=== PATIENT | female | born 1935 | race African-American/Black ===

== ENCOUNTER 2019-01-12 14:39 | Observation (INO) | payer MEDICARE ==
[2019-01-12 15:08] LABS: #Basophils 0.1 thou/uL (0.0-0.2); #Eosinphils 0.1 thou/uL (0.0-0.7); #Lymphocytes 1.4 thou/uL (1.20-3.40); #Monocytes 0.4 thou/uL (0.11-0.59); #Neutrophils 3.9 thou/uL (1.40-6.50); %Eosinophils 1.9 % (0.0-10.0); %Lymphocytes 23.6 % (21.0-51.0); %Monocytes 7.5 % (0.0-10.0); Hemoglobin 8.8 g/dL (12.0-16.0); Mean Corpuscular HGB CONC 32.4 g/dL (32.0-36.0); Mean Corpuscular Hemoglobin 30.4 pg (27.0-31.0); Mean Corpuscular Volume 93.8 fL (78.0-98.0); Mean Platelet Volume 8.3 fL (7.4-10.4); Platelet Count 187 thou/uL (130-400); RBC Distribution Width 12.2 % (11.5-14.5); Red Blood Cell (RBC) Count 2.89 mill/uL (4.20-5.40); White Blood Cell (WBC) Count 5.9 thou/uL (4.8-10.8)
[2019-01-12 15:30] LABS: ALT (SGPT) 76 U/L (8-55); AST (SGOT) 62 U/L (5-34); Albumin 3.8 g/dL (3.4-4.8); Alkaline Phosphatase 98 U/L (40-110); Anion Gap 10 mmol/L (10-20); BUN (Urea Nitrogen) 20 mg/dL (9.8-20.1); Bilirubin, Total 0.6 mg/dL (0.2-1.2); CK (CPK) 101 U/L (29-168); Calc. Creatinine Clearance 0 mL/min (70-130); Calcium 8.8 mg/dL (7.8-10.44); Carbon Dioxide 23 mmol/L (23-31); Chloride 110 mmol/L (98-107); Estimated GFR-MDRD 35; Globulin 3.2 g/dL (2.4-3.5); Glucose 76 mg/dL (83-110); Lipase 35 U/L (8-78); Potassium 4.4 mmol/L (3.5-5.1); Sodium 139 mmol/L (136-145)
--- NOTE | 2019-01-12 15:31 | RAD ---
AP CHEST: HISTORY: Chest pain. FINDINGS: Borderline cardiomegaly with postop sternotomy change. Vascular markings upper normal. Calcified gr anuloma in the right lower lung. No infiltrate or edema. IMPRESSION: Mild cardiomegaly. No acute lung process. POS: [facility]
[2019-01-12 16:38] LABS: INR-International Normal Ratio 1.2; PTT 45.7 SEC (22.9-36.1); Prothrombin Time 15.4 SEC (12.0-14.7)
[2019-01-12] MEDS ORDERED: Lidocaine 2% Viscous Solution 10 ML, Aluminum & Magnesium Hydroxide 30 ML SSW PRN (18:05)
[2019-01-12] MEDS ORDERED: Lidocaine 2% Viscous Solution 10 ML, Aluminum & Magnesium Hydroxide 30 ML SSW SCH (18:15)
[2019-01-12 18:25] VITALS: BMI 29.1
--- NOTE | 2019-01-12 18:41 | HP ---
PRIMARY CARE PROVIDER: Dr. Julieth Victoria in [place], [place], phone number [phone]. The patient is currently trying to establish care with Dr. Ady Cutler in [facility]. CHIEF COMPLAINT: Palpitations. HISTORY OF PRESENT ILLNESS: Ms. Brennan is a pleasant 83-year-old lady who was seen at [facility] on January 12, 2019. She moved to this area a few weeks ago from [place], [place]. She reports that she had nonmechanical aortic valve replacement and coronary artery bypass graft in 2013. She also reports having two stents. She was reportedly hospitalized this May for what she reports as infection. It appears that she had a bad episode of gastroesophageal reflux disease and was vomiting and was subsequently diagnosed with infection. During that hospitalization, she was told that she had atrial fibrillation. She has been on warfarin. She has not had her INR checked in a few weeks. She attempted to set up primary care in this area, but there was reportedly delay in obtaining records from her primary care provider in [place]. About four nights ago, she noticed that her heart started racing. She woke up around 2:00 a.m. and checked her heart rate with a pulse oximeter. The heart rate was in the 160s. She reports that during her hospitalization in May, she had to be electrically cardioverted. She has not required electrical cardioversion since then. She reports that over the last four days, she has also had retrosternal burning and dull sensation, on and off, 8/10 at its worst, accompanied by palpitations. She reports that at times it felt like acid reflux and at times it felt like pressure. She presented to the emergency room because of ongoing chest discomfort and palpitations. The patient reports that she has been wobbly since the onset of palpitations at times. REVIEW OF SYSTEMS: All systems were reviewed and found to be negative except for the pertinent positives mentioned above. PAST MEDICAL HISTORY: Atrial fibrillation, hiatal hernia, gastroesophageal reflux disease, dyslipidemia, hypertension. PAST SURGICAL HISTORY: Aortic valve replacement, coronary artery bypass graft surgery two vessel, cholecystectomy, hernia repair, hysterectomy, and spinal surgery. PSYCHIATRIC HISTORY: Anxiety. SOCIAL HISTORY: Rare alcohol use. No current tobacco use or recreational drug use. FAMILY HISTORY: Heart disease in both parents. CODE STATUS: She is full code. ALLERGIES: SHE IS ALLERGIC TO LOVASTATIN AND SIMVASTATIN. CURRENT MEDICATIONS: 1. Aspirin 81 mg daily. 2. Gabapentin 300 mg 3 times a day. 3. Toprol-XL 100 mg daily. 4. Nitroglycerin 0.4 mg as needed. 5. Omeprazole 20 mg daily. 6. Pravastatin 20 mg at bedtime. 7. Warfarin 5 mg daily. 8. Ferrous sulfate 325 mg daily. PHYSICAL EXAMINATION: GENERAL: Ms. Brennan is awake and alert, not in acute distress. VITAL SIGNS: Blood pressure is 189/89, pulse 57, respiratory rate 20, and oxygen saturation 99% on room air. She is afebrile. EYES: No scleral icterus. No conjunctival pallor. ENT: Moist mucosal membranes. No oropharyngeal erythema or exudates. NECK: Supple, nontender, trachea midline. RESPIRATORY: Accessory muscles of breathing are not active. Chest wall movements are symmetric bilaterally. She has a few bibasilar crackles. CARDIOVASCULAR: S1 and S2 are heard, regular. Peripheral pulses palpable. ABDOMEN: Soft, nontender, bowel sounds heard. NEUROLOGIC: Cranial nerves 2 through 12 are intact. MUSCULOSKELETAL: The patient is moving all 4 extremities. SKIN: No rashes or subcutaneous nodules. LYMPHATIC: No cervical lymphadenopathy. PSYCHIATRIC: Normal mood, normal affect. The patient is oriented to person, place, and time. LABORATORY DATA: Ms. Brennan's labs and investigations were reviewed. I reviewed her electrocardiogram, which shows normal sinus rhythm, no ST changes to suggest an acute coronary syndrome. I also reviewed her chest x-ray, which does not show any pulmonary infiltrates. She has normal white count, normocytic anemia with hemoglobin 8.8, normal platelet count, INR 1.2, normal sodium, normal potassium, normal blood urea nitrogen, elevated creatinine of 1.42, normal total bilirubin, normal alkaline phosphatase, elevated AST of 62, elevated ALT of 76, elevated BNP of 188, and normal troponin I. Lipase is normal. ASSESSMENT AND PLAN: Ms. Brennan is a pleasant 83-year-old lady who was seen at [facility] on January 12, 2019. Her problem list includes: 1. Palpitations: Ms. Brennan is presenting with palpitations, most likely secondary to atrial fibrillation. She actually is mildly bradycardic, on a ekg monitor tech in the emergency room. The patient reports feeling wobbly at times. It is possible that she has sick sinus syndrome. She will be admitted to the hospital for further management including ekg monitor tech. We will consult Cardiology Service for opinion and help with management. We will obtain records from her primary care provider in [place]. 2. Chest pain: The patient reports burning retrosternal discomfort, atypical for cardiac chest pain. Her troponin is normal. We will recheck troponin. We will monitor on telemetry. We will also try GI cocktail to see if it helps, since she does have a history of gastroesophageal reflux disease. 3. Atrial fibrillation: The patient has a history of atrial fibrillation, currently in sinus rhythm. INR is subtherapeutic. We will request Pharmacy to manage her Coumadin. 4. Abnormal LFTs: Isolated transaminitis, but CK is normal. We will recheck LFTs. Given her elevated BNP level, could be some element of hepatic congestion. 5. Peripheral neuropathy: The patient reports peripheral neuropathy, we will continue gabapentin once the dose is clarified. 6. Chronic kidney disease stage 3: The patient reports that she has a history of chronic kidney disease. We will monitor creatinine. Many thanks for allowing me to participate in your patient's care. Please feel free to contact me with any questions or concerns. LEVEL OF RISK: High. LEVEL OF COMPLEXITY: High. Job ID: [id number]
[2019-01-12 20:58] LABS: Troponin I Less than 0.010 ng/mL (< 0.028)
[2019-01-12] MEDS ORDERED: Gabapentin 100 MG CAP PO SCH (22:00)
[2019-01-13] MEDS: Acetaminophen 325 MG TAB PO PRN ×2 (00:23→10:41)
[2019-01-13] MEDS: Gabapentin 100 MG CAP PO SCH ×2 (08:52→15:45)
[2019-01-13] MEDS ORDERED: FLU VACC TS2019-20(65YR UP)/PF 180 MCG/0.5 ML SYRINGE IM ONE (09:00)
[2019-01-13 09:29] LABS: #Basophils 0.1 thou/uL (0.0-0.2); #Eosinphils 0.1 thou/uL (0.0-0.7); #Lymphocytes 1.3 thou/uL (1.20-3.40); #Monocytes 0.4 thou/uL (0.11-0.59); #Neutrophils 4.3 thou/uL (1.40-6.50); %Basophils 0.9 % (0.0-1.0); %Eosinophils 1.8 % (0.0-10.0); %Lymphocytes 20.5 % (21.0-51.0); %Monocytes 6.7 % (0.0-10.0); %Neutrophils 70.2 % (42.0-75.0); Hemoglobin 8.8 g/dL (12.0-16.0); Mean Corpuscular HGB CONC 32.1 g/dL (32.0-36.0); Mean Corpuscular Hemoglobin 30.5 pg (27.0-31.0); Mean Corpuscular Volume 94.9 fL (78.0-98.0); Mean Platelet Volume 8.9 fL (7.4-10.4); Platelet Count 163 thou/uL (130-400); RBC Distribution Width 12.2 % (11.5-14.5); Red Blood Cell (RBC) Count 2.88 mill/uL (4.20-5.40); White Blood Cell (WBC) Count 6.1 thou/uL (4.8-10.8)
[2019-01-13 09:34] LABS: INR-International Normal Ratio 1.2; Prothrombin Time 15.3 SEC (12.0-14.7)
[2019-01-13 09:44] LABS: Anion Gap 12 mmol/L (10-20); BUN (Urea Nitrogen) 14 mg/dL (9.8-20.1); Calc. Creatinine Clearance 38 mL/min (70-130); Calcium 8.9 mg/dL (7.8-10.44); Carbon Dioxide 21 mmol/L (23-31); Chloride 112 mmol/L (98-107); Estimated GFR-MDRD 43; Glucose 77 mg/dL (83-110); Potassium 4.8 mmol/L (3.5-5.1); Sodium 140 mmol/L (136-145)
[2019-01-13] MEDS ORDERED: guaiFENesin ER 600 MG TAB PO PRN (13:21)
[2019-01-13 16:30] VITALS: BP 168/74; TEMP 99.7
--- NOTE | 2019-01-13 16:48 | CON ---
DATE OF CONSULTATION: REASON FOR CONSULTATION: Atypical chest pain. PRIMARY RIPENING ROOM ATTENDANT: None. HISTORY OF PRESENT ILLNESS: Ms. Brennan is a pleasant 83-year-old woman, who has not been seen in a while in this area. She recently presented with not feeling well. She has had subjective fevers and chills. She was diagnosed with pneumonia secondary to aspiration in May. She also complains of chest pain. The pain is sharp, some reproducibility present. It lasts for a few minutes. Not related to exertion. She does have a previous history of underlying coronary artery disease, status post bypass surgery in 2013. Her symptoms are unlike her previous symptoms. PAST MEDICAL HISTORY: Atrial fibrillation, CAD, status post bypass surgery, hyperlipidemia, hypertension, acid reflux, AVR, cholecystectomy, hernia repair, hysterectomy, spinal surgery. SOCIAL HISTORY: No current tobacco or alcohol use. HOME MEDICATIONS: Include, 1. Aspirin. 2. Gabapentin. 3. Toprol. 4. Nitroglycerin. 5. Omeprazole. 6. Pravastatin. 7. Coumadin. 8. Iron sulfate. REVIEW OF SYSTEMS: Ten-point review of systems is reviewed and is as above, otherwise negative. PHYSICAL EXAMINATION: GENERAL: Patient is a pleasant female, who is in no acute distress. The patient appears their stated age. VITAL SIGNS: Blood pressure 191/77, pulse 60, temperature afebrile. NEUROLOGIC: The patient is alert and oriented x3 with no focal neurologic deficits. HEENT: Sclerae without icterus. Mouth has moist mucous membranes with normal pallor. NECK: No JVD. Carotid upstroke brisk. No bruits bilaterally. LUNGS: Clear to auscultation with unlabored respirations. BACK: No scoliosis or kyphosis. CARDIAC: Regular rate and rhythm with normal S1 and S2. No S3 or S4 noted. No significant rubs, murmurs, thrills, or gallops noted throughout the precordium. PMI is not displaced. There is no parasternal heave. CHEST: Pain reproducible after mild palpation to the right sternal border. ABDOMEN: Soft, nontender, nondistended. No peritoneal signs present. No hepatosplenomegaly. No abnormal striae. EXTREMITIES: 2+ femoral and 2+ dorsalis pedis pulses. No cyanosis, clubbing, or edema. SKIN: No gross abnormalities. LABORATORY DATA: Hemoglobin 8.8. Creatinine 1.4. IMPRESSION: 1. Atypical chest pain. 2. Coronary artery disease. 3. Status post bypass surgery. 4. Anemia. 5. Chronic kidney disease. 6. Mildly elevated BNP. 7. Status post bypass surgery. 8. Status post aortic valve replacement. RECOMMENDATIONS: Ms. Brennan's symptoms do not appear to be cardiac related. Her troponin has been negative. Her EKG is within normal limits without ST and T-wave changes. I would treat her blood pressure aggressively. She is currently on low-dose aspirin. May consider adding Norvasc in addition to hydralazine. May also consider switching metoprolol to Coreg. Continue pravastatin. Otherwise, from my standpoint, I have no further recommendations. Other noncardiac conditions per hospitalist. Please re-consult if needed. We will be happy to follow with Ms. Brennan as an outpatient. Job ID: [id number]
[2019-01-13] MEDS ORDERED: Warfarin Sodium 5 MG TAB PO SCH ×2 (17:00)
--- NOTE | 2019-01-14 02:15 | DIS ---
DATE OF ADMISSION: 01/12/2019 DATE OF DISCHARGE: 01/13/2019 PRIMARY CARE PROVIDER: Dr. Ady Cutler. DISCHARGE DIAGNOSES: 1. Palpitations. 2. Chronic kidney disease. 3. Normocytic anemia. CONDITION OF PATIENT ON THE DAY OF DISCHARGE: Stable. I assessed Ms. Brennan on the day of discharge. She denies any chest pain or shortness of breath. Vital signs are stable. S1 and S2 are heard, regular. Lungs are clear to auscultation bilaterally. HOSPITAL COURSE: Ms. Brennan is a pleasant 83-year-old lady who was admitted to [facility] for palpitations on 01/12/2019. She also reported burning chest discomfort, which resolved with GI cocktail. The patient was in normal sinus rhythm during this hospitalization. She was seen by Cardiology Service and has been cleared for discharge. She has been advised to follow up with primary care provider for warfarin management. Her INR was subtherapeutic during this hospitalization. On the day of discharge, she has sodium 140, potassium 4.8, creatinine 1.40, white count 6100, hemoglobin 8.8, and platelet count 163,000. Many thanks for allowing me to participate in your patient's care. Please feel free to contact me with any questions or concerns. DISCHARGE DESTINATION: Home. Job ID: [id number]
[2019-01-14] MEDS ORDERED: Pravastatin Sodium 20 MG TAB PO SCH (09:00)
[2019-01-14] MEDS ORDERED: Ferrous Sulfate 325 MG TAB PO SCH (09:00)
[2019-01-14] MEDS ORDERED: Cyanocobalamin (Vitamin B-12) 1,000 MCG TAB PO SCH (09:00)
[2019-01-14] MEDS ORDERED: Aspirin 81 mg Enteric Coated Tablet PO SCH (09:00)
== END 2019-01-13 17:59 | disposition home or self-care (01) ==
LOC: ERS 14:39 → 2SW 18:08
PROVIDERS: ADMIT Internal Medicine; ATTEND Internal Medicine
DX: R00.2 Palpitations (principal); R07.89 Other chest pain; I48.91 Unspecified atrial fibrillation; K21.9 Gastro-esophageal reflux disease without esophagitis; E78.5 Hyperlipidemia, unspecified; F41.9 Anxiety disorder, unspecified; G62.9 Polyneuropathy, unspecified; I12.9 Hypertensive chronic kidney disease with stage 1 through stage 4 chronic kidney disease, or unspecified chronic kidney disease; N18.3 Chronic kidney disease, stage 3 (moderate); D63.1 Anemia in chronic kidney disease; R79.89 Other specified abnormal findings of blood chemistry; I25.10 Atherosclerotic heart disease of native coronary artery without angina pectoris; Z87.891 Personal history of nicotine dependence; Z79.01 Long term (current) use of anticoagulants; Z79.82 Long term (current) use of aspirin; Z79.899 Other long term (current) drug therapy; Z88.8 Allergy status to other drugs, medicaments and biological substances; Z95.1 Presence of aortocoronary bypass graft; Z95.4 Presence of other heart-valve replacement; Z95.5 Presence of coronary angioplasty implant and graft
CPT/HCPCS: 71045; 80048; 80053; 82550; 83690; 83880; 84484 ×2; 85025 ×2; 85610 ×2; 85730; 90662; 93005; 94760 ×2; 99285; G0008; G0378 ×2; 36415; 90471

== ENCOUNTER 2019-02-16 08:20 | Outpatient (CLI) | payer MEDICARE ==
--- NOTE | 2019-02-16 09:56 | ULT ---
RENAL ULTRASOUND: HISTORY: Chronic renal disease and anemia. FINDINGS: Real-time imaging of the right and left kidneys was performed. The right kidney measured 11.1 cm and the left kidney 10.4 cm in size. There is a 4.4 cm upper pole right renal cyst present. The bladde r was incompletely distended at the time of this exam. IMPRESSION: A 4.4 cm upper pole right renal cyst. No obstruction or other findings. POS: [facility]
== END 2019-02-16 08:21 | disposition home or self-care (01) ==
LOC: BICULT 08:20
PROVIDERS: ATTEND Internal Medicine Nephrology
DX: N18.3 Chronic kidney disease, stage 3 (moderate) (principal); N28.1 Cyst of kidney, acquired
CPT/HCPCS: 76770

== ENCOUNTER 2019-02-23 16:37 | Observation (INO) | payer MEDICARE ==
[2019-02-23 19:34] VITALS: BMI 28.3
--- NOTE | 2019-02-23 19:55 | PDOC.FPRHP ---
- History of Present Illness Chief Complaint: generalized weakness, dizziness, intermittent imbalance History of Present Illness: Patient is an 83F with PMHx of afib on warfarin, CKD3, GERD, normocytic anemia, CAD s/p CABG, HTN, chronic diarrhea that was sent as a direct admit for anticoagulation management as well as stroke rule out. Patient reports that for the last few months, since , she has had generalized weakness, fatigue, intermittent dizziness and imbalance with both sitting and standing. She reports that her passed in September and since this time she has also had weight loss, with nausea that occurs with eating. She also has had trouble with anticoagulation on coumadin that she takes for her atrial fibrillation. Last INR in clinic 2 weeks ago was 1.3. Patient reports she takes her coumadin every day and avoids eating green leafy vegetables. Patient also reports chronic diarrhea. She states that this started one month ago, is watery in consistency, and occurs both during the day and at night. She states that she will have episodes of encopresis at night that wakes her from sleep. She denies urinary incontinence. Laboratory workup for this outpatient has demonstrated no clear etiology, though patient had a positive FOBT. She is followed by Dr. Iglesias and has an appointment with him later this month. Patient has known normocytic anemia. She has been referred to hematology for this, though has not seen anyone yet. PCP: Araceli ED Course: Direct admit from [facility] - Allergies/Adverse Reactions Allergies Allergy/AdvReac Type Severity Reaction Status Date / Time lovastatin Allergy Verified 01/12/19 18:05 simvastatin Allergy Verified 01/12/19 18:05 - Home Medications Medication Instructions Recorded Confirmed Type Aspirin [Ecotrin Low Strength] 81 mg PO DAILY 01/12/19 02/23/19 History Cholecalciferol [Vitamin D3] 1,000 unit PO DAILY 01/12/19 02/23/19 History Cyanocobalamin (Vitamin B-12) 1,000 mcg PO DAILY 01/12/19 02/23/19 History [Vitamin B-12] Ferrous Sulfate [Feosol] 325 mg PO DAILY 01/12/19 02/23/19 History Gabapentin [Neurontin] 100 mg PO TID 01/12/19 02/23/19 History Metoprolol Succinate [Toprol Xl] 100 mg PO DAILY 01/12/19 02/23/19 History Nitroglycerin 1 tab SL PRN PRN 01/12/19 02/23/19 History Pravastatin Sodium [Pravachol] 20 mg PO DAILY 01/12/19 02/23/19 History guaiFENesin [Mucus ER] 1,200 mg PO BID PRN 01/12/19 02/23/19 History Famotidine 10 mg PO DAILY 02/23/19 02/23/19 History Apixaban [Eliquis] 2.5 mg PO BID #60 tab 02/24/19 Rx Loperamide HCl [Imodium] 2 mg PO ASDIR PRN cap 02/24/19 Rx - History PMHx: afib on warfarin, CKD3, GERD, normocytic anemia, CAD s/p CABG, HTN, chronic diarrhea PSHx: 2-vessel CABG 2013, aortic valve replacement, hysterectomy, hiatal hernia repair, cholecystectomy FHx: negative stroke history Social: nonsmoker, no etoh use, no drug use - Review of Systems General: reports: weight/appetite/sleep changes (weight loss), fatigue Eyes: denies: eye pain, vision changes ENT: denies: nasal congestion, rhinorrhea Respiratory: denies: cough, shortness of breath Cardiovascular: denies: chest pain, palpitation Gastrointestinal: reports: nausea, diarrhea (watery). denies: abdominal pain Genitourinary: denies: incontinence, dysuria Skin: denies: rashes, lesions Musculoskeletal: reports: tenderness (lower legs at ankles ttp). denies: swelling Neurological: reports: weakness. denies: numbness, syncope Psychological: denies: anxiety, depression - Vital signs BP: [173/76] HR: [66] RR: [16] Tmax: [98.1] Pox: [98]% on [RA] Wt: [77.11kg] - Physical Exam Constitutional: NAD, awake, alert and oriented HEENT: PERRLA, EOMI, grossly normal hearing, MMM, good dention Neck: supple, FROM Chest: no-tender to palpation, no lesions Heart: RRR, normal S1/S2 Lungs: CTAB, no respiratory distress, good air movement Abdomen: soft, non-tender Musculoskeletal: normal structure, normal tone Neurological: no focal deficit, CN II-XII intact, normal sensation -Neurological: knees-abrams test negative Skin: no rash/lesions, good turgor Heme/Lymphatic: no unusual bruising or bleeding, no petechia Psychiatric: normal mood and affect, good judgment and insight FMR H&P: Results - Labs Result Diagrams: 02/24/19 17:38 02/24/19 05:00 FMR H&P: A/P - Problem List (1) HTN (hypertension) Status: Chronic Code(s): I10 - ESSENTIAL (PRIMARY) HYPERTENSION (2) GERD (gastroesophageal reflux disease) Status: Chronic Code(s): K21.9 - GASTRO-ESOPHAGEAL REFLUX DISEASE WITHOUT ESOPHAGITIS (3) Normocytic anemia Status: Chronic Code(s): D64.9 - ANEMIA, UNSPECIFIED (4) Atrial fibrillation Status: Chronic Code(s): I48.91 - UNSPECIFIED ATRIAL FIBRILLATION (5) CAD (coronary artery disease) Status: Chronic Code(s): I25.10 - ATHSCL HEART DISEASE OF [place] CORONARY ARTERY W/O ANG PCTRS (6) Chronic diarrhea Status: Chronic Code(s): K52.9 - NONINFECTIVE GASTROENTERITIS AND COLITIS, UNSPECIFIED (7) Generalized weakness Status: Acute Code(s): R53.1 - WEAKNESS - Plan Patient is an 83F with a PMHx of afib on warfarin, CKD3, GERD, normocytic anemia , CAD s/p CABG, HTN, chronic diarrhea admitted for stroke r/o #Generalized weakness, stroke r/o -generalized weakness, intermittent dizziness/instability for ~2mo -hx of afib, on coumadin, last check subtherapeutic INR at 1.3 -neuro exam intact today -MRI brain in am #Hx of Afib -on coumadin outpatient, last INR 1.3, subtherapeutic -will recheck INR today -CHADSVASC score 5 -HASBLED score 5 -recent FOBT positive -patient has high fall risk -will hold patient's coumadin for now, with likely discontinuation of anticoagulation due to high risk of bleeding #HENRY -creatinine 2.04, up from 1.04 -LR IVF hydration -will continue to monitor #HTN -continue home meds -BP high on initial evaluation, may need to adjust home medication regimen #Normocytic anemia -recent FOBT positive -patient has appointment with GI outpatient this month for scope #CKD3 -avoid renalyl toxic medications #GERD -continue home meds #Chronic diarrhea -outpatient stool studies negative -patient has appointment with GI outpatient this month for scope -patient reports loperamide helps, continue Diet: HH DVT ppx: SCDs Dispo: obs for stroke r/o, MRI brain in am Code: full FMR H&P: Upper Level - Pertinent history 83 yo female seen for evaluation after being sent from clinic for generalized weakness and rule out of CVA. Patient reports chronic diarrhea along with generalized weakness with some lightheaded episodes since Thanks. Please see rn intern note above for further information. - Plan Date/Time: 02/23/191954 I, Juan Alberto Mhuammad MD, have evaluated this patient and agree with findings/ plan as outlined by rn intern resident. Pertinent changes/additions are listed here. 1. Weakness, CVA rule out - MRI ordered for AM - Recent ECHO completed by Cardiology in last week. Will call for results in AM 2. A-fib - Check INR - Consider discontinuation of anticoagulation due to age and risk factors 3. HENRY - Likely due to dehydration from diarrhea - IVF - Baseline near 1.4, and 2.04 on admission 4. Diarrhea - Will get C. diff testing to rule out infectious cause. - IVF and supportive care All other chronic conditions reviewed and medications will be restarted as appropriate PCP: RIKI Llody CODE STATUS: FULL CODE Disposition: Stable, will admit to Telemetry for further monitoring. Addendum - Attending - Attending Attestation Date/Time: 02/25/19230 I personally evaluated the patient and discussed the management with Dr. Blanco I agree with the History, Examination, Assessment and Plan documented above with any addition or exceptions noted below - 83F with PMHx of afib on warfarin , CKD3, GERD, normocytic anemia, CAD s/p CABG, HTN, chronic diarrhea that was sent as a direct admit for anticoagulation management as well as stroke rule out. Patient reports that for the last few months, since , she has had generalized weakness, fatigue, intermittent dizziness and imbalance with both sitting and standing. She reports that her passed in September and since this time she has also had weight loss, with nausea that occurs with eating. PMH/PAH/Meds/SH reviewed and agree with resident's documentation. Afebrile VSS Exam repeated by me and agree with resident's findings. A/P: 1) Dizziness- MRI in AM to evaluate for possible posterior CVA 2) H/O A-fib- on warfarin but subtherapeutic. Will review with PCP need for anticoagulation versus using NOAC. .
[2019-02-23] MEDS ORDERED: Ondansetron ODT 4 MG TAB PO PRN (19:57)
[2019-02-23] MEDS ORDERED: Loperamide HCl 2 MG CAP PO PRN ×2 (19:57)
[2019-02-23] MEDS ORDERED: Acetaminophen 325 MG TAB PO PRN (19:57)
[2019-02-23 20:42] LABS: #Eosinphils 0.2 thou/uL (0.0-0.7); #Lymphocytes 2.3 thou/uL (1.20-3.40); #Monocytes 0.3 thou/uL (0.11-0.59); #Neutrophils 2.8 thou/uL (1.40-6.50); %Basophils 0.8 % (0.0-1.0); %Eosinophils 3.9 % (0.0-10.0); %Lymphocytes 40.4 % (21.0-51.0); %Monocytes 5.8 % (0.0-10.0); %Neutrophils 49.1 % (42.0-75.0); Hemoglobin 9.2 g/dL (12.0-16.0); Mean Corpuscular HGB CONC 32.3 g/dL (32.0-36.0); Mean Corpuscular Hemoglobin 30.2 pg (27.0-31.0); Mean Corpuscular Volume 93.4 fL (78.0-98.0); Mean Platelet Volume 7.3 fL (7.4-10.4); Platelet Count 235 thou/uL (130-400); Red Blood Cell (RBC) Count 3.06 mill/uL (4.20-5.40); White Blood Cell (WBC) Count 5.8 thou/uL (4.8-10.8)
[2019-02-23] MEDS ORDERED: Famotidine 20 MG TAB PO SCH (21:00)
[2019-02-23 21:22] LABS: ALT (SGPT) 21 U/L (8-55); AST (SGOT) 19 U/L (5-34); Albumin 3.9 g/dL (3.4-4.8); Alkaline Phosphatase 94 U/L (40-110); Anion Gap 13 mmol/L (10-20); BUN (Urea Nitrogen) 24 mg/dL (9.8-20.1); Bilirubin, Total 0.3 mg/dL (0.2-1.2); Calc. Creatinine Clearance 25 mL/min (70-130); Carbon Dioxide 26 mmol/L (23-31); Chloride 106 mmol/L (98-107); Estimated GFR-MDRD 28; Globulin 3.4 g/dL (2.4-3.5); Glucose 81 mg/dL (83-110); Potassium 4.7 mmol/L (3.5-5.1); Protein, Total 7.3 g/dL (6.0-8.3); Sodium 140 mmol/L (136-145)
[2019-02-23 22:15] LABS: INR-International Normal Ratio 1.9; Prothrombin Time 21.9 SEC (12.0-14.7)
[2019-02-23 22:16] LABS: PTT 45.8 SEC (22.9-36.1)
[2019-02-24] MEDS: Lactated Ringer's 1,000 ML IV SCH ×3 (00:28→16:10)
[2019-02-24] MEDS ORDERED: Nitroglycerin 0.4 MG TAB (25 Tab Bottle) SL PRN (01:19)
[2019-02-24] MEDS ORDERED: Simvastatin 5 MG TAB PO SCH (09:00)
[2019-02-24] MEDS ORDERED: Cyanocobalamin (Vitamin B-12) 1,000 MCG TAB PO SCH (09:00)
[2019-02-24] MEDS ORDERED: FAMOTIDINE 10 MG PO SCH (09:00)
[2019-02-24] MEDS ORDERED: Aspirin 81 mg Enteric Coated Tablet PO SCH (09:00)
[2019-02-24] MEDS ORDERED: guaiFENesin ER 600 MG TAB PO PRN (09:00)
[2019-02-24] MEDS ORDERED: Ferrous Sulfate 325 MG TAB PO SCH (09:00)
[2019-02-24] MEDS ORDERED: Lorazepam 1 MG TAB ONE (12:15)
[2019-02-24] MEDS: Gabapentin 100 MG CAP PO SCH ×2 (12:52→16:09)
--- NOTE | 2019-02-24 14:49 | MRI ---
MRI BRAIN PERFORMED WITHOUT CONTRAST ENHANCEMENT: Date: 02/24/19 HISTORY: TIA symptoms. FINDINGS: There is generalized ventricular and sulcal prominence. There is increased T2 and FLAIR signal change within the white matter. I do not see any signs of hemorrhage on the gradient sequence and no evidence for infarct on the diff usion-weighted sequence. Mastoid air cells are clear. An air fluid level is seen within the right maxillary sinus with mucosal change in both maxillary sinuses. IMPRESSION: 1. Atrophy with chronic white matter change. 2. Acute right maxillary sinusitis changes. POS: [facility]
[2019-02-24 16:11] LABS: Anion Gap 12 mmol/L (10-20); BUN (Urea Nitrogen) 25 mg/dL (9.8-20.1); Calc. Creatinine Clearance 27 mL/min (70-130); Calcium 8.9 mg/dL (7.8-10.44); Carbon Dioxide 25 mmol/L (23-31); Chloride 109 mmol/L (98-107); Estimated GFR-MDRD 30; Glucose 80 mg/dL (83-110); Potassium 4.9 mmol/L (3.5-5.1); Sodium 141 mmol/L (136-145)
[2019-02-24 16:16] VITALS: BP 141/60; TEMP 97.4
[2019-02-24] MEDS ORDERED: Warfarin Sodium 5 MG TAB PO SCH (17:00)
[2019-02-24 18:06] LABS: Reticulocyte Count 1.3 % (0.5-1.5)
[2019-02-24 18:09] LABS: Hemoglobin 9.3 g/dL (12.0-16.0); Mean Corpuscular HGB CONC 31.5 g/dL (32.0-36.0); Mean Corpuscular Hemoglobin 29.6 pg (27.0-31.0); Mean Corpuscular Volume 93.9 fL (78.0-98.0); Mean Platelet Volume 7.8 fL (7.4-10.4); Platelet Count 219 thou/uL (130-400); Red Blood Cell (RBC) Count 3.13 mill/uL (4.20-5.40); White Blood Cell (WBC) Count 6.2 thou/uL (4.8-10.8)
[2019-02-24 18:59] LABS: Band 1 % (5-11); Eosinophils 2 % (0-10); Lymphocytes 37 % (21-51); MDiff Complete? YES; Monocytes 4 % (0-10); Neutrophil 56 % (42-75); Platelet Morphology Comment Appears Adequate; Polychromasia SLIGHT = 2-3 cells (100X) (0-2/hpf)
[2019-02-24] MEDS ORDERED: Apixaban 2.5 MG TAB PO SCH (21:00)
--- NOTE | 2019-02-25 21:28 | EKG ---
Test Reason : STAT Blood Pressure : / mmHG Vent. Rate : 062 BPM Atrial Rate : 062 BPM P-R Int : 164 ms QRS Dur : 072 ms QT Int : 416 ms P-R-T Axes : 020 055 049 degrees QTc Int : 422 ms Normal sinus rhythm Normal ECG When compared with ECG of 12-JAN-2019 14:47, No significant change was found Confirmed by Jennifer CARABALLO ([id number]) on 02/25/2019 9:28:02 PM Referred By: KYARA Confirmed By:Jennifer CARABALLO
--- NOTE | 2019-02-26 11:41 | DIS ---
DATE OF ADMISSION: 02/23/2019 DATE OF DISCHARGE: 02/24/2019 RESIDENT: Matti Ward DO ADMITTING ATTENDING: Cale Bartholomew MD DISCHARGE ATTENDING: Yohannes Gan MD CONSULTS: None. PROCEDURES: On 02/24/2019, MRI of the brain revealed atrophy with chronic white matter change. No acute right maxillary sinusitis changes. No evidence of hemorrhage. PRIMARY DIAGNOSES: 1. Transient ischemic attack rule out. 2. Generalized weakness. 3. History of atrial fibrillation. 4. Acute kidney injury. SECONDARY DIAGNOSES: 1. Hypertension. 2. Normocytic anemia. 3. Chronic kidney disease 3. 4. Gastroesophageal reflux disease. 5. Chronic diarrhea. DISCHARGE MEDICATIONS: 1. Pravastatin 20 mg p.o. daily. 2. Nitroglycerin 0.4 mg sublingual p.r.n. chest pain. 3. Metoprolol 100 mg p.o. daily. 4. Mucus ER 1200 mg p.o. b.i.d. p.r.n. 5. Ferrous sulfate 325 mg p.o. daily. 6. Vitamin B12 of 1000 mcg p.o. daily. 7. Vitamin D3 of 1000 units p.o. daily. 8. Aspirin 81 mg p.o. daily. 9. Gabapentin 100 mg p.o. t.i.d. 10. Famotidine 10 mg p.o. daily. 11. Eliquis 2.5 mg p.o. b.i.d. 12. Imodium 2 mg p.o. p.r.n. DISCONTINUED MEDICATIONS: Warfarin 5 mg p.o. daily. HISTORY OF PRESENT ILLNESS/HOSPITAL COURSE: Katrin Brennan is an 83-year-old with past medical history significant for atrial fibrillation who was changed from warfarin to Eliquis during this stay, CKD 3, GERD, normocytic anemia, coronary artery disease status post CABG, hypertension, chronic diarrhea, was a direct admit from clinic for anticoagulation management and stroke rule out. The patient reported that for the last few months, she had generalized weakness, fatigue, intermittent dizziness, and imbalance, both sitting and standing. She reports that her passed in September and since that time, she had also had weight loss, nausea while eating. In the clinic, she was found to have an altered gait, so she was worked up for TIA versus stroke. MRI did not show any acute changes. She is also having difficulty with her anticoagulation on Coumadin. She was subtherapeutic in the clinic. We reached out to Cardiology, who recommended switching her to apixaban and continuing her on anticoagulation therapy. She had a HAS-BLED score of 5 and a CHADS-VASc score of 5. Her anticoagulation was complicated by the patient having chronic diarrhea and found to have a positive FOBT. Also discussed this with Cardiology who states that she had a normal echocardiogram recently. She also has chronic blood loss via GI, which she says had been worked up in the past, requiring her to have a couple of packed red blood cell transfusions. She has an appointment with Dr. Iglesias later this month. The patient was discharged with a negative MRI with close followup in the outpatient setting. DISPOSITION: Stable. DISCHARGE INSTRUCTIONS: 1. Location: [facility]. 2. Diet: Heart healthy. 3. Activity: Ad hunter. 4. Followup: Follow up with [facility] within 14 days. Job ID: [id number]
== END 2019-02-24 18:41 | disposition home or self-care (01) ==
LOC: 2SW 18:05
PROVIDERS: ADMIT Emergency Medicine; ATTEND Emergency Medicine
DX: R53.1 Weakness (principal); R42 Dizziness and giddiness; R26.89 Other abnormalities of gait and mobility; I12.9 Hypertensive chronic kidney disease with stage 1 through stage 4 chronic kidney disease, or unspecified chronic kidney disease; N18.3 Chronic kidney disease, stage 3 (moderate); D63.1 Anemia in chronic kidney disease; I48.91 Unspecified atrial fibrillation; K52.9 Noninfective gastroenteritis and colitis, unspecified; K21.9 Gastro-esophageal reflux disease without esophagitis; N17.9 Acute kidney failure, unspecified; I25.10 Atherosclerotic heart disease of native coronary artery without angina pectoris; Z79.82 Long term (current) use of aspirin; Z79.01 Long term (current) use of anticoagulants; Z79.899 Other long term (current) drug therapy; Z88.8 Allergy status to other drugs, medicaments and biological substances; Z95.1 Presence of aortocoronary bypass graft; Z95.4 Presence of other heart-valve replacement
CPT/HCPCS: 70551; 80048; 80053; 83010; 83615; 85007; 85025; 85027; 85046; 85610; 85730; 87324; 87449; 93005; 96360; 96361; 97139 ×2; G0378 ×2; G0379; 36415; 85060; 93010

== ENCOUNTER 2019-05-28 15:06 | Outpatient (CLI) | payer MEDICARE ==
[2019-05-28 17:22] LABS: Hemoglobin 9.2 g/dL (12.0-16.0); Mean Corpuscular HGB CONC 32.3 g/dL (32.0-36.0); Mean Corpuscular Hemoglobin 30.2 pg (27.0-31.0); Mean Corpuscular Volume 93.5 fL (78.0-98.0); Mean Platelet Volume 8.2 fL (7.4-10.4); Platelet Count 296 thou/uL (130-400); Red Blood Cell (RBC) Count 3.05 mill/uL (4.20-5.40); White Blood Cell (WBC) Count 6.2 thou/uL (4.8-10.8)
[2019-05-28 17:31] LABS: INR-International Normal Ratio 1.2; PTT 55.1 SEC (22.9-36.1); Prothrombin Time 14.8 SEC (12.0-14.7)
[2019-05-28 17:46] LABS: Anion Gap 13 mmol/L (10-20); BUN (Urea Nitrogen) 28 mg/dL (9.8-20.1); Calc. Creatinine Clearance 0 mL/min (70-130); Calcium 9.6 mg/dL (7.8-10.44); Carbon Dioxide 22 mmol/L (23-31); Chloride 109 mmol/L (98-107); Estimated GFR-MDRD 35; Glucose 80 mg/dL (83-110); Sodium 139 mmol/L (136-145)
== END 2019-05-28 15:07 | disposition home or self-care (01) ==
LOC: LABBT 15:06
PROVIDERS: ATTEND Internal Medicine Cardiovascular Disease
DX: Z01.812 Encounter for preprocedural laboratory examination (principal); I48.91 Unspecified atrial fibrillation
CPT/HCPCS: 80048; 85027; 85610; 85730

== ENCOUNTER 2019-05-29 13:43 | Observation (INO) | payer MEDICARE ==
[2019-05-29 15:25] LABS: Bilirubin Negative (Negative); Blood, Urine Negative (Negative); Clarity Clear (Clear); Glucose, Urine (Dipstick) Normal (Negative); Leukocyte Negative Leu/uL (Negative); Nitrite Negative (Negative); Protein, Urine (Dipstick) Negative (Neg-Trace); Urobilinogen Normal mg/dL (Less than 2)
[2019-05-29 16:12] LABS: #Basophils 0.1 thou/uL (0.0-0.2); #Eosinphils 0.1 thou/uL (0.0-0.7); #Lymphocytes 2.3 thou/uL (1.20-3.40); #Monocytes 0.4 thou/uL (0.11-0.59); #Neutrophils 3.3 thou/uL (1.40-6.50); %Basophils 0.9 % (0.0-1.0); %Eosinophils 2.2 % (0.0-10.0); %Monocytes 6.5 % (0.0-10.0); %Neutrophils 53.5 % (42.0-75.0); Mean Corpuscular HGB CONC 32.7 g/dL (32.0-36.0); Mean Corpuscular Hemoglobin 30.5 pg (27.0-31.0); Mean Corpuscular Volume 93.3 fL (78.0-98.0); Mean Platelet Volume 8.5 fL (7.4-10.4); Platelet Count 263 thou/uL (130-400); RBC Distribution Width 11.9 % (11.5-14.5); Red Blood Cell (RBC) Count 2.95 mill/uL (4.20-5.40); White Blood Cell (WBC) Count 6.2 thou/uL (4.8-10.8)
[2019-05-29 16:18] LABS: INR-International Normal Ratio 1.1; Prothrombin Time 14.6 SEC (12.0-14.7)
[2019-05-29 16:19] LABS: PTT 57.4 SEC (22.9-36.1)
[2019-05-29 16:33] LABS: ALT (SGPT) 12 U/L (8-55); AST (SGOT) 20 U/L (5-34); Albumin 3.9 g/dL (3.4-4.8); Alkaline Phosphatase 79 U/L (40-110); Anion Gap 15 mmol/L (10-20); BUN (Urea Nitrogen) 29 mg/dL (9.8-20.1); Bilirubin, Total 0.2 mg/dL (0.2-1.2); Calc. Creatinine Clearance 0 mL/min (70-130); Calcium 9.3 mg/dL (7.8-10.44); Carbon Dioxide 21 mmol/L (23-31); Chloride 109 mmol/L (98-107); Estimated GFR-MDRD 38; Globulin 3.6 g/dL (2.4-3.5); Glucose 74 mg/dL (83-110); Potassium 4.5 mmol/L (3.5-5.1); Protein, Total 7.5 g/dL (6.0-8.3); Sodium 140 mmol/L (136-145)
--- NOTE | 2019-05-29 18:43 | PDOC.FPRHP ---
- History of Present Illness Chief Complaint: GI Bleed History of Present Illness: Pt is an 83 yo female with PMH significant for aortic valve replacment in 2013, a-fib with pending ablation on Friday, TIA, GERD, Syncope who presents for blood per rectum. Blood was dark per pt but she brought the toilet paper. She states she saw blood in the toilet seat and toilet paper. She is unsure how much. She wiped twice with blood on toilet paper then showered. If was enough for her to be concerned. She had one episode 1 month ago which resolved on its own. She endorsed diarrhea. She had a colonoscopy 04/12 revealing perianal skin tags, 3 mm polyp in cecum removed, divtericulosis in the sigmoid colon, descedning colon, and transverse colon, internal hemorrhoids. Seen by Dr. Iglesias. She took rifaximin for diarrhea after the colonoscopy. She endorsed dizziness, weakness today but this has happened in the past. [facility] ED Course: Positive blood per rectum on exam, Hgb 9.0 - Allergies/Adverse Reactions Allergies Allergy/AdvReac Type Severity Reaction Status Date / Time lovastatin Allergy Verified 05/28/19 16:59 simvastatin Allergy Verified 05/28/19 16:59 - Home Medications Medication Instructions Recorded Confirmed Type Aspirin [Ecotrin Low Strength] 81 mg PO DAILY 01/12/19 02/23/19 History Cholecalciferol [Vitamin D3] 1,000 unit PO DAILY 01/12/19 02/23/19 History Gabapentin [Neurontin] 100 mg PO TID 01/12/19 02/23/19 History Metoprolol Succinate [Toprol Xl] 100 mg PO DAILY 01/12/19 02/23/19 History Nitroglycerin 1 tab SL PRN PRN 01/12/19 02/23/19 History Pravastatin Sodium [Pravachol] 20 mg PO HS 01/12/19 05/28/19 History Famotidine 20 mg PO DAILY 02/23/19 05/28/19 History Apixaban [Eliquis] 2.5 mg PO BID #60 tab 02/24/19 Rx Furosemide 1 tab PO DAILY 05/28/19 05/28/19 History - History PMHx: paroxysmal a-fib, CAD, aortic regurgitation, GERD, CKD III, hx of TIA, hx of Syncope, chronic diarrhea PSHx: cholecystectomy, stents, hysterectomy FHx: Denies hx of colon cancer Social: denies alcohol, drugs, tobacco - Review of Systems General: reports: weight/appetite/sleep changes (feels she has lost significant weight in last year). denies: fever/chills Eyes: denies: eye pain, vision changes ENT: denies: nasal congestion, rhinorrhea Respiratory: reports: exercise intolerance. denies: cough, shortness of breath Cardiovascular: denies: chest pain, palpitation, edema Gastrointestinal: reports: diarrhea, GI bleeding. denies: nausea, vomiting, constipation, abdominal pain Genitourinary: reports: dysuria. denies: incontinence Skin: denies: rashes Musculoskeletal: reports: pain, stiffness Neurological: reports: weakness. denies: numbness, syncope Psychological: denies: anxiety, depression - Vital signs BP: 181/74 HR: 62 RR: 16 Tmax: 97.8 Pox: 99% on RA Wt: 77 kg - Physical Exam Constitutional: NAD, awake, alert and oriented HEENT: PERRLA, EOMI Neck: FROM, trachea midline Heart: RRR, normal S1/S2, pulses present, no edema Lungs: CTAB, no respiratory distress, no wheezing Abdomen: soft, bowel sounds present -Abdomen: mild epigastric tenderness Musculoskeletal: normal tone, ROM grossly normal Neurological: no focal deficit, CN II-XII intact Skin: no rash/lesions, capillary refill <2 seconds Heme/Lymphatic: no purpura, no petechia Psychiatric: normal mood and affect, good judgment and insight FMR H&P: Results - Labs Result Diagrams: 05/30/19 06:38 05/30/19 06:38 Lab results: WBC 6.2 thou/uL (4.8-10.8) 05/29/19 15:29 Hgb 9.0 g/dL (12.0-16.0) L 05/29/19 15:29 Hct 27.6 % (36.0-47.0) L 05/29/19 15:29 MCV 93.3 fL (78.0-98.0) 05/29/19 15:29 Plt Count 263 thou/uL (130-400) 05/29/19 15:29 Neutrophils % 53.5 % (42.0-75.0) 05/29/19 15:29 Sodium 140 mmol/L (136-145) 05/29/19 15:29 Potassium 4.5 mmol/L (3.5-5.1) 05/29/19 15:29 Chloride 109 mmol/L (98-107) H 05/29/19 15:29 Carbon Dioxide 21 mmol/L (23-31) L 05/29/19 15:29 BUN 29 mg/dL (9.8-20.1) H 05/29/19 15:29 Creatinine 1.57 mg/dL (0.6-1.1) H 05/29/19 15:29 Glucose 74 mg/dL (83-110) L 05/29/19 15:29 Calcium 9.3 mg/dL (7.8-10.44) 05/29/19 15:29 Total Bilirubin 0.2 mg/dL (0.2-1.2) 05/29/19 15:29 AST 20 U/L (5-34) 05/29/19 15:29 ALT 12 U/L (8-55) 05/29/19 15:29 Alkaline Phosphatase 79 U/L (40-110) 05/29/19 15:29 Serum Total Protein 7.5 g/dL (6.0-8.3) 05/29/19 15:29 Albumin 3.9 g/dL (3.4-4.8) 05/29/19 15:29 Urine Ketones Negative mg/dL (Negative) 05/29/19 15:06 Urine Blood Negative (Negative) 05/29/19 15:06 Urine Nitrite Negative (Negative) 05/29/19 15:06 Ur Leukocyte Esterase Negative Rani/uL (Negative) 05/29/19 15:06 FMR H&P: A/P - Problem List (1) Hematochezia Current Visit: Yes Status: Acute Code(s): K92.1 - MELENA (2) Generalized weakness Current Visit: No Status: Acute Code(s): R53.1 - WEAKNESS (3) Atrial fibrillation Current Visit: No Status: Chronic Code(s): I48.91 - UNSPECIFIED ATRIAL FIBRILLATION (4) CAD (coronary artery disease) Current Visit: No Status: Chronic Code(s): I25.10 - ATHSCL HEART DISEASE OF [place] CORONARY ARTERY W/O ANG PCTRS (5) Chronic diarrhea Current Visit: No Status: Chronic Code(s): K52.9 - NONINFECTIVE GASTROENTERITIS AND COLITIS, UNSPECIFIED (6) GERD (gastroesophageal reflux disease) Current Visit: No Status: Chronic Code(s): K21.9 - GASTRO-ESOPHAGEAL REFLUX DISEASE WITHOUT ESOPHAGITIS (7) HTN (hypertension) Current Visit: No Status: Chronic Code(s): I10 - ESSENTIAL (PRIMARY) HYPERTENSION (8) Normocytic anemia Current Visit: No Status: Chronic Code(s): D64.9 - ANEMIA, UNSPECIFIED - Plan Pt is a 83 yo female who presents for bright red blood per rectum: # Hematochezia Normocytic anemia Colonoscopy 03/2019 revealed diverticuli, skin tags perianal, internal hemorroids. Hgb 9.0 -> 8.4 - monitor H/H in am - monitor for symptomatic anemia, currently stable w/o acute changes from her baseline - call GI in am to discuss anticoagulation, pt is supposed to have an ablation with Dr. Patel on Friday - held eliquis, aspirin - continue ferrous sulfate - Protonix BID # A-fib - held eliquis - held metoprolol per pt stating Dr. Patel wants it held starting on 05/29 # Aortic Regurg - continue lasix # Neuropathy - continue gabapentin # Hx of CAD - continue nitro prn - held asa # Chronic Diarrhea Seen by Dr. Iglesias - continue rifaximin # CKD III - stable # GERD - protonix BID - held home pepcid Fluids: SL Diet: NPO midnight VTE: Held for bleeding Code: DNI Dispo: admit to medical obs FMR H&P: Upper Level - Pertinent history 83 year old female presents with one episode of BRBPR today after loose BM. Patient states she noticed it this evening. There was blood in the toilet, as well as some bright red blood on toilet paper. She has not had another BM since that time. She denies having any blood on her underwear and is not having to wear a pad. Patient has urinated since her last BM and has not noted any blood during any of those visits to the restroom. Patient denies abdominal pain, although when you palpate epigastric region she is tender. She denies any significant shortness of breath, chest pain, N/V, or lower extremity swelling. Patient has intermittent diarrhea for which she had a colonoscopy in March by Dr. Iglesias. Patient has known diverticular disease and internal/ external hemorrhoids, but nothing new was detected based on colonoscopy and EGD performed in March. She was on rifaximin for 2 weeks. The diarrhea improved but did not resolve completely. She states she was told to only take it for the two weeks and to discontinue after that point. She continues to have diarrhea, particularly after eating. Patient has a history of anemia, but she states she was told to stop taking iron a few weeks ago as they were trying to do studies at that time. She was previously eating beets but has not in over a week. Patient is scheduled to have an ablation on Friday with Dr. Patel. She was told to discontinue her metoprolol Friday night in preparation for the procedure. - Pertinent findings General: Alert and oriented x3. No acute distress. HEENT: MMM Card: RRR, 3/6 systolic murmur Resp: CTA bilaterally, no acute respiratory distress Abdomen: TTP in epigastric region, no rebound or guarding, soft, non-distended Ext: Trace bilateral lower extremity edema, TTP on bilateral lower extremities ( chronic) Skin: Warm and dry, no significant pallor Rectum: See production intern H&P for details - Plan Date/Time: 05/29/191842 ILisy, have evaluated this patient and agree with findings/plan as outlined by production intern resident. Pertinent changes/additions are listed here. Lower GI bleed, likely 2/2 hemorrhoids vs diverticular bleed - Patient with recent colonoscopy and EGD by Dr. Iglesias in March, no acute findings at that time. Was started on rifaximin for diarrhea x2 weeks ( discontinued after 2 weeks). - Hx diverticulosis and hemorrhoids; hemorrhoids palpated on exam performed by production intern - Rectal exam with BRBPR on glove and external hemorrhoids noted, no significant active bleeding noted - H/H stable: H/H 9.0/27.6 --> 8.4/25.7; continue to trend - Consider obed consulting Dr. Iglesias in AM or sooner if patient becomes unstable - Hold anticoagulation at this time - Start BID protonix - Restart iron supplementation given anemia Hx Diverticulosis - May be contributing factor, particular with recent colonoscopy - Curbside consult GI in AM - Trend H/H Normocytic anemia - Likely related to GI loss and CKD Hx TIA - Continue home medications Hx biprosthetic valve replacement - Patient in need of anticoagulation, but continues to have rectal bleeding - Will need to discuss with appropriate consultants Afib - In sinus rhythm today - Noted after CABG, plan for ablation on Friday with Dr. Patel - Hold anticoagulation with recent bleed - Will need to be adequately anticoagulated, Amanda out of town, r/b/a need to be discussed with appropriate consultants - HTN - Continue to monitor BP - Continue home medications GERD - Will start on BID protonix due to GI bleed - Patient had recent EGD; no significant findings noted CKD stage 3 - Appears to be at baseline - Avoid nephrotoxic agents CAD - HH diet - Continue home medications DVT PPX: Hold d/t recent bleed GI PPX: Protonix Code status: DNI Dispo: Obs to medical unit. Anticipate LOS <48 hours. Addendum - Attending - Attending Attestation Date/Time: 05/30/19 7561 I personally evaluated the patient and discussed the management with Dr. Ward /Sai. I agree with the History, Examination, Assessment and Plan documented above with any addition or exceptions noted below.
[2019-05-29] MEDS ORDERED: Nitroglycerin 0.4 MG TAB (25 Tab Bottle) SL PRN (19:51)
[2019-05-29 19:57] VITALS: BMI 28.4
[2019-05-29 20:04] LABS: #Basophils 0.1 thou/uL (0.0-0.2); #Eosinphils 0.1 thou/uL (0.0-0.7); #Lymphocytes 2.8 thou/uL (1.20-3.40); #Monocytes 0.3 thou/uL (0.11-0.59); #Neutrophils 2.5 thou/uL (1.40-6.50); %Basophils 1.1 % (0.0-1.0); %Eosinophils 2.5 % (0.0-10.0); %Lymphocytes 48.1 % (21.0-51.0); %Monocytes 5.3 % (0.0-10.0); Hemoglobin 8.4 g/dL (12.0-16.0); Mean Corpuscular HGB CONC 32.7 g/dL (32.0-36.0); Mean Corpuscular Hemoglobin 30.4 pg (27.0-31.0); Mean Corpuscular Volume 92.8 fL (78.0-98.0); Mean Platelet Volume 7.9 fL (7.4-10.4); Platelet Count 254 thou/uL (130-400); RBC Distribution Width 11.7 % (11.5-14.5); Red Blood Cell (RBC) Count 2.77 mill/uL (4.20-5.40); White Blood Cell (WBC) Count 5.7 thou/uL (4.8-10.8)
[2019-05-29] MEDS ORDERED: Ferrous Sulfate 325 MG TAB PO SCH (20:15)
[2019-05-29] MEDS ORDERED: Sodium Chloride 0.9% (PF) 10 ML VIAL FS PRN (21:41)
--- NOTE | 2019-05-30 05:57 | PDOC.FM ---
- Subjective Subjective: Patient doing well this morning. Reports another BM last night that had blood in it, the BM was loose. Patient denies any advil use. Denies any pain with BM. Discussed plans of care of possibly consulting GI today for recs regarding anticoagulation, patient agreeable with plan of care. - Objective Vital Signs & Weight: Vital Signs (12 hours) Temp Pulse Resp BP BP BP Pulse Ox 05/30/19 04:00 98.0 F 64 18 159/76 H 100 05/30/19 00:00 97.8 F 60 17 160/88 H 100 05/29/19 21:44 97.8 F 68 14 145/72 H 99 05/29/19 20:00 97.8 F 60 18 162/102 H 99 05/29/19 19:58 97.8 F 60 18 162/102 H 100 Weight Weight 77.564 kg Result Diagrams: 05/30/19 06:38 05/30/19 06:38 Phys Exam - Physical Examination Constitutional: NAD HEENT: moist MMs, sclera anicteric Neck: supple, full ROM Respiratory: no wheezing, clear to auscultation bilateral Cardiovascular: RRR holosytolic murmur Gastrointestinal: soft, non-tender Musculoskeletal: no edema, pulses present chronic tenderness LLE Neurological: non-focal, moves all 4 limbs Psychiatric: normal affect, A&O x 3 Dx/Plan (1) Hematochezia Code(s): K92.1 - MELENA Status: Acute (2) Generalized weakness Code(s): R53.1 - WEAKNESS Status: Acute (3) Atrial fibrillation Code(s): I48.91 - UNSPECIFIED ATRIAL FIBRILLATION Status: Chronic (4) CAD (coronary artery disease) Code(s): I25.10 - ATHSCL HEART DISEASE OF [place] CORONARY ARTERY W/O ANG PCTRS Status: Chronic (5) Chronic diarrhea Code(s): K52.9 - NONINFECTIVE GASTROENTERITIS AND COLITIS, UNSPECIFIED Status : Chronic (6) GERD (gastroesophageal reflux disease) Code(s): K21.9 - GASTRO-ESOPHAGEAL REFLUX DISEASE WITHOUT ESOPHAGITIS Status: Chronic (7) HTN (hypertension) Code(s): I10 - ESSENTIAL (PRIMARY) HYPERTENSION Status: Chronic (8) Normocytic anemia Code(s): D64.9 - ANEMIA, UNSPECIFIED Status: Chronic - Plan Plan: #Lower GI bleed, likely 2/2 hemorrhoids vs diverticular bleed - Recent colonoscopy and EGD by Dr. Iglesias in March 2019: skin tags, diverticular disease, hemorrhoids. Was started on rifaximin for diarrhea x2 weeks (discontinued after 2 weeks). - Hx diverticulosis and hemorrhoids - Rectal exam with BRBPR on glove and external hemorrhoids noted, no significant active bleeding noted - H/H stable: H/H 9.0/27.6> 8.4/25.7>8.3/25.2; continue to trend - will consider consulting GI today regarding anticoagulation for planned ablation - Hold anticoagulation at this time - Started BID protonix, continue - Restarted iron supplementation given anemia, continue #Hx Diverticulosis - May be contributing factor - Trend H/H, stable at this time #Normocytic anemia - Likely related to GI loss and CKD #Hx TIA - Continue home medications #Hx biprosthetic valve replacement - Patient in need of anticoagulation, but continues to have rectal bleeding - Will need to discuss with appropriate consultants #Afib - In sinus rhythm today - Noted after CABG, plan for ablation on Friday with Dr. Patel - Hold anticoagulation with recent bleed - Will need to be adequately anticoagulated, Amanda out of town - Will discuss with GI this am #HTN - Continue to monitor BP - Continue home medications #GERD - Started on BID protonix due to GI bleed - Patient had recent EGD; no significant findings noted CKD stage 3 - Appears to be at baseline - Avoid nephrotoxic agents CAD - HH diet - Continue home medications DVT PPX: Hold d/t recent bleed GI PPX: Protonix Code status: DNI Dispo: Obs medical. Will consult GI for recs on anticoagulation needed for hx of biprosthetic valve, a fib, and planned ablation next week. Anticipate LOS < 48 hours. Addendum - Attending - Attending Attestation Date/Time: 05/30/19 3603 I personally evaluated the patient and discussed the management with Dr. Blanco. I agree with the History, Examination, Assessment and Plan documented above with any addition or exceptions noted below.
[2019-05-30 06:46] LABS: #Eosinphils 0.2 thou/uL (0.0-0.7); #Lymphocytes 2.3 thou/uL (1.20-3.40); #Monocytes 0.3 thou/uL (0.11-0.59); #Neutrophils 2.2 thou/uL (1.40-6.50); %Basophils 0.4 % (0.0-1.0); %Eosinophils 3.1 % (0.0-10.0); %Lymphocytes 45.6 % (21.0-51.0); Hemoglobin 8.3 g/dL (12.0-16.0); Mean Corpuscular HGB CONC 33.1 g/dL (32.0-36.0); Mean Corpuscular Hemoglobin 30.6 pg (27.0-31.0); Mean Corpuscular Volume 92.4 fL (78.0-98.0); Mean Platelet Volume 7.2 fL (7.4-10.4); Platelet Count 231 thou/uL (130-400); RBC Distribution Width 11.6 % (11.5-14.5); Red Blood Cell (RBC) Count 2.72 mill/uL (4.20-5.40)
[2019-05-30 07:04] LABS: Anion Gap 11 mmol/L (10-20); BUN (Urea Nitrogen) 25 mg/dL (9.8-20.1); Calc. Creatinine Clearance 39 mL/min (70-130); Calcium 9.3 mg/dL (7.8-10.44); Carbon Dioxide 25 mmol/L (23-31); Chloride 109 mmol/L (98-107); Estimated GFR-MDRD 46; Glucose 86 mg/dL (83-110); Potassium 4.6 mmol/L (3.5-5.1); Sodium 140 mmol/L (136-145)
[2019-05-30] MEDS: Rifaximin 550 MG TAB PO SCH ×3 (08:03→21:44)
[2019-05-30] MEDS: Gabapentin 100 MG CAP PO SCH ×3 (08:04→21:44)
[2019-05-30] MEDS: Furosemide 20 MG TAB PO SCH (08:04)
[2019-05-30] MEDS: Ferrous Sulfate 325 MG TAB PO SCH ×2 (08:04→17:18)
[2019-05-30] MEDS: Pantoprazole 40 MG VIAL IVP SCH ×2 (08:05→21:44)
[2019-05-30 09:24] LABS: Anion Gap 12 mmol/L (10-20); BUN (Urea Nitrogen) 23 mg/dL (9.8-20.1); Calc. Creatinine Clearance 40 mL/min (70-130); Calcium 9.3 mg/dL (7.8-10.44); Carbon Dioxide 23 mmol/L (23-31); Chloride 110 mmol/L (98-107); Estimated GFR-MDRD 47; Glucose 87 mg/dL (83-110); Potassium 4.7 mmol/L (3.5-5.1); Sodium 140 mmol/L (136-145)
[2019-05-30] MEDS: Acetaminophen 325 MG TAB PO PRN (12:22)
[2019-05-31 05:38] LABS: Eosinophils 3 % (0-10); Hemoglobin 8.4 g/dL (12.0-16.0); Hypochromia SLIGHT = 6-15 cells (100X) (0-5/hpf); Lymphocytes 49 % (21-51); MDiff Complete? YES; Mean Corpuscular HGB CONC 33.4 g/dL (32.0-36.0); Mean Corpuscular Hemoglobin 30.6 pg (27.0-31.0); Mean Corpuscular Volume 91.7 fL (78.0-98.0); Mean Platelet Volume 7.4 fL (7.4-10.4); Monocytes 6 % (0-10); Neutrophil 42 % (42-75); Platelet Count 246 thou/uL (130-400); Platelet Morphology Comment Appears Adequate; RBC Distribution Width 11.7 % (11.5-14.5); Red Blood Cell (RBC) Count 2.73 mill/uL (4.20-5.40); White Blood Cell (WBC) Count 4.7 thou/uL (4.8-10.8)
--- NOTE | 2019-05-31 05:46 | PDOC.FM ---
- Subjective Subjective: Doing well overnight, no acute events. Slept well. Tolerating PO well without n/ v. No fever/chills, CP, SOB. States has not had BM overnight but previous since admission, no blood in stool, small bright red blood when wiping. No abd pain. - Objective MAR Reviewed: Yes Vital Signs & Weight: Vital Signs (12 hours) Temp Pulse Resp BP BP Pulse Ox 05/31/19 04:34 97.2 F L 72 18 129/73 98 05/30/19 23:59 98.3 F 69 16 129/72 99 05/30/19 20:44 97.6 F 68 18 135/79 99 05/30/19 20:00 97.6 F 69 18 135/79 135/79 99 Weight Admit Weight 77.564 kg Weight 77.564 kg I&O: 05/29/19 05/30/19 05/31/19 05:59 06:59 06:59 Intake Total 725 Balance 725 Result Diagrams: 05/31/19 05:08 05/30/19 08:57 Phys Exam - Physical Examination Constitutional: NAD (resting comfortably, good spirits) HEENT: moist MMs Respiratory: no wheezing, no rales, no rhonchi, clear to auscultation bilateral Cardiovascular: RRR, no rub 3/6 KIARA, best heard right sternal border Gastrointestinal: soft, non-tender, no distention, positive bowel sounds Musculoskeletal: no edema Neurological: moves all 4 limbs Psychiatric: normal affect, A&O x 3 Dx/Plan (1) Hematochezia Code(s): K92.1 - MELENA Status: Acute (2) Atrial fibrillation Code(s): I48.91 - UNSPECIFIED ATRIAL FIBRILLATION Status: Chronic (3) CAD (coronary artery disease) Code(s): I25.10 - ATHSCL HEART DISEASE OF [place] CORONARY ARTERY W/O ANG PCTRS Status: Chronic (4) HTN (hypertension) Code(s): I10 - ESSENTIAL (PRIMARY) HYPERTENSION Status: Chronic (5) Normocytic anemia Code(s): D64.9 - ANEMIA, UNSPECIFIED Status: Chronic - Plan Plan: 83yo AAF with h/o Afib with biprosthetic aortic valve, GERD, CKD III, HTN, CAD presents for lower GI bleed. #Lower GI bleed, likely 2/2 hemorrhoids vs diverticular bleed - Recent colonoscopy and EGD by Dr. Iglesias in March 2019: skin tags, diverticular disease, hemorrhoids. Was started on rifaximin for diarrhea x2 weeks (discontinued after 2 weeks). - Rectal exam with BRBPR on glove and external hemorrhoids noted, no significant active bleeding noted - Hb stable, 9.0 -> 8.4 (Hb stable from Dec) - Holding anticoagulation at this time - Initially on protonix BID, will consider deescalation to home pepcid - Restarted iron supplementation given anemia, continue #Hx Diverticulosis - May be contributing factor - Trend H/H, stable at this time #Normocytic anemia - Likely related to GI loss and CKD #Hx TIA - Continue home medications #Hx biprosthetic valve replacement - Patient in need of anticoagulation, on Eliquis - Will need to discuss with appropriate consultants #Afib - In sinus rhythm today - Noted after CABG, plan for ablation this week with Dr. Patel - Holding anticoagulation with recent bleed - Will discuss case with Dr. Patel this morning for recommendations #HTN - Continue to monitor BP - Continue home medications #GERD - Started on BID protonix due to GI bleed, consider desecalation to home pepcid as likely hemorrhoidal bleed - Patient had recent EGD; no significant findings noted #CKD stage 3 - Appears to be at baseline - Avoid nephrotoxic agents #CAD - HH diet - Continue home medications PCP: RIKI Lloyd Code: DNI - Cardiac only DVT PPX: Hold d/t recent bleed GI PPX: Protonix IVF: SL Dispo: Obs medical. Hx of biprosthetic valve, a fib, and planned ablation this week. Admitted for lower GI bleed, improved, and suspected diverticular. Anticipate LOS <48 hours. Addendum - Attending - Attending Attestation Date/Time: 05/31/19 7999 I personally evaluated the patient and discussed the management with Dr. Medina. I agree with the History, Examination, Assessment and Plan documented above with any addition or exceptions noted below. Patient doing well. H/H stable. Awaiting call from EP about recommendations regarding OAC for her ablation procedure scheduled for tomorrow.
[2019-05-31 07:24] VITALS: TEMP 98.2
[2019-05-31] MEDS ORDERED: Non-Formulary Item 1 EACH (Famotidine [Famotidine] 20 MG) PO SCH (09:00)
[2019-05-31] MEDS ORDERED: Famotidine 20 MG TAB PO SCH (09:00)
[2019-05-31] MEDS: Furosemide 20 MG TAB PO SCH (09:26)
[2019-05-31] MEDS: Ferrous Sulfate 325 MG TAB PO SCH ×2 (09:26→17:01)
[2019-05-31] MEDS: Gabapentin 100 MG CAP PO SCH ×2 (09:26→17:01)
[2019-05-31 11:25] VITALS: BP 114/68
[2019-05-31] MEDS: Acetaminophen 325 MG TAB PO PRN (12:37)
--- NOTE | 2019-05-31 23:28 | CON ---
DATE OF CONSULTATION: REASON FOR CONSULTATION: Atrial fibrillation, oral anticoagulation guidance and bleeding. HISTORY OF PRESENT ILLNESS: Ms. Brennan is an 83-year-old woman recently referred to our practice from Dr. Jorge Rosas, her treating engineer. It was for consideration of potential atrial fibrillation ablation and Watchman. She was scheduled for an atrial fibrillation ablation tomorrow with Dr. Ward, but unfortunately presented to [facility] over the weekend reporting bright red blood per rectum. She is on Eliquis for stroke prophylaxis and her Eliquis and aspirin were held. Digital rectal exam did reveal some fresh red blood, which is thought to be from hemorrhoid and her hemoglobin was stable. EP consultation is requested in light of the scheduled procedure tomorrow in light of bleeding concerns. Ms. Brennan is feeling well, but fairly apprehensive about her procedure tomorrow. She is uncertain if she wishes to proceed. She reports having blood at home on toilet paper and also a month ago. This is concerning to her and she was here for observation. She denies any heart racing, palpitations, chest pain, pressure, syncope, near syncope, stroke, or stroke-like symptoms. REVIEW OF SYSTEMS: A 12-point review of systems was unremarkable except that listed above in the HPI. PAST MEDICAL HISTORY: 1. Atrial fibrillation. 2. Coronary artery disease. 3. Hypertension. 4. Hyperlipidemia. 5. GI bleed. 6. Coronary artery bypass graft. 7. Aortic valve disease, status post bioprosthetic AVR. 8. GERD. 9. Aortic regurgitation. 10. Chronic kidney disease stage 3. 11. TIA. 12. Syncope. 13. Diverticulosis. 14. Hemorrhoids. FAMILY HISTORY: Unremarkable. SOCIAL HISTORY: Denies alcohol, tobacco, or illicit drug use. HOME MEDICATIONS: Include aspirin 81 mg daily, vitamin D3 daily, Neurontin 100 mg t.i.d., Toprol-XL 100 mg daily, nitroglycerin sublingual as needed, Pravachol 20 mg at bedtime, 20 mg daily, Eliquis 2.5 mg b.i.d., furosemide daily. ALLERGIES: LOVASTATIN, SIMVASTATIN. PHYSICAL EXAMINATION: VITAL SIGNS: Temperature 98.2, pulse 67, blood pressure 113/73, respirations 18, oxygen is 98% on room air. GENERAL: The patient is alert, oriented, speech is clear. Affect is appropriate. She is in no apparent distress at the time of the exam. NECK: Supple without jugular venous distention. There is no lymphadenopathy. Trachea is midline. CARDIAC: Heart rate is regular. LUNGS: Clear to auscultation bilaterally without wheezes, crackles, or rhonchi. ABDOMEN: Soft, nontender without palpable masses. EXTREMITIES: Warm and dry to touch without clubbing, cyanosis, or edema. NEUROLOGIC: Grossly intact and nonfocal. Gait is stable with supervision for assistance only. DIAGNOSTIC STUDIES: Database; EKG is not performed. Telemetry is not connected. LABORATORY DATA: Hemoglobin ranges between 8.3 and 9. WBC is normal to low. Platelet count is 246. Chemistry; creatinine 1.32, potassium 4.7, otherwise unremarkable. IMPRESSION: 1. Atrial fibrillation with possible ablation tomorrow. 2. Oral anticoagulation, on Eliquis, reduced dose based on weight and baseline kidney function and advanced age, currently on hold due to GI bleed concern. 3. Bright red blood per rectum, thought to be hemorrhoid related. PLAN AND RECOMMENDATIONS: Ms. Brennan is feeling well and is ready to be released from this hospital stay. She is having second thoughts about her ablation tomorrow. She has had some bleeding issues with her hemorrhoids over the weekend and it is certainly not unreasonable to postpone this procedure. I discussed the importance of continued anticoagulation for at least 6-8 weeks, but ideally 3 months post left atrial ablation as any interruption during this acute recovery phase increases the chance for stroke. She voices understanding. She has been cleared to resume Eliquis, but wishes to delay her procedure. She will resume her Toprol-XL as well and I have arranged for an office visit on June 14 to further discuss treatment options moving forward. This has also been discussed with Dr. Medina. Thank you for allowing us to participate in the care of this patient. Job ID: [id number]
--- NOTE | 2019-06-01 10:35 | DIS ---
DATE OF ADMISSION: 05/29/2019 DATE OF DISCHARGE: 05/31/2019 RESIDENT: Shlomo Medina MD ADMITTING ATTENDING: Jaswinder Mejias MD DISCHARGE ATTENDING: Jaswinder Mejias MD. CONSULTS: Electrophysiology, Dr. Patel. PROCEDURES: None. PRIMARY DIAGNOSIS: Lower gastrointestinal bleed, suspected secondary to hemorrhoids or minor diverticular bleed. SECONDARY DIAGNOSES: 1. Diverticulosis. 2. Normocytic anemia. 3. History of transient ischemic attack. 4. History of bioprosthetic valve replaced. 5. History of atrial fibrillation. 6. Hypertension. 7. Gastroesophageal reflux disease. 8. Chronic kidney disease stage 3. 9. Coronary artery disease. DISCHARGE MEDICATIONS: 1. Ferrous sulfate 325 mg p.o. daily. 2. Lasix 20 mg p.o. daily. 3. Eliquis 2.5 mg p.o. b.i.d. 4. Pepcid 20 mg p.o. daily. 5. Gabapentin 300 mg p.o. t.i.d. 6. Aspirin 81 mg p.o. daily. 7. Vitamin D3 at 1000 units p.o. daily. 8. Toprol-XL 100 mg p.o. daily. 9. Nitroglycerin 0.4 mg sublingual p.r.n. 10. Pravastatin 40 mg p.o. at bedtime. HISTORY OF PRESENT ILLNESS AND HOSPITAL COURSE: The patient is a pleasant 83-year-old female with past medical history significant for aortic valve replacement in 2013, atrial fibrillation pending ablation, TIA, GERD, and syncope, who presents for blood per rectum. Per report, the blood was dark and thought that it was on the toilet paper only, not mixed in with the stool. She is unsure exactly how much. She said she had one episode like this one month ago that resolved on its own and endorses minor diarrhea. She said she had a colonoscopy on 04/12/2019, that demonstrated perianal skin tags, a 3 mm polyp in the cecum that was removed and diverticulosis in the sigmoid colon, descending colon, and transverse colon, as well as internal hemorrhoids. She is well known to Dr. Iglesias. She took rifaximin previously for diarrhea after the colonoscopy and that has since been discontinued. She does endorse a slight weakness today, but states this has been chronic in nature. Rectal exam was performed in the emergency department that showed blood per rectum and hemoglobin was checked that was 9. She was admitted for further evaluation and management. A repeat rectal exam demonstrated bright red blood per rectum on glove and external hemorrhoids that were noted with no significant active bleeding. Hemoglobin was trended and stable at 9 and this appears stable from December of 2019 as well. Due to the patient's recent endoscopy by Dr. Iglesias, it was determined that GI did not need to be consulted, she was monitored closely, anticoagulation including her Eliquis and aspirin were held. The patient was initially placed on Protonix twice daily. This was deescalated to her home Pepcid. The patient had no return of bloody bowel movements during her hospitalization, and given her iron deficiency anemia, she was restarted on iron supplementation. GI bleed resolved, suspected due to hemorrhoids with possible slight diverticular bleed, but more likely hemorrhoids as the cause. The patient's vital signs remained stable and at the time of discharge, she was very eager for discharge. Return precautions were discussed at length with the patient including indications for return, including return of bleeding, significant bleeding, lightheadedness, dizziness, or other types of symptoms. The patient voiced agreement understanding of this and appropriate followup. The patient does have a history of bioprosthetic valve and is on Eliquis. At the time of discharge, it was determined the patient could restart her home Eliquis and aspirin with return precautions given. The patient was due for an ablation with Dr. Patel the day after discharge. His team was consulted and came and evaluated the patient, who stated that due to this minor bleed and the patient off Eliquis for few days, the elective ablation would be postponed and she would follow up in 2 weeks for further evaluation. She was recommended that the antibiotics could be started when appropriate and restart her home metoprolol and these medications were restarted upon discharge and discussed with the patient. At the time of discharge, her home medications were restarted as per above and discharge plan discussed with the patient at length, she voiced agreement and understanding with appropriate return precautions. All questions were answered appropriately and the patient was discharged home. DISPOSITION: Stable. DISCHARGE MEDICATIONS: 1. Location, home. 2. Diet: Heart healthy. 3. Activity, as tolerated. 4. Followup; the patient to follow up with her primary care provider, Dr. Lloyd within one week of discharge. The patient should also follow up with Dr. Patel in 2 weeks as previously directed. Job ID: [id number]
== END 2019-05-31 17:38 | disposition home or self-care (01) ==
LOC: ERS 13:43 → T4-B 17:56
PROVIDERS: ADMIT Student in an Organized Health Care Education/Training Program; ATTEND Student in an Organized Health Care Education/Training Program
DX: K57.31 Diverticulosis of large intestine without perforation or abscess with bleeding (principal); D64.9 Anemia, unspecified; I12.9 Hypertensive chronic kidney disease with stage 1 through stage 4 chronic kidney disease, or unspecified chronic kidney disease; K21.9 Gastro-esophageal reflux disease without esophagitis; I48.91 Unspecified atrial fibrillation; I25.10 Atherosclerotic heart disease of native coronary artery without angina pectoris; N18.3 Chronic kidney disease, stage 3 (moderate); E78.5 Hyperlipidemia, unspecified; Z86.73 Personal history of transient ischemic attack (TIA), and cerebral infarction without residual deficits; Z95.2 Presence of prosthetic heart valve; Z79.899 Other long term (current) drug therapy; Z79.01 Long term (current) use of anticoagulants; Z79.82 Long term (current) use of aspirin; Z98.890 Other specified postprocedural states; Z88.8 Allergy status to other drugs, medicaments and biological substances
CPT/HCPCS: 80048; 80053; 81003; 82274; 85007; 85025 ×3; 85027; 85610; 85730; 87086; 96374; 96376; 97116 ×2; 97139 ×2; 99285; G0378 ×4; 36415; C9113

== ENCOUNTER 2019-08-06 09:11 | Inpatient (IN) | payer MEDICARE, OTHER ==
[2019-08-06 10:05] LABS: #Eosinphils 0.1 thou/uL (0.0-0.7); #Lymphocytes 1.4 thou/uL (1.20-3.40); #Monocytes 0.4 thou/uL (0.11-0.59); #Neutrophils 3.7 thou/uL (1.40-6.50); %Basophils 0.8 % (0.0-1.0); %Eosinophils 1.7 % (0.0-10.0); %Lymphocytes 24.4 % (21.0-51.0); %Neutrophils 66.1 % (42.0-75.0); Hemoglobin 6.2 g/dL (12.0-16.0); Mean Corpuscular Hemoglobin 27.4 pg (27.0-31.0); Mean Corpuscular Volume 91.2 fL (78.0-98.0); Mean Platelet Volume 8.6 fL (7.4-10.4); Platelet Count 235 thou/uL (130-400); RBC Distribution Width 12.7 % (11.5-14.5); Red Blood Cell (RBC) Count 2.26 mill/uL (4.20-5.40); White Blood Cell (WBC) Count 5.6 thou/uL (4.8-10.8)
[2019-08-06 10:17] LABS: ALT (SGPT) 16 U/L (8-55); AST (SGOT) 21 U/L (5-34); Albumin 3.7 g/dL (3.4-4.8); Alkaline Phosphatase 72 U/L (40-110); Anion Gap 14 mmol/L (10-20); BUN (Urea Nitrogen) 28 mg/dL (9.8-20.1); Bilirubin, Total 0.3 mg/dL (0.2-1.2); Calc. Creatinine Clearance 0 mL/min (70-130); Calcium 8.9 mg/dL (7.8-10.44); Carbon Dioxide 21 mmol/L (23-31); Chloride 111 mmol/L (98-107); Estimated GFR-MDRD 32; Globulin 3.2 g/dL (2.4-3.5); Glucose 89 mg/dL (83-110); Lipase 34 U/L (8-78); Potassium 4.1 mmol/L (3.5-5.1); Protein, Total 6.9 g/dL (6.0-8.3); Sodium 142 mmol/L (136-145)
[2019-08-06 10:27] LABS: Hypochromia SLIGHT = 6-15 cells (100X) (0-5/hpf); MDiff Complete? YES; Platelet Morphology Comment Appears Adequate; Polychromasia SLIGHT = 2-3 cells (100X) (0-2/hpf)
[2019-08-06 10:48] LABS: INR-International Normal Ratio 1.2; PTT 42.8 SEC (22.9-36.1); Prothrombin Time 14.8 sec (12.0-14.7)
[2019-08-06 11:01] LABS: Iron 22 ug/dL (50-170); Iron Binding Capacity, Total 403 mcg/dL (265-497)
--- NOTE | 2019-08-06 13:54 | CT ---
CT OF THE ABDOMEN AND PELVIS WITHOUT IV CONTRAST: 08/06/19 INDICATION: 83-year-old female with GI bleed. COMPARISON: Renal ultrasound dated 02/16/19 from [facility]. FINDINGS: There is a calcified granuloma in the right lower lobe. There is post procedural change at the gastro esophageal junction which may be related to a prior Ashli procedure. Gallbladder is surgically. There is some moderate intrahepatic and extrahepatic biliary ductal dilata tion likely related to post cholecystectomy state. No focal hepatic lesion is evident. The adrenal glands, pancreas, and spleen appear unremarkable on t his unopacified exam. There is a stable 4.5 cm cyst involving the superior pole of the right kidney. No hydronephrosis is demonstrated. No retroperitoneal hemorrhage is noted. There is moderate vascular calcification involving the abdominopelvic vasculature. There are a few scattered diverticula involving the colon without overt evidence of active diverticul itis. The appendix is normal in the right lower quadrant of the abdomen. No free fluid is evident. Th e reproductive structures are not demonstrated and presumed to be surgically absent. There are scattered degenerative and osteoarthritic change. There is diffuse osteopenia. No definite acute fracture is evident. IMPRESSION: 1. No definite acute CT abnormality. 2. Right renal cyst. 3. Cholecystectomy, suspected Ashli fundoplication procedure and hysterectomy. 4. Colonic diverticulosis without overt evidence of active diverticulitis. POS: BH
[2019-08-06] MEDS ORDERED: Ondansetron PF 4 MG/2 ML Vial ONE (13:56)
[2019-08-06 16:15] LABS: Bacteria/HPF 1+ HPF (None Seen); Bilirubin Negative (Negative); Blood, Urine Negative (Negative); Clarity Clear (Clear); Glucose, Urine (Dipstick) Normal (Negative); Leukocyte 75 Leu/uL (Negative); Nitrite Negative (Negative); Protein, Urine (Dipstick) Negative (Neg-Trace); RBC/HPF 0-3 HPF (0-3); Squamous Epithelial 0-3 HPF (0-3); Urobilinogen Normal mg/dL (Less than 2); WBC/HPF 0-3 HPF (0-3)
[2019-08-06] MEDS ORDERED: Furosemide 20 MG/2 ML VIAL ONE (17:47)
[2019-08-06] MEDS ORDERED: Furosemide 40 MG TAB ONE (17:47)
[2019-08-06 18:55] LABS: #Eosinphils 0.1 thou/uL (0.0-0.7); #Lymphocytes 1.9 thou/uL (1.20-3.40); #Monocytes 0.5 thou/uL (0.11-0.59); #Neutrophils 4.8 thou/uL (1.40-6.50); %Basophils 0.7 % (0.0-1.0); %Eosinophils 1.7 % (0.0-10.0); %Lymphocytes 25.3 % (21.0-51.0); %Monocytes 6.9 % (0.0-10.0); %Neutrophils 65.4 % (42.0-75.0); Mean Corpuscular HGB CONC 32.4 g/dL (32.0-36.0); Mean Corpuscular Hemoglobin 29.5 pg (27.0-31.0); Mean Platelet Volume 8.9 fL (7.4-10.4); Platelet Count 233 thou/uL (130-400); RBC Distribution Width 12.8 % (11.5-14.5); White Blood Cell (WBC) Count 7.3 thou/uL (4.8-10.8)
[2019-08-06] MEDS ORDERED: Acetaminophen 500 MG TAB ONE (19:38)
--- NOTE | 2019-08-06 20:28 | PDOC.FPRHP ---
- History of Present Illness Chief Complaint: SOB and anemia History of Present Illness: 83 y/o F with a pmhx of anemia, internal hemorrhoids, rectal bleeding, and a fib on eliquis presents to the ED after critical lab found in clinic of hgb 6.1. Pt states that since she was d/c'd from hx in May she has had BRBPR since 2 weeks ago. No further rectal bleeding since then, however she has 3-5 diarrhea stool a day. She had antibiotic use in May. Pt c/o palpitations occasionally with associated CP. This is not present right now. Pt c/o SOB abd dizzy with minimal exertion for the past few weeks. PT thinks she passed out last week after sitting down in a chair to rest. Pt see's Amanda Levy for her a fib and was scheduled for an ablation, however did not receive it and now does not want the procedure. Pt's GI physician is Dr. Iglesias. Last colonoscopy found internal hemorrhoids. ED course: Hgb 6.2 given 1.5 L NS and 1 unit pRBC's Given 20 IV lasix. pt had continued SOB after unit of blood given, post hgb 8.0 Admitted for SOB to tele obs - Allergies/Adverse Reactions Allergies Allergy/AdvReac Type Severity Reaction Status Date / Time latex Allergy Verified 08/06/19 22:55 lovastatin Allergy Verified 05/28/19 16:59 simvastatin Allergy Verified 05/28/19 16:59 - Home Medications Medication Instructions Recorded Confirmed Type Aspirin [Ecotrin Low Strength] 81 mg PO DAILY 01/12/19 08/07/19 History Cholecalciferol [Vitamin D3] 1,000 unit PO DAILY 01/12/19 08/07/19 History Gabapentin [Neurontin] 300 mg PO TID 01/12/19 08/07/19 History Metoprolol Succinate [Toprol Xl] 100 mg PO DAILY 01/12/19 08/07/19 History Pravastatin Sodium [Pravachol] 20 mg PO HS 01/12/19 08/07/19 History Famotidine 20 mg PO DAILY 02/23/19 08/07/19 History Apixaban [Eliquis] 2.5 mg PO BID #60 tab 02/24/19 08/07/19 Rx Furosemide 1 tab PO DAILY 05/28/19 08/07/19 History Ferrous Sulfate [Feosol] 325 mg PO DAILY #30 tab 05/31/19 08/07/19 Rx Cyanocobalamin (Vitamin B-12) 1 tab PO DAILY 08/07/19 08/07/19 History [Vitamin B-12] - History PMHx: a fib on chronic eliquis, anemia, aortic stenosis s/p valve replacement, aspiration PNA, GERD, HTN PSHx: Aortic Valve Replacement Mar 2013, hysterectomy, Rectal fistula repair 1972, Hiatal hernia repair 1972, gastric sx, cholecystectomy FHx: father: DM . Mother: "heart problems" Social: denies etoh, tobacco and drugs - Review of Systems General: reports: fatigue. denies: fever/chills Eyes: denies: vision changes ENT: denies: nasal congestion Respiratory: reports: shortness of breath, exercise intolerance. denies: cough Cardiovascular: reports: chest pain, palpitation, edema Gastrointestinal: reports: nausea, diarrhea, GI bleeding. denies: vomiting, constipation Genitourinary: denies: polyuria Skin: denies: rashes Musculoskeletal: reports: pain (R wrist), stiffness (R wrist) Neurological: reports: syncope (last week) Psychological: denies: anxiety - Vital signs BP: 190/73 HR: 57 RR: 22 Tmax: 98.6 F Pox: 97% on ra Wt: 81 kg - Physical Exam Constitutional: NAD, awake, alert and oriented -Constitutional: talks in 5 word sentences due to dyspnea HEENT: normocephalic and atraumatic, PERRLA, EOMI, conjunctiva clear, no scleral icterus, grossly normal vision, grossly normal hearing, MMM Neck: supple, trachea midline Heart: RRR, normal S1/S2, pulses present -Heart: trace LE pitting edema 2/6 sys murmur Lungs: good air movement, no retractions -Lungs: faint bibasilar crackles no wheezing speaks in 5 word sentences with long breaths in between. Abdomen: soft, non-tender, bowel sounds present Musculoskeletal: normal structure, ROM grossly normal -Musculoskeletal: pain with passive and active motion of R wrist Neurological: no focal deficit, CN II-XII intact, normal sensation Skin: no rash/lesions, good turgor Heme/Lymphatic: no unusual bruising or bleeding Psychiatric: normal mood and affect, good judgment and insight, intact recent and remote memory FMR H&P: Results - Labs Result Diagrams: 08/07/19 04:58 08/07/19 04:58 Lab results: WBC 7.3 thou/uL (4.8-10.8) 08/06/19 18:39 Hgb 8.0 g/dL (12.0-16.0) L 08/06/19 18:39 Hct 24.6 % (36.0-47.0) L 08/06/19 18:39 MCV 91.0 fL (78.0-98.0) 08/06/19 18:39 Plt Count 233 thou/uL (130-400) 08/06/19 18:39 Neutrophils % 65.4 % (42.0-75.0) 08/06/19 18:39 Sodium 142 mmol/L (136-145) 08/06/19 09:41 Potassium 4.1 mmol/L (3.5-5.1) 08/06/19 09:41 Chloride 111 mmol/L (98-107) H 08/06/19 09:41 Carbon Dioxide 21 mmol/L (23-31) L 08/06/19 09:41 BUN 28 mg/dL (9.8-20.1) H 08/06/19 09:41 Creatinine 1.83 mg/dL (0.6-1.1) H 08/06/19 09:41 Glucose 89 mg/dL (83-110) 08/06/19 09:41 Calcium 8.9 mg/dL (7.8-10.44) 08/06/19 09:41 Total Bilirubin 0.3 mg/dL (0.2-1.2) 08/06/19 09:41 AST 21 U/L (5-34) 08/06/19 09:41 ALT 16 U/L (8-55) 08/06/19 09:41 Alkaline Phosphatase 72 U/L (40-110) 08/06/19 09:41 B-Natriuretic Peptide 558.5 pg/mL (0-100) H 08/06/19 18:39 Serum Total Protein 6.9 g/dL (6.0-8.3) 08/06/19 09:41 Albumin 3.7 g/dL (3.4-4.8) 08/06/19 09:41 Lipase 34 U/L (8-78) 08/06/19 09:41 Urine Ketones Negative mg/dL (Negative) 08/06/19 14:47 Urine Blood Negative (Negative) 08/06/19 14:47 Urine Nitrite Negative (Negative) 08/06/19 14:47 Ur Leukocyte Esterase 75 Rani/uL (Negative) A 08/06/19 14:47 Urine RBC 0-3 HPF (0-3) 08/06/19 14:47 Urine WBC 0-3 HPF (0-3) 08/06/19 14:47 Ur Squamous Epith Cells 0-3 HPF (0-3) 08/06/19 14:47 Urine Bacteria 1+ HPF (None Seen) A 08/06/19 14:47 - EKG Interpretation EKG: NSR with PAC's rate 66 - Radiology Interpretation Chest x-ray Status: report reviewed by me (cardiomegaly without evidence of acute cardiopulmonary disease) FMR H&P: A/P - Problem List (1) Volume overload Current Visit: Yes Status: Acute Code(s): E87.70 - FLUID OVERLOAD, UNSPECIFIED (2) Atrial fibrillation Current Visit: Yes Status: Chronic Code(s): I48.91 - UNSPECIFIED ATRIAL FIBRILLATION (3) GERD (gastroesophageal reflux disease) Current Visit: Yes Status: Chronic Code(s): K21.9 - GASTRO-ESOPHAGEAL REFLUX DISEASE WITHOUT ESOPHAGITIS (4) HTN (hypertension) Current Visit: Yes Status: Chronic Code(s): I10 - ESSENTIAL (PRIMARY) HYPERTENSION (5) Normocytic anemia Current Visit: Yes Status: Chronic Code(s): D64.9 - ANEMIA, UNSPECIFIED (6) Diarrhea Current Visit: Yes Status: Acute Code(s): R19.7 - DIARRHEA, UNSPECIFIED (7) HENRY (acute kidney injury) Current Visit: Yes Status: Acute Code(s): N17.9 - ACUTE KIDNEY FAILURE, UNSPECIFIED - Plan 83 y/o F admitted to [facility] for SOB most likely 2/2 Transfusion associated cardiovascular overload vs acute HF exacerbation. 1. Dyspnea - DDx: transfusion associated cardiovascular overload, acute HR exacerbation from tachycardia/ worsening a fib frequency - Received X2, 20 mg IV lasix on 08/05. Ordered 40 mg IV lasix for AM 2. Symptomatic anemia - given 1 unit pRBC in ED - hg improved from 6.2 to 8.0 - trend h/h in AM - continue eliquis as bleeding per rectum stopped X2 weeks ago - Likely mix of acute blood loss from BRBPR that stopped 2 weeks ago and anemia of chronic disease. - normocytic anemia. Ordered b12, and folate. Low iron and normal ferritin/ TIBC. TIBC on high end of normal range. 3. Lower GI bleeding, resolved - Likely contributing factor along with anemia of chronic disease causing the anemia - hx of internal hemorrhoids - will consult GI if h/h drop further overnight. - continue eliquis as she has not had BRBPR in 2 weeks 4. Diarrhea - sent stool studies for c diff, e coli and lactoferrin 5. HENRY - most likely from volume overload status vs diarrhea - trend daily 6. Hx of HFpEF - echo 01/2019: EF 55-60%, grade 1 diastolic dysfunction, LA severely dilated, moderate increased pulmonary artery pressures, moderate pulmonic regurg. - Dr. Patel manages pt's a fib and was planning ablation, however pt does not want this procedure. - Lasix IV 4 mg in AM - weight daily, fluid restrict <1800 ml/day, strict I/O 7. Hx of A fib - continue eliquis - f/u outpt with Dr. Patel about possible ablation or further treatment options. - continue bb 8. Hx of aortic stenosis, S/P valve replacement 2013 - echo in 01/2019 showed normal functioning aortic valve, with no stenosis. 9. Hx of HTN - continue home medications. - elevated upon admission, likely 2/2 volume overload state. - Q4H vitals. Codes Status: Full code Diet: HH, <1800 ml/day fluid restriction VTE ppx: SCD's Dispo: stable, admit to tele obs for liekly <2 midnight. FMR H&P: Upper Level - Pertinent history 83 y/o F PMHx paroxysmal a-fib, HTN, HLD, CAD presents to the ED due to Hb 6.1 in clinic and associated SOB. The patient had been seen yesterday in clinic for SOB and palpitations. She was found to have a Hb 6.1 and recommended to go to the ER. She had a recent GI bleed in May and on a prior colonoscopy she was found to have internal hemorrhoids. She reports over the past month since discharge she was having intermittent BRBPR, but this stopped about 2 weeks ago. Around that time is when she started developing SOB. She reports [place] and palpitations as well. She was supposed to get an ablation in May for her a-fib, but was unable to due to her GI bleed and now is second guessing if she wants it. She also reports multiple episodes of diarrhea per day. - Pertinent findings Vitals: BP 194/76, HR 63, RR 26, Temp 98.3 O2 sat 98% on RA PE: Gen - alert, oriented, appears in mild respiratory distress HEENT - MMM CV - 3/6 systolic murmur, regular rhythm Resp - mild bibasilar crackles, able to speak in 5 word sentences Ext - trace pitting edema to knees bilaterally Labs: BNP 558, Hb 6.2->8.0, PT 14.8, INR 1.2, PTT 42.8, FOBT neg, BUN 28, Cr 1.83 CXR - cardiomegaly CT abd - no acute process - Plan Date/Time: 08/06/192027 I, Malu Sauceda MD, PGY-3, have evaluated this patient and agree with findings/ plan as outlined by rn internship resident. Pertinent changes/additions are listed here. 1. Acute vs Acute on Chronic CHF exacerbation Pt with recent echo showing EF 55% and grade I/III diastolic dysfunction, now with significant anemia and suspected worsened CHF. Received 1U PRBC and 1.5L NS in the ED -Monitor on tele -s/p 20mg Lasix in ED, will give another 20mg lasix now and 40qAM -Repeat echo -Strict I/O's -Daily weights -Fluid restrict 2. Symptomatic Anemia Pt with Hb 6.2, improved to 8.0 after 1U PRBC's. Iron studies consistent with Iron deficiency, MCV normocytic. FOBT negative, do not suspect current active GI bleed, appears to have been slow bleed vs chronic -Will check B12, folate, peripheral smear, retic count -Monitor H/H 3. Diarrhea -Will check stool studies 4. Paroxysmal a-fib Pt was supposed to get an ablation with Dr. Patel, but now is not wanting to -Continue BB and eliquis -Monitor on tele 5. HTN -Cont home meds Diet: HH VTE ppx: Eliquis, SCD's Code status: Full Addendum - Attending - Attending Attestation Date/Time: 08/07/19 1010 I personally evaluated the patient and discussed the management with the team. I agree with the History, Examination, Assessment and Plan documented above with any addition or exceptions noted below. S/p significant fluid and now with clinical volume overload. Will diurese, obtain TTE. Trend h/h and obtain GI consultation.
--- NOTE | 2019-08-06 21:01 | RAD ---
SINGLE VIEW OF THE CHEST: 08/06/19 COMPARISON: 01/12/19. HISTORY: Dyspnea. Atrial fibrillation. FINDINGS: Single view of the chest shows an enlarged but stable cardiomediastinal silhouette. The patient is st atus post sternotomy. A calcified granuloma projects over the right lower lobe. There is no evidence of consolidation or pleural effusion. Postsurgical changes are seen near the gastroesophageal junctio n. IMPRESSION: Cardiomegaly without evidence of acute cardiopulmonary disease. POS: EAA
[2019-08-06] MEDS ORDERED: Furosemide 20 MG/2 ML VIAL SLOW IVP SCH (21:15)
[2019-08-06] MEDS ORDERED: Ondansetron ODT 4 MG TAB PO PRN (21:15)
[2019-08-06 22:12] LABS: Troponin I 0.025 ng/mL (< 0.028)
[2019-08-06] MEDS ORDERED: Apixaban 2.5 MG TAB PO SCH (23:00)
[2019-08-06] MEDS ORDERED: Pravastatin Sodium 20 MG TAB PO SCH (23:00)
[2019-08-06] MEDS ORDERED: Gabapentin 300 MG CAP PO SCH (23:00)
[2019-08-06] MEDS ORDERED: Nitroglycerin 0.4 MG TAB (25 Tab Bottle) SL PRN (23:05)
[2019-08-06 23:46] LABS: Reticulocyte Count 3.1 % (0.5-1.5)
[2019-08-07 01:17] LABS: Troponin I 0.045 ng/mL (< 0.028)
[2019-08-07] MEDS ORDERED: hydrALAZINE 20 MG/ML VIAL SLOW IVP PRN (05:01)
[2019-08-07] MEDS ORDERED: Labetalol HCl 100 MG/20 ML VIAL SLOW IVP PRN ×2 (05:01→07:30)
[2019-08-07 05:14] LABS: #Eosinphils 0.4 thou/uL (0.0-0.7); #Lymphocytes 1.5 thou/uL (1.20-3.40); #Monocytes 0.4 thou/uL (0.11-0.59); #Neutrophils 3.7 thou/uL (1.40-6.50); %Basophils 0.6 % (0.0-1.0); %Eosinophils 6.2 % (0.0-10.0); %Lymphocytes 24.8 % (21.0-51.0); %Monocytes 7.2 % (0.0-10.0); %Neutrophils 61.2 % (42.0-75.0); Hemoglobin 7.2 g/dL (12.0-16.0); Mean Corpuscular HGB CONC 31.2 g/dL (32.0-36.0); Mean Corpuscular Hemoglobin 28.5 pg (27.0-31.0); Mean Corpuscular Volume 91.2 fL (78.0-98.0); Platelet Count 198 thou/uL (130-400); RBC Distribution Width 12.8 % (11.5-14.5); Red Blood Cell (RBC) Count 2.53 mill/uL (4.20-5.40); White Blood Cell (WBC) Count 6.1 thou/uL (4.8-10.8)
[2019-08-07 05:22] LABS: Band 4 % (5-11); Eosinophils 4 % (0-10); Hemoglobin 7.3 g/dL (12.0-16.0); Lymphocytes 24 % (21-51); MDiff Complete? YES; Mean Corpuscular HGB CONC 31.5 g/dL (32.0-36.0); Mean Corpuscular Hemoglobin 28.7 pg (27.0-31.0); Mean Corpuscular Volume 91.3 fL (78.0-98.0); Mean Platelet Volume 8.2 fL (7.4-10.4); Monocytes 5 % (0-10); Neutrophil 62 % (42-75); Platelet Count 207 thou/uL (130-400); Platelet Morphology Comment Appears Adequate; RBC Distribution Width 12.8 % (11.5-14.5); Red Blood Cell (RBC) Count 2.52 mill/uL (4.20-5.40); White Blood Cell (WBC) Count 5.9 thou/uL (4.8-10.8)
[2019-08-07] MEDS: Acetaminophen 500 MG TAB PO PRN ×2 (05:32→23:50)
[2019-08-07 05:35] LABS: Anion Gap 11 mmol/L (10-20); BUN (Urea Nitrogen) 22 mg/dL (9.8-20.1); Calc. Creatinine Clearance 36 mL/min (70-130); Calcium 8.8 mg/dL (7.8-10.44); Carbon Dioxide 26 mmol/L (23-31); Chloride 109 mmol/L (98-107); Estimated GFR-MDRD 39; Glucose 83 mg/dL (83-110); Potassium 4.1 mmol/L (3.5-5.1); Sodium 142 mmol/L (136-145)
--- NOTE | 2019-08-07 06:08 | PDOC.FM ---
- Subjective Subjective: Patient complains of feeling SOB this AM. Denies CP. Also complains of headache. No vision changes. Asks why her R clavicle hurts. Has painful lump over her R shoulder and is not sure if that has anything to do with the clavicle pain. Overnight telemetry sinus bradycardia. - Objective MAR Reviewed: Yes Vital Signs & Weight: Vital Signs (12 hours) Temp Pulse Resp BP BP Pulse Ox 08/07/19 05:19 53 L 190/81 H 08/07/19 05:00 97.8 F 53 L 16 190/82 H 96 08/07/19 03:22 167/58 H 08/06/19 22:40 98.6 F 59 L 16 200/99 H 99 Weight Weight 82.01 kg Result Diagrams: 08/07/19 04:58 08/07/19 04:58 Phys Exam - Physical Examination Constitutional: NAD Respiratory: no rales, wheezing present (mild diffuse wheezing) Cardiovascular: RRR (2/6 systolic murmur best heard over RUSB) Gastrointestinal: soft, non-tender, positive bowel sounds No edema however SCDs in place, no sacral edema 2.5 cm firm mobile mass over anterior R shoulder, TTP, likely lipoma Psychiatric: normal affect, A&O x 3 Dx/Plan (1) HENRY (acute kidney injury) Code(s): N17.9 - ACUTE KIDNEY FAILURE, UNSPECIFIED Status: Acute (2) Diarrhea Code(s): R19.7 - DIARRHEA, UNSPECIFIED Status: Acute (3) Volume overload Code(s): E87.70 - FLUID OVERLOAD, UNSPECIFIED Status: Acute (4) GERD (gastroesophageal reflux disease) Code(s): K21.9 - GASTRO-ESOPHAGEAL REFLUX DISEASE WITHOUT ESOPHAGITIS Status: Chronic (5) HTN (hypertension) Code(s): I10 - ESSENTIAL (PRIMARY) HYPERTENSION Status: Chronic (6) Hematochezia Code(s): K92.1 - MELENA Status: Acute (7) CAD (coronary artery disease) Code(s): I25.10 - ATHSCL HEART DISEASE OF [place] CORONARY ARTERY W/O ANG PCTRS Status: Chronic - Plan Plan: 83 yo F recently moved here from [place] about 8 months ago: Acute vs Acute on Chronic CHF exacerbation Pt with recent echo showing EF 55% and grade I/III diastolic dysfunction, now with significant anemia and suspected worsened CHF. Received 1U PRBC and 1.5L NS in the ED -Monitor on tele - pt still SOB and symptomatic today. -Lasix today. Takes lasix 20mg PO daily as home med. -Repeat echo today. -Strict I/O's -Daily weights -Fluid restrict to 1.8 L/day Symptomatic Anemia Iron deficiency, acute vs chronic - Hospitalized in May for GI bleed and found to have internal hemorrhoids - Hb 6.2, improved to 8.0 after 1U PRBC's. Now decreased to 7.2. - Iron studies consistent with Iron deficiency, MCV normocytic. - FOBT negative, do not suspect current active GI bleed, slow bleed vs chronic - Retic count 3.1%, absolute retic 1.7 indicating hypoproliferation; however, will call lab this AM to confirm if this lab was run on blood prior to transfusion Diarrhea, likely chronic -Stool studies pending -suspect this is chronic and that patient often has soft stools. -had diarrhea on last hospitalization Hx of Paroxysmal a-fib - Sees Dr. Patel. Was supposed to have ablation which she may or may not pursue now. - Continue BB and eliquis - Monitor on tele HTN, elevated - highest here 200/99, pt symptomatic w/ headache - hydralazine prn if SBP >180, labetalol also available but HR is in 50s. Do not use labetalol if HR < 60. - Cont home meds R shoulder lipoma - f/u outpatient Diet: HH VTE ppx: Eliquis, SCD's Code status: Full Addendum - Attending - Attending Attestation Date/Time: 08/07/19 1033 I personally evaluated the patient and discussed the management with Dr. Pena. I agree with the History, Examination, Assessment and Plan documented above with any addition or exceptions noted below. Pursuing workup for volume overload. Repeat Echo as she possibly has a change in her cardiac status. Diuresis. Trend H/H.
[2019-08-07] MEDS: Famotidine 20 MG TAB PO SCH (08:57)
[2019-08-07] MEDS: Aspirin 81 mg Enteric Coated Tablet PO SCH (08:57)
[2019-08-07] MEDS: Ferrous Sulfate 325 MG TAB PO SCH (08:58)
[2019-08-07] MEDS: Furosemide 40 MG/4 ML VIAL SLOW IVP SCH (08:58)
[2019-08-07] MEDS: Gabapentin 300 MG CAP PO SCH ×3 (08:58→20:59)
[2019-08-07] MEDS: Apixaban 2.5 MG TAB PO SCH ×2 (09:17→20:59)
[2019-08-07 10:55] LABS: Troponin I 0.022 ng/mL (< 0.028)
--- NOTE | 2019-08-07 13:02 | RAD ---
EXAM: CHEST ONE VIEW HISTORY: Dyspnea COMPARISON: 08/06/2019 FINDINGS: Postoperative changes related to median sternotomy are again seen. Cardiac silhouette is mildly enlar ged. Pulmonary vasculature is within normal limits. [Granuloma at the right lung base is again seen. The lungs are otherwise clear. Osteopenia is present. Vascular calcifications are seen in the t horacic aorta. There has been no interval change from prior study. IMPRESSION: 1. No acute cardiopulmonary process. 2. Mild cardiomegaly.
--- NOTE | 2019-08-07 13:02 | EKG ---
Test Reason : CP Blood Pressure : / mmHG Vent. Rate : 066 BPM Atrial Rate : 066 BPM P-R Int : 160 ms QRS Dur : 068 ms QT Int : 414 ms P-R-T Axes : -29 049 042 degrees QTc Int : 434 ms Sinus rhythm with Premature atrial complexes Otherwise normal ECG Confirmed by LINH SCOTT DO ([id number]), publications editor ADRSHAN STAFFORD ([id number]) on 08/07/2019 1:01:56 PM Referred By: BILLY Confirmed By:LINH SCOTT DO
[2019-08-07 13:46] VITALS: BMI 29.7
--- NOTE | 2019-08-07 15:20 | EKG ---
Test Reason : ABNORMAL LABS Blood Pressure : / mmHG Vent. Rate : 061 BPM Atrial Rate : 061 BPM P-R Int : 156 ms QRS Dur : 080 ms QT Int : 436 ms P-R-T Axes : 001 053 022 degrees QTc Int : 438 ms Sinus rhythm with Premature atrial complexes Otherwise normal ECG Confirmed by IVIS CERVANTES DO ([id number]), multimedia editor DARSHAN STAFFORD ([id number]) on 08/07/2019 3:20:14 PM Referred By: Confirmed By:IVIS CERVANTES DO
[2019-08-07] MEDS: Carvedilol 6.25 MG TAB PO SCH (17:24)
[2019-08-07] MEDS ORDERED: Pravastatin Sodium 20 MG TAB PO SCH (21:00)
--- NOTE | 2019-08-08 06:27 | PDOC.FM ---
- Subjective Subjective: Pt feeling well this morning. Says her breathing is much improved and that she does not have trouble breathing. She walked yesterday and did not get SOB on exertion. Told her ECHO results and need for oxygen. Pt complains of recurrent headache today. Improved with tylenol yesterday. - Objective MAR Reviewed: Yes Vital Signs & Weight: Vital Signs (12 hours) Temp Pulse Resp BP Pulse Ox 08/08/19 04:39 98.3 F 96 14 170/87 H 57 L 08/08/19 00:22 98.2 F 57 L 16 140/78 93 L 08/08/19 00:00 93 L 08/07/19 20:19 98.2 F 56 L 14 152/64 H 93 L Weight Admit Weight 82.01 kg Weight 81.193 kg I&O: 08/06/19 08/07/19 08/08/19 06:59 06:59 06:59 Intake Total 1240 Output Total 1500 Balance -260 Result Diagrams: 08/08/19 07:24 08/07/19 04:58 Phys Exam - Physical Examination Constitutional: NAD Respiratory: no wheezing, clear to auscultation bilateral Cardiovascular: RRR (2/6 systolic murmur) Musculoskeletal: no edema Neurological: non-focal Psychiatric: normal affect, A&O x 3 Dx/Plan (1) EHNRY (acute kidney injury) Code(s): N17.9 - ACUTE KIDNEY FAILURE, UNSPECIFIED Status: Acute (2) Diarrhea Code(s): R19.7 - DIARRHEA, UNSPECIFIED Status: Acute (3) Volume overload Code(s): E87.70 - FLUID OVERLOAD, UNSPECIFIED Status: Acute (4) GERD (gastroesophageal reflux disease) Code(s): K21.9 - GASTRO-ESOPHAGEAL REFLUX DISEASE WITHOUT ESOPHAGITIS Status: Chronic (5) HTN (hypertension) Code(s): I10 - ESSENTIAL (PRIMARY) HYPERTENSION Status: Chronic (6) Hematochezia Code(s): K92.1 - MELENA Status: Acute (7) CAD (coronary artery disease) Code(s): I25.10 - ATHSCL HEART DISEASE OF [place] CORONARY ARTERY W/O ANG PCTRS Status: Chronic - Plan Plan: Pulmonary HTN Acute vs Acute on Chronic CHF exacerbation, resolved -Monitor on tele - pt much improved after diuresis after transfusion -Repeat echo showed severe pulmonary HTN w/ RVP at 90 mmHg and dilated IVC - Continuous oxygen at 2L NC regardless of O2 sats. -Strict I/O's -Daily weights -Fluid restrict to 1.8 L/day Symptomatic Anemia, improved Iron deficiency, acute vs chronic - Hospitalized in May for GI bleed and found to have internal hemorrhoids. - Hgb stable at 7.8. Diarrhea, likely chronic -Stool studies negative, including lactoferrin -suspect this is chronic and that patient often has soft stools. -had diarrhea on last hospitalization Hx of Paroxysmal a-fib - Sees Dr. Patel. Was supposed to have ablation which she may or may not pursue now. - Continue BB and eliquis - Monitor on tele HTN, elevated - improved w/ carvedilol - hydralazine prn if SBP >180, labetalol also available but HR is in 50s. Do not use labetalol if HR < 60. - Cont home meds R shoulder lipoma - f/u outpatient Diet: HH VTE ppx: Eliquis, SCD's Code status: Full Dispo: needs to be set up w/ Home oxygen prior to discharge. CM consulted. Addendum - Attending - Attending Attestation Date/Time: 08/08/19 7775 I personally evaluated the patient and discussed the management with Dr. Pena. I agree with the History, Examination, Assessment and Plan documented above with any addition or exceptions noted below. Patient admitted for acute hypoxia and dyspnea after having transfusion for chronic anemia. Concern for TRALI versus fluid overload, but she is improved and minimal evidence of those processes. Repeat TTE showed severely elevated RVSP >90. She now has diagnosis of pHTN. Needs continuous O2 therapy to assist and inpatient versus outpatient consult with Pulm. Continue PT.
[2019-08-08 07:47] LABS: #Eosinphils 0.3 thou/uL (0.0-0.7); #Lymphocytes 1.5 thou/uL (1.20-3.40); #Monocytes 0.4 thou/uL (0.11-0.59); #Neutrophils 4.1 thou/uL (1.40-6.50); %Basophils 0.5 % (0.0-1.0); %Eosinophils 4.5 % (0.0-10.0); %Lymphocytes 23.4 % (21.0-51.0); %Monocytes 6.8 % (0.0-10.0); %Neutrophils 64.9 % (42.0-75.0); Hemoglobin 7.8 g/dL (12.0-16.0); Mean Corpuscular HGB CONC 31.7 g/dL (32.0-36.0); Mean Corpuscular Hemoglobin 28.8 pg (27.0-31.0); Mean Corpuscular Volume 90.8 fL (78.0-98.0); Mean Platelet Volume 8.5 fL (7.4-10.4); Platelet Count 224 thou/uL (130-400); RBC Distribution Width 12.9 % (11.5-14.5); Red Blood Cell (RBC) Count 2.69 mill/uL (4.20-5.40); White Blood Cell (WBC) Count 6.3 thou/uL (4.8-10.8)
[2019-08-08] MEDS: Carvedilol 6.25 MG TAB PO SCH ×2 (08:35→17:09)
[2019-08-08] MEDS: Gabapentin 300 MG CAP PO SCH ×3 (08:35→21:44)
[2019-08-08] MEDS: Aspirin 81 mg Enteric Coated Tablet PO SCH (08:35)
[2019-08-08] MEDS: Cyanocobalamin (Vitamin B-12) 1,000 MCG TAB PO SCH (08:35)
[2019-08-08] MEDS: Ferrous Sulfate 325 MG TAB PO SCH (08:36)
[2019-08-08] MEDS: Apixaban 2.5 MG TAB PO SCH ×2 (08:36→21:49)
[2019-08-08] MEDS: Famotidine 20 MG TAB PO SCH (08:37)
[2019-08-08] MEDS: Furosemide 40 MG/4 ML VIAL SLOW IVP SCH (08:39)
[2019-08-08] MEDS ORDERED: Calcium Carbonate 500 MG ChewTAB PO PRN (10:49)
[2019-08-08] MEDS ORDERED: Lidocaine 2% Viscous Solution 10 ML, Aluminum & Magnesium Hydroxide 30 ML SSW PRN ×2 (11:00→15:37)
[2019-08-08] MEDS: Pravastatin Sodium 20 MG TAB PO SCH (21:45)
[2019-08-09] MEDS: Acetaminophen 500 MG TAB PO PRN (03:55)
--- NOTE | 2019-08-09 05:38 | PDOC.FM ---
- Subjective Subjective: Patient was resting comfortably in her hospital bed at the time of evaluation. She denied any acute overnight events such as chest pain or shortness of breath. She was not wearing supplemental O2 at the time of evaluation. - Objective Vital Signs & Weight: Vital Signs (12 hours) Temp Pulse Resp BP BP Pulse Ox 08/09/19 03:38 97.6 F 74 20 175/80 H 97 08/08/19 23:25 97.7 F 55 L 20 150/73 H 95 08/08/19 20:26 98 F 65 20 154/63 H 98 08/08/19 18:41 97 Weight Admit Weight 82.01 kg Weight 81.193 kg I&O: 08/07/19 08/08/19 08/09/19 06:59 06:59 06:59 Intake Total 1240 840 Output Total 1500 800 Balance -260 40 Result Diagrams: 08/09/19 07:46 08/07/19 04:58 Phys Exam - Physical Examination Constitutional: NAD HEENT: PERRLA, moist MMs, sclera anicteric, oral pharynx no lesions Neck: no nodes, supple, full ROM Respiratory: no wheezing, no rales, no rhonchi, clear to auscultation bilateral Cardiovascular: no significant murmur, no rub Irregularly irregular, rate controlled Gastrointestinal: soft, non-tender, no distention, positive bowel sounds Musculoskeletal: no edema, pulses present Neurological: non-focal, moves all 4 limbs Lymphatic: no nodes Psychiatric: normal affect, A&O x 3 Skin: no rash Dx/Plan (1) HENRY (acute kidney injury) Code(s): N17.9 - ACUTE KIDNEY FAILURE, UNSPECIFIED Status: Acute (2) Diarrhea Code(s): R19.7 - DIARRHEA, UNSPECIFIED Status: Acute (3) Volume overload Code(s): E87.70 - FLUID OVERLOAD, UNSPECIFIED Status: Acute (4) Atrial fibrillation Code(s): I48.91 - UNSPECIFIED ATRIAL FIBRILLATION Status: Chronic (5) GERD (gastroesophageal reflux disease) Code(s): K21.9 - GASTRO-ESOPHAGEAL REFLUX DISEASE WITHOUT ESOPHAGITIS Status: Chronic (6) HTN (hypertension) Code(s): I10 - ESSENTIAL (PRIMARY) HYPERTENSION Status: Chronic (7) Normocytic anemia Code(s): D64.9 - ANEMIA, UNSPECIFIED Status: Chronic (8) Generalized weakness Code(s): R53.1 - WEAKNESS Status: Acute (9) Hematochezia Code(s): K92.1 - MELENA Status: Acute (10) CAD (coronary artery disease) Code(s): I25.10 - ATHSCL HEART DISEASE OF [place] CORONARY ARTERY W/O ANG PCTRS Status: Chronic (11) Chronic diarrhea Code(s): K52.9 - NONINFECTIVE GASTROENTERITIS AND COLITIS, UNSPECIFIED Status : Chronic - Plan Plan: Patient is an 83 y/o female currently admitted to the Stroke Floor for evaluation following a critical Hg of 6.1 Pulmonary HTN Acute vs Acute on Chronic CHF exacerbation, resolved -Currently stable on the Telemetry Floor -s/p 1u pRBCs and subsequent diuresis w/ Lasix -Repeat Echo: Severe pulmonary HTN w/ RVP at 90 mmHg and dilated IVC -Will continue O2 2L via NC regardless of O2 sats -Strict I/O's -Daily Weights -Fluid Restriction: 1.8 L/day -Will consult Pulm later this AM Symptomatic Anemia, improved Iron deficiency, acute vs chronic -Hospitalized in May for GI bleed and found to have internal hemorrhoids -Hx concerning for excessive diarrhea and 1 episode of BRBPR -s/p 1u PRBCs -Hg currently stable at 7.8. Diarrhea, likely chronic -Stool studies negative, including lactoferrin -Suspect this is chronic and that patient often has soft stools -Diarrhea documented on last hospitalization Hx of Paroxysmal a-fib -Sees Dr. Patel - ablation initially recommended but patient may not pursue at this time -Will continue BB and Eliquis -Currently stable on the Telemetry Floor -Will consult Cardiology later this AM HTN, elevated -Improved w/ Carvedilol, started on Lisinopril 10 mg PO daily on 08/08 -Hydralazine prn if SBP >180, labetalol also available but HR is in 50s. Do not use labetalol if HR < 60. -Will plan for follow-up titration of Lisinopril R shoulder lipoma -Will encourage follow-up as an outpatient PCP: RIKI Lloyd Code: Full Diet: HH w/ Fluid Restriction VTE PPx: Eliquis, SCD's Dispo: Patient is currently stable on the Stroke Floor for evaluation of Symptomatic Anemia, likely multi-factorial. Hg has been stable since admission, s/p 1u PRBCs. Will consult Pulm and Cards for severe Pulmonary Artery Hypertension. Patient will require home O2 prior to discharge - Case Management consulted, recs appreciated. Expected LOS <24H. Addendum - Attending - Attending Attestation Date/Time: 08/09/19 1425 I personally evaluated the patient and discussed the management with Dr. Montiel I agree with the History, Examination, Assessment and Plan documented above with any addition or exceptions noted below. Patient is an 83 y/o female admitted for SOB and anemia. She is being evaluated for pulmonary hypertension, echo showed RVP >90mmHg. Anemia improved with 1 unit PRBCs. Case management assisting with home o2. Cardiology consulted for eval as patient was previously noted to need ablation with Dr. Patel. RA Pollock
[2019-08-09 07:59] LABS: Hemoglobin 8.3 g/dL (12.0-16.0); Mean Corpuscular HGB CONC 31.5 g/dL (32.0-36.0); Mean Corpuscular Hemoglobin 28.8 pg (27.0-31.0); Mean Corpuscular Volume 91.3 fL (78.0-98.0); Mean Platelet Volume 8.5 fL (7.4-10.4); Platelet Count 237 thou/uL (130-400); Red Blood Cell (RBC) Count 2.88 mill/uL (4.20-5.40); White Blood Cell (WBC) Count 6.2 thou/uL (4.8-10.8)
[2019-08-09] MEDS: Apixaban 2.5 MG TAB PO SCH ×2 (10:46→21:57)
[2019-08-09] MEDS: Carvedilol 6.25 MG TAB PO SCH ×2 (10:46→18:16)
[2019-08-09] MEDS: Gabapentin 300 MG CAP PO SCH ×3 (10:46→21:57)
[2019-08-09] MEDS: Furosemide 40 MG/4 ML VIAL SLOW IVP SCH (10:47)
[2019-08-09] MEDS: Famotidine 20 MG TAB PO SCH (10:47)
[2019-08-09] MEDS: Ferrous Sulfate 325 MG TAB PO SCH (10:47)
[2019-08-09] MEDS: Aspirin 81 mg Enteric Coated Tablet PO SCH (10:47)
[2019-08-09] MEDS: Cyanocobalamin (Vitamin B-12) 1,000 MCG TAB PO SCH (10:47)
[2019-08-09] MEDS: Iron, Sodium Ferric Gluconate 250 MG in Sodium Chloride 0.9% 100 ML IVPB SCH (18:23)
--- NOTE | 2019-08-09 20:56 | CON ---
DATE OF CONSULTATION: 08/09/2019 PRIMARY JANITORIAL ACCOUNT MANAGER: Jorge Rosas MD REASON FOR CONSULTATION: History of paroxysmal atrial fibrillation, pulmonary hypertension, coronary artery disease, anemia, previous valve replacement. HISTORY OF PRESENT ILLNESS: Ms. Brennan is a very pleasant 83-year-old woman. She has a long cardiac history. She was seen by Dr. Rosas in 2019. At that time, it was noted that the history included some paroxysmal atrial fibrillation, coronary artery disease, previous bypass surgery, aortic valve replacement. She also has diastolic congestive heart failure. She had pneumonia in 2019. The patient has paroxysmal atrial fibrillation. There was some consideration about atrial fibrillation ablation, but when she came, she said to have it done. She was off the Eliquis. Therefore, she did not have the ablation done. She has been maintained on Eliquis and aspirin. She is admitted to the hospital with difficulty breathing, right shoulder pain, is found to be severely anemic. The patient stated that previously in May had some bright red blood per rectum. The patient did have colonoscopy, found to have hemorrhoids. She said she had the colonoscopy recently. She had a previous surgery for esophageal reflux many years ago. The patient has been admitted, given 1 unit of packed red blood cells. She was feeling better. It has been found that she has severe pulmonary hypertension, however. She has no chest pain, but she did have some right shoulder pain last night and she said she also had some pain and was having difficulty finding words. All the symptoms resolved. She was feeling better this morning. Just does not have a lot of energy. Generally, does not feel well, but not having chest pain or pressure. CURRENT MEDICATIONS: She is on: 1. Aspirin 81 mg a day. 2. Eliquis 2.5 mg twice a day. 3. Carvedilol 6.25 mg twice a day. 4. Iron orally. 5. Furosemide intravenously. 6. Lisinopril 10 mg a day. REVIEW OF SYSTEMS: CONSTITUTIONAL: No significant weight gain or loss. VISION: No changes. HEARING: No changes. PULMONARY: No cough or wheezing. CARDIAC: As outlined above. GASTROINTESTINAL: As outlined above. SKIN: No rashes. FAMILY HISTORY: Negative for heart disease at a young age. PHYSICAL EXAMINATION: GENERAL: This is a pleasant 83-year-old woman. VITAL SIGNS: Blood pressure 140/50, pulse 70. LUNGS: Clear. CARDIAC: Normal S1, normal S2. I do not hear murmur, rub, or gallop. ABDOMEN: Soft, nontender. EXTREMITIES: Warm, dry. No clubbing or cyanosis. There is 1 to 2+ edema. DIAGNOSTIC DATA: EKG: Sinus rhythm. PERTINENT LABORATORY: Hemoglobin as mentioned was all the way down to just 6.1 in the clinic. The patient's hemoglobin on admission here was recorded at 7.2 on the 16th, but it was 6.2 on the 15th. She may have received another unit of packed red blood cells and it is not clear to me. She did receive a unit of packed red cells on the . PERTINENT TESTING: The echocardiogram showed normal left ventricular systolic function with diastolic heart failure. By my reading, it looks like a stage III with the E to A greater than 2:1 and enlarged left atrium and severely elevated pulmonary artery pressure. ASSESSMENT: 1. Diastolic congestive heart failure. 2. Pulmonary hypertension probably secondary to diastolic congestive heart failure, although she has extremely high pulmonary artery pressures. 3. Anemia. 4. Paroxysmal atrial fibrillation. 5. History of coronary artery disease. 6. Previous bioprosthetic valve placement. 7. Renal insufficiency/renal failure stage III. PLAN: 1. She has received packed red blood cells. 2. We will hold aspirin for now. I talked to her about holding the Eliquis. She is reluctant to do that. 3. Give intravenous iron. 4. Continue diuresis. 5. Continue [place] inhibitor. 6. Continue to follow kidney function. 7. Reassess PA pressures at a later time. I looked at the echocardiogram. One or 2 of the beats look like the pressure is very high. The other beats look like the pressure is somewhat lower. Probably, would definitely need to follow this and treat the diastolic heart failure. 8. Difficult decision about anticoagulation? Would she be a candidate for a Watchman. I will notify Dr. Rosas of the patient's admission. Job ID: [id number]
[2019-08-09] MEDS: Pravastatin Sodium 20 MG TAB PO SCH (21:57)
[2019-08-10] MEDS: Iron, Sodium Ferric Gluconate 250 MG in Sodium Chloride 0.9% 100 ML IVPB SCH (01:05)
[2019-08-10] MEDS: Acetaminophen 500 MG TAB PO PRN (01:06)
--- NOTE | 2019-08-10 06:12 | PDOC.FM ---
- Subjective Subjective: Patient was resting comfortably in her bed at the time of evaluation. She denied any acute overnight events, and states that she continues to feel better than before she presented to the ED. - Objective Vital Signs & Weight: Vital Signs (12 hours) Temp Pulse Resp BP Pulse Ox 08/10/19 04:05 95 08/10/19 03:52 98.1 F 60 16 141/73 H 93 L 08/09/19 23:49 99.2 F 62 17 148/58 H 94 L 08/09/19 20:23 98.4 F 71 16 161/63 H 97 Weight Admit Weight 82.01 kg Weight 78.1 kg I&O: 08/08/19 08/09/19 08/10/19 06:59 06:59 06:59 Intake Total 1240 840 947 Output Total 4444 556 2641 Balance -260 40 -453 Result Diagrams: 08/10/19 08:29 08/10/19 08:29 Phys Exam - Physical Examination Constitutional: NAD HEENT: PERRLA, moist MMs, sclera anicteric, oral pharynx no lesions Neck: no nodes, supple, full ROM Respiratory: no wheezing, no rales, no rhonchi, clear to auscultation bilateral Cardiovascular: RRR, no significant murmur, no rub Gastrointestinal: soft, non-tender, no distention, positive bowel sounds Musculoskeletal: no edema, pulses present Neurological: non-focal, moves all 4 limbs Lymphatic: no nodes Psychiatric: normal affect Dx/Plan (1) HENRY (acute kidney injury) Code(s): N17.9 - ACUTE KIDNEY FAILURE, UNSPECIFIED Status: Acute (2) Diarrhea Code(s): R19.7 - DIARRHEA, UNSPECIFIED Status: Acute (3) Volume overload Code(s): E87.70 - FLUID OVERLOAD, UNSPECIFIED Status: Acute (4) Atrial fibrillation Code(s): I48.91 - UNSPECIFIED ATRIAL FIBRILLATION Status: Chronic (5) GERD (gastroesophageal reflux disease) Code(s): K21.9 - GASTRO-ESOPHAGEAL REFLUX DISEASE WITHOUT ESOPHAGITIS Status: Chronic (6) HTN (hypertension) Code(s): I10 - ESSENTIAL (PRIMARY) HYPERTENSION Status: Chronic (7) Normocytic anemia Code(s): D64.9 - ANEMIA, UNSPECIFIED Status: Chronic (8) Generalized weakness Code(s): R53.1 - WEAKNESS Status: Acute (9) Hematochezia Code(s): K92.1 - MELENA Status: Acute (10) CAD (coronary artery disease) Code(s): I25.10 - ATHSCL HEART DISEASE OF [place] CORONARY ARTERY W/O ANG PCTRS Status: Chronic (11) Chronic diarrhea Code(s): K52.9 - NONINFECTIVE GASTROENTERITIS AND COLITIS, UNSPECIFIED Status : Chronic - Plan Plan: Patient is an 83 y/o female currently admitted to the Stroke Floor for evaluation following a critical Hg of 6.1. Pulmonary HTN Acute vs Acute on Chronic CHF exacerbation, resolved -Currently stable on the Telemetry Floor -s/p 1u pRBCs and subsequent diuresis w/ Lasix -Repeat Echo: Severe pulmonary HTN w/ RVP at 90 mmHg and dilated IVC -Cardiology (Tho): Hold ASA, continue diuresis and ACEi, will notify patient' s previously established Building Manager (Sim) -Will continue O2 2L via NC regardless of O2 sats - encourage patient compliance -Strict I/O's, daily weights -Fluid Restriction: 1.8 L/day -Case Management: Consulted, currently following for home O2 requirements Symptomatic Anemia, improved Iron deficiency, acute vs chronic -Hospitalized in May for GI bleed and found to have internal hemorrhoids -Hx concerning for excessive diarrhea and 1 episode of BRBPR -s/p 1u PRBCs -Hg currently stable at 8.3 -Currently supplementing w/ Ferrous Sulfate 325 mg PO daily Diarrhea, likely chronic -Stool studies negative, including Lactoferrin -Suspect this is chronic and that patient often has soft stools -Diarrhea documented on last hospitalization Hx of Paroxysmal A-Fib -Sees Dr. Patel - ablation initially recommended but patient may not pursue at this time -Rate controlled - will continue BB and Eliquis HTN, elevated -Improved w/ Carvedilol, started on Lisinopril 10 mg PO daily on 08/08 -Hydralazine prn if SBP >180, labetalol also available but HR is in 50s. Do not use labetalol if HR < 60. -Will plan for follow-up titration of Lisinopril R shoulder lipoma -Will encourage follow-up as an outpatient PCP: RIKI Lloyd Code: Full Diet: HH w/ Fluid Restriction VTE PPx: Eliquis, SCD's Dispo: Patient is currently stable on the Stroke Floor for evaluation of Symptomatic Anemia, likely multi-factorial. Hg has been stable since admission, s/p 1u PRBCs. Will await additional Cards recs for Pulmonary HTN and adjust plan accordingly. Patient will likely require home O2 prior to discharge - will continue to engage w/ Case Management consulted, recs appreciated. Expected LOS <24H. Addendum - Attending - Attending Attestation Date/Time: 08/10/19 1340 I personally evaluated the patient and discussed the management with Dr. Montiel I agree with the History, Examination, Assessment and Plan documented above with any addition or exceptions noted below. Patient is an 83 y/o female admitted for SOB and anemia. Cardiology evaluated her for pulmonary HTN and recommended a repeat echo in the outpatient setting. Long discussion regarding anticoagulation was had with patient and niece. Ultimately they elected to discontinue eliquis after discussing risks. Patient' s o2 sat is 97% on RA and 95% with exertion, will send home without home o2 for now. RA Pollock
[2019-08-10 08:38] LABS: Hemoglobin 9.8 g/dL (12.0-16.0); Mean Corpuscular HGB CONC 31.8 g/dL (32.0-36.0); Mean Corpuscular Hemoglobin 29.1 pg (27.0-31.0); Mean Corpuscular Volume 91.5 fL (78.0-98.0); Mean Platelet Volume 8.3 fL (7.4-10.4); Platelet Count 257 thou/uL (130-400); RBC Distribution Width 13.2 % (11.5-14.5); Red Blood Cell (RBC) Count 3.35 mill/uL (4.20-5.40); White Blood Cell (WBC) Count 6.1 thou/uL (4.8-10.8)
[2019-08-10 08:57] LABS: Anion Gap 17 mmol/L (10-20); BUN (Urea Nitrogen) 24 mg/dL (9.8-20.1); Calc. Creatinine Clearance 31 mL/min (70-130); Carbon Dioxide 22 mmol/L (23-31); Chloride 105 mmol/L (98-107); Estimated GFR-MDRD 35; Glucose 113 mg/dL (83-110); Potassium 3.7 mmol/L (3.5-5.1); Sodium 140 mmol/L (136-145)
[2019-08-10] MEDS ORDERED: Lisinopril 10 MG TAB PO SCH (09:00)
[2019-08-10] MEDS: Famotidine 20 MG TAB PO SCH (09:43)
[2019-08-10] MEDS: Furosemide 40 MG/4 ML VIAL SLOW IVP SCH (09:43)
[2019-08-10] MEDS: Carvedilol 6.25 MG TAB PO SCH ×2 (09:43→17:12)
[2019-08-10] MEDS: Ferrous Sulfate 325 MG TAB PO SCH (09:43)
[2019-08-10] MEDS: Gabapentin 300 MG CAP PO SCH ×2 (09:44→17:12)
[2019-08-10] MEDS: Apixaban 2.5 MG TAB PO SCH (09:44)
[2019-08-10] MEDS: Cyanocobalamin (Vitamin B-12) 1,000 MCG TAB PO SCH (09:44)
[2019-08-10 10:28] LABS: Actual Bicarbonate (HCO3a) 27.3 mEq/L (22-28); Base Excess (BEa) 1.8 mEq/L (-2.0 to +3.0); CO2 Tension 47.5 mmHg (35.0-45.0); Calcium, Ionized 1.16 mmol/L (1.12-1.30); Carboxyhemoglobin (COHb) 0.9 gm% (0.0-3.0); Hemoglobin (Hb) 9.5 g/dL (12.0-16.0); O2 Tension (PaO2), arterial 74.7 mmHg (> 60.0); Potassium - ABG Lab 3.92 mmol/L (3.70-5.30); pH, Arterial 7.38 (7.35-7.45)
[2019-08-10 10:30] LABS: Puncture Site LRA
[2019-08-10 11:30] VITALS: TEMP 98.3
[2019-08-10] MEDS ORDERED: Polyethylene Glycol 3350 17 GM Packet PO PRN (11:53)
--- NOTE | 2019-08-10 12:18 | PQF ---
CLINICAL DOCUMENTATION IMPROVEMENT CLARIFICATION FORM: ICD-10 Updated PLEASE DO AN ADDENDUM TO THE PROGRESS NOTE WITH ANY DOCUMENTATION UPDATES OR ADDITIONS AND CARRY THROUGH TO DC SUMMARY. THANK YOU. DATE: 08/10/19 ATTN: DR. AGUSTIN Please exercise your independent, professional judgment in responding to the clarification form. Clinical indicators are provided on the bottom of this form for your review Please check appropriate box(s): HEART FAILURE: TYPE [ ] Systolic / HFrEF [ X ] Diastolic / HFpEF [ ] Combined Systolic / Diastolic [ ] Hypertensive Heart and Kidney disease [ ] Hypertensive Heart Disease [ ] Hypertensive Kidney Disease [ X ] Other diagnosis: Pulmonary Hypertension [ ] Unable to determine In addition, please specify: Present on Admission (POA): [ X ] Yes [ ] No [ ] Unable to determine For continuity of documentation, please document condition throughout progress notes and discharge summary. Thank You. CLINICAL INDICATORS - SIGNS / SYMPTOMS / LABS / RESULTS AND LOCATION IN EMR H&P: "ACUTE HEART FAILURE EXACERBATION" BNP 08/05: 558.5 RISKS: H/O AFIB (H&P) BLOOD TRANSFUSION (H&P) H/O HTN (H&P) HENRY (H&P) TREATMENT: IV LASIX (PER H&P) CARDIOLOGY MONITORING [employer] Outside [employer] Sales Consultant [employer] Winform Viewer (This form is maintained as a part of the permanent medical record) 2014 [email or web address]. All Rights Reserved ELENA [email or web address]
--- NOTE | 2019-08-10 14:13 | PRG ---
DATE OF SERVICE: 08/10/2019 SUBJECTIVE: Ms. Brennan is doing well. No current complaints. She feels better. She did receive a blood transfusion. She was profoundly anemic on presentation with a hemoglobin of 6.2. OBJECTIVE: VITAL SIGNS: Blood pressure 168/67, pulse 70, temperature 98.3. LUNGS: Clear to auscultation. HEART: Regular rate and rhythm. ABDOMEN: Soft, nontender, nondistended. EXTREMITIES: No edema. IMPRESSION: 1. Atrial fibrillation. 2. Anemia. 3. Status post AVR. RECOMMENDATIONS: At this point, we will recommend stopping anticoagulation therapy given recent GI bleed. She will need a GI workup to assess the etiology. She may be a candidate for a Watchman device in the future if she does have a GI condition that is not felt to be treatable. If she does have a treatable condition, we may consider treating the etiology and restarting anticoagulation therapy. She understands the risks of stroke off anticoagulation therapy, but also understands the risks of recurrent bleeding. She has had a colonoscopy performed recently and was only found to have hemorrhoids. From my standpoint, I have no further recommendations. Plan is to follow up as an outpatient in 1 week. Job ID: [id number]
[2019-08-10 17:33] VITALS: BP 137/64
--- NOTE | 2019-08-11 01:19 | DIS ---
DATE OF ADMISSION: 08/06/2019 DATE OF DISCHARGE: 08/10/2019 RESIDENT: Bhavik Montiel MD ADMITTING ATTENDING: Cale Bartholomew MD DISCHARGE ATTENDING: Viral Pollock MD CONSULTS: 1. Yamileth Nettles MD, Cardiology. 2. Jorge Rosas MD, Cardiology. PROCEDURES PERFORMED: CT abdomen and pelvis, which revealed no acute CT abnormality, a right renal cyst, evidence of a cholecystectomy and Ashli fundoplication, as well as colonic diverticulosis without overt evidence of acute diverticulitis. Chest x-ray which demonstrated cardiomegaly without evidence of acute cardiopulmonary disease. Echocardiogram, which revealed an ejection fraction of 60% to 65%. Right ventricular systolic pressure of 90 mmHg consistent with severe pulmonary hypertension and dilation of the inferior vena cava. PRIMARY DIAGNOSIS: Symptomatic microcytic anemia, likely secondary to subacute blood loss. SECONDARY DIAGNOSES: Pulmonary hypertension, congestive heart failure exacerbation, diarrhea, paroxysmal atrial fibrillation, and hypertension. DISCHARGE MEDICATIONS: 1. Carvedilol 6.25 mg p.o. b.i.d. 2. Lisinopril 10 mg p.o. daily. DISCONTINUED MEDICATIONS: 1. Acetaminophen 1000 mg p.o. q.6 hours. 2. Vitamin D 1000 units p.o. daily. 3. Vitamin B12 of 1000 mcg p.o. daily. 4. Famotidine 20 mg p.o. daily. 5. Iron infusion 250 mg. 6. Ferrous sulfate 325 mg p.o. daily. 7. Furosemide 40 mg slow IV daily. 8. Gabapentin 300 mg p.o. t.i.d. 9. Hydralazine 10 mg IVP q.4 hours p.r.n. 10. Lisinopril 10 mg p.o. daily. 11. Pravastatin sodium 20 mg p.o. daily. 12. MiraLAX 17 g p.o. daily. HISTORY OF PRESENT ILLNESS/HOSPITAL COURSE: The patient is an 83-year-old female with a past medical history significant for anemia, internal hemorrhoids, rectal bleeding, and atrial fibrillation on Eliquis, who presents to the ED after critical lab value was found in clinic of a hemoglobin of 6.1. The patient states that after she was discharged from the hospital in May, she had one episode of bright red blood per rectum approximately two weeks prior to presentation. She denied further rectal bleeding since then. However, she notes that she does have diarrhea 3 to 5 times per day. She also recently had antibiotic use in May. She complained of palpitations on occasion with associated chest pain that was not present on the time of evaluation. She also complained shortness of breath and dizziness with minimal exertion for the past several weeks. She thinks she may have passed out while sitting in the chair prior to presentation. The patient states she sees Dr. Patel for her atrial fibrillation, was scheduled for an ablation. However, she did not receive it and now does not want the procedure. The patient's GI physician is Dr. Iglesias and her last colonoscopy was noted to have found several internal hemorrhoids. Upon evaluation in the ED, the patient was noted to have a hemoglobin of 6.2. She was given 1.5 L normal saline and 1 unit packed red blood cells, as well as 20 mg IV Lasix. She was subsequently transferred to the telemetry floor for further observation. During her hospital stay, the patient has intermittently complained of shortness of breath prompting additional workup. As such, additional imaging modalities were performed that are mentioned elsewhere in this document. Most notably, the patient was found to have pulmonary hypertension for which Cardiology was consulted and medical management was initiated. The patient's condition subsequently began to improve and she was subsequently prepped for discharge. Prior to discharge, the patient's vital signs were recorded as temperature 98.3, pulse 66, blood pressure 137/64, respirations 17 per minute, O2 saturation 94% on room air. LABORATORY ANALYSIS: Revealed a white blood cell count of 6.1, hemoglobin 9.8, hematocrit 30.7, platelet count of 257. Coagulation panel revealed a PT of 14.8, INR of 1.2, APTT of 42.8. Blood gas revealed pH is 7.38, pCO2 of 47.5, PO2 of 74.7. Chem panel reveals sodium of 140, potassium 3.7, chloride 105, carbon dioxide 22, BUN 24, creatinine 1.67, glucose 113, calcium 9. Troponins were measured at 0.012, 0.025, 0.045, and then downtrending to 0.022. Vitamin B12 was measured at 538 and folate acid was measured at 12.8. DISPOSITION: Stable. DISCHARGE INSTRUCTIONS: 1. Location: Home. 2. Diet: Heart healthy and low-sodium. 3. Activity: As tolerated. 4. Followup: The patient was encouraged to follow up with her GI specialist in approximately 14 days in order to discuss most recent hospitalization. Additionally, the patient was encouraged to follow up with her branding machine tender in approximately 7 to 14 days in order to discuss her most recent hospitalization and subsequent discontinuation of Eliquis and aspirin due to her increased bleeding risks. Additionally, the patient was encouraged to follow up with her primary care physician in approximately 3 to 4 weeks in order to discuss her most recent hospitalization. Job ID: [id number]
== END 2019-08-10 17:32 | disposition home or self-care (01) | DRG 314 ==
LOC: ERS 09:11 → OBSVTOIN 22:54 → 2SE 22:54
PROVIDERS: ADMIT Emergency Medicine; ATTEND Emergency Medicine
PROC: 30233N1 Transfusion of Nonautologous Red Blood Cells into Peripheral Vein, Percutaneous Approach (ICD-10-PCS; principal; 2019-08-06)
DX: I27.22 Pulmonary hypertension due to left heart disease (principal); I50.33 Acute on chronic diastolic (congestive) heart failure; D62 Acute posthemorrhagic anemia; N17.9 Acute kidney failure, unspecified; I13.0 Hypertensive heart and chronic kidney disease with heart failure and stage 1 through stage 4 chronic kidney disease, or unspecified chronic kidney disease; K21.9 Gastro-esophageal reflux disease without esophagitis; I48.0 Paroxysmal atrial fibrillation; E78.5 Hyperlipidemia, unspecified; I25.10 Atherosclerotic heart disease of native coronary artery without angina pectoris; D17.21 Benign lipomatous neoplasm of skin and subcutaneous tissue of right arm; N18.3 Chronic kidney disease, stage 3 (moderate); K52.9 Noninfective gastroenteritis and colitis, unspecified; K64.8 Other hemorrhoids; Z79.01 Long term (current) use of anticoagulants; Z88.8 Allergy status to other drugs, medicaments and biological substances; Z91.040 Latex allergy status; Z79.82 Long term (current) use of aspirin; Z79.899 Other long term (current) drug therapy; Z95.2 Presence of prosthetic heart valve; Z90.710 Acquired absence of both cervix and uterus; Z90.49 Acquired absence of other specified parts of digestive tract
CPT/HCPCS: 36415; 36430; 71045; 74176; 80048; 80053; 81003; 81015; 82274; 82607; 82728; 82746; 82805; 83540; 83550; 83630; 83690; 83880; 84484; 85025; 85027; 85046; 85060; 85610; 85730; 86850; 86900; 86901; 87045; 87046; 87324; 87427; 87449; 93005; 93306; 93798; 96374; J0360; J1940; J2405; J2916; J3490; P9016

== ENCOUNTER 2019-09-14 10:48 | Day surgery (SDC) | payer MEDICARE, OTHER ==
[2019-09-14] MEDS ORDERED: EPOETIN ALFA-EPBX (ESRD) 40,000 UNIT/ML VIAL ONE (10:53)
[2019-09-14 13:13] VITALS: BP 169/69; TEMP 98.8
== END 2019-09-14 13:14 | disposition home or self-care (01) ==
LOC: ONC/OP 10:48
PROVIDERS: ATTEND Internal Medicine Hematology & Oncology
DX: D50.0 Iron deficiency anemia secondary to blood loss (chronic) (principal); N18.4 Chronic kidney disease, stage 4 (severe); D63.1 Anemia in chronic kidney disease; Z88.8 Allergy status to other drugs, medicaments and biological substances; Z91.040 Latex allergy status
CPT/HCPCS: 96372; Q5105

== ENCOUNTER 2019-09-28 12:38 | Day surgery (SDC) | payer MEDICARE, OTHER ==
[2019-09-28] MEDS ORDERED: EPOETIN ALFA-EPBX (ESRD) 40,000 UNIT/ML VIAL ONE (12:46)
[2019-09-28 12:53] VITALS: BP 190/79; TEMP 98.1
[2019-09-28] MEDS ORDERED: EPOETIN ALFA-EPBX (ESRD) 40,000 UNIT/ML VIAL SC SCH (13:00)
== END 2019-09-28 12:53 | disposition home or self-care (01) ==
LOC: ONC/OP 12:38
PROVIDERS: ATTEND Internal Medicine Hematology & Oncology
DX: D50.0 Iron deficiency anemia secondary to blood loss (chronic) (principal); N18.4 Chronic kidney disease, stage 4 (severe); D63.1 Anemia in chronic kidney disease; Z88.8 Allergy status to other drugs, medicaments and biological substances; Z91.040 Latex allergy status
CPT/HCPCS: 96372; Q5105

== ENCOUNTER 2019-10-12 10:52 | Day surgery (SDC) | payer MEDICARE, OTHER ==
[2019-10-12 11:00] VITALS: BP 131/63
[2019-10-12] MEDS ORDERED: EPOETIN ALFA-EPBX (ESRD) 40,000 UNIT/ML VIAL ONE (11:00)
[2019-10-12] MEDS ORDERED: EPOETIN ALFA-EPBX (ESRD) 40,000 UNIT/ML VIAL SC SCH (11:15)
== END 2019-10-12 11:15 | disposition home or self-care (01) ==
LOC: ONC/OP 10:52
PROVIDERS: ATTEND Internal Medicine Hematology & Oncology
DX: N18.4 Chronic kidney disease, stage 4 (severe) (principal); D63.1 Anemia in chronic kidney disease; D50.0 Iron deficiency anemia secondary to blood loss (chronic); Z88.8 Allergy status to other drugs, medicaments and biological substances; Z91.040 Latex allergy status
CPT/HCPCS: 36415; 85025; 96372; Q5105

== ENCOUNTER 2019-10-26 11:15 | Day surgery (SDC) | payer MEDICARE, OTHER ==
[2019-10-26] MEDS ORDERED: EPOETIN ALFA-EPBX (ESRD) 40,000 UNIT/ML VIAL ONE (11:19)
[2019-10-26] MEDS ORDERED: EPOETIN ALFA-EPBX (ESRD) 40,000 UNIT/ML VIAL SC SCH (12:00)
== END 2019-10-26 11:35 | disposition home or self-care (01) ==
LOC: ONC/OP 11:15
PROVIDERS: ATTEND Internal Medicine Hematology & Oncology
DX: N18.4 Chronic kidney disease, stage 4 (severe) (principal); D63.1 Anemia in chronic kidney disease; D50.0 Iron deficiency anemia secondary to blood loss (chronic); Z88.8 Allergy status to other drugs, medicaments and biological substances; Z91.040 Latex allergy status
CPT/HCPCS: 96372; Q5105

== ENCOUNTER 2019-12-07 11:12 | Day surgery (SDC) | payer MEDICARE, OTHER ==
[2019-12-07] MEDS ORDERED: EPOETIN ALFA-EPBX (ESRD) 40,000 UNIT/ML VIAL ONE (11:16)
[2019-12-07 11:18] VITALS: BP 188/76; TEMP 98.4
== END 2019-12-07 11:21 | disposition home or self-care (01) ==
LOC: ONC/OP 11:12
PROVIDERS: ATTEND Internal Medicine Hematology & Oncology
DX: N18.4 Chronic kidney disease, stage 4 (severe) (principal); D63.1 Anemia in chronic kidney disease; D50.0 Iron deficiency anemia secondary to blood loss (chronic); Z88.8 Allergy status to other drugs, medicaments and biological substances; Z91.040 Latex allergy status
CPT/HCPCS: 96372; Q5105

== ENCOUNTER 2020-01-04 11:07 | Day surgery (SDC) | payer MEDICARE ==
[~2020-01-04 11:07] MED LIST: EPOETIN ALFA-EPBX (ESRD) 40,000 UNIT/ML VIAL SC SCH
[2020-01-04 11:19] VITALS: BP 116/83; TEMP 97.4
== END 2020-01-04 11:19 | disposition home or self-care (01) ==
LOC: ONC/OP 11:07
PROVIDERS: ATTEND Internal Medicine Hematology & Oncology
DX: N18.4 Chronic kidney disease, stage 4 (severe) (principal); D63.1 Anemia in chronic kidney disease; D50.0 Iron deficiency anemia secondary to blood loss (chronic); Z88.8 Allergy status to other drugs, medicaments and biological substances; Z91.040 Latex allergy status
CPT/HCPCS: 96372; Q5105

== ENCOUNTER 2020-01-13 14:44 | Inpatient (IN) | payer MEDICARE, OTHER ==
[2020-01-13] MEDS ORDERED: Iopamidol 370 76% 100 ML VIAL ONE (15:08)
--- NOTE | 2020-01-13 15:17 | RAD ---
EXAM: CHEST ONE VIEW HISTORY: Heart racing. COMPARISON: 11/18/2019 FINDINGS: Postoperative changes related to CABG are noted. Cardiac silhouette is magnified by projection but is stable in size. Pulmonary vasculature is within normal limits. Calcified granuloma is seen at the right lung base. The patchy parenchymal density seen at each lung base on the prior exam have resolve d. No consolidation or pleural fluid are seen on the current study. Vascular calcifications are seen in the thoracic aorta. Surgical clips overlie the epigastric region/lower mediastinum. IMPRESSION: No acute cardiopulmonary process.
[2020-01-13 15:25] LABS: #Basophils 0.1 thou/uL (0.0-0.2); #Eosinphils 0.2 thou/uL (0.0-0.7); #Lymphocytes 1.6 thou/uL (1.20-3.40); #Monocytes 0.7 thou/uL (0.11-0.59); #Neutrophils 5.8 thou/uL (1.40-6.50); %Eosinophils 2.4 % (0.0-10.0); %Lymphocytes 19.1 % (21.0-51.0); %Monocytes 8.2 % (0.0-10.0); %Neutrophils 69.3 % (42.0-75.0); Hemoglobin 10.6 g/dL (12.0-16.0); Mean Corpuscular HGB CONC 30.2 g/dL (32.0-36.0); Mean Corpuscular Hemoglobin 27.3 pg (27.0-31.0); Mean Corpuscular Volume 90.4 fL (78.0-98.0); Mean Platelet Volume 8.7 fL (7.4-10.4); Platelet Count 207 thou/uL (130-400); RBC Distribution Width 14.8 % (11.5-14.5); Red Blood Cell (RBC) Count 3.89 mill/uL (4.20-5.40); White Blood Cell (WBC) Count 8.3 thou/uL (4.8-10.8)
[2020-01-13] MEDS ORDERED: Magnesium 2 GM/50 ML BAG (IN WATER) ONE ×2 (15:27→18:09)
[2020-01-13 15:58] LABS: ALT (SGPT) 15 U/L (8-55); AST (SGOT) 20 U/L (5-34); Albumin 3.5 g/dL (3.4-4.8); Alkaline Phosphatase 73 U/L (40-110); Anion Gap 17 mmol/L (10-20); BUN (Urea Nitrogen) 36 mg/dL (9.8-20.1); Bilirubin, Total 0.4 mg/dL (0.2-1.2); Calc. Creatinine Clearance 0 mL/min (70-130); Calcium 8.9 mg/dL (7.8-10.44); Carbon Dioxide 15 mmol/L (23-31); Chloride 111 mmol/L (98-107); Estimated GFR-MDRD 36; Globulin 3.5 g/dL (2.4-3.5); Glucose 60 mg/dL (83-110); Potassium 4.4 mmol/L (3.5-5.1); Sodium 138 mmol/L (136-145)
[2020-01-13 16:27] LABS: CKMB 1.3 ng/mL (0-6.6)
--- NOTE | 2020-01-13 16:38 | CT ---
CT abdomen and pelvis with IV contrast HISTORY: Abdomen pain. COMPARISON: 08/06/2019. FINDINGS: Calcified granulomata at the lung bases are consistent with healed granulomatous disease. P ostoperative changes at the GE junction and stomach again demonstrated. Appearance of gastrojejunostomy. Gallbladder surgically absent with prominence of the biliary system similar to the prior study. Prominent calcification throughout the arterial structures including at the ostia of the visceral org ans of the abdomen. A 4.4 cm cyst at the lateral cortex of the right kidney is stable. Prominent degenerative changes lumbar spine. Calcified granulomata within the posterior subcutaneous tissues likely related to prior injections. Diverticula arise from the colon without adjacent inflammation. No evidence of bowel obstruction. Very subtle stranding within the subcutaneous fat at each groin, possibly related to recent catheteri zation. No evidence of complication. IMPRESSION : No acute abnormalities are demonstrated to explain the patient's symptoms. Postoperative changes and other chronic-type findings are stable. Atherosclerosis.
[2020-01-13 17:57] LABS: Bilirubin Negative (Negative); Blood, Urine Negative (Negative); Clarity Clear (Clear); Glucose, Urine (Dipstick) Normal (Negative); Ketone, Urine Negative (Negative); Leukocyte 250 Leu/uL (Negative); Nitrite Negative (Negative); Protein, Urine (Dipstick) Negative (Neg-Trace); RBC/HPF 0-3 HPF (0-3); Specific Gravity, Urine 1.018 (1.002-1.036); Urobilinogen Normal mg/dL (Less than 2)
[2020-01-13 17:58] LABS: Bacteria/HPF None Seen HPF (None Seen); Squamous Epithelial 0-3 HPF (0-3)
[2020-01-13 18:13] LABS: Magnesium 2.4 mg/dL (1.6-2.6)
[2020-01-13 18:40] LABS: Troponin I 0.606 ng/mL (< 0.028)
--- NOTE | 2020-01-13 19:22 | PDOC.FPRHP ---
- History of Present Illness Chief Complaint: Palpitations History of Present Illness: Patient is an 84 year old female with a history of paroxysmal afib with recent ablation and watchman procedure who was sent to the ED from clinic due to SVT on EKG. The patient underwent the procedure in [place] 1 week ago. Yesterday, she developed palpitations associated with left lower chest discomfort, SOB with activity and generalized weakness. She said her HR was 160s during this time. She was seen in the clinic this am by her PCP, Dr. Lloyd, who found SVT on EKG and sent her here. The patient also complains of epigastric pain not similar to her hx of GERD and nausea. She denies lightheadedness, dizziness, headache, vision changes, chest pain, SOB at rest and sweating. ED Course: In the ED, patient's HR noted to be 100s. EKG done and showed sinus tachycardia. Received 2L NS and 2g magnesium. - Allergies/Adverse Reactions Allergies Allergy/AdvReac Type Severity Reaction Status Date / Time latex Allergy Unknown Verified 01/13/20 20:48 lovastatin Allergy Unknown Verified 01/13/20 20:48 simvastatin Allergy Unknown Verified 01/13/20 20:48 - Home Medications Medication Instructions Recorded Confirmed Type Cholecalciferol [Vitamin D3] 1,000 unit PO DAILY 01/12/19 01/13/20 History Gabapentin [Neurontin] 300 mg PO TID 01/12/19 01/13/20 History Pravastatin Sodium [Pravachol] 20 mg PO HS 01/12/19 01/13/20 History Furosemide 1 tab PO DAILY 05/28/19 01/13/20 History Cyanocobalamin (Vitamin B-12) 1 tab PO DAILY 08/07/19 01/13/20 History [Vitamin B-12] Carvedilol [Coreg] 6.25 mg PO BID-WM 30 Days #60 tab 08/10/19 01/13/20 Rx Apixaban [Eliquis] 2.5 mg PO BID 11/15/19 01/13/20 History Acetaminophen [Tylenol Regular 650 mg PO Q4H PRN tab 11/20/19 01/13/20 Rx Strength] Pantoprazole [Protonix] 40 mg PO DAILY 01/13/20 01/13/20 History Sucralfate [Carafate] 1 gm PO QID 01/13/20 01/13/20 History - History PMHx: CAD s/p cabg and stent placement, GERD, paroxysmal afib, aortic stenosis s/p valve replacement, anemia 2/2 CKD, TIA, HTN, neuropathy, pulmonary HTN, HFpEF PSHx: cholecystectomy, CABG x 2 in 2014, hysterectomy FHx: Father - DM, CAD, Mother - CAD, Brother - HF, COPD Social: Former smoker, denies ETOH use, denies drug use - Review of Systems General: reports: fatigue. denies: fever/chills, night sweats Eyes: denies: eye pain, vision changes ENT: denies: nasal congestion, rhinorrhea Respiratory: reports: shortness of breath (with activity). denies: cough, congestion Cardiovascular: reports: palpitation. denies: chest pain, edema Gastrointestinal: reports: nausea, abdominal pain (epigastric pain). denies: vomiting, diarrhea, constipation Genitourinary: denies: dysuria, polyuria Skin: denies: rashes, jaundice Musculoskeletal: denies: pain, tenderness Neurological: reports: weakness (generalized). denies: numbness, syncope Psychological: denies: anxiety, depression - Vital signs BP: [135/88] HR: [102] RR: [16] Tmax: [98] Pox: [97]% on [RA] Wt: [82.667kg] - Physical Exam Constitutional: NAD, awake, alert and oriented HEENT: normocephalic and atraumatic, no scleral icterus, MMM Neck: FROM, trachea midline Chest: no-tender to palpation Heart: normal S1/S2, no murmurs/rubs/gallops, pulses present, no edema -Heart: Irregularly irregular Lungs: CTAB, no respiratory distress Abdomen: soft, non-tender, bowel sounds present Musculoskeletal: normal structure, ROM grossly normal Neurological: no focal deficit Skin: no rash/lesions, no jaundice Heme/Lymphatic: no unusual bruising or bleeding Psychiatric: normal mood and affect FMR H&P: Results - Labs Result Diagrams: 01/17/20 04:12 01/17/20 04:12 Lab results: WBC 8.3 thou/uL (4.8-10.8) 01/13/20 15:05 Hgb 10.6 g/dL (12.0-16.0) L 01/13/20 15:05 Hct 35.2 % (36.0-47.0) L 01/13/20 15:05 MCV 90.4 fL (78.0-98.0) 01/13/20 15:05 Plt Count 207 thou/uL (130-400) 01/13/20 15:05 Neutrophils % 69.3 % (42.0-75.0) 01/13/20 15:05 Sodium 138 mmol/L (136-145) 01/13/20 15:05 Potassium 4.4 mmol/L (3.5-5.1) 01/13/20 15:05 Chloride 111 mmol/L (98-107) H 01/13/20 15:05 Carbon Dioxide 15 mmol/L (23-31) L 01/13/20 15:05 BUN 36 mg/dL (9.8-20.1) H 01/13/20 15:05 Creatinine 1.65 mg/dL (0.6-1.1) H 01/13/20 15:05 Glucose 60 mg/dL (83-110) L 01/13/20 15:05 Lactic Acid 1.1 mmol/L (0.5-2.2) 01/13/20 17:30 Calcium 8.9 mg/dL (7.8-10.44) 01/13/20 15:05 Total Bilirubin 0.4 mg/dL (0.2-1.2) 01/13/20 15:05 AST 20 U/L (5-34) 01/13/20 15:05 ALT 15 U/L (8-55) 01/13/20 15:05 Alkaline Phosphatase 73 U/L (40-110) 01/13/20 15:05 Creatine Kinase 50 U/L (29-168) 01/13/20 15:05 CK-MB (CK-2) 1.3 ng/mL (0-6.6) 01/13/20 15:05 B-Natriuretic Peptide 248.8 pg/mL (0-100) H 01/13/20 15:05 Serum Total Protein 7.0 g/dL (6.0-8.3) 01/13/20 15:05 Albumin 3.5 g/dL (3.4-4.8) 01/13/20 15:05 Lipase 51 U/L (8-78) 01/13/20 17:30 Urine Ketones Negative mg/dL (Negative) 01/13/20 17:20 Urine Blood Negative (Negative) 01/13/20 17:20 Urine Nitrite Negative (Negative) 01/13/20 17:20 Ur Leukocyte Esterase 250 Rani/uL (Negative) A 01/13/20 17:20 Urine RBC 0-3 HPF (0-3) 01/13/20 17:20 Urine WBC 4-6 HPF (0-3) A 01/13/20 17:20 Ur Squamous Epith Cells 0-3 HPF (0-3) 01/13/20 17:20 Urine Bacteria None Seen HPF (None Seen) 01/13/20 17:20 - EKG Interpretation EKG: Sinus tachycardia, 134 FMR H&P: A/P - Plan Paroxysmal Afib with RVR Reports palpitations x 1 day. Underwent ablation and watchman procedure 1 wk ago. SVT in clinic EKG. Afib in ED with HR 100-130s. TSH, Mag WNL. No ST segment changes on EKG. Skiver Operator: Dr. Rosas, Dr. Patel -Admit to tele inpatient for continuous monitoring -Continue home coreg 6.25 BID for rate control -Continue home eliquis 2.5 BID for anti-coagulation -Consult cardiology, Dr. Rice. Recommended amio ggt if more symptomatic -Trop 0.568->0.606. Will continue to trend. Hyperchloremia non-anion gap acidosis Likely 2/2 chronic loose stools. -Monitor with am BMP Chronic normocytic anemia Hgb 10.6, MCV 90.4. -Monitor with am CBC CAD s/p CABG, stent placement -Continue home meds GERD -Continue home meds Aortic Stenosis s/p valve replacement -Continue home eliquis CKD3 Cr 1.65 in the ED. Appears near baseline. -Monitor with am BMP Hx TIA -Aware HFpEF Pulmonary HTN -Continue home meds Neuropathy -Continue home meds PCP: Madhav Code: FULL DVT PPx: Home Eliquis Dispo: admit to telemetry, inpatient. Expected LOS > 48 hours. FMR H&P: Upper Level - Plan Date/Time: 01/13/201921 Mayda Coreas, have evaluated this patient and agree with findings/plan as outlined by internet marketing specialist resident. Pertinent changes/additions are listed here. 84 yo F with PMH paroxysmal afib s/p ablation and watchmans device placement 1 week ago in [place] presented to the ED from clinic for SVT. Patient reports 2 day history of heart palpitations and weakness. Reports constant epigastric pain. No N, V, syncope. She is on eliquis. Dr. Rosas is her sports medicine specialist Plans to follow up with Dr. Patel in 5 weeks s/p mag 2g x2, 2L NS in ED PE: Gen: NAD HEENT: Moist MM, no LAD Heart: irregular, no murmurs or extra sounds Lungs: CTAB, no wheezing. No increased work of breathing Abd: soft, nontender, BS+, no masses or hernias Ext: no cyanosis or edema Skin: no rashes Psych: AOx3 Afib with RVR - Patient with SVT in clinic today with SVT on initial EKG but now in afib, rate on telemetry 115s average. Will give nighttime coreg dose and monitor - BNP 248, lower compared to prior this year. TSH wnl. Mag wnl. - Continue home eliquis, coreg for rate control Elevated troponin - Likely 2/2 demand - Trop 0.568->0.606->0.611 - EKG without any ST changes - Cardiology, Dr. Rice consulted, recommended amio gtt if patient becomes more symptomatic Hyperchloremic non anion gap acidosis -Lab likely drawn prior to NS given in ED. Likely 2/2 chronic GI loss/loose stools that she endorsed history of -Trend on am BMP Chronic normocytic anemia above baseline CKD3 at baseline PCP: Madhav Attending: Puma Dispo: admit to telemetry, inpatient Addendum - Attending - Attending Attestation Date/Time: 01/17/20 6008 I personally evaluated the patient and discussed the management with the team. I agree with the History, Examination, Assessment and Plan documented above with any addition or exceptions noted below. <1 week s/p ablation + Watchman now with Afib with RVR and NSTEMI, raising c oncern for occlusion vs failed procedure. Discussed with cardiology.
[2020-01-13] MEDS ORDERED: Ondansetron PF 4 MG/2 ML Vial IVP PRN (19:26)
[2020-01-13] MEDS ORDERED: Ondansetron ODT 4 MG TAB PO PRN (19:26)
[2020-01-13] MEDS ORDERED: Nitroglycerin 0.4 MG TAB (25 Tab Bottle) SL PRN (19:26)
[2020-01-13] MEDS ORDERED: Carvedilol 6.25 MG TAB PO SCH (20:45)
[2020-01-13] MEDS: Apixaban 2.5 MG TAB PO SCH (20:46)
[2020-01-13] MEDS: Gabapentin 300 MG CAP PO SCH (20:46)
[2020-01-13] MEDS ORDERED: PRAVASTATIN 20 MG PO SCH (21:00)
[2020-01-13 21:39] LABS: Troponin I 0.611 ng/mL (< 0.028)
[2020-01-14 01:23] LABS: Critical Call Chem Troponin I RESULT DECREASING; Troponin I 0.551 ng/mL (< 0.028)
[2020-01-14] MEDS: Acetaminophen 325 MG TAB PO PRN (01:56)
[2020-01-14 04:47] LABS: #Basophils 0.1 thou/uL (0.0-0.2); #Eosinphils 0.2 thou/uL (0.0-0.7); #Lymphocytes 1.8 thou/uL (1.20-3.40); #Monocytes 0.5 thou/uL (0.11-0.59); #Neutrophils 3.3 thou/uL (1.40-6.50); %Basophils 1.1 % (0.0-1.0); %Eosinophils 3.4 % (0.0-10.0); %Lymphocytes 30.7 % (21.0-51.0); %Monocytes 8.4 % (0.0-10.0); %Neutrophils 56.4 % (42.0-75.0); Hemoglobin 9.5 g/dL (12.0-16.0); Mean Corpuscular Hemoglobin 27.9 pg (27.0-31.0); Mean Corpuscular Volume 89.9 fL (78.0-98.0); Mean Platelet Volume 8.6 fL (7.4-10.4); Platelet Count 199 thou/uL (130-400); RBC Distribution Width 14.9 % (11.5-14.5); White Blood Cell (WBC) Count 5.8 thou/uL (4.8-10.8)
[2020-01-14 05:07] LABS: Anion Gap 11 mmol/L (10-20); BUN (Urea Nitrogen) 31 mg/dL (9.8-20.1); Calc. Creatinine Clearance 37 mL/min (70-130); Calcium 8.6 mg/dL (7.8-10.44); Carbon Dioxide 21 mmol/L (23-31); Chloride 112 mmol/L (98-107); Estimated GFR-MDRD 41; Glucose 94 mg/dL (83-110); Potassium 4.4 mmol/L (3.5-5.1); Sodium 140 mmol/L (136-145)
--- NOTE | 2020-01-14 05:27 | PDOC.FM ---
- Subjective Subjective: Pt complaining of abd pain this morning. Located midepigastric. She takes pantoprazole and sucralfate at home and states she hasn't been given her normal dose. Denies N/V, diarrhea, CP, SOB. - Objective Vital Signs & Weight: Vital Signs (12 hours) Temp Pulse Resp BP Pulse Ox 01/14/20 03:52 98.5 F 90 15 126/67 98 01/14/20 00:00 93 01/13/20 19:21 98.6 F 99 18 156/84 H 99 Weight Weight 82.667 kg I&O: 01/12/20 01/13/20 01/14/20 06:59 06:59 06:59 Intake Total 480 Balance 480 Result Diagrams: 01/14/20 04:32 01/14/20 04:32 Phys Exam - Physical Examination Constitutional: NAD HEENT: moist MMs, sclera anicteric Neck: supple, full ROM Respiratory: no wheezing, clear to auscultation bilateral Cardiovascular: no significant murmur irregularly irregular Gastrointestinal: soft, non-tender, no distention Musculoskeletal: no edema, pulses present Neurological: non-focal, normal sensation Psychiatric: normal affect, A&O x 3 Skin: no rash, cap refill <2 seconds Dx/Plan - Plan Plan: #Afib with RVR -s/p ablation and watchmen one week ago in [place] -given 2 g mag sulfate in ED, rate controlled -Cardiology outpatient: Dr. Rosas, Dr. Patel -Trop 0.6 x 3, likely due to recent surgery -consult cardiology, Rice: amiodarone gtt if symptomatic, appreciate recs -continue home eliquis -on coreg 6.25mg bid, consider increasing #Abdominal pain -CT Abd/pelv: no acute findings -hx of GERD, on sucralfate and pantoprazole. continue -has regular f/u with outpatient GI, Dr Iglesias #Chronic normocytic anemia -Hgb 10.6, MCV 90.4. -has regular f/u with GI outpatient #CAD s/p CABG, stent placement -Continue home meds #GERD -Continue home meds #Aortic Stenosis s/p valve replacement -Continue home eliquis #Hyperchloremia non-anion gap acidosis Likely 2/2 chronic loose stools. -Monitor with am BMP #CKD3 Cr 1.65 in the ED. Appears near baseline. -Monitor with am BMP #Hx TIA -Aware #HFpEF -echo July 2019: EF 60-65%, diastolic dysfunction -Continue home meds Neuropathy -Continue home meds PCP: Madhav Code: FULL DVT PPx: Home Eliquis Dispo: admit to telemetry, inpatient. Cardiology consulted, appreciate recs. Expected LOS > 48 hours.
[2020-01-14] MEDS ORDERED: Carvedilol 6.25 MG TAB PO SCH ×2 (08:00→23:30)
[2020-01-14] MEDS ORDERED: FLU VACC QS2020-21(65YR UP)/PF 240 MCG/0.7 ML SYRINGE IM ONE (09:00)
[2020-01-14] MEDS: Sucralfate 1 GM TAB PO SCH ×4 (09:07→20:16)
[2020-01-14] MEDS: Cholecalciferol 1,000 UNITS (25 MCG) TAB PO SCH (09:07)
[2020-01-14] MEDS: Apixaban 2.5 MG TAB PO SCH ×2 (09:07→20:16)
[2020-01-14] MEDS: Cyanocobalamin (Vitamin B-12) 1,000 MCG TAB PO SCH (09:08)
[2020-01-14] MEDS: Gabapentin 300 MG CAP PO SCH ×2 (09:08→20:16)
[2020-01-14] MEDS: Furosemide 20 MG TAB PO SCH (09:08)
[2020-01-14 11:02] LABS: SARS-CoV-2 MS2 Positive; SARS-CoV-2 N Gene Negative; SARS-CoV-2 S Gene Negative; SARS-CoV-2 by NAA Not Detected (NotDetected); SARS-CoV-2 orf1ab Negative
--- NOTE | 2020-01-14 13:00 | CON ---
DATE OF CONSULTATION: REASON FOR CONSULTATION: Elevated troponin. HISTORY OF PRESENT ILLNESS: Ms. Brennan is a very pleasant 84-year-old woman who recently underwent AFib ablation 6 days ago. She also had a Watchman placed. She recently presented with tachycardia. No chest pain or pressure noted. No shortness of breath. She did have abdominal discomfort that she states is chronic. Given tachycardia, she decided to proceed to the emergency room. Currently, her heart rate appears to be well controlled. HOME MEDICATIONS: Include: 1. Eliquis. 2. Carvedilol. 3. Lisinopril. 4. Famotidine. 5. Pravastatin. 6. Gabapentin. 7. Lasix. 8. Iron. PAST MEDICAL HISTORY: 1. Paroxysmal atrial fibrillation. 2. Hyperlipidemia. 3. CAD. 4. Hypertension. 5. Acid reflux. 6. Vitamin D deficiency. 7. Right lower lobe aspiration pneumonia. 8. Previous GI bleed. 9. Pulmonary hypertension. SURGICAL HISTORY: 1. CABG x2. 2. Cholecystectomy. 3. Hernia repair. 4. Hysterectomy. 5. Partial gastrectomy. SOCIAL HISTORY: No tobacco or alcohol use. ALLERGIES: NONE. REVIEW OF SYSTEMS: A 10-point review of systems is reviewed as above, otherwise negative. PHYSICAL EXAMINATION: GENERAL: Patient is a pleasant woman who is in no acute distress. The patient appears their stated age. VITAL SIGNS: Blood pressure 115/69, pulse 127, and temperature 98.7. NEUROLOGIC: The patient is alert and oriented x3 with no focal neurologic deficits. HEENT: Sclerae without icterus. Mouth has moist mucous membranes with normal pallor. NECK: No JVD. Carotid upstroke brisk. No bruits bilaterally. LUNGS: Clear to auscultation with unlabored respirations. BACK: No scoliosis or kyphosis. CARDIAC: Irregularly irregular. ABDOMEN: Soft, nontender, nondistended. No peritoneal signs present. No hepatosplenomegaly. No abnormal striae. EXTREMITIES: 2+ femoral and 2+ dorsalis pedis pulses. No cyanosis, clubbing, or edema. SKIN: No gross abnormalities. PERTINENT LABORATORY DATA: Hemoglobin 9.5 and hematocrit 30.5. Peak troponin 0.6. IMPRESSION: 1. Elevated troponin. 2. Atrial fibrillation. RECOMMENDATIONS: We will continue with rate control. Agree with increasing beta-deidra therapy. Elevated troponin likely related to recent ablation. Her CK-MB was negative. We would continue with outpatient medications as prescribed. Increase carvedilol to 12.5 mg p.o. b.i.d. Add digoxin if needed. Job ID: [id number]
[2020-01-14] MEDS ORDERED: Amiodarone 200 MG TAB PO SCH ×2 (15:00→21:00)
[2020-01-14] MEDS: Carvedilol 6.25 MG TAB PO SCH (17:05)
[2020-01-15] MEDS ORDERED: Amiodarone 150 MG, Admixture Fee 1 EACH in Dextrose 5% in Water 100 ML IVPB SCH (02:45)
[2020-01-15] MEDS: Amiodarone 450 MG in Dextrose 5% in Water 250 ML IVPB SCH ×2 (03:24→12:01)
[2020-01-15 04:25] LABS: #Eosinphils 0.3 thou/uL (0.0-0.7); #Lymphocytes 1.4 thou/uL (1.20-3.40); #Monocytes 0.5 thou/uL (0.11-0.59); #Neutrophils 3.5 thou/uL (1.40-6.50); %Basophils 0.6 % (0.0-1.0); %Eosinophils 4.7 % (0.0-10.0); %Monocytes 9.5 % (0.0-10.0); %Neutrophils 61.3 % (42.0-75.0); Hemoglobin 9.9 g/dL (12.0-16.0); Mean Corpuscular Hemoglobin 28.6 pg (27.0-31.0); Mean Corpuscular Volume 92.2 fL (78.0-98.0); Mean Platelet Volume 8.2 fL (7.4-10.4); Platelet Count 205 thou/uL (130-400); RBC Distribution Width 14.8 % (11.5-14.5); Red Blood Cell (RBC) Count 3.45 mill/uL (4.20-5.40); White Blood Cell (WBC) Count 5.7 thou/uL (4.8-10.8)
[2020-01-15 04:47] LABS: Anion Gap 11 mmol/L (10-20); BUN (Urea Nitrogen) 26 mg/dL (9.8-20.1); Calc. Creatinine Clearance 37 mL/min (70-130); Calcium 8.8 mg/dL (7.8-10.44); Carbon Dioxide 20 mmol/L (23-31); Chloride 110 mmol/L (98-107); Estimated GFR-MDRD 41; Glucose 113 mg/dL (83-110); Potassium 4.2 mmol/L (3.5-5.1); Sodium 137 mmol/L (136-145)
--- NOTE | 2020-01-15 06:01 | PDOC.FM ---
- Subjective Subjective: Pt is a 84 yo F with PMH of CAD s/p cabg and stent placement, GERD, paroxysmal afib, aortic stenosis s/p valve replacement, anemia 2/2 CKD, TIA, HTN, neuropathy, pulmonary HTN, HFpEF who is admitted with cc of palpitations found to be in Afib with RVR and SVT on admission. Cardiology is on board. Patient was given a 1x dose of Coreg 12.5mg and started on amio gtt overnight because she was in Afib with RVR despite oral treatment. As per tele, remained in Afib with rate in 90-100s, occasionally going into Aflutter. Patient is asymptomatic and is doing well. Denies CP, palpitations, SOB, abdominal pain, LE edema, JACOB, vision changes, constipation, dysuria. - Objective MAR Reviewed: Yes Vital Signs & Weight: Vital Signs (12 hours) Temp Pulse Resp BP Pulse Ox 01/15/20 04:00 98.2 F 119 H 18 116/81 98 01/14/20 20:15 98.6 F 115 H 16 120/83 99 Weight Admit Weight 82.667 kg Weight 82.667 kg I&O: 01/13/20 01/14/20 01/15/20 06:59 06:59 06:59 Intake Total 480 720 Balance 480 720 Result Diagrams: 01/15/20 04:09 01/15/20 04:09 Phys Exam - Physical Examination Constitutional: NAD HEENT: moist MMs Neck: supple, full ROM Respiratory: no wheezing, no rhonchi Afib on exam Gastrointestinal: soft, non-tender Musculoskeletal: no edema, pulses present Neurological: moves all 4 limbs Psychiatric: normal affect, A&O x 3 Skin: no rash, normal turgor Dx/Plan - Plan Plan: #Afib with RVR -s/p ablation and watchmen one week ago in [place] -given 2 g mag sulfate in ED, rate controlled -Cardiology outpatient: Dr. Rosas, Dr. Patel -Trop 0.6 x 3, likely due to recent surgery -consult cardiology appreciate recs -continue home eliquis -on coreg 12.5mg bid -started on Amio gtt 01/14 and given a 1x dose of coreg 12.5mg given that patient was still in Afib with RVR. On 1mg/min this morning. Follow cardiology recs with plans to transition to PO once able. -tele after gtt started showed Afib no RVR with occasional Aflutter. #Chronic normocytic anemia -has regular f/u with GI outpatient -follow up iron studies #Abdominal pain, resolved -CT Abd/pelv: no acute findings -hx of GERD, on sucralfate and pantoprazole. continue -has regular f/u with outpatient GI, Dr Iglesias #CAD s/p CABG, stent placement -Continue home meds #GERD -Continue home meds #Aortic Stenosis s/p valve replacement -Continue home eliquis #Hyperchloremia non-anion gap acidosis Likely 2/2 chronic loose stools. -Monitor with am BMP #CKD3 Cr near baseline. -Continue to monitor with am BMP #Hx TIA -Aware #HFpEF -echo 01/13 showed EF 60-65%, mild mitral and tricuspid regurg -Continue home meds #Pulmonary HTN -seems to be a new diagnosis -echo 01/13 showed 90mmHG RV systolic pressure significant for PHTN -consider pulm outpatient, will see if patient is already following with a tilesetter #Neuropathy -Continue home meds PCP: RIKI-Gabino Code: FULL DVT PPx: Home Eliquis Dispo: admit to telemetry, inpatient. Cardiology consulted, appreciate recs. Expected LOS > 48 hours.
[2020-01-15] MEDS: Carvedilol 6.25 MG TAB PO SCH ×2 (09:22→16:51)
[2020-01-15] MEDS: Cyanocobalamin (Vitamin B-12) 1,000 MCG TAB PO SCH (09:23)
[2020-01-15] MEDS: Furosemide 20 MG TAB PO SCH (09:23)
[2020-01-15] MEDS: Sucralfate 1 GM TAB PO SCH ×4 (09:23→21:18)
[2020-01-15] MEDS: Gabapentin 300 MG CAP PO SCH ×2 (09:23→21:18)
[2020-01-15] MEDS: Cholecalciferol 1,000 UNITS (25 MCG) TAB PO SCH (09:23)
[2020-01-15] MEDS: Apixaban 2.5 MG TAB PO SCH ×2 (09:24→21:18)
[2020-01-15 09:49] LABS: Iron 90 ug/dL (50-170); Iron Binding Capacity, Total 300 mcg/dL (265-497)
--- NOTE | 2020-01-15 14:01 | CON ---
DATE OF CONSULTATION: 01/14/2020 HISTORY OF PRESENT ILLNESS: I am seeing Ms. Brennan at our [facility] Telemetry Floor as electrophysiology funeral pre need consultant. Her problem are; 1. Recurrent atrial arrhythmias. a. Paroxysmal atrial fibrillation. b. Status post pulmonary venous isolation and subsequent Watchman device placement on 01/06/2020 in [place]. c. Early recurrence of atypical atrial flutter with rapid rate, prompting current admission. 2. Coronary artery disease. a. History of coronary artery bypass grafting surgery. b. 2D echo from 01/14/2020, reveals LVEF 60% to 65%, moderate left atrial enlargement, bioprosthetic aortic valve, mild MR, mild to moderate TR. 3. Valvular heart disease, status post bioprosthetic aortic valve replacement. 4. History of GI bleed in the past. a. 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 5. CHADS score of 5 with age, gender, cardiovascular disease, hypertension, currently on Eliquis for anticoagulation. ALLERGIES: LATEX, LOVASTATIN, AND SIMVASTATIN. MEDICATIONS: At home included; 1. Pravachol. 2. Vitamin D3. 3. Neurontin. 4. Furosemide. 5. Vitamin B12. 6. Coreg 6.25 mg twice day. 7. Eliquis 2.5 mg twice a day. 8. Tylenol. 9. Protonix. SUBJECTIVE: Ms. Brennan is recently discharged just this past Friday from the [facility] in [place], where she underwent a pulmonary venous isolation followed by a Watchman device placement in the left atrial appendage. She left in sinus rhythm, but now she developed an atypical atrial flutter. Her primary care physician refered her to [facility] for further management. She feels palpitations and some epigastric pain. Her groin sites are tender but no obvious reaction . No further bleeding issues noted. Denied stroke-like symptoms. No neurological deficits. No PND, orthopnea, or lower extremity edema. REVIEW OF SYSTEMS: Rest of 12-point review of system otherwise unremarkable. PAST HISTORY: As above. History of coronary artery disease with prior bypass surgery, GERD, paroxysmal atrial fibrillation, bioprosthetic aortic valve replacement in the past, anemia due to GI bleed hypertension, neuropathy, pulmonary hypertension, heart failure with preserved ejection fraction. SOCIAL HISTORY: denies EtOH or drug abuse. FAMILY HISTORY: Noncontributory. OBJECTIVE DATA: VITAL SIGNS: Blood pressure 115/69, heart rate 127, respiratory rate 16, temperature 98.7 degrees Fahrenheit. GENERAL: Alert and oriented woman, in no apparent distress. NECK: Supple. Jugular veins not distended. CHEST: Coarse without crackles. HEART: Sounds are regular to rate and rhythm. No murmur or gallop. ABDOMEN: Benign. Bowel sounds positive. EXTREMITIES: Lower extremities without edema, clubbing, or cyanosis. Pulses are adequate. NEUROLOGIC: The patient is nonfocal. MUSCULOSKELETAL: Without joint swelling or deformity. SKIN: Without rash. Groin sites without significant hematoma. DATABASE: The EKG is reviewed, revealing initially atrial flutter with atypical 2:1 AV conduction is seen with ventricular rates 134 beats per minute. Subsequent EKG shows slower ventricular response at 106 beats per minute. LABORATORY DATA: White cell count is 5.8, hemoglobin 9.5, platelet count is 199. Sodium 140, potassium 4.4, BUN is 31, creatinine is 1.46, magnesium is 2.4. Troponin-I is 0.6, 0.6, and 0.551 consecutively. AST and ALT in normal ranges. ASSESSMENT AND PLAN: Ms. Brennan is a pleasant 84-year-old woman with history of paroxysmal atrial fibrillation. She also had a GI bleed in the past and could not tolerate full dose Eliquis. Now, she is on appropriate dosage of Eliquis at 2.5 mg twice a day without bleeding issues. She also has very recent Watchman device placement and pulmonary venous isolation procedure. She has atypical atrial flutter post recent pulmonary venous isolation procedure, which is difficult to rate control. My plan: 1. Regarding the atypical atrial flutter, furhter ventricular rate control will be necessary. We could continue beta deidra, which could be maximized, but likely may require additional agents like amiodarone or diltiazem. Amiodarone likely would be the best choice, although we discussed alternative of Multaq, which she declines due to mcclain issues. We discussed the pros and cons of antiarrhythmic use including risk of proarrhythmia, pulmonary, liver, thyroid, and optic nerve toxicity. She understands and willing to proceed. We will start tapering dose at 200 mg three times a day for a week and then reduce it to 200 mg twice a day after that for next two weeks and then 200 mg daily eventually. 2. Monitor telemetry and EKG while in hospital. Monitor QT intervals. 3. Recently implanted Watchman device, hence she will require continued anticoagulation. Also electrical cardioversion discouraged for her first month post Watchman device placement. 4. Coronary artery disease, currently stable. 5. History of aortic valve replacement, bioprosthetic, also stable. 6. Pulmonary hypertension, probably asymptomatic. Discussed with Dr. Rosas. Thank you for allowing me to participate in care of this patient. Job ID: [id number] [facility]
--- NOTE | 2020-01-15 16:57 | PDOC.CPN ---
- Subjective Date: 01/15/20 Time: 16:55 Interval history: No new issues. No angina. No SOB. Has episodes of tachycardia and she can feel her heart racing. - Review of Systems General: denies: fever/chills, weight/appetite/sleep changes, night sweats, fatigue Respiratory: denies: cough, congestion, shortness of breath, exercise in tolerance Cardiovascular: denies: chest pain, palpitation, edema, paroxysmal nocturnal dyspnea, orthopnea Gastrointestinal: denies: nausea, vomiting, diarrhea, constipation, abd pain, GI bleeding Musculoskeletal: denies: pain, tenderness, stiffness, swelling, arthritis/arthralgias Neurological: denies: numbness, syncope, seizure, weakness - Objective Allergies/Adverse Reactions: Allergies Allergy/AdvReac Type Severity Reaction Status Date / Time latex Allergy Unknown Verified 01/13/20 20:48 lovastatin Allergy Unknown Verified 01/13/20 20:48 simvastatin Allergy Unknown Verified 01/13/20 20:48 Visit Medications: Current Medications Acetaminophen (Acetaminophen 325 Mg Tab) 650 mg PO Q4H PRN PRN Reason: Headache/Fever/Mild Pain (1-3) Last Admin: 01/14/20 01:56 Dose: 650 mg Documented by: Amiodarone HCl (Amiodarone 200 Mg Tab) 200 mg PO TID [facility] Last Admin: 01/14/20 20:16 Dose: 200 mg Documented by: Apixaban (Apixaban 2.5 Mg Tab) 2.5 mg PO BID [facility] Last Admin: 01/15/20 09:24 Dose: 2.5 mg Documented by: Carvedilol (Carvedilol 6.25 Mg Tab) 12.5 mg PO BID-[facility] Last Admin: 01/15/20 16:51 Dose: 12.5 mg Documented by: Cholecalciferol (Cholecalciferol 1,000 Units (25 Mcg) Tab) 1,000 units PO DAILY [facility] Last Admin: 01/15/20 09:23 Dose: 1,000 units Documented by: Cyanocobalamin (Cyanocobalamin (Vitamin B-12) 1,000 Mcg Tab) 1,000 mcg PO DAILY [facility] Last Admin: 01/15/20 09:23 Dose: 1,000 mcg Documented by: Furosemide (Furosemide 20 Mg Tab) 20 mg PO DAILY [facility] Last Admin: 01/15/20 09:23 Dose: 20 mg Documented by: Gabapentin (Gabapentin 300 Mg Cap) 300 mg PO BID [facility] Last Admin: 01/15/20 09:23 Dose: 300 mg Documented by: Amiodarone HCl 450 mg/ (Dextrose/Water) 259 mls @ 0 mls/hr IVPB INF [facility]; Protocol Last Admin: 01/15/20 12:01 Dose: 259 mls Documented by: Nitroglycerin (Nitroglycerin 0.4 Mg Tab (25 Tab Bottle)) 0.4 mg SL Q5MIN PRN PRN Reason: Chest Pain Ondansetron HCl (Ondansetron Odt 4 Mg Tab) 4 mg PO Q6H PRN PRN Reason: Nausea/Vomiting Ondansetron HCl (Ondansetron Pf 4 Mg/2 Ml Vial) 4 mg IVP Q6H PRN PRN Reason: Nausea/Vomiting Pantoprazole Sodium (Pantoprazole 40 Mg Tab) 40 mg PO DAILY [facility] Last Admin: 01/15/20 09:23 Dose: 40 mg Documented by: Sodium Chloride (Flush - Normal Saline 10 Ml Syringe) 10 ml IVF Q12HR [facility] Sodium Chloride (Flush - Normal Saline 10 Ml Syringe) 10 ml IVF PRN PRN PRN Reason: Saline Flush Sucralfate (Sucralfate 1 Gm Tab) 1 gm PO QID [facility] Last Admin: 01/15/20 16:51 Dose: 1 gm Documented by: Vital Signs & Weight: Vital Signs Temp Pulse Resp BP Pulse Ox 01/15/20 12:10 97.9 F 114 H 16 130/75 94 L 01/15/20 09:30 99 01/15/20 07:43 98.0 F 110 H 16 130/77 99 Admit Weight 182 lb 4 oz Weight 179 lb 8 oz - Physical Exam General: alert & oriented x3 HEENT: mucus membranes moist Neck: supple neck Cardiac: irregularly regular Lungs: clear to auscultation Neuro: grossly intact Abdomen: active bowel sounds Extremities: no edema Skin: clear Musculoskeletal: no pain - Labs Result Diagrams: 01/15/20 04:09 01/15/20 04:09 Troponin/CKMB CK-MB (CK-2) 1.3 ng/mL (0-6.6) 01/13/20 15:05 Troponin I 0.551 ng/mL (< 0.028) H* 01/14/20 00:36 - Telemetry Supraventricular conduction: atrial fibrillation - Assessment/Plan Assessment/Plan: 1. Atypical atrial flutter. 2. PAroxysmal atroial fibrillation. 3. Watchman device in place 4. Hx of GI bleeding 5. Elevated troponin likely from recent ablation. PLAN: - Continue rate control for now on amiodarone drip. - Will increase BB for better rate control. - Will switch to PO amio once better rate controlled. - Continue Eliquis.
[2020-01-15] MEDS ORDERED: Carvedilol 6.25 MG TAB PO SCH ×2 (17:00→17:45)
[2020-01-16] MEDS: Amiodarone 450 MG in Dextrose 5% in Water 250 ML IVPB SCH (03:37)
[2020-01-16] MEDS: Acetaminophen 325 MG TAB PO PRN ×2 (03:37→21:11)
[2020-01-16 04:19] LABS: #Basophils 0.1 thou/uL (0.0-0.2); #Eosinphils 0.2 thou/uL (0.0-0.7); #Lymphocytes 1.8 thou/uL (1.20-3.40); #Monocytes 0.7 thou/uL (0.11-0.59); #Neutrophils 4.3 thou/uL (1.40-6.50); %Basophils 1.2 % (0.0-1.0); %Eosinophils 2.5 % (0.0-10.0); %Lymphocytes 25.8 % (21.0-51.0); %Monocytes 9.5 % (0.0-10.0); %Neutrophils 61.1 % (42.0-75.0); Hemoglobin 10.3 g/dL (12.0-16.0); Mean Corpuscular Hemoglobin 28.8 pg (27.0-31.0); Mean Corpuscular Volume 89.9 fL (78.0-98.0); Mean Platelet Volume 8.8 fL (7.4-10.4); Platelet Count 227 thou/uL (130-400); RBC Distribution Width 14.8 % (11.5-14.5); Red Blood Cell (RBC) Count 3.57 mill/uL (4.20-5.40)
[2020-01-16 04:39] LABS: Anion Gap 13 mmol/L (10-20); BUN (Urea Nitrogen) 24 mg/dL (9.8-20.1); Calc. Creatinine Clearance 34 mL/min (70-130); Carbon Dioxide 24 mmol/L (23-31); Chloride 106 mmol/L (98-107); Estimated GFR-MDRD 38; Glucose 96 mg/dL (83-110); Potassium 3.8 mmol/L (3.5-5.1); Sodium 139 mmol/L (136-145)
--- NOTE | 2020-01-16 06:11 | PDOC.FM ---
- Subjective Subjective: Patient doing well this morning. Tolerating PO. Endorses mild chest/epigastric pain. Chest pain is reproducible with palpation. Denies SOB, diaphoresis, palpitations, abdominal pain. Tele showed Aflutter overnight with rate near 110 - Objective MAR Reviewed: Yes Vital Signs & Weight: Vital Signs (12 hours) Temp Pulse Resp BP Pulse Ox 01/16/20 03:16 98.3 F 115 H 15 120/64 96 01/15/20 19:00 98.5 F 117 H 16 117/80 99 Weight Admit Weight 82.667 kg Weight 79.696 kg I&O: 01/14/20 01/15/20 01/16/20 06:59 06:59 06:59 Intake Total 480 1020 680.4 Output Total 1100 1300 Balance 480 -80 -619.6 Result Diagrams: 01/16/20 03:53 01/16/20 03:53 Phys Exam - Physical Examination Constitutional: NAD HEENT: moist MMs Neck: supple, full ROM Respiratory: no wheezing, clear to auscultation bilateral Cardiovascular: no significant murmur tachycardic Gastrointestinal: soft epigastric tenderness Musculoskeletal: pulses present trace edema b/l. lower chest pain reproducible with palpation Neurological: moves all 4 limbs Psychiatric: A&O x 3 Skin: normal turgor Dx/Plan - Plan Plan: #Afib with RVR -s/p ablation and watchmen one week ago in [place] -given 2 g mag sulfate in ED, rate controlled -Cardiology outpatient: Dr. Rosas, Dr. Patel -Trop 0.6 x 3, likely due to recent surgery -consult cardiology appreciate recs -continue home eliquis -Increased coreg to 25mg PO bid -started on Amio gtt at 1mg/min on 01/14 and given a 1x dose of coreg 12.5mg given that patient was still in Afib with RVR. -Follow cardiology recs with plans to transition to PO once able, 01/15 amio gtt at .5mg/min -tele showed aflutter at 110s #Epigastric abdominal pain -CT Abd/pelv: no acute findings -hx of GERD, on sucralfate and pantoprazole. continue -has regular f/u with outpatient GI, Dr Iglesias #CAD s/p CABG, stent placement -Continue home meds #GERD -Continue home meds #Aortic Stenosis s/p valve replacement -Continue home eliquis #Hyperchloremia non-anion gap acidosis Likely 2/2 chronic loose stools. -Monitor with am BMP #CKD3 Cr near baseline. -Continue to monitor with am BMP #Hx TIA -Aware #HFpEF -echo 01/13 showed EF 60-65%, mild mitral and tricuspid regurg -Continue home meds #Pulmonary HTN -seems to be a new diagnosis -echo 01/13 showed 90mmHG RV systolic pressure significant for PHTN -consider pulm outpatient, will see if patient is already following with a sports analyst #Neuropathy -Continue home meds #Chronic normocytic anemia -has regular f/u with GI outpatient -iron studies normal PCP: Madhav Code: FULL DVT PPx: Home Eliquis Diet: HH Dispo: admit to telemetry, inpatient. Cardiology consulted, appreciate recs. Expected LOS > 48 hours.
[2020-01-16] MEDS: Sucralfate 1 GM TAB PO SCH ×4 (08:27→21:11)
[2020-01-16] MEDS: Carvedilol 6.25 MG TAB PO SCH ×2 (08:27→16:54)
[2020-01-16] MEDS: Apixaban 2.5 MG TAB PO SCH ×2 (08:27→21:11)
[2020-01-16] MEDS: Furosemide 20 MG TAB PO SCH (08:27)
[2020-01-16] MEDS: Cyanocobalamin (Vitamin B-12) 1,000 MCG TAB PO SCH (08:27)
[2020-01-16] MEDS: Gabapentin 300 MG CAP PO SCH ×2 (08:27→21:11)
[2020-01-16] MEDS: Cholecalciferol 1,000 UNITS (25 MCG) TAB PO SCH (08:27)
--- NOTE | 2020-01-16 12:02 | EKG ---
Test Reason : Blood Pressure : / mmHG Vent. Rate : 106 BPM Atrial Rate : 102 BPM P-R Int : 000 ms QRS Dur : 072 ms QT Int : 336 ms P-R-T Axes : 000 059 067 degrees QTc Int : 446 ms Atrial fibrillation with rapid ventricular response Septal infarct , age undetermined Abnormal ECG When compared with ECG of 15-NOV-2019 15:05, Atrial fibrillation has replaced Sinus rhythm Septal infarct is now Present ST no longer elevated in Anterior leads Nonspecific T wave abnormality now evident in Lateral leads Confirmed by CHELY JOHNSTON ([id number]) on 01/16/2020 12:01:51 PM Referred By: TOMI SPARROW Confirmed By:CHELY JOHNSTON
--- NOTE | 2020-01-16 16:27 | PDOC.CPN ---
- Subjective Date: 01/16/20 Time: 16:26 Interval history: She has noticed hallucinations. She states she hears people talking to her who are not in the room. - Review of Systems General: denies: fever/chills, weight/appetite/sleep changes, night sweats, fa tigue Respiratory: denies: cough, congestion, shortness of breath, exercise intolerance Cardiovascular: denies: chest pain, palpitation, edema, paroxysmal nocturnal dyspnea, orthopnea Gastrointestinal: denies: nausea, vomiting, diarrhea, constipation, abd pain, GI bleeding Musculoskeletal: denies: pain, tenderness, stiffness, swelling, arthritis/arthralgias Neurological: denies: numbness, syncope, seizure, weakness - Objective Allergies/Adverse Reactions: Allergies Allergy/AdvReac Type Severity Reaction Status Date / Time latex Allergy Unknown Verified 01/13/20 20:48 lovastatin Allergy Unknown Verified 01/13/20 20:48 simvastatin Allergy Unknown Verified 01/13/20 20:48 Visit Medications: Current Medications Acetaminophen (Acetaminophen 325 Mg Tab) 650 mg PO Q4H PRN PRN Reason: Headache/Fever/Mild Pain (1-3) Last Admin: 01/16/20 03:37 Dose: 650 mg Documented by: Amiodarone HCl (Amiodarone 200 Mg Tab) 200 mg PO TID [facility] Last Admin: 01/14/20 20:16 Dose: 200 mg Documented by: Apixaban (Apixaban 2.5 Mg Tab) 2.5 mg PO BID [facility] Last Admin: 01/16/20 08:27 Dose: 2.5 mg Documented by: Carvedilol (Carvedilol 6.25 Mg Tab) 25 mg PO BID-[facility] Last Admin: 01/16/20 08:27 Dose: 25 mg Documented by: Cholecalciferol (Cholecalciferol 1,000 Units (25 Mcg) Tab) 1,000 units PO DAILY [facility] Last Admin: 01/16/20 08:27 Dose: 1,000 units Documented by: Cyanocobalamin (Cyanocobalamin (Vitamin B-12) 1,000 Mcg Tab) 1,000 mcg PO DAILY [facility] Last Admin: 01/16/20 08:27 Dose: 1,000 mcg Documented by: Furosemide (Furosemide 20 Mg Tab) 20 mg PO DAILY [facility] Last Admin: 01/16/20 08:27 Dose: 20 mg Documented by: Gabapentin (Gabapentin 300 Mg Cap) 300 mg PO BID [facility] Last Admin: 01/16/20 08:27 Dose: 300 mg Documented by: Amiodarone HCl 450 mg/ (Dextrose/Water) 259 mls @ 0 mls/hr IVPB INF [facility]; Protocol Last Admin: 01/16/20 03:37 Dose: 259 mls Documented by: Nitroglycerin (Nitroglycerin 0.4 Mg Tab (25 Tab Bottle)) 0.4 mg SL Q5MIN PRN PRN Reason: Chest Pain Ondansetron HCl (Ondansetron Odt 4 Mg Tab) 4 mg PO Q6H PRN PRN Reason: Nausea/Vomiting Ondansetron HCl (Ondansetron Pf 4 Mg/2 Ml Vial) 4 mg IVP Q6H PRN PRN Reason: Nausea/Vomiting Pantoprazole Sodium (Pantoprazole 40 Mg Tab) 40 mg PO DAILY [facility] Last Admin: 01/16/20 08:27 Dose: 40 mg Documented by: Sodium Chloride (Flush - Normal Saline 10 Ml Syringe) 10 ml IVF Q12HR [facility] Last Admin: 01/16/20 08:28 Dose: Not Given Documented by: Sodium Chloride (Flush - Normal Saline 10 Ml Syringe) 10 ml IVF PRN PRN PRN Reason: Saline Flush Sucralfate (Sucralfate 1 Gm Tab) 1 gm PO QID [facility] Last Admin: 01/16/20 12:22 Dose: 1 gm Documented by: Vital Signs & Weight: Vital Signs Temp Pulse Resp BP Pulse Ox 01/16/20 15:17 97.8 F 114 H 16 115/74 98 01/16/20 11:07 98.1 F 110 H 16 111/71 97 01/16/20 08:24 97.9 F 114 H 16 116/66 98 Admit Weight 182 lb 4 oz Weight 175 lb 11.2 oz - Physical Exam General: alert & oriented x3 HEENT: mucus membranes moist Neck: supple neck Cardiac: irregularly regular Lungs: clear to auscultation Neuro: no lateralizing findings Abdomen: active bowel sounds Extremities: no edema Skin: clear Musculoskeletal: no pain - Labs Result Diagrams: 01/16/20 03:53 01/16/20 03:53 Troponin/CKMB CK-MB (CK-2) 1.3 ng/mL (0-6.6) 01/13/20 15:05 Troponin I 0.551 ng/mL (< 0.028) H* 01/14/20 00:36 - Telemetry Supraventricular conduction: atrial fibrillation - Assessment/Plan Assessment/Plan: 1. Atypical atrial flutter. 2. Paroxysmal atrial fibrillation. 3. Watchman device in place 4. Hx of GI bleeding 5. Elevated troponin likely from recent ablation. PLAN: - Hallucinations are a known side effect of amiodarone. She feels it all started when we placed her on amiodarone. Will have to stop today. - Continue Eliquis for stroke prophylaxis. - Will start diltiazem. Maxed out on Coreg.
[2020-01-17 04:44] LABS: Anion Gap 11 mmol/L (10-20); BUN (Urea Nitrogen) 22 mg/dL (9.8-20.1); Calc. Creatinine Clearance 33 mL/min (70-130); Calcium 8.5 mg/dL (7.8-10.44); Carbon Dioxide 25 mmol/L (23-31); Chloride 107 mmol/L (98-107); Estimated GFR-MDRD 37; Glucose 91 mg/dL (83-110); Potassium 3.8 mmol/L (3.5-5.1); Sodium 139 mmol/L (136-145)
[2020-01-17 04:55] LABS: #Eosinphils 0.2 thou/uL (0.0-0.7); #Lymphocytes 1.8 thou/uL (1.20-3.40); #Monocytes 0.8 thou/uL (0.11-0.59); #Neutrophils 4.6 thou/uL (1.40-6.50); %Basophils 0.5 % (0.0-1.0); %Eosinophils 2.1 % (0.0-10.0); %Lymphocytes 23.8 % (21.0-51.0); %Neutrophils 62.6 % (42.0-75.0); Hemoglobin 9.5 g/dL (12.0-16.0); Mean Corpuscular HGB CONC 32.5 g/dL (32.0-36.0); Mean Corpuscular Hemoglobin 29.4 pg (27.0-31.0); Mean Corpuscular Volume 90.4 fL (78.0-98.0); Platelet Count 209 thou/uL (130-400); RBC Distribution Width 14.8 % (11.5-14.5); Red Blood Cell (RBC) Count 3.22 mill/uL (4.20-5.40); White Blood Cell (WBC) Count 7.4 thou/uL (4.8-10.8)
--- NOTE | 2020-01-17 06:17 | PDOC.FM ---
- Subjective Subjective: Pt resting comfortably. States she woke up "clear headed" and hallucinations have resolved. Continues to have mild epigastric pain. Denies CP, SOB, N/V. - Objective Vital Signs & Weight: Vital Signs (12 hours) Temp Pulse Resp BP Pulse Ox 01/17/20 04:00 99.1 F 103 H 17 111/55 L 100 01/16/20 20:00 99.4 F 107 H 12 145/72 H 99 Weight Admit Weight 82.667 kg Weight 77.247 kg I&O: 01/15/20 01/16/20 01/17/20 06:59 06:59 06:59 Intake Total 1020 680.4 1164 Output Total 1100 1300 900 Balance -80 -619.6 264 Result Diagrams: 01/17/20 04:12 01/17/20 04:12 Phys Exam - Physical Examination Constitutional: NAD HEENT: moist MMs, sclera anicteric Neck: supple, full ROM Respiratory: no wheezing, clear to auscultation bilateral Cardiovascular: irregular Gastrointestinal: soft, no distention epigastric tenderness Musculoskeletal: no edema, pulses present Neurological: non-focal, normal sensation Psychiatric: normal affect, A&O x 3 Skin: no rash, cap refill <2 seconds Dx/Plan - Plan Plan: #Afib with RVR -s/p ablation and watchmen 01/05 -consult cardiology, appreciate recs -continue home eliquis -Increased coreg to 25mg PO bid -per cardiology: stop amiodarone due to side effect hallucinations, start diltiazem 30mg tid -tele showed aflutter, HR 120s this am #Epigastric abdominal pain -hx of GERD, on sucralfate and pantoprazole. continue -has regular f/u with outpatient GI, Dr Iglesias #CAD s/p CABG, stent placement -Continue home meds #GERD -Continue home meds #Aortic Stenosis s/p valve replacement -Continue home eliquis #Hyperchloremia non-anion gap acidosis -resolved -Likely 2/2 chronic loose stools. #CKD3 -Cr near baseline. -Continue to monitor #Hx TIA -Aware #HFpEF -echo 01/13 showed EF 60-65%, mild mitral and tricuspid regurg -Continue home meds #Pulmonary HTN -asymptomatic -echo 01/13 showed 90mmHG RV systolic pressure significant for PHTN -consider pulm outpatient #Neuropathy -Continue home meds #Chronic normocytic anemia -has regular f/u with GI outpatient -iron studies normal PCP: Madhav Code: FULL DVT PPx: Home Eliquis Diet: HH Dispo: admit to telemetry, inpatient. Cardiology consulted, appreciate recs. Expected LOS > 48 hours. Addendum - Attending - Attending Attestation Date/Time: 01/17/20 [id number] I personally evaluated the patient and discussed the management with Dr. Murray. I agree with the History, Examination, Assessment and Plan documented above with any addition or exceptions noted below.
[2020-01-17] MEDS: Furosemide 20 MG TAB PO SCH (08:06)
[2020-01-17] MEDS: Sucralfate 1 GM TAB PO SCH ×4 (08:06→22:06)
[2020-01-17] MEDS: Gabapentin 300 MG CAP PO SCH ×2 (08:07→22:07)
[2020-01-17] MEDS: Carvedilol 6.25 MG TAB PO SCH (08:07)
[2020-01-17] MEDS: Cyanocobalamin (Vitamin B-12) 1,000 MCG TAB PO SCH (08:07)
[2020-01-17] MEDS: Cholecalciferol 1,000 UNITS (25 MCG) TAB PO SCH (08:07)
[2020-01-17] MEDS: Apixaban 2.5 MG TAB PO SCH ×2 (08:07→22:06)
--- NOTE | 2020-01-17 09:03 | PRG ---
DATE OF SERVICE: 01/17/2020 SUBJECTIVE: Ms. Brennan is doing well. Heart rate appears to be better controlled. She was placed on short-acting Cardizem over the weekend. She is on a high dose Coreg at 25 b.i.d. I do appreciate EP consultation. No cardioversion given recent Watchman placed. OBJECTIVE: VITAL SIGNS: Blood pressure 107/67, pulse 120, respirations 20. LUNGS: Clear to auscultation. HEART: Irregularly irregular. ABDOMEN: Soft, nontender, and nondistended. EXTREMITIES: No edema. IMPRESSION: 1. Atypical flutter. 2. Atrial fibrillation, status post ablation. 3. Status post Watchman. 4. Coronary artery disease. 5. Status post bypass surgery. RECOMMENDATIONS: Ms. Brennan was placed on amiodarone therapy by Dr. Patel on Friday. Continue anticoagulation treatment and continue with rate control. I have increased her Cardizem from 30 t.i.d. to 60 t.i.d. Once she is rate controlled, would be okay with discharge with close outpatient followup. Job ID: [id number]
[2020-01-17] MEDS ORDERED: Digoxin 0.125 MG TAB PO SCH (10:27)
--- NOTE | 2020-01-17 10:34 | PDOC.EP ---
- Subjective Date: 01/17/20 Time: 09:00 Interval History: Feels fair today. No major events overnight. - Review of Systems Constitutional: denies: chills, fever, malaise, sweats, weakness Respiratory: denies: cough, dry, hemoptysis, pleuritic pain, shortness of breath, SOB with excertion, sputum, wheezing Cardiology: denies: chest pain, edema, heart racing, light headedness, orthopnea, paroxysmal noc. dyspnea, palpitations, passing out, pleuritic pain, pressure, swelling Gastrointestinal: denies: abdominal pain, constipation, diarrhea, hematochezia, melena, nausea, vomitting - Objective Allergies/Adverse Reactions: Allergies Allergy/AdvReac Type Severity Reaction Status Date / Time latex Allergy Unknown Verified 01/13/20 20:48 lovastatin Allergy Unknown Verified 01/13/20 20:48 simvastatin Allergy Unknown Verified 01/13/20 20:48 Current Medications Acetaminophen (Acetaminophen 325 Mg Tab) 650 mg PO Q4H PRN PRN Reason: Headache/Fever/Mild Pain (1-3) Last Admin: 01/16/20 21:11 Dose: 650 mg Documented by: Apixaban (Apixaban 2.5 Mg Tab) 2.5 mg PO BID [facility] Last Admin: 01/17/20 08:07 Dose: 2.5 mg Documented by: Carvedilol (Carvedilol 6.25 Mg Tab) 25 mg PO BID[facility] Last Admin: 01/17/20 08:07 Dose: 25 mg Documented by: Cholecalciferol (Cholecalciferol 1,000 Units (25 Mcg) Tab) 1,000 units PO DAILY [facility] Last Admin: 01/17/20 08:07 Dose: 1,000 units Documented by: Cyanocobalamin (Cyanocobalamin (Vitamin B-12) 1,000 Mcg Tab) 1,000 mcg PO DAILY [facility] Last Admin: 01/17/20 08:07 Dose: 1,000 mcg Documented by: Diltiazem HCl (Diltiazem Hcl 30 Mg Tablet) 60 mg PO TID [facility] Last Admin: 01/17/20 08:06 Dose: 60 mg Documented by: Furosemide (Furosemide 20 Mg Tab) 20 mg PO DAILY [facility] Last Admin: 01/17/20 08:06 Dose: 20 mg Documented by: Gabapentin (Gabapentin 300 Mg Cap) 300 mg PO BID [facility] Last Admin: 01/17/20 08:07 Dose: 300 mg Documented by: Nitroglycerin (Nitroglycerin 0.4 Mg Tab (25 Tab Bottle)) 0.4 mg SL Q5MIN PRN PRN Reason: Chest Pain Ondansetron HCl (Ondansetron Odt 4 Mg Tab) 4 mg PO Q6H PRN PRN Reason: Nausea/Vomiting Last Admin: 01/17/20 09:49 Dose: 4 mg Documented by: Ondansetron HCl (Ondansetron Pf 4 Mg/2 Ml Vial) 4 mg IVP Q6H PRN PRN Reason: Nausea/Vomiting Pantoprazole Sodium (Pantoprazole 40 Mg Tab) 40 mg PO DAILY [facility] Last Admin: 01/17/20 08:07 Dose: 40 mg Documented by: Sodium Chloride (Flush - Normal Saline 10 Ml Syringe) 10 ml IVF Q12HR [facility] Last Admin: 01/17/20 08:07 Dose: 10 ml Documented by: Sodium Chloride (Flush - Normal Saline 10 Ml Syringe) 10 ml IVF PRN PRN PRN Reason: Saline Flush Sucralfate (Sucralfate 1 Gm Tab) 1 gm PO QID [facility] Last Admin: 01/17/20 08:06 Dose: 1 gm Documented by: Vital Signs & Weight: Vital Signs Temp Pulse Resp BP Pulse Ox 01/17/20 07:25 98.5 F 121 H 14 107/67 96 01/17/20 04:00 99.1 F 103 H 17 111/55 L 100 Admit Weight 182 lb 4 oz Weight 170 lb 4.8 oz I/O: I/O 01/16/20 01/17/20 01/18/20 06:59 06:59 06:59 Intake Total 680.4 1524 Output Total 1300 900 Balance -619.6 624 - Quality Measures Condition: Atrial Fibrillation/Flutter (hx or current) CV meds: Eliquis: Yes - Physical Exam General: alert & oriented x3, appears well, no apparent distress, speech clear, affect appropriate HEENT: mucus membranes moist, normocephaly Neck: supple neck, midline trachea, no JVD/HJR, no masses, no bruit, no lymphadenopathy, no thromegaly Cardiology: PMI nondisplaced, irregularly irregular, tachycardia Lungs: clear to auscultation, normal breath sounds, no wheeze, rales, rhonchi Neurology: cranial nerve 2-12 intact, grossly intact, no lateralizing findings Abdomen: unremarkable, active bowel sounds, no pulsations/bruits - Chadsvasc Risk factors Age >75: 2 Female: 1 Risk Score: 3 - Labs Result Diagrams: 01/17/20 04:12 01/17/20 04:12 - EKG Interpretation EKG Method: Telemetry EKG shows: Atrial fibrillation - Assessment/Plan Assessment/Plan: 1. Recurrent atrial arrhythmias. a. Paroxysmal atrial fibrillation. b. Status post pulmonary venous isolation and subsequent Watchman device placement on 01/06/2020 in [place]. c. Early recurrence of atypical atrial flutter with rapid rate, prompting current admission. 2. Coronary artery disease. a. History of coronary artery bypass grafting surgery. b. 2D echo from 01/14/2020, reveals LVEF 60% to 65%, moderate left atrial enlargement, bioprosthetic aortic valve, mild MR, mild to moderate TR. 3. Valvular heart disease, status post bioprosthetic aortic valve replacement. 4. History of GI bleed in the past. a. 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 5. CHADS score of 5 with age, gender, cardiovascular disease, hypertension, currently on Eliquis 2.5 for anticoagulation (Age, Creat often >1.5) 6. Chronic kidney disease - follows with local sales solutions associate - lisinopril previously stopped as Creat was >2 while IP at [facility] in [place] Recent watchman flex implant on 01/06 with PVAI 01/05. We no see an inflammatory early recurrence of atrial fibrillation in the post ablation recovery time. She did not tolerate amiodarone, reporting hallucinations. Financially, multaq is not an option for her. Cardioversion should be delayed until 4 weeks post Watchman implant. Diltiazem was increased this AM to improve rate control. Watch for hypotension. Digoxin could be added if BP does not allow for further rate control.
[2020-01-17] MEDS: Carvedilol 25 MG TAB PO SCH (17:38)
[2020-01-17] MEDS: Acetaminophen 325 MG TAB PO PRN (22:06)
[2020-01-18] MEDS: Acetaminophen 325 MG TAB PO PRN ×2 (02:55→14:12)
[2020-01-18 04:32] LABS: Anion Gap 13 mmol/L (10-20); BUN (Urea Nitrogen) 25 mg/dL (9.8-20.1); Calc. Creatinine Clearance 26 mL/min (70-130); Calcium 8.6 mg/dL (7.8-10.44); Carbon Dioxide 22 mmol/L (23-31); Chloride 104 mmol/L (98-107); Estimated GFR-MDRD 29; Glucose 88 mg/dL (83-110); Potassium 3.7 mmol/L (3.5-5.1); Sodium 135 mmol/L (136-145)
[2020-01-18 04:50] LABS: #Eosinphils 0.1 thou/uL (0.0-0.7); #Lymphocytes 2.3 thou/uL (1.20-3.40); #Monocytes 0.7 thou/uL (0.11-0.59); #Neutrophils 4.5 thou/uL (1.40-6.50); %Basophils 0.6 % (0.0-1.0); %Eosinophils 1.5 % (0.0-10.0); %Lymphocytes 30.2 % (21.0-51.0); %Monocytes 9.1 % (0.0-10.0); %Neutrophils 58.6 % (42.0-75.0); Hemoglobin 9.2 g/dL (12.0-16.0); Mean Corpuscular HGB CONC 31.4 g/dL (32.0-36.0); Mean Corpuscular Hemoglobin 28.2 pg (27.0-31.0); Mean Platelet Volume 9.4 fL (7.4-10.4); Platelet Count 235 thou/uL (130-400); RBC Distribution Width 14.9 % (11.5-14.5); Red Blood Cell (RBC) Count 3.24 mill/uL (4.20-5.40); White Blood Cell (WBC) Count 7.7 thou/uL (4.8-10.8)
--- NOTE | 2020-01-18 06:07 | PDOC.FM ---
- Subjective Subjective: Pt states she is feeling better today. Was concerned because she had an appointment today with hematology to get her scheduled injection, presumed epoietin. Denies CP, SOB, palpitation. - Objective Vital Signs & Weight: Vital Signs (12 hours) Temp Pulse Resp BP BP Pulse Ox 01/18/20 03:03 97.4 F L 80 22 H 122/58 L 97 01/17/20 23:25 60 134/62 01/17/20 19:34 98.7 F 57 L 14 83/54 L 96/50 L 98 Weight Admit Weight 82.667 kg Weight 77.564 kg I&O: 01/16/20 01/17/20 01/18/20 06:59 06:59 06:59 Intake Total 680.4 1524 1020 Output Total 1300 900 700 Balance -619.6 624 320 Result Diagrams: 01/18/20 03:35 01/18/20 03:35 Phys Exam - Physical Examination Constitutional: NAD HEENT: moist MMs, sclera anicteric Neck: supple, full ROM Respiratory: no wheezing, clear to auscultation bilateral Cardiovascular: no significant murmur irregular rhythm Gastrointestinal: soft, non-tender, no distention Musculoskeletal: no edema, pulses present Neurological: non-focal, normal sensation Psychiatric: normal affect, A&O x 3 Skin: no rash, cap refill <2 seconds Dx/Plan - Plan Plan: 84 yo female w/ hx of a fib s/p watchman and ablation who presents with a fib RVR #Afib with RVR -s/p ablation and watchman 01/05 -currently rate controlled -cardiology and EP are following, adjusting medications as needed for rate control, will follow recs -continue home eliquis -continuous tele monitor #Epigastric abdominal pain 2/2 GERD -hx of GERD, on sucralfate and pantoprazole. continue -has regular f/u with outpatient GI, Dr Iglesias #CAD s/p CABG, stent placement -Continue home meds #Aortic Stenosis s/p valve replacement -Continue home eliquis #Hyperchloremia non-anion gap acidosis -resolved -Likely 2/2 chronic loose stools. #CKD3 -Cr 2.0, increased from 1.6 -avoid nephrotoxic agents when possible -will hold lasix #Hx TIA -Aware #HFpEF -echo 01/13 showed EF 60-65%, mild MR, TR -Continue home meds #Pulmonary HTN -asymptomatic -echo 01/13 showed 90mmHG RV systolic pressure significant for PHTN -consider pulm outpatient #Neuropathy -Continue home meds #Chronic normocytic anemia -has regular f/u with GI and hematology outpatient -per patient, was scheduled for outpatient hematology appointment today for possible epogen txt -can f/u outpatient PCP: Madhav Code: FULL DVT PPx: Home Eliquis Diet: HH Dispo: admit to telemetry, inpatient. Cardiology and EP consulted, adjusting meds for rate control. Expected LOS > 48 hours. Addendum - Attending - Attending Attestation Date/Time: 01/18/20 1120 I personally evaluated the patient and discussed the management with Dr. Murray. I agree with the History, Examination, Assessment and Plan documented above with any addition or exceptions noted below.
[2020-01-18] MEDS: Sucralfate 1 GM TAB PO SCH ×4 (09:14→20:30)
[2020-01-18] MEDS: Gabapentin 300 MG CAP PO SCH ×2 (09:14→20:29)
[2020-01-18] MEDS: Cyanocobalamin (Vitamin B-12) 1,000 MCG TAB PO SCH (09:14)
[2020-01-18] MEDS: Apixaban 2.5 MG TAB PO SCH ×2 (09:14→20:30)
[2020-01-18] MEDS: Carvedilol 25 MG TAB PO SCH ×2 (09:14→17:06)
[2020-01-18] MEDS ORDERED: Digoxin 0.125 MG TAB PO SCH (11:00)
[2020-01-18] MEDS ORDERED: Iron, Sodium Ferric Gluconate 250 MG in Sodium Chloride 0.9% 100 ML IVPB SCH (13:45)
--- NOTE | 2020-01-18 15:28 | PDOC.EP ---
- Subjective Date: 01/18/20 Time: 08:00 Interval History: She has done well overnight but is not resting well in the hospital. she reports some right upper arm pain at a prior IV site. she denies any heart racing, palpitations, chest pain, syncope, stroke or stroke-like symptoms. She reports no bleeding dyscrasias - Review of Systems Constitutional: denies: chills, malaise, sweats, weakness Respiratory: denies: cough, pleuritic pain, shortness of breath, wheezing Cardiology: denies: chest pain, edema, heart racing, light headedness, palpitations, passing out Gastrointestinal: denies: abdominal pain, constipation, nausea, vomitting Musculoskeletal: reports: arm pain (RUE). denies: unstable gait, falls, leg pain, foot pain - Objective Allergies/Adverse Reactions: Allergies Allergy/AdvReac Type Severity Reaction Status Date / Time latex Allergy Unknown Verified 01/13/20 20:48 lovastatin Allergy Unknown Verified 01/13/20 20:48 simvastatin Allergy Unknown Verified 01/13/20 20:48 Current Medications Acetaminophen (Acetaminophen 325 Mg Tab) 650 mg PO Q4H PRN PRN Reason: Headache/Fever/Mild Pain (1-3) Last Admin: 01/18/20 14:12 Dose: 650 mg Documented by: Apixaban (Apixaban 2.5 Mg Tab) 2.5 mg PO BID [facility] Last Admin: 01/18/20 09:14 Dose: 2.5 mg Documented by: Carvedilol (Carvedilol 25 Mg Tab) 25 mg PO BID[facility] Last Admin: 01/18/20 09:14 Dose: 25 mg Documented by: Cyanocobalamin (Cyanocobalamin (Vitamin B-12) 1,000 Mcg Tab) 1,000 mcg PO DAILY [facility] Last Admin: 01/18/20 09:14 Dose: 1,000 mcg Documented by: Digoxin (Digoxin 0.125 Mg Tab) 0.125 mg PO DAILY [facility] Diltiazem HCl (Diltiazem Cd 120 Mg Cap) 120 mg PO DAILY [facility] Gabapentin (Gabapentin 300 Mg Cap) 300 mg PO BID [facility] Last Admin: 01/18/20 09:14 Dose: 300 mg Documented by: Ferric Sodium Gluconate Complex 250 mg/ Sodium Chloride 120 mls @ 60 mls/hr IVPB NOW [facility] Stop: 01/18/20 15:45 Nitroglycerin (Nitroglycerin 0.4 Mg Tab (25 Tab Bottle)) 0.4 mg SL Q5MIN PRN PRN Reason: Chest Pain Ondansetron HCl (Ondansetron Odt 4 Mg Tab) 4 mg PO Q6H PRN PRN Reason: Nausea/Vomiting Last Admin: 01/17/20 09:49 Dose: 4 mg Documented by: Ondansetron HCl (Ondansetron Pf 4 Mg/2 Ml Vial) 4 mg IVP Q6H PRN PRN Reason: Nausea/Vomiting Pantoprazole Sodium (Pantoprazole 40 Mg Tab) 40 mg PO DAILY [facility] Last Admin: 01/18/20 09:14 Dose: 40 mg Documented by: Sodium Chloride (Flush - Normal Saline 10 Ml Syringe) 10 ml IVF Q12HR [facility] Last Admin: 01/18/20 09:14 Dose: 10 ml Documented by: Sodium Chloride (Flush - Normal Saline 10 Ml Syringe) 10 ml IVF PRN PRN PRN Reason: Saline Flush Sucralfate (Sucralfate 1 Gm Tab) 1 gm PO QID [facility] Last Admin: 01/18/20 11:37 Dose: 1 gm Documented by: Vital Signs & Weight: Vital Signs Temp Pulse Resp BP BP Pulse Ox 01/18/20 11:37 90 01/18/20 11:30 98.6 F 90 15 112/51 L 98 01/18/20 07:41 98.7 F 82 18 116/79 97 Admit Weight 182 lb 4 oz Weight 171 lb I/O: I/O 01/17/20 01/18/20 01/19/20 06:59 06:59 06:59 Intake Total 1524 1020 Output Total 900 700 Balance 624 320 - Quality Measures Condition: Atrial Fibrillation/Flutter (hx or current) CV meds: Eliquis: Yes (2.5 (age, creat >1.5)) - Physical Exam General: alert & oriented x3, appears well, no apparent distress, speech clear, affect appropriate HEENT: mucus membranes moist, normocephaly Neck: supple neck Cardiology: regular rate, irregularly irregular. negative: tachycardia, bradycardia Lungs: clear to auscultation, normal breath sounds, no wheeze, rales, rhonchi Neurology: cranial nerve 2-12 intact, grossly intact, no lateralizing findings - Labs Result Diagrams: 01/18/20 03:35 01/18/20 03:35 - EKG Interpretation EKG Method: Telemetry EKG shows: Atypical atrial flutter - Assessment/Plan Assessment/Plan: 1. Recurrent atrial arrhythmias. a. Paroxysmal atrial fibrillation/atrypical atrial flutter b. Status post pulmonary venous isolation and subsequent Watchman device place ment on 01/06/2020 in [place]. c. Early recurrence of atypical atrial flutter with rapid rate, prompting current admission. 2. Coronary artery disease. a. History of coronary artery bypass grafting surgery. b. 2D echo from 01/14/2020, reveals LVEF 60% to 65%, moderate left atrial enlargement, bioprosthetic aortic valve, mild MR, mild to moderate TR. 3. Valvular heart disease, status post bioprosthetic aortic valve replacement. 4. History of GI bleed in the past. a. 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 5. CHADS score of 5 with age, gender, cardiovascular disease, hypertension, currently on Eliquis 2.5 for anticoagulation (Age, Creat often >1.5) 6. Chronic kidney disease - follows with local fresh foods technician - lisinopril previously stopped as Creat was >2 while IP at [facility] in [place] Recent watchman flex implant on 01/06 with PVAI 01/05. We no see an inflammatory early recurrence of atrial fibrillation in the post ablation recovery time. She did not tolerate amiodarone, reporting hallucinations. Financially, multaq is not an option for her. Cardioversion should be delayed until 4 weeks post Watchman implant. Diltiazem was increased this AM to improve rate control. Watch for hypotension. Digoxin could be added if BP does not allow for further rate control. 01/18/20: diltiazem had been switched to 180 mg daily. She was hypotensive over the night and was held this morning. Will reduce diltiazem CD to 120 mg daily and add digoxin 125 mcg daily for rate control, hopefully preventing further hypotension. Her rate control is adequate at this point as she persists in what appears to be atypical atrial flutter. once her blood pressure has stabilized she is okay for discharge from EP perspective as long as her rate control remains adequate. plan for a HERNANDEZ with cardioversion after 02/17 as she will be due for a HERNANDEZ to evaluate her left atrial appendage following the recent Watchman implant. With her chronic kidney disease she will not be a candidate for left atrial appendage evaluation with a CTA.
[2020-01-19 05:02] LABS: Anion Gap 12 mmol/L (10-20); BUN (Urea Nitrogen) 25 mg/dL (9.8-20.1); Calc. Creatinine Clearance 33 mL/min (70-130); Calcium 8.8 mg/dL (7.8-10.44); Carbon Dioxide 24 mmol/L (23-31); Chloride 105 mmol/L (98-107); Estimated GFR-MDRD 38; Glucose 89 mg/dL (83-110); Sodium 137 mmol/L (136-145)
--- NOTE | 2020-01-19 06:14 | PDOC.FM ---
- Subjective Subjective: Pt says she is feeling better this morning. No CP, palpitation or SOB. - Objective Vital Signs & Weight: Vital Signs (12 hours) Temp Pulse Resp BP BP Pulse Ox 01/19/20 03:10 98.7 F 80 16 113/65 95 01/18/20 19:25 98.5 F 62 16 111/58 L 97 Weight Admit Weight 82.667 kg Weight 77.564 kg I&O: 01/17/20 01/18/20 01/19/20 06:59 06:59 06:59 Intake Total 1524 1020 850 Output Total 900 700 700 Balance 624 320 150 Result Diagrams: 01/18/20 03:35 01/19/20 04:19 Phys Exam - Physical Examination Constitutional: NAD HEENT: moist MMs, sclera anicteric Neck: supple, full ROM Respiratory: no wheezing, clear to auscultation bilateral Cardiovascular: no significant murmur irregular rhythm Gastrointestinal: soft, non-tender, no distention Musculoskeletal: no edema, pulses present Neurological: non-focal, moves all 4 limbs Psychiatric: normal affect, A&O x 3 Skin: no rash, cap refill <2 seconds Deviation from normal: RUE mild edema at previous IV site, no warmth or erythema Dx/Plan - Plan Plan: 84 yo female w/ hx of a fib s/p watchman and ablation who presents with a fib RVR #Afib with RVR -s/p ablation and watchman 01/05 -currently rate controlled for >24 hours -EP, Dr Patel: diltiazem 120mg daily, digoxin 125 mcg daily, once BP and rate stabilize can discharge to f/u with HERNANDEZ on 02/17 -Cardiology, Dr Rosas: once she is rate controlled, can be discharged -continue home eliquis -continuous tele monitor #Epigastric abdominal pain 2/2 GERD -hx of GERD, on sucralfate and pantoprazole. continue -has regular f/u with outpatient GI, Dr Iglesias #CAD s/p CABG, stent placement -Continue home meds #Aortic Stenosis s/p valve replacement -Continue home eliquis #Hyperchloremia non-anion gap acidosis -resolved -Likely 2/2 chronic loose stools. #CKD3 -Cr 1.57, improved after holding lasix -avoid nephrotoxic agents when possible #Hx TIA -Aware #HFpEF -echo 10/23 showed EF 60-65%, mild MR, TR -Continue home meds #Pulmonary HTN -asymptomatic -echo 01/13 showed 90mmHG RV systolic pressure significant for PHTN -consider pulm outpatient #Neuropathy -Continue home meds #Chronic normocytic anemia -has regular f/u with GI and hematology outpatient -per patient, was scheduled for outpatient hematology appointment today for possible epogen txt -can f/u outpatient PCP: Madhav Code: FULL DVT PPx: Home Eliquis Diet: HH Dispo: admit to telemetry, inpatient. Cardiology and EP consulted, adjusting meds for rate and BP control. Expected LOS > 48 hours. Addendum - Attending - Attending Attestation Date/Time: 01/19/20 [id number] I personally evaluated the patient and discussed the management with Dr. Murray. I agree with the History, Examination, Assessment and Plan documented above with any addition or exceptions noted below.
--- NOTE | 2020-01-19 08:15 | EKG ---
Test Reason : Blood Pressure : / mmHG Vent. Rate : 102 BPM Atrial Rate : 241 BPM P-R Int : 000 ms QRS Dur : 082 ms QT Int : 340 ms P-R-T Axes : 000 048 038 degrees QTc Int : 443 ms Atrial flutter with variable A-V block Abnormal ECG When compared with ECG of 13-JAN-2020 20:10, Atrial flutter has replaced Atrial fibrillation Criteria for Septal infarct are no longer Present Nonspecific T wave abnormality no longer evident in Lateral leads Confirmed by CHELY JOHNSTON (2) on 01/19/2020 8:15:11 AM Referred By: FRANKI Confirmed By:CHELY JOHNSTON
[2020-01-19] MEDS: Carvedilol 25 MG TAB PO SCH ×2 (08:40→18:22)
[2020-01-19] MEDS: Cyanocobalamin (Vitamin B-12) 1,000 MCG TAB PO SCH (08:41)
[2020-01-19] MEDS: Sucralfate 1 GM TAB PO SCH ×3 (08:41→18:22)
[2020-01-19] MEDS: Apixaban 2.5 MG TAB PO SCH (08:41)
[2020-01-19] MEDS: Gabapentin 300 MG CAP PO SCH (08:41)
[2020-01-19] MEDS ORDERED: Digoxin 0.125 MG TAB PO SCH (09:00)
--- NOTE | 2020-01-19 12:19 | PRG ---
DATE OF SERVICE: 01/18/2020 SUBJECTIVE: Ms. Brennan is doing better. She states her shortness of breath is near baseline. Her hemoglobin is slightly decreased as well as her creatinine is slightly increased. Her heart rate appears to be well controlled on p.o. Cardizem in addition to carvedilol. OBJECTIVE: VITAL SIGNS: Blood pressure 116/79, pulse 82, temperature 98.7. LUNGS: Clear to auscultation. HEART: ABDOMEN: Soft, nontender, nondistended. EXTREMITIES: No edema. PERTINENT LABORATORY DATA: Creatinine 2.0, went up from 1.62. Hemoglobin 9.2. IMPRESSION: 1. Atrial fibrillation with RVR. 2. Recent Watchman placement. 3. Atrial flutter. 4. Renal insufficiency. 5. Anemia. RECOMMENDATIONS: Ms. Brennan elevated creatinine is likely due to volume contraction. We will discontinue her Lasix. We will also change her p.o. Cardizem from short-acting to long-acting. Continue beta-deidra therapy. At this point, after discussing with Dr. Patel, I do not feel comfortable with cardioversion, given recent Watchman placement. We will have to wait at least a month. At that point, she can undergo atypical flutter ablation. We will likely keep one more day and make sure her creatinine is trending downward. Given her age and a creatinine of 2.0, we would change her Eliquis to 2.5 mg one p.o. b.i.d. until her creatinine normalizes. Otherwise, I have no further recommendations. Job ID: [id number]
--- NOTE | 2020-01-19 13:02 | PDOC.EP ---
- Subjective Date: 01/19/20 Time: 13:00 Interval History: She has done well overnight but is not resting well in the hospital. She felt dizzy after one of her AM medications she denies any heart racing, palpitations, chest pain, syncope, stroke or stroke-like symptoms. She reports no bleeding dyscrasias - Review of Systems Constitutional: denies: chills, fever, malaise, sweats, weakness Respiratory: denies: cough, dry, hemoptysis, shortness of breath, wheezing Cardiology: denies: chest pain, edema, heart racing, light headedness, palpitations, passing out Gastrointestinal: denies: abdominal pain, nausea, vomitting Musculoskeletal: denies: unstable gait, falls, leg pain, foot pain - Objective Allergies/Adverse Reactions: Allergies Allergy/AdvReac Type Severity Reaction Status Date / Time latex Allergy Unknown Verified 01/13/20 20:48 lovastatin Allergy Unknown Verified 01/13/20 20:48 simvastatin Allergy Unknown Verified 01/13/20 20:48 Current Medications Acetaminophen (Acetaminophen 325 Mg Tab) 650 mg PO Q4H PRN PRN Reason: Headache/Fever/Mild Pain (1-3) Last Admin: 01/18/20 14:12 Dose: 650 mg Documented by: Apixaban (Apixaban 2.5 Mg Tab) 2.5 mg PO BID [facility] Last Admin: 01/19/20 08:41 Dose: 2.5 mg Documented by: Carvedilol (Carvedilol 25 Mg Tab) 25 mg PO BID-[facility] Last Admin: 01/19/20 08:40 Dose: 25 mg Documented by: Cyanocobalamin (Cyanocobalamin (Vitamin B-12) 1,000 Mcg Tab) 1,000 mcg PO DAILY [facility] Last Admin: 01/19/20 08:41 Dose: 1,000 mcg Documented by: Digoxin (Digoxin 0.125 Mg Tab) 0.125 mg PO DAILY [facility] Last Admin: 01/19/20 08:40 Dose: 0.125 mg Documented by: Diltiazem HCl (Diltiazem Cd 120 Mg Cap) 120 mg PO DAILY [facility] Last Admin: 01/19/20 08:41 Dose: 120 mg Documented by: Gabapentin (Gabapentin 300 Mg Cap) 300 mg PO BID [facility] Last Admin: 01/19/20 08:41 Dose: 300 mg Documented by: Nitroglycerin (Nitroglycerin 0.4 Mg Tab (25 Tab Bottle)) 0.4 mg SL Q5MIN PRN PRN Reason: Chest Pain Ondansetron HCl (Ondansetron Odt 4 Mg Tab) 4 mg PO Q6H PRN PRN Reason: Nausea/Vomiting Last Admin: 01/17/20 09:49 Dose: 4 mg Documented by: Ondansetron HCl (Ondansetron Pf 4 Mg/2 Ml Vial) 4 mg IVP Q6H PRN PRN Reason: Nausea/Vomiting Pantoprazole Sodium (Pantoprazole 40 Mg Tab) 40 mg PO DAILY [facility] Last Admin: 01/19/20 08:41 Dose: 40 mg Documented by: Sodium Chloride (Flush - Normal Saline 10 Ml Syringe) 10 ml IVF Q12HR [facility] Last Admin: 01/19/20 08:42 Dose: 10 ml Documented by: Sodium Chloride (Flush - Normal Saline 10 Ml Syringe) 10 ml IVF PRN PRN PRN Reason: Saline Flush Sucralfate (Sucralfate 1 Gm Tab) 1 gm PO QID [facility] Last Admin: 01/19/20 08:41 Dose: 1 gm Documented by: Vital Signs & Weight: Vital Signs Temp Pulse Resp BP Pulse Ox 01/19/20 08:41 94 01/19/20 08:40 94 01/19/20 08:38 98.3 F 94 18 119/71 97 01/19/20 03:10 98.7 F 80 16 113/65 95 Admit Weight 182 lb 4 oz Weight 171 lb 14.4 oz I/O: I/O 01/18/20 01/19/20 01/20/20 06:59 06:59 06:59 Intake Total 1020 1090 Output Total 700 1600 Balance 320 -510 - Quality Measures Condition: Atrial Fibrillation/Flutter (hx or current) CV meds: Eliquis: Yes (2.5 (age, creat >1.5)) - Physical Exam General: alert & oriented x3, appears well, speech clear HEENT: mucus membranes moist, normocephaly, mucus membranes dry Neck: supple neck, midline trachea, no lymphadenopathy Cardiology: regular rate, irregularly irregular Lungs: clear to auscultation, normal breath sounds, no wheeze, rales, rhonchi Neurology: cranial nerve 2-12 intact, grossly intact, no lateralizing findings - Labs Result Diagrams: 01/18/20 03:35 01/19/20 04:19 - EKG Interpretation EKG Method: Telemetry EKG shows: Atypical atrial flutter - Assessment/Plan Assessment/Plan: 1. Recurrent atrial arrhythmias. a. Paroxysmal atrial fibrillation/atrypical atrial flutter b. Status post pulmonary venous isolation and subsequent Watchman device placement on 01/06/2020 in [place]. c. Early recurrence of atypical atrial flutter with rapid rate, prompting current admission. 2. Coronary artery disease. a. History of coronary artery bypass grafting surgery. b. 2D echo from 01/14/2020, reveals LVEF 60% to 65%, moderate left atrial enlargement, bioprosthetic aortic valve, mild MR, mild to moderate TR. 3. Valvular heart disease, status post bioprosthetic aortic valve replacement. 4. History of GI bleed in the past. a. 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 5. CHADS score of 5 with age, gender, cardiovascular disease, hypertension, currently on Eliquis 2.5 for anticoagulation (Age, Creat often >1.5) 6. Chronic kidney disease - follows with local animal rehabilitator - lisinopril previously stopped as Creat was >2 while IP at [facility] in [place] Recent watchman flex implant on 01/06 with PVAI 01/05. We no see an inflammatory early recurrence of atrial fibrillation in the post ablation r ecovery time. She did not tolerate amiodarone, reporting hallucinations. Financially, multaq is not an option for her. Cardioversion should be delayed until 4 weeks post Watchman implant. Diltiazem was increased this AM to improve rate control. Watch for hypotension. Digoxin could be added if BP does not allow for further rate control. 01/18/20: diltiazem had been switched to 180 mg daily. She was hypotensive over the night and was held this morning. Will reduce diltiazem CD to 120 mg da nora and add digoxin 125 mcg daily for rate control, hopefully preventing further hypotension. Her rate control is adequate at this point as she persists in what appears to be atypical atrial flutter. once her blood pressure has stabilized she is okay for discharge from EP perspective as long as her rate control remains adequate. plan for a HERNANDEZ with cardioversion after 02/17 as she will be due for a HERNANDEZ to evaluate her left atrial appendage following the recent Watchman implant. With her chronic kidney disease she will not be a candidate for left atrial appendage evaluation with a CTA. 01/19/20: HR controlled >24 hrs, remains in atypical atrial flutter. BP stable. OK for DC by EP. Continue: 1. eliquis 2.5mg BID 2. coreg 25mg BID 3. diltiazem CD 120mg (please change to QHS) 4. Digoxin 125mcg daily. Has OV in 4 weeks. Will arrange for HERNANDEZ/ CV sometime after 02/17 (6 wks post Watchman implant)
[2020-01-19 13:16] VITALS: BMI 28.5
[2020-01-19 16:16] VITALS: TEMP 98.6
[2020-01-19 19:45] VITALS: BP 139/62
--- NOTE | 2020-01-19 23:07 | DIS ---
DATE OF ADMISSION: 01/13/2020 DATE OF DISCHARGE: 01/19/2020 RESIDENT: Radha Murray MD ADMITTING ATTENDING: Cale Bartholomew MD DISCHARGE ATTENDING: Jaswinder Mejias MD CONSULT: 1. Cardiology, Dr. Rosas. 2. Electrophysiology, Dr. Patel. PROCEDURES: CT abdomen and pelvis, no acute abnormalities. Postoperative changes stable. Echocardiogram on 01/14/2020, ejection fraction 60% to 65%, moderately dilated left atrium, mildly enlarged right atrium, left ventricular size normal. Bioprosthetic aortic valve. Mild mitral regurg, mild to moderate tricuspid regurg, right ventricular systolic pressure of 90 consistent with severe pulmonary hypertension. PRIMARY DIAGNOSES: Atrial fibrillation with rapid ventricular response. SECONDARY DIAGNOSES: 1. Epigastric abdominal pain secondary to gastroesophageal reflux disease. 2. Coronary artery disease status post coronary artery bypass grafting, stent placement. 3. Aortic stenosis status post valve replacement. 4. Hyperchloremia, nonanion gap acidosis. 5. Chronic kidney disease 3. 6. History of transient ischemic attack. 7. Heart failure preserved ejection fraction. 8. Pulmonary hypertension. 9. Neuropathy. 10. Chronic normocytic anemia. DISCHARGE MEDICATIONS: 1. Acetaminophen 650 mg q.4 hours p.r.n. 2. Eliquis 2.5 b.i.d. 3. Coreg 25 mg b.i.d. 4. B12 of 1000 mcg daily. 5. Digoxin 0.125 mg daily. 6. Diltiazem 120 mg daily. 7. Gabapentin 300 mg t.i.d. 8. Protonix 40 mg daily. 9. Pravastatin 20 mg daily. 10. Sucralfate 1 g p.o. q.i.d. DISCONTINUE MEDICATION: Lasix. HISTORY OF PRESENT ILLNESS: The patient is an 84-year-old female with a history of paroxysmal atrial fibrillation with status post ablation and Watchman placement on 01/06/2020, who presented to the ED due to SVT on EKG. The patient had been seen in clinic with PCP and was noted to have a rapid heart rate. Complained of palpitations, minimal chest discomfort and shortness of breath on exertion. EKG done at an outside clinic revealed SVT. The patient was sent to the ER. Upon arrival to the ED, the patient noted to be in atrial fibrillation with an RVR. Cardiology was consulted and recommended she be started on amiodarone drip. Throughout her stay, both Cardiology and Electrophysiology adjusted her medications as needed to achieve rate control. Increased beta-deidra and had to stop amiodarone due to the patient having hallucinations. Diltiazem was added and titrated to the point the patient's rate was controlled and blood pressure was stable. Digoxin was added as well. The patient's rhythm switched between atrial fibrillation and atrial flutter throughout her stay. Her rate eventually was controlled and Cardiology and EP felt she was stable to be discharged to follow up within one week. She has an outpatient procedure scheduled with Dr. Patel on February 17 for HERNANDEZ. Also recommended to patient to follow up with PCP within one week. During hospital stay, the patient experienced a period of slightly worsening kidney function, so Lasix was held at this time and Lasix was discontinued prior to discharge. DISPOSITION: Stable. DISCHARGE INSTRUCTIONS: 1. Location: Home. 2. Diet: Heart healthy. 3. Activity: As tolerated. 4. Followup with Dr. Patel in one week, Dr. Rosas in one week, and PCP in one week. Job ID: [id number] [facility] [place] [facility]
--- NOTE | 2020-01-20 05:21 | PRG ---
DATE OF SERVICE: 01/19/2020 SUBJECTIVE: Ms. Brennan is doing well. No current complaints. No chest pain, pressure, or shortness of breath. Heart rate appears much more stable. Current cardiac medications include Eliquis 2.5 mg b.i.d., Coreg 25 b.i.d., digoxin 0.125 daily, and diltiazem 120 daily. OBJECTIVE: VITAL SIGNS: Blood pressure 123/57, pulse 61, and temperature 98.6. LUNGS: Clear to auscultation. HEART: Irregularly irregular. ABDOMEN: Soft, nontender, and nondistended. EXTREMITIES: No edema. PERTINENT LABORATORY DATA: Hemoglobin 9.2. Creatinine 1.57. IMPRESSION: 1. Atrial fibrillation with rapid ventricular response, now controlled. 2. Status post Watchman. 3. Coronary artery disease. 4. Status post bypass surgery. RECOMMENDATIONS: Patient's heart rate appears stable. Continue current medical therapy as prescribed. Amiodarone has been DC'd due to possible side effects. From my standpoint, we will continue with current treatment. No further recommendations. Okay for discharge from a CV standpoint. Job ID: [id number]
--- NOTE | 2020-01-21 06:47 | PQF ---
Dear : Jaswinder Tracy Date 01/21/20 Please exercise your independent, professional judgment in responding to the clarification form. Clinical indicators are provided on the bottom of this form for your review Can you please further clarify if NSTEMI is ruled in or ruled out? NSTEMI [ ] Ruled in diagnosis [ ] Continue to treat [ ] Resolved [X ] Ruled out diagnosis [ ] Improving [ ] Cannot rule out diagnosis [ ] Other diagnosis please specify [ ] Unable to determine Physician Signature: Date/Time: For continuity of documentation, please document condition throughout progress notes and discharge summary. Thank You. To be completed by CDI/Coding staff for physician review: Present Clinical Indicators - Signs / Symptoms / Labs Results and Location in Medical Record [ x ] There is a troponin elevation that is rising slowly probably secondary to tachycardia/type 2 demand ED Provider pg.3 [ x ] Elevated troponin ED Provider pg.3 [ x ] Palpitation H and P pg.1 [ x ] No ST segment changes on EKG H and P pg.4 [ x ] Elevated troponin likely 2/2 demand H and P pg.6 [ x ] <1 week s/p ablation + watchman now with Afib with RVR and NSTEMI [ x ] Non specific T wave abnormality no longer evident in Lateral leads Electroicardiogram pg.1 01/14 [ x ] Elevated troponin likely related to recent ablation Consult pg.2 Dr. Dick [ x ] Troponin: 0.568H, 0.606H, 0.611H, 0.551 Laboratory 01/12 Present Risk Factors Results and Location in Medical Record [ x ] SVT H and P pg.1 [ x ] 84 years old H and P pg.1 [ x ] CAD H and P pg.5 [ x ] Aortic stenosis H and P pg.5 [ x ] HFpEF H and P pg.5 [ x ] HTN Consult pg.1 Present Treatments Results and Location in Medical Record [ x ] Echocardiogram Echocardiogram 01/13 [ x ] Electrocardiogram Electrocardiogram 01/13 [ x ] Cardiology Consult Dr. Kapil Dick 01/14 [ x ] IV Fluids MAR [ x ] Nitroglycerin 0.4mg SL MAR [ x ] Cardizem 120 mg PO MAR CDS/Unit Secy Signature: Timur Atkins Phone #: [phone] Date 01/21/20 This is a permanent part of the Medical Record [facility]
== END 2020-01-19 18:55 | disposition home or self-care (01) | DRG 309 ==
LOC: ERS 14:44 → 2NO 18:02
PROVIDERS: ADMIT Emergency Medicine; ATTEND Emergency Medicine
DX: I48.0 Paroxysmal atrial fibrillation (principal); I13.0 Hypertensive heart and chronic kidney disease with heart failure and stage 1 through stage 4 chronic kidney disease, or unspecified chronic kidney disease; I50.32 Chronic diastolic (congestive) heart failure; R44.3 Hallucinations, unspecified; N17.9 Acute kidney failure, unspecified; I50.22 Chronic systolic (congestive) heart failure; E87.2 Acidosis; I47.1 Supraventricular tachycardia; Z20.828 Contact with and (suspected) exposure to other viral communicable diseases; Z23 Encounter for immunization; I27.20 Pulmonary hypertension, unspecified; K21.9 Gastro-esophageal reflux disease without esophagitis; I25.10 Atherosclerotic heart disease of native coronary artery without angina pectoris; N18.30 Chronic kidney disease, stage 3 unspecified; G62.9 Polyneuropathy, unspecified; D63.1 Anemia in chronic kidney disease; E86.0 Dehydration; E87.8 Other disorders of electrolyte and fluid balance, not elsewhere classified; E55.9 Vitamin D deficiency, unspecified; I48.4 Atypical atrial flutter; F41.9 Anxiety disorder, unspecified; T46.2X5A Adverse effect of other antidysrhythmic drugs, initial encounter; Z95.1 Presence of aortocoronary bypass graft; Z95.2 Presence of prosthetic heart valve; Z91.040 Latex allergy status; Z88.8 Allergy status to other drugs, medicaments and biological substances; Z79.01 Long term (current) use of anticoagulants; Z79.899 Other long term (current) drug therapy; Z90.710 Acquired absence of both cervix and uterus; Z86.73 Personal history of transient ischemic attack (TIA), and cerebral infarction without residual deficits; Z90.49 Acquired absence of other specified parts of digestive tract
CPT/HCPCS: 36415; 36416; 71045; 74177; 80048; 80053; 81003; 81015; 82550; 82553; 82728; 83540; 83550; 83605; 83690; 83735; 83880; 84439; 84443; 84484; 85025; 86900; 86901; 87040; 87086; 87635; 90471; 90662; 93005; 93010; 93306; 96365; 96366; G0008; J0282; J2916; J3475; J3490; J7070; Q0162; Q9967; U0003

== ENCOUNTER 2020-01-31 16:08 | Outpatient (CLI) | payer MEDICARE ==
--- NOTE | 2020-01-31 16:26 | RAD ---
RADIOGRAPH CHEST 2 VIEW: DATE: 01/31/2020 TIME: 4:18 PM HISTORY: 84-year-old female with atrial fibrillation and chest pain COMPARISON: 01/13/2020 FINDINGS: Cardiac size at upper limits of normal or slightly enlarged. Mild prominence of upper lobe pulmonary vasculature. No pulmonary edema. Sternotomy wires. Cluster of multiple surgical clips in the vicinity of the esophagogastric junction. No consolidation. Ectasia and tortuosity of thoracic aorta. No pleural effusion or pneumothorax. No interval change. IMPRESSION: 1) borderline cardiomegaly and minimal pulmonary vascular congestion without pulmonary edema. 2) no interval change.
== END 2020-01-31 16:09 | disposition home or self-care (01) ==
LOC: BICRAD 16:08
PROVIDERS: ATTEND Internal Medicine Cardiovascular Disease
DX: I48.0 Paroxysmal atrial fibrillation (principal); I51.7 Cardiomegaly; R09.89 Other specified symptoms and signs involving the circulatory and respiratory systems
CPT/HCPCS: 71046

== ENCOUNTER → 2020-02-01 | Day surgery (SDC) | payer MEDICARE ==
[~2020-02-01] MED LIST changes: +EPOETIN ALFA-EPBX (ESRD) 40,000 UNIT/ML VIAL ONE
[2020-02-01 15:02] VITALS: BP 185/78
== END ==
LOC: ONC/OP 14:52
PROVIDERS: ATTEND Internal Medicine Hematology & Oncology
DX: N18.4 Chronic kidney disease, stage 4 (severe) (principal); D63.1 Anemia in chronic kidney disease; D50.0 Iron deficiency anemia secondary to blood loss (chronic); Z88.8 Allergy status to other drugs, medicaments and biological substances; Z91.040 Latex allergy status
CPT/HCPCS: 96372; Q5105

== ENCOUNTER 2020-02-15 11:29 | Day surgery (SDC) | payer MEDICARE ==
[2020-02-15 11:40] VITALS: BP 169/73
[2020-02-15] MEDS ORDERED: EPOETIN ALFA-EPBX (ESRD) 40,000 UNIT/ML VIAL SC SCH (11:45)
== END 2020-02-15 11:55 | disposition home or self-care (01) ==
LOC: ONC/OP 11:29
PROVIDERS: ATTEND Internal Medicine Hematology & Oncology
DX: N18.4 Chronic kidney disease, stage 4 (severe) (principal); D63.1 Anemia in chronic kidney disease; D50.0 Iron deficiency anemia secondary to blood loss (chronic); Z88.8 Allergy status to other drugs, medicaments and biological substances; Z91.040 Latex allergy status
CPT/HCPCS: 96372; Q5105

== ENCOUNTER 2020-02-29 11:32 | Day surgery (SDC) | payer MEDICARE ==
[2020-02-29 11:46] VITALS: BP 151/76; TEMP 97.8
[2020-02-29] MEDS ORDERED: EPOETIN ALFA-EPBX (ESRD) 40,000 UNIT/ML VIAL ONE (11:51)
[2020-02-29] MEDS ORDERED: EPOETIN ALFA-EPBX (ESRD) 40,000 UNIT/ML VIAL SC SCH (12:30)
== END 2020-02-29 12:16 | disposition home or self-care (01) ==
LOC: ONC/OP 11:32
PROVIDERS: ATTEND Internal Medicine Hematology & Oncology
DX: N18.4 Chronic kidney disease, stage 4 (severe) (principal); D63.1 Anemia in chronic kidney disease; D50.0 Iron deficiency anemia secondary to blood loss (chronic); Z88.8 Allergy status to other drugs, medicaments and biological substances; Z91.040 Latex allergy status
CPT/HCPCS: 96372; Q5105

== ENCOUNTER 2020-03-14 11:36 | Day surgery (SDC) | payer MEDICARE ==
[~2020-03-14 11:36] MED LIST changes: -EPOETIN ALFA-EPBX (ESRD) 40,000 UNIT/ML VIAL ONE
[2020-03-14] MEDS ORDERED: EPOETIN ALFA-EPBX (ESRD) 40,000 UNIT/ML VIAL ONE (11:46)
[2020-03-14 12:03] VITALS: BP 184/77; TEMP 97.6
== END 2020-03-14 12:23 | disposition home or self-care (01) ==
LOC: ONC/OP 11:36
PROVIDERS: ATTEND Internal Medicine Hematology & Oncology
DX: N18.4 Chronic kidney disease, stage 4 (severe) (principal); D63.1 Anemia in chronic kidney disease; D50.0 Iron deficiency anemia secondary to blood loss (chronic); Z88.8 Allergy status to other drugs, medicaments and biological substances; Z91.040 Latex allergy status
CPT/HCPCS: 96372; Q5105

== ENCOUNTER 2020-03-28 12:04 | Day surgery (SDC) | payer MEDICARE ==
[2020-03-28] MEDS ORDERED: EPOETIN ALFA-EPBX (ESRD) 40,000 UNIT/ML VIAL SC SCH (12:15)
== END 2020-03-28 15:20 | disposition home or self-care (01) ==
LOC: ONC/OP 12:04
PROVIDERS: ATTEND Internal Medicine Hematology & Oncology
DX: N18.4 Chronic kidney disease, stage 4 (severe) (principal); D63.1 Anemia in chronic kidney disease; D50.0 Iron deficiency anemia secondary to blood loss (chronic); Z88.8 Allergy status to other drugs, medicaments and biological substances; Z91.040 Latex allergy status
CPT/HCPCS: 36415; 80048; 96372; Q5105

== ENCOUNTER 2020-03-30 07:28 | Outpatient (CLI) | payer MEDICARE ==
[2020-03-31 02:23] LABS: SARS-CoV-2 MS2 Positive; SARS-CoV-2 N Gene Negative; SARS-CoV-2 S Gene Negative; SARS-CoV-2 by NAA Not Detected (NotDetected); SARS-CoV-2 orf1ab Negative
== END 2020-03-30 07:29 | disposition home or self-care (01) ==
LOC: LABBT 07:28
PROVIDERS: ATTEND Internal Medicine Cardiovascular Disease
DX: Z01.812 Encounter for preprocedural laboratory examination (principal); Z20.822 Contact with and (suspected) exposure to COVID-19; I48.91 Unspecified atrial fibrillation
CPT/HCPCS: 87635; 93005; 93010; U0003

== ENCOUNTER 2020-04-03 08:08 | Day surgery (SDC) | payer MEDICARE, OTHER ==
[2020-03-30 13:25] VITALS: BMI 27.9
[2020-04-03 09:16] LABS: #Eosinphils 0.1 thou/uL (0.0-0.7); #Lymphocytes 1.2 thou/uL (1.20-3.40); #Monocytes 0.4 thou/uL (0.11-0.59); #Neutrophils 3.7 thou/uL (1.40-6.50); %Basophils 0.8 % (0.0-1.0); %Eosinophils 2.5 % (0.0-10.0); %Lymphocytes 22.3 % (21.0-51.0); %Monocytes 6.9 % (0.0-10.0); %Neutrophils 67.5 % (42.0-75.0); Mean Corpuscular Hemoglobin 29.2 pg (27.0-31.0); Mean Corpuscular Volume 93.9 fL (78.0-98.0); Mean Platelet Volume 8.7 fL (7.4-10.4); Platelet Count 178 thou/uL (130-400); RBC Distribution Width 16.1 % (11.5-14.5); Red Blood Cell (RBC) Count 3.44 mill/uL (4.20-5.40); White Blood Cell (WBC) Count 5.5 thou/uL (4.8-10.8)
[2020-04-03 09:23] LABS: INR-International Normal Ratio 1.4; PTT 56.9 sec (22.9-36.1); Prothrombin Time 17.4 sec (12.0-14.7)
[2020-04-03 09:36] LABS: Anion Gap 11 mmol/L (10-20); BUN (Urea Nitrogen) 19 mg/dL (9.8-20.1); Calc. Creatinine Clearance 32 mL/min (70-130); Calcium 8.5 mg/dL (7.8-10.44); Carbon Dioxide 24 mmol/L (23-31); Chloride 111 mmol/L (98-107); Glucose 86 mg/dL (83-110); Potassium 4.6 mmol/L (3.5-5.1); Sodium 141 mmol/L (136-145)
[2020-04-03] MEDS ORDERED: PROPOFOL 200 MG/20 ML VIAL ONE (11:17)
--- NOTE | 2020-04-03 12:52 | OP ---
DATE OF PROCEDURE: 04/03/2020 PROCEDURE PERFORMED: Electrical external cardioversion. ADDITIONAL REFERRING PHYSICIAN: Yohannes Gan MD REASON FOR PROCEDURE: Ms. Brennan is an 84-year-old woman with prior history of aortic valve replacement, which is bioprosthetic. She also has pulmonary venous isolation procedure and Watchman device placement on 01/07/2020. She had early recurrence of atrial flutter and fibrillation noted with rapid rates. Eventual rate control was pursued. Now, she is almost 3 months post Watchman device placement. HERNANDEZ and cardioversion performed today. HERNANDEZ demonstrates adequately seated and sealed Watchman device and normal LVEF. She is here for a cardioversion. DESCRIPTION OF PROCEDURE: The patient received propofol by Anesthesia specialist. After adequate level of sedation achieved, a synchronized 50-joule shock did not convert the patient back to sinus rhythm. Subsequently, 100-joule shock converted her back to sinus rhythm. Returned rhythm was 57 beats per minute. EKG demonstrates QRS 78 milliseconds and QTc 385 milliseconds. CONCLUSION: Successful cardioversion. PLAN: Transition to aspirin and Plavix, hence adequate Watchman sealed in place. Consider antiarrhythmic agents if recurrence is noted. Job ID: [id number]
== END 2020-04-03 13:52 | disposition home or self-care (01) ==
LOC: CCL 08:08
PROVIDERS: ATTEND Internal Medicine Cardiovascular Disease
PROC: 5A2204Z Restoration of Cardiac Rhythm, Single (ICD-10-PCS; principal; 2020-04-03)
DX: I48.0 Paroxysmal atrial fibrillation (principal); I48.4 Atypical atrial flutter; D50.0 Iron deficiency anemia secondary to blood loss (chronic); I25.10 Atherosclerotic heart disease of native coronary artery without angina pectoris; I12.9 Hypertensive chronic kidney disease with stage 1 through stage 4 chronic kidney disease, or unspecified chronic kidney disease; N18.31 Chronic kidney disease, stage 3a; K21.9 Gastro-esophageal reflux disease without esophagitis; Z79.01 Long term (current) use of anticoagulants; Z79.899 Other long term (current) drug therapy; Z88.8 Allergy status to other drugs, medicaments and biological substances; Z91.040 Latex allergy status; Z95.1 Presence of aortocoronary bypass graft; Z95.2 Presence of prosthetic heart valve; Z95.818 Presence of other cardiac implants and grafts
CPT/HCPCS: 36415; 80048; 85025; 85610; 85730; 92960; 93005; 93312; J2704

== ENCOUNTER 2020-04-11 11:31 | Day surgery (SDC) | payer MEDICARE, OTHER ==
[2020-04-11] MEDS ORDERED: EPOETIN ALFA-EPBX (ESRD) 40,000 UNIT/ML VIAL ONE (11:42)
[2020-04-11] MEDS ORDERED: EPOETIN ALFA-EPBX (ESRD) 40,000 UNIT/ML VIAL SC SCH (12:00)
[2020-04-11 12:03] VITALS: BP 147/65; TEMP 98.8
== END 2020-04-11 12:09 | disposition home or self-care (01) ==
LOC: ONC/OP 11:31
PROVIDERS: ATTEND Internal Medicine Hematology & Oncology
DX: N18.4 Chronic kidney disease, stage 4 (severe) (principal); D63.1 Anemia in chronic kidney disease; D50.0 Iron deficiency anemia secondary to blood loss (chronic)
CPT/HCPCS: 96372; Q5105

== ENCOUNTER 2020-04-24 11:57 | Inpatient (IN) | payer MEDICARE, OTHER ==
[2020-04-24 12:58] LABS: #Eosinphils 0.1 thou/uL (0.0-0.7); #Lymphocytes 1.2 thou/uL (1.20-3.40); #Monocytes 0.3 thou/uL (0.11-0.59); #Neutrophils 4.1 thou/uL (1.40-6.50); %Basophils 0.3 % (0.0-1.0); %Eosinophils 1.6 % (0.0-10.0); %Lymphocytes 20.6 % (21.0-51.0); %Monocytes 5.8 % (0.0-10.0); %Neutrophils 71.7 % (42.0-75.0); Hemoglobin 11.2 g/dL (12.0-16.0); Mean Corpuscular HGB CONC 30.8 g/dL (32.0-36.0); Mean Corpuscular Volume 97.3 fL (78.0-98.0); Mean Platelet Volume 8.1 fL (7.4-10.4); Platelet Count 265 thou/uL (130-400); RBC Distribution Width 14.9 % (11.5-14.5); Red Blood Cell (RBC) Count 3.74 mill/uL (4.20-5.40); White Blood Cell (WBC) Count 5.7 thou/uL (4.8-10.8)
[2020-04-24 13:08] LABS: INR-International Normal Ratio 1.1; PTT 37.2 sec (22.9-36.1); Prothrombin Time 14.3 sec (12.0-14.7)
--- NOTE | 2020-04-24 13:09 | RAD ---
EXAM: Single view of the chest HISTORY: Irregular heart rate and chest pain COMPARISON: 01/13/2020 FINDINGS: Single view of the chest shows an enlarged cardiomediastinal silhouette. The patient is st atus post sternotomy. There is a calcified granuloma projects over the right lower lobe. No consolidation or pleural effusion are seen. Surgical clips are seen near the gastroesophageal junctio n. Degenerative changes are seen in the spine. IMPRESSION: Stable cardiomegaly
[2020-04-24 13:29] LABS: ALT (SGPT) 7 U/L (8-55); AST (SGOT) 14 U/L (5-34); Albumin 3.3 g/dL (3.4-4.8); Alkaline Phosphatase 76 U/L (40-110); Anion Gap 11 mmol/L (10-20); BUN (Urea Nitrogen) 14 mg/dL (9.8-20.1); Bilirubin, Total 0.5 mg/dL (0.2-1.2); Calc. Creatinine Clearance 0 mL/min (70-130); Calcium 8.8 mg/dL (7.8-10.44); Carbon Dioxide 22 mmol/L (23-31); Chloride 112 mmol/L (98-107); Globulin 3.5 g/dL (2.4-3.5); Glucose 84 mg/dL (83-110); Potassium 5.4 mmol/L (3.5-5.1); Protein, Total 6.8 g/dL (5.8-8.1); Sodium 140 mmol/L (136-145)
--- NOTE | 2020-04-24 15:47 | PDOC.FPRHP ---
- History of Present Illness Chief Complaint: weakness, SOB History of Present Illness: Ms. Brennan is an 84 yo F with a history of Aflutter, watchman's placement 12/2019, cardioversion on 04/03/2020, CABG s/p CAD, and aortic valve replacement sent over from PCP's clinic due to being in Aflutter w/RVR. Patient was compla ining of generalized weakness for the past week and an EKG performed in clinic revealed she was in Aflutter. Patient reports she did not think she was in Aflutter because normally she has chest pain and palpations and shortness of breath denies those at this time. Patient does endorse shortness of breath. Patient has previously been on diltiazem and digoxin but says those were discontinued though she does not know why. Her swing manager is Dr. Rosas. Patient also complains of decreased appetite the past 4-5 months, explaining she will feel hungry but then only be able to eat half her meal. ED Course: 500mL NS bolus - Allergies/Adverse Reactions Allergies Allergy/AdvReac Type Severity Reaction Status Date / Time latex Allergy Unknown Verified 03/30/20 13:25 lovastatin Allergy Unknown Verified 03/30/20 13:25 simvastatin Allergy Unknown Verified 03/30/20 13:25 - Home Medications Medication Instructions Recorded Confirmed Type Gabapentin [Neurontin] 300 mg PO BID 01/12/19 04/24/20 History Pravastatin Sodium [Pravachol] 20 mg PO HS 01/12/19 04/24/20 History Cyanocobalamin (Vitamin B-12) 1 tab PO DAILY 08/07/19 04/24/20 History [Vitamin B-12] Acetaminophen [Tylenol Regular 650 mg PO Q4H PRN tab 11/20/19 04/24/20 Rx Strength] Carvedilol [Coreg] 25 mg PO BID-WM #60 tab 01/19/20 04/24/20 Rx Cholecalciferol (Vitamin D3) 1,000 unit PO DAILY 03/30/20 04/24/20 History [Vitamin D3] Metoclopramide HCl [Reglan] 5 mg PO BID-WM 03/30/20 04/24/20 History Clopidogrel Bisulfate [Clopidogrel] 75 mg PO DAILY 04/24/20 04/24/20 History Famotidine 20 mg PO HS PRN 04/24/20 04/24/20 History Furosemide [Lasix] 20 mg PO DAILY 04/24/20 04/24/20 History - History PMHx: Cardioversion 04/03/20, CAD s/p CABG, aortic stenosis, prosthetic aortic valve, HTN, TIA, GERD, CKD3, Neuropathy, HFpEF, OA, lumbar disc disease, pulm HTN PSHx: hiatal hernia, hysterectomy FHx: Dad-DM, heart. Mom-heart Social: Denies tobacco, alcohol, or drug use - Review of Systems General: reports: weight/appetite/sleep changes. denies: fever/chills Eyes: denies: vision changes ENT: denies: nasal congestion Respiratory: reports: shortness of breath. denies: cough, congestion Cardiovascular: denies: chest pain, palpitation Gastrointestinal: denies: nausea, vomiting, diarrhea, constipation, abdominal pain Genitourinary: denies: dysuria Skin: denies: rashes Musculoskeletal: reports: swelling, arthritis/arthralgias Neurological: reports: weakness. denies: syncope - Vital signs BP: 149/98 HR: 114 RR: 18 Tmax: 98.8 Pox: 99% on RA Wt: 75kg - Physical Exam Constitutional: NAD, awake, alert and oriented HEENT: normocephalic and atraumatic, no scleral icterus, grossly normal vision, grossly normal hearing Neck: supple, FROM Heart: pulses present -Heart: irregular rhythm, systolic murmur consistent with aortic stenosis, 2+ LE edema bilaterally Lungs: CTAB, no respiratory distress Abdomen: soft, non-tender Musculoskeletal: normal structure, normal tone, ROM grossly normal Neurological: no focal deficit Skin: no rash/lesions Heme/Lymphatic: no unusual bruising or bleeding Psychiatric: normal mood and affect, good judgment and insight, intact recent and remote memory FMR H&P: Results - Labs Result Diagrams: 04/24/20 12:41 04/24/20 16:55 Lab results: WBC 5.7 thou/uL (4.8-10.8) 04/24/20 12:41 Hgb 11.2 g/dL (12.0-16.0) L 04/24/20 12:41 Hct 36.4 % (36.0-47.0) 04/24/20 12:41 MCV 97.3 fL (78.0-98.0) 04/24/20 12:41 Plt Count 265 thou/uL (130-400) 04/24/20 12:41 Neutrophils % 71.7 % (42.0-75.0) 04/24/20 12:41 Sodium 140 mmol/L (136-145) 04/24/20 12:41 Potassium 5.4 mmol/L (3.5-5.1) H 04/24/20 12:41 Chloride 112 mmol/L (98-107) H 04/24/20 12:41 Carbon Dioxide 22 mmol/L (23-31) L 04/24/20 12:41 BUN 14 mg/dL (9.8-20.1) 04/24/20 12:41 Creatinine 1.57 mg/dL (0.6-1.1) H 04/24/20 12:41 Glucose 84 mg/dL (83-110) 04/24/20 12:41 Calcium 8.8 mg/dL (7.8-10.44) 04/24/20 12:41 Total Bilirubin 0.5 mg/dL (0.2-1.2) 04/24/20 12:41 AST 14 U/L (5-34) 04/24/20 12:41 ALT 7 U/L (8-55) L 04/24/20 12:41 Alkaline Phosphatase 76 U/L (40-110) 04/24/20 12:41 B-Natriuretic Peptide 332.6 pg/mL (0-100) H 04/24/20 12:41 Serum Total Protein 6.8 g/dL (5.8-8.1) 04/24/20 12:41 Albumin 3.3 g/dL (3.4-4.8) L 04/24/20 12:41 - EKG Interpretation EKG: Aflutter w/RVR, HR 114 - Radiology Interpretation Chest x-ray Status: report reviewed by me (stable cardiomegaly) FMR H&P: A/P - Plan 84 yo F with a history of Aflutter presenting for weakness and SOB. Sinus tachycardia vs Aflutter w/RVR -EKG: read by ED physicians as Aflutter HR 124 -Hx of watchman's placed Dec 2019 and successful cardioversion on 04/03/[address] Patel -ECHO Dec 2019: aortic stenosis, EF 60-65%, pulmonary HTN -TSH, Mg, Phos pending -10mg Dilt push ordered. Will reassess heart rate after and consider a drip. -Consult Cardiology ([facility]): Patient's swing manager is Dr. Rosas. Await recs including insight into why patient's digoxin and diltazem were discontinued. -Continue home coreg Hyperkalemia -K 5.4 -s/p 500mL NS bolus -recheck BMP following bolus CKD3 -Cr 1.57, baseline -Continue to monitor HTN -Continue home coreg HFpEF -Patient appears euvolemic on exam -Continue home lasix HLD -Continue home pravastatin Hx CABG s/p CAD PCP: Tabatha DVT PPx: lovenox Diet: HH Code: Full Dispo: Admit to tele for rate control. Await cardiology recs and improvement of potassium FMR H&P: Upper Level - Plan Date/Time: 04/24/20 1547 I, Will Saunders DO, have evaluated this patient and agree with findings/plan as outlined by international travel consultant resident. Pertinent changes/additions are listed here. 84 yo F w pmhx sig for afib/flut, CHF, CABG, aortic stenosis presents with weakness for 2-3wks she was seen today at [facility], EKG obtained revealed Aflutter with rate in 12-130s. Sent to ED where she complains primarily of fatigue. she denies chest pain, shortness of breath, worsening orthopnea or PHIL. In the ED she was given a 500mL bolus. On my exam she is in NAD, HRR, tachycardia present in the 110 range, S1/S2 w/o sig murmur, lungs CTAB, no PHIL. labs sig for elevated potassium to 5.4 and Cr near baseline. EKG reveals regular R-R intervals, widened MT interval with low amplitude p-waves occasionally without QRS complex. CXR reveals cardiomegaly unchanged from prior exams. Narrow complex tachycardia with possible 2-1 conduction aflutter, we will try push dose of dilt. consider drip with improvement. likely will require resumption of PO dilt as this was dc'd after her cardioversion. Her kidney function appears to be at baseline, will repeat BMP now after fluid bolus to re-evaluate K levels. consult cardiology, appreciate recs. admit to Tele for ELOS>48hrs
[2020-04-24] MEDS ORDERED: Acetaminophen 325 MG TAB PO PRN (16:23)
[2020-04-24] MEDS ORDERED: Acetaminophen 650 MG Suppository PR PRN (16:23)
[2020-04-24] MEDS ORDERED: Ondansetron ODT 4 MG TAB PO PRN (16:23)
[2020-04-24] MEDS ORDERED: Ondansetron PF 4 MG/2 ML Vial IVP PRN (16:23)
[2020-04-24] MEDS ORDERED: Famotidine 20 MG TAB PO PRN (16:34)
[2020-04-24 17:28] LABS: Anion Gap 15 mmol/L (10-20); BUN (Urea Nitrogen) 13 mg/dL (9.8-20.1); Calc. Creatinine Clearance 0 mL/min (70-130); Calcium 8.8 mg/dL (7.8-10.44); Carbon Dioxide 20 mmol/L (23-31); Chloride 114 mmol/L (98-107); Glucose 74 mg/dL (83-110); Magnesium 1.8 mg/dL (1.6-2.6); Phosphorus 3.4 mg/dL (2.3-4.7); Potassium 5.5 mmol/L (3.5-5.1); Sodium 143 mmol/L (136-145)
[2020-04-24 18:35] VITALS: BMI 27.7
[2020-04-24] MEDS: Carvedilol 25 MG TAB PO SCH (20:28)
[2020-04-24] MEDS: Metoclopramide HCl 10 MG TAB PO SCH (20:28)
[2020-04-24] MEDS: Gabapentin 300 MG CAP PO SCH (20:28)
[2020-04-24] MEDS ORDERED: Pravastatin Sodium 20 MG TAB PO SCH (21:00)
--- NOTE | 2020-04-24 23:09 | CON ---
DATE OF CONSULTATION: INDICATION FOR CONSULTATION: An 84-year-old female with atrial fibrillation, rapid ventricular response, or possible atrial flutter. HISTORY OF PRESENT ILLNESS: This very unfortunate 84-year-old female has had problems with atrial fibrillation and flutter in the past. She has had a Watchman placed due to bleeding problems. She had a HERNANDEZ and cardioversion on April 03 of this [address] by Dr. Patel. She said she has not been feeling well since the cardioversion, but she had been on Eliquis in the past. This also was stopped after the Watchman was noted to be in good position apparently and she was placed on Plavix. She has been at home and unfortunately she says she has not been feeling well and for the last week she notes she just was not feeling well. She continues to have problems with diarrhea. She has been seen by GI in the past and she went to see her primary care physician, and was noted to be in a rapid heart rate, was sent to the emergency room. In the emergency room, her heart rate was in the 120s to 140s and she said normally she does not feel that the heart rates are in the 140s and 150s and she does that she can tell as being tachycardiac and being fast. Anywhere at this time, she is actually very relatively asymptomatic. She is not on any drips. There was some mention to give her some diltiazem in the emergency room and this apparently was not done. She does take Coreg 25 mg b.i.d. She also had been on diltiazem and digoxin in the past, but the diltiazem and digoxin were both stopped, but she was told that she needed them so she could take them if the heart rate became too fast, but again she had not noticed that the heart rate was fast unless more than the 120s. She denied any chest pain. She has been short of breath, however, which is an ongoing problem for the last or at least a month she says. PAST MEDICAL HISTORY: Significant for the paroxysmal atrial fibrillation. She has had a cardioversion. She has had a Watchman placed. She also has a history of coronary artery disease, hypertension, hyperlipidemia, gastroesophageal reflux disease. She has had a history of anemia. She has had multiple transfusions. She has a history of hiatal hernia. She has had a history of right lower lobe pneumonia, history of GI bleeding, pulmonary hypertension. She has chronic kidney disease stage 4. She has a hiatal hernia. She has had bypass surgery with a saphenous vein graft to the left anterior descending artery and saphenous vein graft to the right coronary artery. She has had an aortic valve replacement with a bioprosthetic valve. She has had a cholecystectomy which was laparoscopically performed. She has had a hernia repair and hysterectomy. She has had a partial gastrectomy. She has had a fundoplication. FAMILY HISTORY: Mother had heart disease and hypertension. Her father also had hypertension, heart disease, and diabetes. She did not have a history in the past of tobacco abuse nor alcohol use. ALLERGIES: SHE SAYS SHE IS ALLERGIC TO LISINOPRIL AND AMIODARONE WHICH CAUSED HER TO HAVE HALLUCINATIONS. REVIEW OF SYSTEMS: 12-point review of systems is positive for the diarrhea and also for tachycardia at times and fatigue. She denies any chest pain. PHYSICAL EXAMINATION: GENERAL: Reveals an elderly female. She is in no acute distress. She is very pleasant. VITAL SIGNS: Show a blood pressure of 171/94, pulse at this time is 116, respiratory rate is 20. She is afebrile. HEENT: Unremarkable. She is alert and oriented x3. NECK: Shows no evidence of JVD and there are no carotid bruits noted. LUNGS: Clear to auscultation. CARDIOVASCULAR: Reveals a tachycardia, which appears to be regular at this time. ABDOMEN: Soft and nontender. Positive bowel sounds are present. EXTREMITIES: Show no clubbing, cyanosis, or edema. NEUROLOGICAL: She is intact. SKIN: Warm and dry. IMAGING STUDIES: Telemetry shows what appears to be atrial flutter with a heart rate around 120 beats per minute, anyway it fluctuates between one teens to 120s. LABORATORY DATA: Shows a potassium of 5.5, sodium was 143, BUN was 13 with a creatinine of 1.44. Blood sugar was 74. Hemoglobin 11.2, hematocrit was 36.4, WBC of 5.7, platelet count was 265,000. Her TSH was 0.61. BNP is 333. IMPRESSION: Atrial flutter. This elderly lady who has recently undergone a HERNANDEZ and cardioversion and also has a Watchman device. We will start her back on p.o. diltiazem for better control of the heart rate. She will continue also on her beta blockers. We may need to add digoxin if we cannot get the heart rate under better control. I will ask Dr. Patel to see her tomorrow to see whether or not he wishes to consider a repeat ablation of the atrial flutter. As far as her other medical problems, this will be dealt by the Primary Care Service. She does have a history of hypertension as well as the other medical problems as listed above. At this time, she appears to be stable and in no acute distress. Thank you, Dr. Rosas will resume her care tomorrow. Job ID: [id number] [facility]
[2020-04-25 04:28] LABS: #Basophils 0.1 thou/uL (0.0-0.2); #Eosinphils 0.1 thou/uL (0.0-0.7); #Monocytes 0.4 thou/uL (0.11-0.59); #Neutrophils 4.9 thou/uL (1.40-6.50); %Basophils 1.1 % (0.0-1.0); %Eosinophils 1.5 % (0.0-10.0); %Lymphocytes 15.6 % (21.0-51.0); %Neutrophils 75.8 % (42.0-75.0); Hemoglobin 10.8 g/dL (12.0-16.0); Mean Corpuscular HGB CONC 31.2 g/dL (32.0-36.0); Mean Corpuscular Hemoglobin 29.6 pg (27.0-31.0); Mean Corpuscular Volume 95.1 fL (78.0-98.0); Mean Platelet Volume 8.2 fL (7.4-10.4); Platelet Count 256 thou/uL (130-400); RBC Distribution Width 14.7 % (11.5-14.5); Red Blood Cell (RBC) Count 3.65 mill/uL (4.20-5.40); White Blood Cell (WBC) Count 6.4 thou/uL (4.8-10.8)
[2020-04-25 04:50] LABS: Anion Gap 12 mmol/L (10-20); BUN (Urea Nitrogen) 13 mg/dL (9.8-20.1); Calc. Creatinine Clearance 38 mL/min (70-130); Calcium 8.6 mg/dL (7.8-10.44); Carbon Dioxide 21 mmol/L (23-31); Chloride 111 mmol/L (98-107); Glucose 85 mg/dL (83-110); Potassium 4.9 mmol/L (3.5-5.1); Sodium 139 mmol/L (136-145)
[2020-04-25 05:30] LABS: SARS-CoV-2 PCR by NAA Not Detected (NotDetected)
--- NOTE | 2020-04-25 07:00 | PDOC.FM ---
- Subjective Subjective: Patient complains of being tired, hungry, and anxious this AM. She explains she has not eaten since breakfast yesterday and did not sleep well last night. She was not expecting to be admitted and is feeling like her "nerves are high." - Objective Vital Signs & Weight: Vital Signs (12 hours) Temp Pulse Resp BP Pulse Ox 04/25/20 04:00 97.9 F 119 H 19 124/79 97 04/25/20 02:49 98 04/25/20 00:47 117 H 136/71 04/24/20 19:34 97.5 F L 115 H 18 141/83 H 98 Weight Weight 75.568 kg I&O: 04/24/20 04/25/20 04/26/20 06:59 06:59 06:59 Intake Total 100 Balance 100 Result Diagrams: 04/25/20 04:00 04/25/20 04:00 EKG Reviewed by me: Yes (tele: Aflutter, 110s) Phys Exam - Physical Examination Constitutional: NAD HEENT: moist MMs, sclera anicteric Neck: full ROM Respiratory: no wheezing, no rales, no rhonchi, clear to auscultation bilateral systolic murmur Gastrointestinal: soft, non-tender Musculoskeletal: pulses present, edema present 1+ edema LE, improved from yesterday Neurological: non-focal, moves all 4 limbs Psychiatric: normal affect, A&O x 3 Skin: no rash Dx/Plan - Plan Plan: 84 yo F with a history of Aflutter presenting for weakness and SOB. Aflutter w/RVR -Hx of watchman's placed Dec 2019 and successful cardioversion on 04/03/[address] Patel -ECHO Dec 2019: aortic stenosis, EF 60-65%, pulmonary HTN -TSH, Mg, Phos wnl -Remaims in Aflutter this AM. HR remained in 110s throughout the evening, did not respond to 10mg dilt push. -Consult Cardiology (): Start PO dilt this AM. Dr. Rosas will see her today. Patient made NPO at midnight in case Dr. Patel desires to perform a procedure this AM. -Continue home coreg -Consult Dr. Patel: appreciate recs this AM Hyperkalemia, resolved -K 5.4, 5.5 s/p 500mL NS bolus -K 4.9 this AM s/p kayexelate CKD3 -Cr 1.57, baseline -Continue to monitor HTN -Continue home coreg HFpEF -Patient appears euvolemic on exam -Continue home lasix HLD -Continue home pravastatin Hx CABG s/p CAD PCP: Tabatha DVT PPx: lovenox Diet: HH Code: Full Dispo: Pending cardiology and Dr. Patel recs.
[2020-04-25] MEDS: Clopidogrel Bisulfate 75 MG TAB PO SCH (08:03)
[2020-04-25] MEDS: Gabapentin 300 MG CAP PO SCH ×2 (08:03→20:48)
[2020-04-25] MEDS: Carvedilol 25 MG TAB PO SCH ×2 (08:03→16:06)
[2020-04-25] MEDS: Metoclopramide HCl 10 MG TAB PO SCH ×2 (08:04→16:06)
[2020-04-25] MEDS: Cyanocobalamin (Vitamin B-12) 1,000 MCG TAB PO SCH (08:04)
[2020-04-25] MEDS: Furosemide 20 MG TAB PO SCH (08:04)
[2020-04-25] MEDS: Cholecalciferol 1,000 UNITS (25 MCG) TAB PO SCH (08:04)
[2020-04-25] MEDS: Enoxaparin Sodium 40 MG/0.4 ML SYRINGE SC SCH (08:05)
[2020-04-25] MEDS ORDERED: hydrOXYzine 10 MG TAB PO PRN ×2 (08:21→14:20)
[2020-04-25] MEDS ORDERED: Melatonin 3 MG TAB PO PRN (08:22)
[2020-04-25] MEDS ORDERED: FLU VACC QS2020-21(65YR UP)/PF 240 MCG/0.7 ML SYRINGE IM ONE (09:00)
--- NOTE | 2020-04-25 10:59 | CON ---
DATE OF CONSULTATION: 04/25/2020 ADDITIONAL REFERRING PHYSICIAN: Dr. Jorge Rosas. HISTORY OF PRESENT ILLNESS: I am visiting Ms. Brennan at our [facility] telemetry floor as electrophysiology data management consultant. Her problems are; 1. Recurrent atrial arrhythmias: a. Persistent atrial fibrillation, prompting pulmonary venous isolation procedure on 01/07/2020, Dr. Ward. b. Recurrent atrial arrhythmias, prompting cardioversion on 04/03/20. c. Now with recurrent atypical atrial flutter. 2. H/o high bleeding risk, GI bleed, prompting a left atrial appendage occlusion device placement: a. HERNANDEZ from 04/03/2020, demonstrates adequately occluded left atrial appendage. No leak. 3. History of coronary valvular heart disease: a. Status post aortic valve replacement and coronary artery bypass grafting surgery in the past. b. Echo from 01/11/2020, shows LVEF 60% to 65%, moderate left atrial enlargement, adequate bioprosthetic aortic valve replacement, mild MR, mild to moderate TR, severe pulmonary hypertension. 4. History of GI bleed in the past: a. 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 5. Hypercholesterolemia. ALLERGIES: LATEX, LOVASTATIN, AND SIMVASTATIN. MEDICATIONS: At home included; 1. Pravachol. 2. Neurontin. 3. Vitamin B12. 4. Tylenol. 5. Coreg. 6. Reglan. 7. Vitamin D3. 8. Lasix. 9. Famotidine. 10. Clopidogrel. SUBJECTIVE: Ms. Brennan is returning with atrial arrhythmias with rapid rates. She underwent a successful cardioversion on April 03, after which she felt good. She did develop dyspnea and palpitations as well as generalized weakness for past week. EKG in clinic reveals atrial flutter and she was subsequently admitted, on diltiazem drip. I am seeing her for further arrhythmia management. Currently, she denies angina or CHF like symptoms. No PND or orthopnea. No fever, chills, or cough. REVIEW OF SYSTEMS: Rest of 12-point review of system otherwise unremarkable. PAST MEDICAL HISTORY: As above. SOCIAL HISTORY: The patient denies smoking, EtOH, or drug abuse. FAMILY HISTORY: Not contributory. OBJECTIVE DATA: VITAL SIGNS: Blood pressure is 124/79, heart rate 119, respirations 19, temperature 97.9 degrees Fahrenheit. GENERAL: An alert and oriented, elderly woman, in no apparent distress. NECK: Supple. Jugular veins not distended. CHEST: Coarse without crackles. HEART: Sounds are regular but tachycardic. S1 and S2 are variable. 1/6 holosystolic murmur is heard, P2 is accentuated. PMI is nonpalpable. ABDOMEN: Benign. Bowel sounds positive. EXTREMITIES: Lower extremities without edema, clubbing, or cyanosis. NEUROLOGIC: The patient is nonfocal. MUSCULOSKELETAL: Without joint swelling or deformity. SKIN: Without rash. DATABASE: The EKG is reviewed, revealing an atypical atrial flutter at a rate of 114 beats per minute with 2:1 AV conduction. LABORATORY DATA: Reviewed. White cell count 6.4, hemoglobin is 10.8, platelet count is 256. The INR is 1.1. Sodium 139, potassium 4.9, BUN is 12, and creatinine is 1.31, improvement from yesterday at 1.571. BNP is 332. Troponin-I 0.011. TSH 0.611. ASSESSMENT AND PLAN: Ms. Brennan is a pleasant 84-year-old woman with prior history of recurrent atrial arrhythmias. She also had gastrointestinal bleed and anticoagulation was difficult issue for her. Therefore, she underwent a Watchman device placement as well as a pulmonary venous isolation procedure on January 06. She had early recurrence of atrial arrhythmias, and eventually, she had a HERNANDEZ and cardioversion on April 03. After which, she felt good, her anticoagulation was stopped, but she had not been placed on antiarrhythmic agents at this time. Now, she is here with recurrent atrial arrhythmias. My plans are; 1. Regarding her atrial arrhythmias, attempting antiarrhythmic regimen would be reasonable. Hence, with her borderline renal function, sotalol and Tikosyn may not be optimal. On the other hand, we could attempt Multaq as an alternative. Once adequate loading occurred, possibly in a week, repeat cardioversion could be proposed. Alternatively, extensive left atrial ablation could be a consideration, although with history of gastrointestinal bleed and advanced age, this may be a difficult proposition. 2. History of Watchman device placement with adequate sealing. For now, we will not reinitiate anticoagulation or anticoagulation as an outpatient. 3. We will start Multaq and possibly discharge home after rate control. She may need to be monitored for bradyarrhythmias as well, had history of bradycardia with flutter, in which case pacing could be an option with potential future AV dayday ablation is a consideration as well. Job ID: [id number] MTDD
[2020-04-25] MEDS: Dronedarone HCl 400 MG TAB PO SCH (16:07)
[2020-04-25] MEDS ORDERED: Dronedarone HCl 400 MG TAB PO SCH (17:00)
[2020-04-25] MEDS: PRAVASTATIN 20 MG TAB PO SCH (20:48)
[2020-04-26 07:24] LABS: #Basophils 0.1 thou/uL (0.0-0.2); #Eosinphils 0.1 thou/uL (0.0-0.7); #Lymphocytes 1.6 thou/uL (1.20-3.40); #Monocytes 0.4 thou/uL (0.11-0.59); #Neutrophils 3.8 thou/uL (1.40-6.50); %Basophils 0.9 % (0.0-1.0); %Eosinophils 1.5 % (0.0-10.0); %Lymphocytes 27.5 % (21.0-51.0); %Monocytes 6.5 % (0.0-10.0); %Neutrophils 63.6 % (42.0-75.0); Hemoglobin 10.7 g/dL (12.0-16.0); Mean Corpuscular HGB CONC 30.7 g/dL (32.0-36.0); Mean Corpuscular Hemoglobin 28.9 pg (27.0-31.0); Mean Corpuscular Volume 94.4 fL (78.0-98.0); Mean Platelet Volume 8.6 fL (7.4-10.4); Platelet Count 250 thou/uL (130-400); RBC Distribution Width 14.6 % (11.5-14.5); Red Blood Cell (RBC) Count 3.71 mill/uL (4.20-5.40)
[2020-04-26 07:24] LABS: Anion Gap 12 mmol/L (10-20); BUN (Urea Nitrogen) 14 mg/dL (9.8-20.1); Calc. Creatinine Clearance 36 mL/min (70-130); Calcium 8.4 mg/dL (7.8-10.44); Carbon Dioxide 22 mmol/L (23-31); Chloride 110 mmol/L (98-107); Glucose 75 mg/dL (83-110); Potassium 4.4 mmol/L (3.5-5.1); Sodium 140 mmol/L (136-145)
--- NOTE | 2020-04-26 08:09 | PDOC.FM ---
- Subjective Subjective: Ms. Brennan says she feels "out of it" this morning and is unsure why. She says the medicine she received for her anxiety yesterday made her extremely sleepy and she wonders if it's because of that or because her heart rate is elevated. Patient explains she normally doesn't feel bad with an elevated heart rate until it is 130-140s. - Objective Vital Signs & Weight: Vital Signs (12 hours) Temp Pulse Resp BP Pulse Ox 04/26/20 07:27 95 04/26/20 04:00 98 F 120 H 18 117/74 95 04/26/20 00:00 82 113/74 Weight Admit Weight 75.568 kg Weight 75.705 kg I&O: 04/25/20 04/26/20 04/27/20 06:59 06:59 06:59 Intake Total 100 1120 Output Total 200 Balance 100 920 Result Diagrams: 04/26/20 04:40 04/26/20 03:30 EKG Reviewed by me: Yes (tele: 2300 Afflutter 70s, 299 Aflutter 120s) Phys Exam - Physical Examination Constitutional: NAD HEENT: moist MMs, sclera anicteric Neck: no nodes, full ROM Respiratory: no wheezing, no rales, no rhonchi, clear to auscultation bilateral systolic murmur, irregular rhythm Gastrointestinal: soft, non-tender Musculoskeletal: no edema, pulses present Neurological: moves all 4 limbs Psychiatric: normal affect, A&O x 3 Skin: no rash Dx/Plan - Plan Plan: 84 yo F with a history of Aflutter presenting for weakness and SOB. Aflutter w/RVR -Hx of watchman's placed Dec 2019 and successful cardioversion on 04/03/[address] Patel. ECHO Dec 2019: aortic stenosis, EF 60-65%, pulmonary HTN. TSH, Mg, Phos wnl -Consult Cardiology ([place]) -Consult Dr. Patel: started patient on Multaq, considering cardioversion on -Continue home coreg. Continue PO dilt. Continue Multaq. Patient's HR has been in 120 since 0300 this AM. Patient is due to PO dilt and multaq this morning. Will monitor HR and see if it improves following administration. Hyperkalemia, resolved -K 5.4, 5.5, 4.9, 4.4 s/p 500mL NS bolus and kayexelate CKD3 -Cr 1.57, baseline -Continue to monitor HTN -Continue home coreg HFpEF -Patient appears euvolemic on exam -Continue home lasix HLD -Continue home pravastatin Hx CABG s/p CAD PCP: Tabatha DVT PPx: lovenox Diet: HH Code: Full Dispo: Pending cardiology and Dr. Patel recs.
[2020-04-26] MEDS: Gabapentin 300 MG CAP PO SCH ×2 (08:17→21:00)
[2020-04-26] MEDS: Furosemide 20 MG TAB PO SCH (08:17)
[2020-04-26] MEDS: Enoxaparin Sodium 40 MG/0.4 ML SYRINGE SC SCH (08:17)
[2020-04-26] MEDS: Cyanocobalamin (Vitamin B-12) 1,000 MCG TAB PO SCH (08:18)
[2020-04-26] MEDS: Carvedilol 25 MG TAB PO SCH ×2 (08:18→16:59)
[2020-04-26] MEDS: Cholecalciferol 1,000 UNITS (25 MCG) TAB PO SCH (08:18)
[2020-04-26] MEDS: Dronedarone HCl 400 MG TAB PO SCH ×2 (08:18→17:00)
[2020-04-26] MEDS: Metoclopramide HCl 10 MG TAB PO SCH ×2 (08:18→17:00)
[2020-04-26] MEDS: Clopidogrel Bisulfate 75 MG TAB PO SCH (08:19)
[2020-04-26] MEDS ORDERED: Lactated Ringer's 500 ML IV SCH (11:45)
--- NOTE | 2020-04-26 13:39 | PQF ---
CLINICAL DOCUMENTATION CLARIFICATION FORM: Dear Dr. Cloud Date: 04/26/20 Please exercise your independent, professional judgment in responding to the clarification form. Clinical indicators are provided on the bottom of this form for your review. Please check appropriate box(es): [ x ] Protein Calorie Malnutrition: [ ] Mild [ x ] Moderate [ ] Severe [ ] Other Malnutrition (please specify) [ ] Cachexia [ ] Other diagnosis [ ] Unable to determine In addition, please specify: Present on Admission (POA): [ x ] Yes [ ] No [ ] Unable to determine For continuity of documentation, please document condition throughout progress notes and discharge summary. Thank You. To be completed by CDI/Coding staff for physician review: CLINICAL INDICATORS - SIGNS / SYMPTOMS / LABS / RESULTS AND LOCATION IN MR H&P (ALYSSA): "DECREASED APPETITE THE PAST 4-5 MONTHS" DIETARY ASSESSMENT 2/2: "MODERATE MUSCLE WASTING TO TEMPORALIS, MILD FAT LOSS TO ORBITAL REGION." "MILD FAT LOSS PRESENT SUGGESTIVE OF MODERATE TO SEVERE MALNUTRITION IN THE CONTEXT OF CHRONIC ILLNESS" 8.3%WEIGHT LOSS IN THE LAST 2 MONTHS" RISK FACTORS / RESULTS AND LOCATION IN MR ADVANCED AGE MULTIPLE COMORBIDITIES (SEE H&P) TREATMENT / RESULTS AND LOCATION IN MR RECOMMEND DIETARY SUPPLEMENTS (DIETARY CONS 2/2) CONSIDER APPETITE STIMULANT (DIETARY ASSESSMENT 2/2) Moderate Malnutrition (in acute illness) Energy Intake: <75% of estimated energy requirement for > 7 days Weight Loss: 1-2%/1 week; 5%/ 1 month; 7.5%/3 months Other: mild body fat loss; mild muscle mass loss; mild fluid accumulation; Severe Malnutrition (in acute illness) Energy Intake: = 50% of estimated energy requirement for = 5 days Weight Loss: >2%/1 week; >5%/1 month; >7.5%/3 months Other: moderate body fat loss; moderate muscle mass loss; moderate- severe fluid accumulation; 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 Moderate Malnutrition (in chronic illness) Energy Intake: <75% of estimated energy requirement for =1 month Weight Loss: 5%/1 month; 7.5%/3 months; 10%/6 months; 20%/1 year Other: mild body fat loss; mild muscle mass loss; mild fluid accumulation Severe Malnutrition (in chronic illness) Energy Intake: =75% of estimated energy requirement for =1 month Weight Loss: >5%/1 month; >7.5%/3 months; >10%/6 months; >20%/1 year Other: severe body fat loss; severe muscle mass loss; severe fluid accumulation; 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 CDS Signature: Lidia Stokes RN Phone #: [phone] Date: 04/26/20 This is a permanent part of the Medical Record [facility]
--- NOTE | 2020-04-26 13:59 | PDOC.EP ---
- Subjective Date: 04/26/20 Time: 13:54 Interval History: feel fair. HTN persists. HR better controlled. No new symptoms - Review of Systems Constitutional: denies: chills, fever, malaise, sweats, weakness, other Respiratory: denies: cough, dry, hemoptysis, pleuritic pain, shortness of breath, SOB with excertion, sputum, wheezing, other Cardiology: denies: chest pain, edema, heart racing, light headedness, paroxysmal noc. dyspnea, orthopnea, palpitations, passing out, pleuritic pain, pressure, swelling, other Gastrointestinal: denies: abdominal pain, constipation, diarrhea, hematochezia, melena, nausea, vomitting, other - Objective Allergies/Adverse Reactions: Allergies Allergy/AdvReac Type Severity Reaction Status Date / Time latex Allergy Unknown Verified 03/30/20 13:25 lovastatin Allergy Unknown Verified 03/30/20 13:25 simvastatin Allergy Unknown Verified 03/30/20 13:25 Current Medications Acetaminophen (Acetaminophen 325 Mg Tab) 650 mg PO Q4H PRN PRN Reason: Headache/Fever/Mild Pain (1-3) Acetaminophen (Acetaminophen 650 Mg Suppository) 650 mg [place] Q4H PRN PRN Reason: Headache/Fever/Mild Pain (1-3) Carvedilol (Carvedilol 25 Mg Tab) 25 mg PO BID-[facility] Last Admin: 04/26/20 08:18 Dose: 25 mg Documented by: Cholecalciferol (Cholecalciferol 1,000 Units (25 Mcg) Tab) 1,000 units PO DAILY [facility] Last Admin: 04/26/20 08:18 Dose: 1,000 units Documented by: Clopidogrel Bisulfate (Clopidogrel Bisulfate 75 Mg Tab) 75 mg PO DAILY [facility] Last Admin: 04/26/20 08:19 Dose: 75 mg Documented by: Cyanocobalamin (Cyanocobalamin (Vitamin B-12) 1,000 Mcg Tab) 1,000 mcg PO DAILY [facility] Last Admin: 04/26/20 08:18 Dose: 1,000 mcg Documented by: Diltiazem HCl (Diltiazem Hcl Cd 180 Mg Capsule) 180 mg PO DAILY [facility] Last Admin: 04/26/20 08:18 Dose: 180 mg Documented by: Dronedarone (Dronedarone Hcl 400 Mg Tab) [facility] Last Admin: 04/26/20 08:18 Dose: 400 mg Documented by: Enoxaparin Sodium (Enoxaparin Sodium 40 Mg/0.4 Ml Syringe) 40 mg SC 0900 [facility] Last Admin: 04/26/20 08:17 Dose: 40 mg Documented by: Famotidine (Famotidine 20 Mg Tab) 20 mg PO HS PRN PRN Reason: Heartburn or Indigestion Furosemide (Furosemide 20 Mg Tab) 20 mg PO DAILY [facility] Last Admin: 04/26/20 08:17 Dose: 20 mg Documented by: Gabapentin (Gabapentin 300 Mg Cap) 300 mg PO BID [facility] Last Admin: 04/26/20 08:17 Dose: 300 mg Documented by: Hydroxyzine HCl (Hydroxyzine 10 Mg Tab) 10 mg PO Q8H PRN PRN Reason: Anxiety Last Admin: 04/25/20 16:08 Dose: 10 mg Documented by: Melatonin (Melatonin 3 Mg Tab) 3 mg PO HS PRN PRN Reason: Insomnia Metoclopramide HCl (Metoclopramide Hcl 10 Mg Tab) 5 mg PO BID-[facility] Last Admin: 04/26/20 08:18 Dose: 5 mg Documented by: Pravastatin 20 Mg (Tab) 1 each PO HS [facility] Last Admin: 04/25/20 20:48 Dose: 1 each Documented by: Sodium Chloride (Flush - Normal Saline 10 Ml Syringe) 10 ml IVF Q12HR [facility] Last Admin: 04/26/20 08:19 Dose: 10 ml Documented by: Sodium Chloride (Flush - Normal Saline 10 Ml Syringe) 10 ml IVF PRN PRN PRN Reason: Saline Flush Vital Signs & Weight: Vital Signs Temp Pulse Resp BP Pulse Ox 04/26/20 12:15 98.4 F 101 H 16 97/55 L 96 04/26/20 08:00 98.7 F 123 H 16 114/77 97 04/26/20 07:27 95 04/26/20 04:00 98 F 120 H 18 117/74 95 Admit Weight 166 lb 9.6 oz Weight 166 lb 14.4 oz I/O: I/O 04/25/20 04/26/20 04/27/20 06:59 06:59 06:59 Intake Total 100 1120 Output Total 200 Balance 100 920 - Quality Measures Condition: Atrial Fibrillation/Flutter (hx or current) CV meds: Aspirin: Yes, Plavix/Efficent/Brilinta: Yes - Medication Contraindications No Anticoagulant reason: Treatment not indicated (s/p watchman. continue DAPT) - Physical Exam General: alert & oriented x3, appears well, no apparent distress, speech clear, affect appropriate HEENT: mucus membranes moist, normocephaly Neck: supple neck, midline trachea, no JVD/HJR, no masses, no bruit, no lymphadenopathy, no thromegaly Cardiology: irregularly irregular, tachycardia Lungs: clear to auscultation, normal breath sounds, no wheeze, rales, rhonchi Neurology: cranial nerve 2-12 intact, grossly intact, no lateralizing findings Abdomen: unremarkable, active bowel sounds, no pulsations/bruits - Labs Result Diagrams: 04/26/20 04:40 04/26/20 03:30 - EKG Interpretation EKG Method: Telemetry (atrial tachycardia) EKG shows: Atypical atrial flutter (atrial flutter) - Assessment/Plan Assessment/Plan: 1. Recurrent atrial arrhythmias - moderate RVR on admit - coreg 25mg BID, diltiazem 120mg daily, - 04/25/20 added multaq 400mg BID 2. s/p watchman implant for LAYA closure 3. HTN 4. CKD, stage 3 5. HFpEF -euvolemic Continue current meds. No distress with mildly elevated HRs. NPO for CV tomorrow. Ms. Brennan consents to this procedure. No OAC s/p watchman. Needs Plavix 75mg and ASA 81mg daily to continue at DC.
--- NOTE | 2020-04-26 14:02 | PQF ---
CLINICAL DOCUMENTATION CLARIFICATION FORM: Dear Dr. Cloud Date: 04/26/20 Please exercise your independent, professional judgment in responding to the clarification form. Clinical indicators are provided on the bottom of this form for your review. Please check appropriate box(es): HEART FAILURE: A. ACUITY [ ] Acute [ ] Acute on Chronic [ x ] Chronic B. TYPE: [ ] Systolic / HFrEF [ x ] Diastolic / HFpEF [ ] Combined Systolic / Diastolic [ ] Hypertensive Heart and Kidney disease [ ] Hypertensive Heart Disease [ ] Hypertensive Kidney Disease [ ] Other diagnosis [ ] Unable to determine In addition, please specify: Present on Admission (POA): [ x ] Yes [ ] No [ ] Unable to determine For continuity of documentation, please document condition throughout progress notes and discharge summary. Thank You. To be completed by CDI/Coding staff for physician review: CLINICAL INDICATORS - SIGNS / SYMPTOMS / LABS / RESULTS AND LOCATION IN EMR ER NOTE: "SHORTNESS OF BREATH THAT IS WORSE WITH EXERTION." PN 2/3- ALYSSA: "HFpEF- PATIENT APPEARS EUVOLEMIC ON EXAM" BNP 04/24: 332.6 RISKS FACTORS / RESULTS AND LOCATION IN EMR ADVANCED AGE AFIB/FLUTTER (ER NOTE) HTN (ER NOTE) AORTIC STENOSIS (PN2/3 -ALYSSA) CKD 3 (PN 2/3-ALYSSA) TREATMENTS / RESULTS AND LOCATION IN EMR COREG (HOME MED) 2/-PRESENT LASIX (HOME MED) 2/2-PRESENT CARDIOLOGY CONSULT 04/24 CDS Signature: Lidia Stokes RN Phone #: [phone] Date: 04/26/20 This is a permanent part of the Medical Record [facility]
[2020-04-26] MEDS: PRAVASTATIN 20 MG TAB PO SCH (21:00)
[2020-04-27 04:51] LABS: #Eosinphils 0.1 thou/uL (0.0-0.7); #Lymphocytes 1.7 thou/uL (1.20-3.40); #Monocytes 0.5 thou/uL (0.11-0.59); #Neutrophils 3.9 thou/uL (1.40-6.50); %Basophils 0.6 % (0.0-1.0); %Lymphocytes 26.9 % (21.0-51.0); %Monocytes 7.5 % (0.0-10.0); %Neutrophils 63.1 % (42.0-75.0); Hemoglobin 10.4 g/dL (12.0-16.0); Mean Corpuscular HGB CONC 31.5 g/dL (32.0-36.0); Mean Corpuscular Hemoglobin 29.8 pg (27.0-31.0); Mean Corpuscular Volume 94.5 fL (78.0-98.0); Mean Platelet Volume 8.5 fL (7.4-10.4); Platelet Count 224 thou/uL (130-400); RBC Distribution Width 14.4 % (11.5-14.5); Red Blood Cell (RBC) Count 3.51 mill/uL (4.20-5.40); White Blood Cell (WBC) Count 6.2 thou/uL (4.8-10.8)
[2020-04-27 05:24] LABS: Anion Gap 13 mmol/L (10-20); BUN (Urea Nitrogen) 15 mg/dL (9.8-20.1); Calc. Creatinine Clearance 30 mL/min (70-130); Calcium 8.6 mg/dL (7.8-10.44); Carbon Dioxide 22 mmol/L (23-31); Chloride 109 mmol/L (98-107); Glucose 84 mg/dL (83-110); Potassium 4.2 mmol/L (3.5-5.1); Sodium 140 mmol/L (136-145)
[2020-04-27] MEDS ORDERED: PROPOFOL 20 ML ONE (06:27)
--- NOTE | 2020-04-27 07:25 | PDOC.FM ---
- Subjective Subjective: Ms. Brennan is feeling well after a successful cardioversion into sinus rhythm this morning. She is eager to go home. - Objective Vital Signs & Weight: Vital Signs (12 hours) Temp Pulse Resp BP Pulse Ox 04/27/20 04:29 98 04/27/20 04:00 97.8 F 82 20 102/56 L 98 04/26/20 23:57 57 L 101/56 L 04/26/20 19:32 97.6 F 60 16 95/55 L 98 Weight Admit Weight 75.568 kg Weight 74.616 kg I&O: 04/26/20 04/27/20 04/28/20 06:59 06:59 06:59 Intake Total 1120 1190 Output Total 200 Balance 920 1190 Result Diagrams: 04/27/20 04:20 04/27/20 04:20 Phys Exam - Physical Examination Constitutional: NAD HEENT: moist MMs, sclera anicteric Neck: no nodes Respiratory: no wheezing, no rales, no rhonchi, clear to auscultation bilateral Cardiovascular: RRR, no significant murmur Gastrointestinal: soft, non-tender Musculoskeletal: no edema, pulses present Neurological: moves all 4 limbs Lymphatic: no nodes Psychiatric: normal affect, A&O x 3 Skin: no rash Dx/Plan - Plan Plan: 84 yo F with a history of Aflutter presenting for weakness and SOB. Aflutter w/RVR -Hx of watchman's placed Dec 2019 and successful cardioversion on 04/03/[address] Patel. ECHO Dec 2019: aortic stenosis, EF 60-65%, pulmonary HTN. TSH, Mg, Phos wnl -Consult Cardiology ([place]) -Consult Dr. Patel: successful cardioversion today. Discharge home on 7 days of Multaq and follow up with him in clinic this week. Hyperkalemia, resolved -K 5.4, 5.5, 4.9, 4.4 s/p 500mL NS bolus and kayexelate CKD3 -Cr 1.57, baseline -Continue to monitor HTN -Continue home coreg HFpEF -Patient appears euvolemic on exam -Continue home lasix HLD -Continue home pravastatin Hx CABG s/p CAD PCP: Tabatha DVT PPx: lovenox Diet: Code: Full Dispo: Discharge home today on Multaq. Follow-up with Dr. Patel next week.
--- NOTE | 2020-04-27 08:28 | OP ---
DATE OF PROCEDURE: 04/27/2020 PROCEDURE PERFORMED: External electrical cardioversion. REASON FOR PROCEDURE: Ms. Brennan is an 84-year-old woman with history of persistent atrial fibrillation, atrial flutter. She underwent a pulmonary venous isolation procedure in the past, and had a Watchman device placement. She is now here with recurrent atrial arrhythmias with tachycardia. She underwent Multaq loading. She is here for a cardioversion. DESCRIPTION OF PROCEDURE: The patient received propofol by Anesthesia specialist. After adequate level of sedation achieved, a synchronized 50-joule shock promptly converted the patient back to sinus rhythm. CONCLUSION: Successful cardioversion. PLAN: Continue Multaq or alternative antiarrhythmic and monitor for recurrence of arrhythmias. Job ID: [id number]
[2020-04-27] MEDS: Enoxaparin Sodium 40 MG/0.4 ML SYRINGE SC SCH (08:56)
[2020-04-27] MEDS: Cholecalciferol 1,000 UNITS (25 MCG) TAB PO SCH (08:56)
[2020-04-27] MEDS: Gabapentin 300 MG CAP PO SCH (08:56)
[2020-04-27] MEDS: Carvedilol 25 MG TAB PO SCH ×2 (08:56→16:23)
[2020-04-27] MEDS: Dronedarone HCl 400 MG TAB PO SCH ×2 (08:56→16:23)
[2020-04-27] MEDS: Furosemide 20 MG TAB PO SCH (08:57)
[2020-04-27] MEDS: Metoclopramide HCl 10 MG TAB PO SCH ×2 (08:57→16:23)
[2020-04-27] MEDS: Cyanocobalamin (Vitamin B-12) 1,000 MCG TAB PO SCH (08:57)
[2020-04-27] MEDS: Clopidogrel Bisulfate 75 MG TAB PO SCH (08:57)
--- NOTE | 2020-04-27 09:21 | PDOC.EP ---
- Subjective Date: 04/27/20 Time: 09:18 Interval History: Cardioverted this morning. She feels well and is eager to go home. - Review of Systems Constitutional: denies: chills, fever, malaise, sweats, weakness, other Respiratory: denies: cough, dry, hemoptysis, pleuritic pain, shortness of breath, SOB with excertion, sputum, wheezing, other Cardiology: denies: chest pain, edema, heart racing, light headedness, paroxysmal noc. dyspnea, orthopnea, palpitations, passing out, pleuritic pain, pressure, swelling, other Gastrointestinal: denies: abdominal pain, constipation, diarrhea, hematochezia, melena, nausea, vomitting, other Musculoskeletal: denies: unstable gait, falls, neck pain, shoulder pain, arm pain, hand pain, leg pain, foot pain, other - Objective Allergies/Adverse Reactions: Allergies Allergy/AdvReac Type Severity Reaction Status Date / Time latex Allergy Unknown Verified 03/30/20 13:25 lovastatin Allergy Unknown Verified 03/30/20 13:25 simvastatin Allergy Unknown Verified 03/30/20 13:25 Current Medications Acetaminophen (Acetaminophen 325 Mg Tab) 650 mg PO Q4H PRN PRN Reason: Headache/Fever/Mild Pain (1-3) Acetaminophen (Acetaminophen 650 Mg Suppository) 650 mg GA Q4H PRN PRN Reason: Headache/Fever/Mild Pain (1-3) Carvedilol (Carvedilol 25 Mg Tab) 25 mg PO BID-[facility] Last Admin: 04/27/20 08:56 Dose: 25 mg Documented by: Cholecalciferol (Cholecalciferol 1,000 Units (25 Mcg) Tab) 1,000 units PO DAILY [facility] Last Admin: 04/27/20 08:56 Dose: 1,000 units Documented by: Clopidogrel Bisulfate (Clopidogrel Bisulfate 75 Mg Tab) 75 mg PO DAILY [facility] Last Admin: 04/27/20 08:57 Dose: 75 mg Documented by: Cyanocobalamin (Cyanocobalamin (Vitamin B-12) 1,000 Mcg Tab) 1,000 mcg PO DAILY [facility] Last Admin: 04/27/20 08:57 Dose: 1,000 mcg Documented by: Diltiazem HCl (Diltiazem Hcl Cd 180 Mg Capsule) 180 mg PO DAILY [facility] Last Admin: 04/27/20 08:57 Dose: 180 mg Documented by: Dronedarone (Dronedarone Hcl 400 Mg Tab) 400 mg PO BID-[facility] Last Admin: 04/27/20 08:56 Dose: 400 mg Documented by: Enoxaparin Sodium (Enoxaparin Sodium 40 Mg/0.4 Ml Syringe) 40 mg SC 0900 [facility] Last Admin: 04/27/20 08:56 Dose: 40 mg Documented by: Famotidine (Famotidine 20 Mg Tab) 20 mg PO HS PRN PRN Reason: Heartburn or Indigestion Furosemide (Furosemide 20 Mg Tab) 20 mg PO DAILY [facility] Last Admin: 04/27/20 08:57 Dose: 20 mg Documented by: Gabapentin (Gabapentin 300 Mg Cap) 300 mg PO BID [facility] Last Admin: 04/27/20 08:56 Dose: 300 mg Documented by: Hydroxyzine HCl (Hydroxyzine 10 Mg Tab) 10 mg PO Q8H PRN PRN Reason: Anxiety Last Admin: 04/25/20 16:08 Dose: 10 mg Documented by: Melatonin (Melatonin 3 Mg Tab) 3 mg PO HS PRN PRN Reason: Insomnia Metoclopramide HCl (Metoclopramide Hcl 10 Mg Tab) 5 mg PO BID-[facility] Last Admin: 04/27/20 08:57 Dose: 5 mg Documented by: Pravastatin 20 Mg (Tab) 1 each PO HS [facility] Last Admin: 04/26/20 21:00 Dose: 1 each Documented by: Sodium Chloride (Flush - Normal Saline 10 Ml Syringe) 10 ml IVF Q12HR [facility] Last Admin: 04/27/20 08:57 Dose: 10 ml Documented by: Sodium Chloride (Flush - Normal Saline 10 Ml Syringe) 10 ml IVF PRN PRN PRN Reason: Saline Flush Vital Signs & Weight: Vital Signs Temp Pulse Resp BP Pulse Ox 04/27/20 04:29 98 04/27/20 04:00 97.8 F 82 20 102/56 L 98 04/26/20 23:57 57 L 101/56 L Admit Weight 166 lb 9.6 oz Weight 164 lb 8 oz I/O: I/O 04/26/20 04/27/20 04/28/20 06:59 06:59 06:59 Intake Total 1120 1190 Output Total 200 Balance 920 1190 - Quality Measures Condition: Atrial Fibrillation/Flutter (hx or current) CV meds: Aspirin: Yes, Plavix/Efficent/Brilinta: Yes - Medication Contraindications No Anticoagulant reason: Treatment not indicated (s/p watchman. continue DAPT) - Physical Exam General: alert & oriented x3, appears well, no apparent distress, speech clear, affect appropriate HEENT: mucus membranes moist, normocephaly Neck: supple neck, midline trachea, no JVD/HJR, no masses, no bruit, no lymphadenopathy, no thromegaly Cardiology: regular rate and rhythm, no murmur, regular rate, regular rhythm, PMI nondisplaced Lungs: clear to auscultation, normal breath sounds, normal exam, no wheeze, rales, rhonchi, no wheezes, no rales, no rhonchi Neurology: cranial nerve 2-12 intact, grossly intact, motor function intact, sensory function intact, negative rhomberg, coordination normal, no lateralizing findings Abdomen: unremarkable Extremities: dry, strong pulses, warm - Labs Result Diagrams: 04/27/20 04:20 04/27/20 04:20 - EKG Interpretation EKG Method: Telemetry EKG shows: Sinus rhythm - Assessment/Plan Assessment/Plan: 1. Recurrent atrial arrhythmia 2. left atrial appendage closure via Watchman 3. hypertension 4. hx of HFpEF 5. tachy-sofia syndrome successful cardioversion after Multaq loading this morning. She informed me Multaq is too expensive for her long-term. her options are resuming oral anticoagulation for the purpose of repeat ablation, amiodarone for arrhythmia suppression, versus pacemaker with AV node ablation. she has an appointment next week in office and we will discuss these options further. okay for discharge by EP with 7 day Multaq prescription.
[2020-04-27 11:58] VITALS: TEMP 97.9
--- NOTE | 2020-04-27 13:27 | EKG ---
Test Reason : Blood Pressure : / mmHG Vent. Rate : 122 BPM Atrial Rate : 120 BPM P-R Int : 000 ms QRS Dur : 078 ms QT Int : 330 ms P-R-T Axes : 000 065 069 degrees QTc Int : 470 ms Possible Atrial tachycardia with 2:1 AV block Abnormal ECG Confirmed by DR. Araceli PORTER ([id number]) on 04/27/2020 1:27:30 PM Referred By: SHAYY Confirmed By:DR. Araceli PORTER
[2020-04-27 16:12] VITALS: BP 114/80
--- NOTE | 2020-04-29 20:37 | EKG ---
Test Reason : Blood Pressure : / mmHG Vent. Rate : 122 BPM Atrial Rate : 122 BPM P-R Int : 172 ms QRS Dur : 054 ms QT Int : 298 ms P-R-T Axes : 106 051 057 degrees QTc Int : 424 ms Sinus tachycardia Otherwise normal ECG Confirmed by GENNY WAKEFIELD, MARIA ESTHER ([id number]), editorial intern DARSHAN STAFFORD ([id number]) on 04/29/2020 8:37:19 PM Referred By: Confirmed By:MARIA ESTHER ROYAL MD
--- NOTE | 2020-04-29 20:39 | EKG ---
Test Reason : Blood Pressure : / mmHG Vent. Rate : 114 BPM Atrial Rate : 114 BPM P-R Int : 184 ms QRS Dur : 058 ms QT Int : 296 ms P-R-T Axes : 099 060 059 degrees QTc Int : 407 ms Sinus tachycardia Otherwise normal ECG Confirmed by GNENY WAKEFIELD, MARIA ESTHER ([id number]), tape editor DARSHAN STAFFORD ([id number]) on 04/29/2020 8:38:39 PM Referred By: Confirmed By:MARIA ESTHER ROYAL MD
== END 2020-04-27 17:43 | disposition home or self-care (01) | DRG 309 ==
LOC: ERS 11:57 → 2NO 15:42 → OBSVTOIN 04-25 12:36
PROVIDERS: ADMIT Family Medicine; ATTEND Family Medicine
PROC: 5A2204Z Restoration of Cardiac Rhythm, Single (ICD-10-PCS; principal; 2020-04-27)
DX: I48.92 Unspecified atrial flutter (principal); I13.0 Hypertensive heart and chronic kidney disease with heart failure and stage 1 through stage 4 chronic kidney disease, or unspecified chronic kidney disease; E44.0 Moderate protein-calorie malnutrition; I50.32 Chronic diastolic (congestive) heart failure; I25.10 Atherosclerotic heart disease of native coronary artery without angina pectoris; E87.5 Hyperkalemia; Z20.822 Contact with and (suspected) exposure to COVID-19; E78.5 Hyperlipidemia, unspecified; K21.9 Gastro-esophageal reflux disease without esophagitis; I49.5 Sick sinus syndrome; I27.20 Pulmonary hypertension, unspecified; N18.30 Chronic kidney disease, stage 3 unspecified; Z95.1 Presence of aortocoronary bypass graft; Z95.2 Presence of prosthetic heart valve; Z88.8 Allergy status to other drugs, medicaments and biological substances; Z86.73 Personal history of transient ischemic attack (TIA), and cerebral infarction without residual deficits; Z90.710 Acquired absence of both cervix and uterus; Z68.27 Body mass index [BMI] 27.0-27.9, adult
CPT/HCPCS: 36415; 71045; 80048; 80053; 83735; 83880; 84100; 84443; 84484; 85025; 85610; 85730; 87635; 92960; 93005; 93010; 96372; 96374; G0378; J1650; J2704; U0003; U0005

== ENCOUNTER 2020-04-28 13:08 | Emergency (ER) | payer MEDICARE ==
[2020-04-28 13:41] LABS: Hemoglobin 10.8 g/dL (12.0-16.0); Mean Corpuscular HGB CONC 30.4 g/dL (32.0-36.0); Mean Corpuscular Hemoglobin 29.3 pg (27.0-31.0); Mean Corpuscular Volume 96.2 fL (78.0-98.0); Mean Platelet Volume 8.9 fL (7.4-10.4); Platelet Count 192 thou/uL (130-400); RBC Distribution Width 14.4 % (11.5-14.5); White Blood Cell (WBC) Count 8.6 thou/uL (4.8-10.8)
[2020-04-28 13:59] LABS: ALT (SGPT) 7 U/L (8-55); AST (SGOT) 17 U/L (5-34); Albumin 3.5 g/dL (3.4-4.8); Alkaline Phosphatase 71 U/L (40-110); Anion Gap 17 mmol/L (10-20); BUN (Urea Nitrogen) 20 mg/dL (9.8-20.1); Bilirubin, Total 0.4 mg/dL (0.2-1.2); Calc. Creatinine Clearance 0 mL/min (70-130); Calcium 8.4 mg/dL (7.8-10.44); Carbon Dioxide 17 mmol/L (23-31); Chloride 106 mmol/L (98-107); Globulin 3.5 g/dL (2.4-3.5); Glucose 226 mg/dL (83-110); Potassium 4.5 mmol/L (3.5-5.1); Sodium 135 mmol/L (136-145)
--- NOTE | 2020-04-28 13:59 | RAD ---
PORTABLE CHEST: Date: 04/28/2020 HISTORY: Syncope. COMPARISON: 04/24/2020. FINDINGS: Lung bernard remain clear of infiltrate. Calcified granuloma in the right lung base is stable. Heart s ize upper normal and stable. Postop sternotomy change. IMPRESSION: No acute finding. No interval change. POS: AGW
[2020-04-28 14:07] LABS: Lymphocytes 17 % (21-51); MDiff Complete? YES; Monocytes 3 % (0-10); Neutrophil 80 % (42-75); Platelet Morphology Comment Appears Adequate; Polychromasia SLIGHT = 2-3 cells (100X) (0-2/hpf)
[2020-04-28 15:37] LABS: Bilirubin Negative (Negative); Blood, Urine Negative (Negative); Clarity Clear (Clear); Glucose, Urine (Dipstick) Normal (Negative); Ketone, Urine Negative (Negative); Leukocyte Negative Leu/uL (Negative); Nitrite Negative (Negative); Protein, Urine (Dipstick) Negative (Neg-Trace); Specific Gravity, Urine 1.005 (1.002-1.036); Urobilinogen Normal mg/dL (Less than 2)
[2020-04-28 23:21] LABS: SARS-CoV-2 PCR by NAA Not Detected (NotDetected)
== END 2020-04-28 17:50 | disposition home or self-care (01) ==
LOC: ERS 13:08
DX: N17.9 Acute kidney failure, unspecified (principal); I48.91 Unspecified atrial fibrillation; K21.9 Gastro-esophageal reflux disease without esophagitis; E78.5 Hyperlipidemia, unspecified; Z20.822 Contact with and (suspected) exposure to COVID-19; I10 Essential (primary) hypertension; Z87.891 Personal history of nicotine dependence; Z79.899 Other long term (current) drug therapy
CPT/HCPCS: 71045; 80053; 81003; 84484; 85025; 93005; 99284; U0003; U0005; 36415; 87635

== ENCOUNTER 2020-05-03 07:33 | Observation (INO) | payer MEDICARE, OTHER ==
[2020-05-03] MEDS ORDERED: Lidocaine 1% (PF) 30 ML VIAL ONE (08:49)
[2020-05-03] MEDS ORDERED: Fentanyl 100 MCG/2 ML VIAL ONE ×2 (09:32→13:37)
[2020-05-03] MEDS ORDERED: Midazolam HCl 2 mg/2 ml Vial ONE (09:32)
[2020-05-03] MEDS ORDERED: Propofol 500 MG/50 ML VIAL ONE ×2 (10:00→11:58)
[2020-05-03] MEDS ORDERED: Heparin 10,000 UNITS/ 10 ML VIAL ONE (10:12)
[2020-05-03] MEDS ORDERED: CEFAZOLIN 1 GM VIAL ONE (10:44)
[2020-05-03] MEDS ORDERED: Gentamicin 80 MG/2 ML VIAL ONE (10:44)
[2020-05-03] MEDS ORDERED: DOPamine 400 MG/D5W 250 ML 250 ML ONE (12:43)
--- NOTE | 2020-05-03 14:00 | RAD ---
Portable chest: HISTORY: Post ablation and pacer placement COMPARISON: 04/28/2020 FINDINGS: Lung bernard are clear. Heart and mediastinum appear unremarkable. Vascularity is normal. Visualized osseous structures unremarkable. Pacemaker leads have been placed via the left subclavian vein. Lead position overlies right atrium an d right ventricle. IMPRESSION: No acute finding
--- NOTE | 2020-05-03 14:03 | OP ---
DATE OF PROCEDURE: 05/03/2020 PROCEDURES PERFORMED: 1. Electrophysiology study. 2. AV dayday ablation. REASON FOR PROCEDURE: Ms. Brennan is an 84-year-old woman with history of recurrent high symptomatic atrial arrhythmias. She underwent a pulmonary venous isolation in the past, but had recurrent left atrial arrhythmias. She could not afford Multaq and not an ideal candidate for alternative antiarrhythmic agents. She declines repeat ablation. She is here for a Bi-V pacemaker and AV dayday ablation procedure. The baseline rhythm was an atrial flutter with 2:1 AV conduction at ventricular rate 120 beats per minute. The right femoral venous area was prepped, draped, and anesthetized under ultrasound guidance. With ultrasound guidance, we were able to cannulate the right femoral vein. An 8-Slovak short sheath was introduced, and through this a Facile SystemtiCath irrigated tip ablation catheter was advanced to the right atrium. 3D map of the right atrium was obtained, delineating the His bundle, AV dayday fast and slow pathway areas, also the cavotricuspid isthmus areas and SVC and IVC in the right atrial body. Following that, baseline measurements were obtained with HV measured to be 38 milliseconds, the QRS duration was at baseline about 84 milliseconds, the QT was measured about 300 milliseconds. The RR cycle length with the flutter was 590 milliseconds. The atrial flutter cycle length was 260 milliseconds. At this point, pacing was performed in a cavotricuspid isthmus at 240 milliseconds and we were able to entrain the atrial tachycardia. The post pacing interval was long at 538 milliseconds, suggestive of known right atrial flutter. FOllowing that, we proceeded with a left bundle pacing and Bi-V pacemaker implant. We were able achieve adequate resynchronization with positioning the 3rd lead at the left bundle area. After the pacemaker implant was complete, please see separate report, we proceeded with the AV dayday ablation. After mapping, the His bundle and AV node lesions were delivered about 4 lesions with total duration 3.5 minutes at 40 rios. With this, we were able to achieve complete AV block. IV dopamine was at this point administered and the complete AV block persisted. Cardioversion was performed during the case to restore sinus rhythm. At the end of the case, pacing was programed to a base rate of 70 beats per minute. Atrial ATP therapies are programmed on. CONCLUSION: 1. Normal baseline conduction system. 2. Overdrive pacing suggestive of left atrial flutter. 3. Cardioversion performed to restore sinus rhythm. 4. Atrioventricular dayday ablation achieved complete atrioventricular block. 5. Adequate left bundle pacing and pacemaker function at the end of the case. At the end of the case, the catheter was removed. Sheaths were removed. Manual pressure was applied to achieve hemostasis. Cardiac silhouette did not change throughout the procedure and the patient tolerated the procedure well. Job ID: [id number] [facility]
[2020-05-03] MEDS ORDERED: Iopamidol 370 76% 50 ML VIAL FS ONE (14:11)
[2020-05-03] MEDS ORDERED: Acetaminophen/Codeine 30-300mg Tablet PO PRN (14:30)
[2020-05-03 15:51] VITALS: BMI 28.7
[2020-05-03] MEDS: Metoclopramide HCl 10 MG TAB PO SCH (15:58)
[2020-05-03] MEDS: Cephalexin 250 MG CAP PO SCH ×2 (15:58→20:14)
[2020-05-03] MEDS: Acetaminophen/Codeine 30-300mg Tablet PO PRN ×2 (16:05→20:16)
[2020-05-03] MEDS: Gabapentin 300 MG CAP PO SCH (20:14)
[2020-05-03] MEDS: Carvedilol 6.25 MG TAB PO SCH (20:15)
[2020-05-03] MEDS ORDERED: Famotidine 20 MG TAB PO SCH (21:00)
[2020-05-03] MEDS ORDERED: Simvastatin 10 MG TAB PO SCH (21:00)
[2020-05-04] MEDS: Acetaminophen/Codeine 30-300mg Tablet PO PRN ×2 (03:37→10:32)
[2020-05-04] MEDS ORDERED: Furosemide 20 MG TAB PO SCH (09:00)
[2020-05-04] MEDS ORDERED: Aspirin 81 mg Enteric Coated Tablet PO SCH (09:00)
[2020-05-04] MEDS ORDERED: FLU VACC QS2020-21(65YR UP)/PF 240 MCG/0.7 ML SYRINGE IM ONE (09:00)
[2020-05-04] MEDS ORDERED: Clopidogrel Bisulfate 75 MG TAB PO SCH (09:00)
[2020-05-04] MEDS ORDERED: Cyanocobalamin (Vitamin B-12) 1,000 MCG TAB PO SCH (09:00)
[2020-05-04] MEDS ORDERED: Cholecalciferol 1,000 UNITS (25 MCG) TAB PO SCH (09:00)
[2020-05-04] MEDS: Carvedilol 6.25 MG TAB PO SCH (09:59)
[2020-05-04] MEDS: Cephalexin 250 MG CAP PO SCH ×2 (10:00→15:03)
[2020-05-04] MEDS: Gabapentin 300 MG CAP PO SCH (10:00)
[2020-05-04] MEDS: Metoclopramide HCl 10 MG TAB PO SCH (10:01)
[2020-05-04 15:15] VITALS: BP 142/61; TEMP 98.1
--- NOTE | 2020-05-04 15:26 | PDOC.DS.DS ---
Provider Date of Admission: 05/03/20 14:09 Date of Discharge: 05/04/20 Admitting Provider: Ge Patel MD Consultations: None Primary Care Physician: Radha Murray MD Course Hospital Course: Status post permanent pacemaker implant with AV node ablation for symptomatic atrial fibrillation. No complications postop. Kept overnight for observation due to elderly age and no home support. Lab Results: chest x-ray post ablation and pacemaker implant stable with no evidence of pneumothorax post implant device check stable Vitals: Vital Signs (12 hours) Temp Pulse Resp BP Pulse Ox 05/04/20 15:14 98.1 F 66 13 142/61 H 97 05/04/20 12:38 98.6 F 68 17 158/70 H 97 05/04/20 09:49 98.9 F 74 18 137/64 97 05/04/20 03:34 99 F 70 22 H 109/53 L 96 Weight Weight 177 lb 14.4 oz Physical Exam: The patient was seen and examined on the day of discharge. General Appearance: NAD, awake alert Eye: PERRL, anicteric sclera ENT: normocephalic atraumatic, no oropharyngeal lesions, moist mucosa, dry oral mucosa Neck: supple, symmetric, no JVD, no thyromegaly, no lymphadenopathy, no carotid bruit, JVD Respiratory: CTAB, no wheezes, no rales, no ronchi, normal chest expansion, no tachypnea, normal percussion, rales, rhonchi, tachypneic, wheezes Cardiovascular: RRR, no murmur, no gallops Gastrointestinal: soft Extremities: no cyanosis, no clubbing, no edema Skin: normal turgor, no lesions, no rashes Skin - other findings: incision clean dry and intact. No evident hematoma. No drainage. Neurological: cranial nerve grossly intact, no weakness Problem Assessment: Stable 1 day post pacemaker implant with AV node ablation. No hematoma or bleeding complications at groin access or pacemaker incision site. Vital signs are stable she is okay to discharge home (1) Atrial fibrillation Code(s): I48.91 - UNSPECIFIED ATRIAL FIBRILLATION Status: Chronic Plan: discontinue Multaq. Continue beta-deidra at a reduced dose due to orthostatic hypotension concern. Status post Watchman, continue Plavix and aspirin. wound/device check in 2 weeks at my clinic will be arranged Time Spent in discharge related activities (mins): 30 Plan Home Medications: Medication Instructions Recorded Confirmed Type Gabapentin [Neurontin] 300 mg PO BID 01/12/19 05/03/20 History Pravastatin Sodium [Pravachol] 20 mg PO HS 01/12/19 05/03/20 History Cyanocobalamin (Vitamin B-12) 1 tab PO DAILY 08/07/19 05/03/20 History [Vitamin B-12] Cholecalciferol (Vitamin D3) 1,000 unit PO DAILY 03/30/20 05/03/20 History [Vitamin D3] Metoclopramide HCl [Reglan] 5 mg PO BID-WM 03/30/20 05/03/20 History Clopidogrel Bisulfate [Clopidogrel] 75 mg PO DAILY 04/24/20 05/03/20 History Famotidine 20 mg PO HS PRN 04/24/20 05/03/20 History Furosemide [Lasix] 20 mg PO ASDIR 04/24/20 05/03/20 History Aspirin [Ecotrin Low Strength] 81 mg PO DAILY #0 tab 05/04/20 Rx Carvedilol [Coreg] 12.5 mg PO BID-WM #60 tab 05/04/20 05/03/20 Rx Cephalexin [Keflex] 250 mg PO TID #0 cap 05/04/20 Rx Allergies: latex Allergy (Unknown, Verified 05/02/20 14:08) lovastatin Allergy (Unknown, Verified 05/02/20 14:08) simvastatin Allergy (Unknown, Verified 05/02/20 14:08) Activity:: Activity as Tolerated Nourishment:: Heart Healthy Diet Therapies:: Not Applicable Equipment/Supplies:: Not Applicable Referrals: Radha Murray MD [Primary Care Provider] - 7 Days (Please follow up with your primary care provider in 7days. Call the office to schedule an appointment.) Ge Patel MD [[facility]] - 14 Days (Please follow up with Dr Patel in 2 weeks for wound check.) Disposition: HOME Quality CORE MEASURES:: N/A Discharge Summary: Diagnosis - Discharge Diagnosis (1) Atrial fibrillation Current Visit: No Status: Chronic Code(s): I48.91 - UNSPECIFIED ATRIAL FIBRILLATION SNOMED Code(s): 60236258
== END 2020-05-04 15:22 | disposition home or self-care (01) ==
LOC: CCL 07:33 → 2NO 14:09
PROVIDERS: ADMIT Internal Medicine Cardiovascular Disease; ATTEND Internal Medicine Cardiovascular Disease
PROC: 0JH606Z Insertion of Pacemaker, Dual Chamber into Chest Subcutaneous Tissue and Fascia, Open Approach (ICD-10-PCS; principal; 2020-05-03)
PROC: 02HL3JZ Insertion of Pacemaker Lead into Left Ventricle, Percutaneous Approach (ICD-10-PCS; 2020-05-03)
PROC: 02H63JZ Insertion of Pacemaker Lead into Right Atrium, Percutaneous Approach (ICD-10-PCS; 2020-05-03)
PROC: 02HK3JZ Insertion of Pacemaker Lead into Right Ventricle, Percutaneous Approach (ICD-10-PCS; 2020-05-03)
PROC: 02583ZZ Destruction of Conduction Mechanism, Percutaneous Approach (ICD-10-PCS; 2020-05-03)
PROC: 02K83ZZ Map Conduction Mechanism, Percutaneous Approach (ICD-10-PCS; 2020-05-03)
PROC: 4A023FZ Measurement of Cardiac Rhythm, Percutaneous Approach (ICD-10-PCS; 2020-05-03)
PROC: 4A0234Z Measurement of Cardiac Electrical Activity, Percutaneous Approach (ICD-10-PCS; 2020-05-03)
DX: I48.0 Paroxysmal atrial fibrillation (principal); I49.5 Sick sinus syndrome; R00.1 Bradycardia, unspecified; I13.0 Hypertensive heart and chronic kidney disease with heart failure and stage 1 through stage 4 chronic kidney disease, or unspecified chronic kidney disease; N18.30 Chronic kidney disease, stage 3 unspecified; I50.32 Chronic diastolic (congestive) heart failure; I25.5 Ischemic cardiomyopathy; I48.4 Atypical atrial flutter; I44.2 Atrioventricular block, complete; K21.9 Gastro-esophageal reflux disease without esophagitis; E78.5 Hyperlipidemia, unspecified; Z79.02 Long term (current) use of antithrombotics/antiplatelets; Z79.899 Other long term (current) drug therapy; Z88.8 Allergy status to other drugs, medicaments and biological substances; Z91.040 Latex allergy status; Z95.1 Presence of aortocoronary bypass graft; Z95.2 Presence of prosthetic heart valve; Z95.818 Presence of other cardiac implants and grafts; Z90.3 Acquired absence of stomach [part of]
CPT/HCPCS: 33208; 33225; 36005; 71045; 75820; 76942; 93005 ×2; 93306; 93613; 93650; C1882; C1898 ×3; C2630; G0378 ×2; 93010; J0690; J1265; J1580; J1644; J2001; J2250; J2704; J3010; Q9967

== ENCOUNTER 2020-05-23 08:32 | Day surgery (SDC) | payer MEDICARE ==
[2020-05-23 08:44] VITALS: BP 155/70
[2020-05-23] MEDS ORDERED: EPOETIN ALFA-EPBX (ESRD) 40,000 UNIT/ML VIAL SC SCH (08:45)
== END 2020-05-23 08:51 | disposition home or self-care (01) ==
LOC: ONC/OP 08:32
PROVIDERS: ATTEND Internal Medicine Hematology & Oncology
DX: N18.4 Chronic kidney disease, stage 4 (severe) (principal); D63.1 Anemia in chronic kidney disease; D50.0 Iron deficiency anemia secondary to blood loss (chronic); Z88.8 Allergy status to other drugs, medicaments and biological substances; Z91.040 Latex allergy status
CPT/HCPCS: 96372; Q5105

== ENCOUNTER 2020-06-06 13:18 | Day surgery (SDC) | payer MEDICARE, OTHER ==
[2020-06-06] MEDS ORDERED: EPOETIN ALFA-EPBX (ESRD) 40,000 UNIT/ML VIAL ONE (13:28)
[2020-06-06 13:32] VITALS: BP 142/67; TEMP 98.2
[2020-06-06] MEDS ORDERED: EPOETIN ALFA-EPBX (ESRD) 40,000 UNIT/ML VIAL SC SCH (14:00)
== END 2020-06-06 15:06 | disposition home or self-care (01) ==
LOC: ONC/OP 13:18
PROVIDERS: ATTEND Internal Medicine Hematology & Oncology
DX: N18.4 Chronic kidney disease, stage 4 (severe) (principal); D63.1 Anemia in chronic kidney disease; D50.0 Iron deficiency anemia secondary to blood loss (chronic); Z88.8 Allergy status to other drugs, medicaments and biological substances; Z91.040 Latex allergy status
CPT/HCPCS: 82728; 83540; 83550; 85025; 96372; Q5105

== ENCOUNTER 2020-06-20 09:00 | Day surgery (SDC) | payer MEDICARE, OTHER ==
[2020-06-20] MEDS ORDERED: EPOETIN ALFA-EPBX (ESRD) 40,000 UNIT/ML VIAL ONE (09:02)
[2020-06-20 09:15] VITALS: BP 143/72; TEMP 98.1
== END 2020-06-20 09:33 | disposition home or self-care (01) ==
LOC: ONC/OP 09:00
PROVIDERS: ATTEND Internal Medicine Hematology & Oncology
DX: N18.4 Chronic kidney disease, stage 4 (severe) (principal); D63.1 Anemia in chronic kidney disease; D50.0 Iron deficiency anemia secondary to blood loss (chronic); Z88.8 Allergy status to other drugs, medicaments and biological substances; Z91.040 Latex allergy status
CPT/HCPCS: 96372; Q5105

== ENCOUNTER → 2020-07-04 | Day surgery (SDC) | payer MEDICARE, OTHER ==
[~2020-07-04] MED LIST changes: +EPOETIN ALFA-EPBX (ESRD) 40,000 UNIT/ML VIAL ONE; -EPOETIN ALFA-EPBX (ESRD) 40,000 UNIT/ML VIAL SC SCH
[2020-07-04 12:53] VITALS: BP 192/87; TEMP 98.5
== END ==
LOC: ONC/OP 08:51
PROVIDERS: ATTEND Internal Medicine Hematology & Oncology
DX: N18.4 Chronic kidney disease, stage 4 (severe) (principal); D63.1 Anemia in chronic kidney disease; D50.0 Iron deficiency anemia secondary to blood loss (chronic); Z88.8 Allergy status to other drugs, medicaments and biological substances; Z91.040 Latex allergy status
CPT/HCPCS: 96372; Q5105

== ENCOUNTER 2020-07-18 08:53 | Day surgery (SDC) | payer MEDICARE, OTHER ==
[2020-07-18 09:07] VITALS: BP 150/68
[2020-07-18] MEDS ORDERED: EPOETIN ALFA-EPBX (ESRD) 40,000 UNIT/ML VIAL ONE (09:09)
[2020-07-18] MEDS ORDERED: EPOETIN ALFA-EPBX (NON-ESRD) 40,000 UNIT/ML VIAL SC SCH (09:15)
== END 2020-07-18 09:17 | disposition home or self-care (01) ==
LOC: ONC/OP 08:53
PROVIDERS: ATTEND Internal Medicine Hematology & Oncology
DX: N18.4 Chronic kidney disease, stage 4 (severe) (principal); D63.1 Anemia in chronic kidney disease; D50.0 Iron deficiency anemia secondary to blood loss (chronic); Z88.8 Allergy status to other drugs, medicaments and biological substances; Z91.040 Latex allergy status
CPT/HCPCS: 96372; Q5105

== ENCOUNTER 2020-07-25 09:11 | Day surgery (SDC) | payer MEDICARE, OTHER ==
[2020-07-25 09:24] VITALS: BP 166/74; TEMP 97.8
[2020-07-25] MEDS ORDERED: EPOETIN ALFA-EPBX (ESRD) 40,000 UNIT/ML VIAL ONE (09:29)
[2020-07-25] MEDS ORDERED: EPOETIN ALFA-EPBX (NON-ESRD) 40,000 UNIT/ML VIAL SC SCH (09:30)
== END 2020-07-25 09:34 | disposition home or self-care (01) ==
LOC: ONC/OP 09:11
PROVIDERS: ATTEND Internal Medicine Hematology & Oncology
DX: N18.4 Chronic kidney disease, stage 4 (severe) (principal); D63.1 Anemia in chronic kidney disease; D50.0 Iron deficiency anemia secondary to blood loss (chronic)
CPT/HCPCS: 96372; Q5105

== ENCOUNTER 2020-08-01 08:57 | Day surgery (SDC) | payer MEDICARE, OTHER ==
[2020-08-01] MEDS ORDERED: EPOETIN ALFA-EPBX (ESRD) 40,000 UNIT/ML VIAL ONE (09:00)
[2020-08-01] MEDS ORDERED: EPOETIN ALFA-EPBX (NON-ESRD) 10,000 UNIT/ML VIAL ONE (09:00)
[2020-08-01] MEDS ORDERED: EPOETIN ALFA-EPBX (ESRD) 40,000 UNIT/ML VIAL SC SCH (09:15)
[2020-08-01 10:17] VITALS: BP 180/84; TEMP 98
== END 2020-08-01 09:15 | disposition home or self-care (01) ==
LOC: ONC/OP 08:57
PROVIDERS: ATTEND Internal Medicine Hematology & Oncology
DX: N18.4 Chronic kidney disease, stage 4 (severe) (principal); D63.1 Anemia in chronic kidney disease; D50.0 Iron deficiency anemia secondary to blood loss (chronic); Z88.8 Allergy status to other drugs, medicaments and biological substances; Z91.040 Latex allergy status
CPT/HCPCS: 96372; Q5105; Q5106

== ENCOUNTER 2020-08-08 09:04 | Day surgery (SDC) | payer MEDICARE, OTHER ==
[2020-08-08] MEDS ORDERED: EPOETIN ALFA-EPBX (ESRD) 40,000 UNIT/ML VIAL ONE (09:05)
[2020-08-08 11:44] VITALS: BP 187/86; TEMP 98.1
== END 2020-08-08 11:45 | disposition home or self-care (01) ==
LOC: ONC/OP 09:04
PROVIDERS: ATTEND Internal Medicine Hematology & Oncology
DX: N18.4 Chronic kidney disease, stage 4 (severe) (principal); D63.1 Anemia in chronic kidney disease; D50.0 Iron deficiency anemia secondary to blood loss (chronic); Z88.8 Allergy status to other drugs, medicaments and biological substances; Z91.040 Latex allergy status
CPT/HCPCS: 96372; Q5105

== ENCOUNTER 2020-08-15 08:58 | Day surgery (SDC) | payer MEDICARE, OTHER ==
[2020-08-15] MEDS ORDERED: EPOETIN ALFA-EPBX (ESRD) 40,000 UNIT/ML VIAL ONE (09:00)
[2020-08-15 09:11] VITALS: BP 179/84; TEMP 97.6
== END 2020-08-15 09:12 | disposition home or self-care (01) ==
LOC: ONC/OP 08:58
PROVIDERS: ATTEND Internal Medicine Hematology & Oncology
DX: N18.4 Chronic kidney disease, stage 4 (severe) (principal); D63.1 Anemia in chronic kidney disease; D50.0 Iron deficiency anemia secondary to blood loss (chronic); Z88.8 Allergy status to other drugs, medicaments and biological substances; Z91.040 Latex allergy status
CPT/HCPCS: 96372; Q5105

== ENCOUNTER 2020-08-24 09:22 | Day surgery (SDC) | payer MEDICARE, OTHER ==
[2020-08-24] MEDS ORDERED: EPOETIN ALFA-EPBX (ESRD) 40,000 UNIT/ML VIAL ONE (09:31)
[2020-08-24 10:22] VITALS: BP 175/79
== END 2020-08-24 10:25 | disposition home or self-care (01) ==
LOC: ONC/OP 09:22
PROVIDERS: ATTEND Internal Medicine Hematology & Oncology
DX: N18.4 Chronic kidney disease, stage 4 (severe) (principal); D63.1 Anemia in chronic kidney disease; D50.0 Iron deficiency anemia secondary to blood loss (chronic); Z88.8 Allergy status to other drugs, medicaments and biological substances; Z91.040 Latex allergy status
CPT/HCPCS: 96372; Q5105

== ENCOUNTER 2020-08-31 09:31 | Day surgery (SDC) | payer MEDICARE, OTHER ==
[~2020-08-31 09:31] MED LIST changes: -EPOETIN ALFA-EPBX (ESRD) 40,000 UNIT/ML VIAL ONE; +EPOETIN ALFA-EPBX (ESRD) 40,000 UNIT/ML VIAL SC SCH
[2020-08-31 09:39] VITALS: BP 151/83; TEMP 98
== END 2020-08-31 09:43 | disposition home or self-care (01) ==
LOC: ONC/OP 09:31
PROVIDERS: ATTEND Internal Medicine Hematology & Oncology
DX: N18.4 Chronic kidney disease, stage 4 (severe) (principal); D63.1 Anemia in chronic kidney disease; D50.0 Iron deficiency anemia secondary to blood loss (chronic); Z88.8 Allergy status to other drugs, medicaments and biological substances; Z91.040 Latex allergy status
CPT/HCPCS: 36415; 82728; 83540; 83550; 96372; Q5105

== ENCOUNTER 2020-09-02 06:16 | Emergency (ER) | payer MEDICARE, OTHER ==
[2020-09-02] MEDS ORDERED: Diazepam 10 MG/2 ML SYRINGE ONE (06:44)
== END 2020-09-02 08:36 | disposition home or self-care (01) ==
LOC: ERS 06:16
DX: M54.2 Cervicalgia (principal); M25.512 Pain in left shoulder; D64.9 Anemia, unspecified; I48.91 Unspecified atrial fibrillation; K21.9 Gastro-esophageal reflux disease without esophagitis; E78.5 Hyperlipidemia, unspecified; I10 Essential (primary) hypertension; Z87.891 Personal history of nicotine dependence; Z87.19 Personal history of other diseases of the digestive system
CPT/HCPCS: 93005; 96372; J3360

== ENCOUNTER 2020-09-28 09:15 | Day surgery (SDC) | payer MEDICARE, OTHER ==
[2020-09-28] MEDS ORDERED: EPOETIN ALFA-EPBX (ESRD) 40,000 UNIT/ML VIAL ONE (09:23)
== END 2020-09-28 09:28 | disposition home or self-care (01) ==
LOC: ONC/OP 09:15
PROVIDERS: ATTEND Internal Medicine Hematology & Oncology
DX: N18.4 Chronic kidney disease, stage 4 (severe) (principal); D63.1 Anemia in chronic kidney disease; D50.0 Iron deficiency anemia secondary to blood loss (chronic); Z88.8 Allergy status to other drugs, medicaments and biological substances; Z91.040 Latex allergy status
CPT/HCPCS: 96372; Q5105

== ENCOUNTER → 2020-10-12 | Day surgery (SDC) | payer MEDICARE, OTHER ==
[~2020-10-12] MED LIST changes: +EPOETIN ALFA-EPBX (ESRD) 40,000 UNIT/ML VIAL ONE; -EPOETIN ALFA-EPBX (ESRD) 40,000 UNIT/ML VIAL SC SCH
[2020-10-12 09:22] VITALS: BP 146/67
== END ==
LOC: ONC/OP 09:09
PROVIDERS: ATTEND Internal Medicine Hematology & Oncology
DX: N18.4 Chronic kidney disease, stage 4 (severe) (principal); D63.1 Anemia in chronic kidney disease; D50.0 Iron deficiency anemia secondary to blood loss (chronic); Z88.8 Allergy status to other drugs, medicaments and biological substances; Z91.040 Latex allergy status
CPT/HCPCS: 96372; Q5105

== ENCOUNTER 2020-11-30 09:16 | Day surgery (SDC) | payer MEDICARE, OTHER ==
[2020-11-30] MEDS ORDERED: EPOETIN ALFA-EPBX (ESRD) 40,000 UNIT/ML VIAL ONE (09:23)
[2020-11-30] MEDS ORDERED: EPOETIN ALFA-EPBX (ESRD) 40,000 UNIT/ML VIAL SC SCH (09:30)
[2020-11-30 09:32] VITALS: BP 142/70
== END 2020-11-30 09:33 | disposition home or self-care (01) ==
LOC: ONC/OP 09:16
PROVIDERS: ATTEND Internal Medicine Hematology & Oncology
DX: N18.4 Chronic kidney disease, stage 4 (severe) (principal); D63.1 Anemia in chronic kidney disease; D50.0 Iron deficiency anemia secondary to blood loss (chronic); Z88.8 Allergy status to other drugs, medicaments and biological substances; Z91.040 Latex allergy status
CPT/HCPCS: 96372; Q5105

== ENCOUNTER 2020-12-14 10:14 | Day surgery (SDC) | payer MEDICARE ==
[2020-12-14] MEDS ORDERED: EPOETIN ALFA-EPBX (ESRD) 40,000 UNIT/ML VIAL ONE (10:16)
[2020-12-14 10:45] VITALS: BP 172/74; TEMP 98
== END 2020-12-14 10:48 | disposition home or self-care (01) ==
LOC: ONC/OP 10:14
PROVIDERS: ATTEND Internal Medicine Hematology & Oncology
DX: N18.4 Chronic kidney disease, stage 4 (severe) (principal); D63.1 Anemia in chronic kidney disease; D50.0 Iron deficiency anemia secondary to blood loss (chronic); Z88.8 Allergy status to other drugs, medicaments and biological substances; Z91.040 Latex allergy status
CPT/HCPCS: 96372; Q5105

== ENCOUNTER 2020-12-28 09:26 | Day surgery (SDC) | payer MEDICARE ==
[2020-12-28] MEDS ORDERED: EPOETIN ALFA-EPBX (ESRD) 40,000 UNIT/ML VIAL ONE (09:34)
[2020-12-28 09:55] VITALS: BP 152/74
== END 2020-12-28 12:34 | disposition home or self-care (01) ==
LOC: ONC/OP 09:26
PROVIDERS: ATTEND Internal Medicine Hematology & Oncology
DX: N18.4 Chronic kidney disease, stage 4 (severe) (principal); D63.1 Anemia in chronic kidney disease; D50.0 Iron deficiency anemia secondary to blood loss (chronic); Z88.8 Allergy status to other drugs, medicaments and biological substances; Z91.040 Latex allergy status
CPT/HCPCS: 96372; Q5105

== ENCOUNTER 2021-01-25 09:23 | Day surgery (SDC) | payer MEDICARE ==
[2021-01-25] MEDS ORDERED: EPOETIN ALFA-EPBX (ESRD) 40,000 UNIT/ML VIAL ONE (09:28)
[2021-01-25 09:41] VITALS: BP 179/81
== END 2021-01-25 09:43 | disposition home or self-care (01) ==
LOC: ONC/OP 09:23
PROVIDERS: ATTEND Internal Medicine Hematology & Oncology
DX: N18.4 Chronic kidney disease, stage 4 (severe) (principal); D63.1 Anemia in chronic kidney disease; D50.0 Iron deficiency anemia secondary to blood loss (chronic); Z88.8 Allergy status to other drugs, medicaments and biological substances; Z91.040 Latex allergy status
CPT/HCPCS: 96372; Q5105

== ENCOUNTER 2021-02-08 10:03 | Day surgery (SDC) | payer MEDICARE ==
[2021-02-08] MEDS ORDERED: EPOETIN ALFA-EPBX (ESRD) 40,000 UNIT/ML VIAL ONE (10:05)
[2021-02-08 10:25] VITALS: BP 179/83
== END 2021-02-08 10:27 | disposition home or self-care (01) ==
LOC: ONC/OP 10:03
PROVIDERS: ATTEND Internal Medicine Hematology & Oncology
DX: N18.4 Chronic kidney disease, stage 4 (severe) (principal); D63.1 Anemia in chronic kidney disease; D50.0 Iron deficiency anemia secondary to blood loss (chronic); Z88.8 Allergy status to other drugs, medicaments and biological substances; Z91.040 Latex allergy status
CPT/HCPCS: 96372; Q5105

== ENCOUNTER 2021-02-22 09:48 | Day surgery (SDC) | payer MEDICARE ==
[2021-02-22 10:35] LABS: Hemoglobin 12.1 g/dL (12.0-16.0); Mean Corpuscular HGB CONC 30.8 g/dL (32.0-36.0); Mean Corpuscular Hemoglobin 30.7 pg (27.0-31.0); Mean Corpuscular Volume 99.8 fL (78.0-98.0); Mean Platelet Volume 8.1 fL (7.4-10.4); Platelet Count 172 thou/uL (130-400); RBC Distribution Width 13.3 % (11.5-14.5); Red Blood Cell (RBC) Count 3.94 mill/uL (4.20-5.40); White Blood Cell (WBC) Count 5.2 thou/uL (4.8-10.8)
[2021-02-22 11:15] LABS: Eosinophils 9 % (0-10); Lymphocytes 27 % (21-51); MDiff Complete? YES; Monocytes 5 % (0-10); Neutrophil 58 % (42-75); RBC Morphology Normal
== END 2021-02-22 11:46 | disposition home or self-care (01) ==
LOC: ONC/OP 09:48
PROVIDERS: ATTEND Internal Medicine Hematology & Oncology
DX: N18.4 Chronic kidney disease, stage 4 (severe) (principal); D63.1 Anemia in chronic kidney disease; D50.0 Iron deficiency anemia secondary to blood loss (chronic); Z88.8 Allergy status to other drugs, medicaments and biological substances; Z91.040 Latex allergy status
CPT/HCPCS: 85007; 85027; 99211; G0463

== ENCOUNTER 2021-03-08 09:32 | Day surgery (SDC) | payer MEDICARE ==
[2021-03-08] MEDS ORDERED: EPOETIN ALFA-EPBX (NON-ESRD) 40,000 UNIT/ML VIAL ONE (09:44)
[2021-03-08 09:52] VITALS: BP 173/90; TEMP 98
[2021-03-08] MEDS ORDERED: EPOETIN ALFA-EPBX (ESRD) 40,000 UNIT/ML VIAL SC SCH (10:00)
== END 2021-03-08 10:45 | disposition home or self-care (01) ==
LOC: ONC/OP 09:32
PROVIDERS: ATTEND Internal Medicine Hematology & Oncology
DX: N18.4 Chronic kidney disease, stage 4 (severe) (principal); D63.1 Anemia in chronic kidney disease; D50.0 Iron deficiency anemia secondary to blood loss (chronic); Z88.8 Allergy status to other drugs, medicaments and biological substances; Z91.040 Latex allergy status
CPT/HCPCS: 96372; Q5106

== ENCOUNTER 2021-04-05 09:12 | Day surgery (SDC) | payer MEDICARE ==
[2021-04-05] MEDS ORDERED: EPOETIN ALFA-EPBX (NON-ESRD) 40,000 UNIT/ML VIAL ONE (09:35)
[2021-04-05 09:48] VITALS: BP 151/74; TEMP 98.1
[2021-04-05] MEDS ORDERED: EPOETIN ALFA-EPBX (NON-ESRD) 40,000 UNIT/ML VIAL SC SCH (10:00)
== END 2021-04-05 09:53 | disposition home or self-care (01) ==
LOC: ONC/OP 09:12
PROVIDERS: ATTEND Internal Medicine Hematology & Oncology
DX: N18.4 Chronic kidney disease, stage 4 (severe) (principal); D63.1 Anemia in chronic kidney disease; D50.0 Iron deficiency anemia secondary to blood loss (chronic); Z88.8 Allergy status to other drugs, medicaments and biological substances; Z91.040 Latex allergy status
CPT/HCPCS: 96372; Q5106

== ENCOUNTER 2021-04-19 09:05 | Day surgery (SDC) | payer MEDICARE, OTHER ==
[2021-04-19] MEDS ORDERED: EPOETIN ALFA-EPBX (NON-ESRD) 40,000 UNIT/ML VIAL ONE (09:13)
[2021-04-19 09:35] VITALS: BP 157/75; TEMP 98.3
== END 2021-04-19 09:51 | disposition home or self-care (01) ==
LOC: ONC/OP 09:05
PROVIDERS: ATTEND Internal Medicine Hematology & Oncology
DX: N18.4 Chronic kidney disease, stage 4 (severe) (principal); D63.1 Anemia in chronic kidney disease; D50.0 Iron deficiency anemia secondary to blood loss (chronic); Z88.8 Allergy status to other drugs, medicaments and biological substances; Z91.040 Latex allergy status
CPT/HCPCS: 96372; Q5106

== ENCOUNTER 2021-04-24 09:41 | Outpatient (CLI) | payer MEDICARE | END 2021-04-24 09:42 | disposition home or self-care (01) | LOC: ULT 09:41 | PROVIDERS: ATTEND Family Medicine | DX: M79.662 Pain in left lower leg (principal) ==

== ENCOUNTER 2021-05-03 10:02 | Day surgery (SDC) | payer MEDICARE ==
[2021-05-03 10:23] VITALS: BP 179/84; TEMP 97.8
[2021-05-03] MEDS ORDERED: EPOETIN ALFA-EPBX (NON-ESRD) 40,000 UNIT/ML VIAL ONE (10:26)
[2021-05-03] MEDS ORDERED: EPOETIN ALFA-EPBX (ESRD) 40,000 UNIT/ML VIAL SC SCH (10:30)
== END 2021-05-03 10:27 | disposition home or self-care (01) ==
LOC: ONC/OP 10:02
PROVIDERS: ATTEND Internal Medicine Hematology & Oncology
DX: N18.4 Chronic kidney disease, stage 4 (severe) (principal); D63.1 Anemia in chronic kidney disease; D50.0 Iron deficiency anemia secondary to blood loss (chronic); Z88.8 Allergy status to other drugs, medicaments and biological substances; Z91.040 Latex allergy status
CPT/HCPCS: 96372; Q5106

== ENCOUNTER 2021-05-17 09:46 | Day surgery (SDC) | payer MEDICARE ==
[2021-05-17] MEDS ORDERED: EPOETIN ALFA-EPBX (NON-ESRD) 40,000 UNIT/ML VIAL ONE (09:55)
[2021-05-17] MEDS ORDERED: EPOETIN ALFA-EPBX (ESRD) 40,000 UNIT/ML VIAL SC SCH (10:15)
[2021-05-17 10:27] VITALS: BP 188/92
== END 2021-05-17 10:28 | disposition home or self-care (01) ==
LOC: ONC/OP 09:46
PROVIDERS: ATTEND Internal Medicine Hematology & Oncology
DX: N18.4 Chronic kidney disease, stage 4 (severe) (principal); D63.1 Anemia in chronic kidney disease; D50.0 Iron deficiency anemia secondary to blood loss (chronic); Z88.8 Allergy status to other drugs, medicaments and biological substances; Z91.040 Latex allergy status
CPT/HCPCS: 96372; Q5106

== ENCOUNTER 2021-05-21 11:49 | Emergency (ER) | payer MEDICARE, SELFPAY ==
[2021-05-21] MEDS ORDERED: HYDROcodone/Acetaminophen 5/325 mg Tablet ONE (14:33)
== END 2021-05-21 15:06 | disposition home or self-care (01) ==
LOC: ERS 11:49
DX: M25.561 Pain in right knee (principal); M25.551 Pain in right hip; I48.91 Unspecified atrial fibrillation; K21.9 Gastro-esophageal reflux disease without esophagitis; E78.5 Hyperlipidemia, unspecified; I10 Essential (primary) hypertension; D64.9 Anemia, unspecified; Z87.891 Personal history of nicotine dependence; Z79.899 Other long term (current) drug therapy; Z79.82 Long term (current) use of aspirin

== ENCOUNTER 2021-07-12 09:10 | Day surgery (SDC) | payer MEDICARE ==
[2021-07-12] MEDS ORDERED: EPOETIN ALFA-EPBX (ESRD) 40,000 UNIT/ML VIAL ONE (09:24)
[2021-07-12 09:26] VITALS: BP 147/68
[2021-07-12] MEDS ORDERED: EPOETIN ALFA-EPBX (ESRD) 40,000 UNIT/ML VIAL SC SCH (09:45)
== END 2021-07-12 09:31 | disposition home or self-care (01) ==
LOC: ONC/OP 09:10
PROVIDERS: ATTEND Internal Medicine Hematology & Oncology
DX: N18.4 Chronic kidney disease, stage 4 (severe) (principal); D63.1 Anemia in chronic kidney disease; D50.0 Iron deficiency anemia secondary to blood loss (chronic); Z88.8 Allergy status to other drugs, medicaments and biological substances; Z91.040 Latex allergy status
CPT/HCPCS: 96372; Q5105

== ENCOUNTER 2021-07-26 09:49 | Day surgery (SDC) | payer MEDICARE ==
[2021-07-26] MEDS ORDERED: EPOETIN ALFA-EPBX (NON-ESRD) 40,000 UNIT/ML VIAL ONE (09:56)
[2021-07-26] MEDS ORDERED: EPOETIN ALFA-EPBX (ESRD) 40,000 UNIT/ML VIAL SC SCH (10:00)
== END 2021-07-26 10:18 | disposition home or self-care (01) ==
LOC: ONC/OP 09:49
PROVIDERS: ATTEND Internal Medicine Hematology & Oncology
DX: N18.4 Chronic kidney disease, stage 4 (severe) (principal); D63.1 Anemia in chronic kidney disease; D50.0 Iron deficiency anemia secondary to blood loss (chronic); Z88.8 Allergy status to other drugs, medicaments and biological substances; Z91.040 Latex allergy status
CPT/HCPCS: 96372; Q5106

== ENCOUNTER 2021-08-09 09:24 | Day surgery (SDC) | payer MEDICARE ==
[2021-08-09] MEDS ORDERED: EPOETIN ALFA-EPBX (NON-ESRD) 40,000 UNIT/ML VIAL ONE (09:38)
[2021-08-09] MEDS ORDERED: EPOETIN ALFA-EPBX (ESRD) 40,000 UNIT/ML VIAL SC SCH (09:45)
[2021-08-09 09:52] VITALS: BP 139/82; TEMP 98.1
== END 2021-08-09 09:59 | disposition home or self-care (01) ==
LOC: ONC/OP 09:24
PROVIDERS: ATTEND Internal Medicine Hematology & Oncology
DX: N18.4 Chronic kidney disease, stage 4 (severe) (principal); D63.1 Anemia in chronic kidney disease; D50.0 Iron deficiency anemia secondary to blood loss (chronic); Z88.8 Allergy status to other drugs, medicaments and biological substances; Z91.040 Latex allergy status
CPT/HCPCS: 96372; Q5106

== ENCOUNTER 2021-09-20 10:36 | Day surgery (SDC) | payer MEDICARE ==
[2021-09-20] MEDS ORDERED: EPOETIN ALFA-EPBX (ESRD) 40,000 UNIT/ML VIAL ONE (10:58)
[2021-09-20] MEDS ORDERED: EPOETIN ALFA-EPBX (ESRD) 40,000 UNIT/ML VIAL SC SCH (11:00)
== END 2021-09-20 10:59 | disposition home or self-care (01) ==
LOC: ONC/OP 10:36
PROVIDERS: ATTEND Internal Medicine Hematology & Oncology
DX: N18.4 Chronic kidney disease, stage 4 (severe) (principal); D63.1 Anemia in chronic kidney disease; D50.0 Iron deficiency anemia secondary to blood loss (chronic); Z88.8 Allergy status to other drugs, medicaments and biological substances; Z91.040 Latex allergy status
CPT/HCPCS: 96372; Q5105

== ENCOUNTER 2021-10-18 09:09 | Day surgery (SDC) | payer MEDICARE ==
[2021-10-18] MEDS ORDERED: EPOETIN ALFA-EPBX (ESRD) 40,000 UNIT/ML VIAL ONE (09:13)
[2021-10-18 09:28] VITALS: BP 125/58; TEMP 98
== END 2021-10-18 09:30 | disposition home or self-care (01) ==
LOC: ONC/OP 09:09
PROVIDERS: ATTEND Internal Medicine Hematology & Oncology
DX: N18.4 Chronic kidney disease, stage 4 (severe) (principal); D63.1 Anemia in chronic kidney disease; D50.0 Iron deficiency anemia secondary to blood loss (chronic); Z88.8 Allergy status to other drugs, medicaments and biological substances; Z91.040 Latex allergy status
CPT/HCPCS: 96372; Q5105

== ENCOUNTER 2022-01-03 09:21 | Day surgery (SDC) | payer MEDICARE ==
[2022-01-03] MEDS ORDERED: Epoetin 40,000 UNITS/ML VIAL ONE (09:33)
[2022-01-03] MEDS ORDERED: Epoetin 40,000 UNITS/ML VIAL SC SCH (09:45)
[2022-01-03 11:59] VITALS: BP 117/68; TEMP 98.6
== END 2022-01-03 12:03 | disposition home or self-care (01) ==
LOC: ONC/OP 09:21
PROVIDERS: ATTEND Internal Medicine
DX: N18.4 Chronic kidney disease, stage 4 (severe) (principal); D63.1 Anemia in chronic kidney disease; D50.0 Iron deficiency anemia secondary to blood loss (chronic); Z88.8 Allergy status to other drugs, medicaments and biological substances; Z91.040 Latex allergy status
CPT/HCPCS: 82728; 83540; 83550; 96372; J0885

== ENCOUNTER 2022-01-10 10:29 | Day surgery (SDC) | payer OTHER ==
[2022-01-10] MEDS ORDERED: EPOETIN ALFA-EPBX (ESRD) 40,000 UNIT/ML VIAL ONE ×2 (11:00→11:01)
[2022-01-10 11:13] VITALS: BP 134/74; TEMP 98.2
[2022-01-10] MEDS ORDERED: Epoetin 40,000 UNITS/ML VIAL SC SCH (11:15)
== END 2022-01-10 11:21 | disposition home or self-care (01) ==
LOC: ONC/OP 10:29
PROVIDERS: ATTEND Internal Medicine Hematology & Oncology
DX: N18.4 Chronic kidney disease, stage 4 (severe) (principal); D63.1 Anemia in chronic kidney disease; D50.0 Iron deficiency anemia secondary to blood loss (chronic); Z88.8 Allergy status to other drugs, medicaments and biological substances; Z91.040 Latex allergy status
CPT/HCPCS: 96372; Q5105

== ENCOUNTER → 2022-01-10 | Day surgery (SDC) | payer MEDICARE ==
[2022-01-10 10:56] VITALS: BP 134/74; TEMP 98.2
== END | disposition home or self-care (01) ==
LOC: ONC/OP 10:26
PROVIDERS: ATTEND Internal Medicine Hematology & Oncology
DX: N18.4 Chronic kidney disease, stage 4 (severe) (principal); D63.1 Anemia in chronic kidney disease; D50.0 Iron deficiency anemia secondary to blood loss (chronic); Z88.8 Allergy status to other drugs, medicaments and biological substances; Z91.040 Latex allergy status
CPT/HCPCS: 96372

== ENCOUNTER 2022-02-21 09:47 | Day surgery (SDC) | payer OTHER ==
[2022-02-21] MEDS ORDERED: Epoetin 40,000 UNITS/ML VIAL ONE (09:53)
== END 2022-02-21 16:10 | disposition home or self-care (01) ==
LOC: ONC/OP 09:47
PROVIDERS: ATTEND Internal Medicine Hematology & Oncology
DX: N18.4 Chronic kidney disease, stage 4 (severe) (principal); D63.1 Anemia in chronic kidney disease; D50.0 Iron deficiency anemia secondary to blood loss (chronic); Z88.8 Allergy status to other drugs, medicaments and biological substances; Z91.040 Latex allergy status
CPT/HCPCS: 96372; J0885

== ENCOUNTER 2022-03-28 10:14 | Day surgery (SDC) | payer OTHER ==
[~2022-03-28 10:14] MED LIST changes: -EPOETIN ALFA-EPBX (ESRD) 40,000 UNIT/ML VIAL ONE; +EPOETIN ALFA-EPBX (ESRD) 40,000 UNIT/ML VIAL SC SCH
[2022-03-28] MEDS ORDERED: Epoetin 40,000 UNITS/ML VIAL ONE (10:22)
[2022-03-28 13:39] VITALS: BP 163/90; TEMP 98.6
== END 2022-03-28 13:51 | disposition home or self-care (01) ==
LOC: ONC/OP 10:14
PROVIDERS: ATTEND Internal Medicine Hematology & Oncology
DX: N18.4 Chronic kidney disease, stage 4 (severe) (principal); D63.1 Anemia in chronic kidney disease; D50.0 Iron deficiency anemia secondary to blood loss (chronic); Z88.8 Allergy status to other drugs, medicaments and biological substances; Z91.040 Latex allergy status
CPT/HCPCS: 96372; J0885

== ENCOUNTER 2022-04-18 10:01 | Day surgery (SDC) | payer OTHER ==
[~2022-04-18 10:01] MED LIST changes: +Epoetin 40,000 UNITS/ML VIAL SC SCH
[2022-04-18] MEDS ORDERED: EPOETIN ALFA-EPBX (ESRD) 40,000 UNIT/ML VIAL ONE (10:09)
[2022-04-18 16:13] VITALS: BP 124/70; TEMP 98.5
== END 2022-04-18 16:15 | disposition home or self-care (01) ==
LOC: ONC/OP 10:01
PROVIDERS: ATTEND Internal Medicine Hematology & Oncology
DX: N18.4 Chronic kidney disease, stage 4 (severe) (principal); D63.1 Anemia in chronic kidney disease; D50.0 Iron deficiency anemia secondary to blood loss (chronic); Z88.8 Allergy status to other drugs, medicaments and biological substances; Z91.040 Latex allergy status
CPT/HCPCS: 96372; Q5105

== ENCOUNTER 2022-05-07 08:45 | Outpatient (CLI) | payer OTHER | END 2022-05-07 08:46 | disposition home or self-care (01) | LOC: BICMAMMO 08:45 | PROVIDERS: ATTEND Student in an Organized Health Care Education/Training Program | DX: Z13.820 Encounter for screening for osteoporosis (principal); Z78.0 Asymptomatic menopausal state; M81.0 Age-related osteoporosis without current pathological fracture; M85.89 Other specified disorders of bone density and structure, multiple sites | CPT/HCPCS: 77080 ==

== ENCOUNTER 2022-05-15 15:48 | Outpatient (CLI) | payer OTHER | END 2022-05-15 15:49 | disposition home or self-care (01) | LOC: ULT 15:48 | PROVIDERS: ATTEND Internal Medicine | DX: I50.32 Chronic diastolic (congestive) heart failure (principal); M79.604 Pain in right leg; M79.605 Pain in left leg | CPT/HCPCS: 93970 ==

== ENCOUNTER 2022-05-16 10:05 | Day surgery (SDC) | payer OTHER ==
[2022-05-16] MEDS ORDERED: EPOETIN ALFA-EPBX (ESRD) 40,000 UNIT/ML VIAL ONE (10:24)
[2022-05-16 10:37] VITALS: BP 123/82; TEMP 97.9
== END 2022-05-16 10:38 | disposition home or self-care (01) ==
LOC: ONC/OP 10:05
PROVIDERS: ATTEND Internal Medicine Hematology & Oncology
DX: N18.4 Chronic kidney disease, stage 4 (severe) (principal); D63.1 Anemia in chronic kidney disease; D50.0 Iron deficiency anemia secondary to blood loss (chronic); Z88.8 Allergy status to other drugs, medicaments and biological substances; Z91.040 Latex allergy status
CPT/HCPCS: 96372; Q5105

== ENCOUNTER 2022-05-30 10:09 | Day surgery (SDC) | payer OTHER ==
[~2022-05-30 10:09] MED LIST changes: -Epoetin 40,000 UNITS/ML VIAL SC SCH
[2022-05-30] MEDS ORDERED: EPOETIN ALFA-EPBX (ESRD) 40,000 UNIT/ML VIAL ONE (10:15)
[2022-05-30 11:52] VITALS: BP 134/74; TEMP 98.4
== END 2022-05-30 11:00 | disposition home or self-care (01) ==
LOC: ONC/OP 10:09
PROVIDERS: ATTEND Internal Medicine Hematology & Oncology
DX: N18.4 Chronic kidney disease, stage 4 (severe) (principal); D63.1 Anemia in chronic kidney disease; D50.0 Iron deficiency anemia secondary to blood loss (chronic); Z88.8 Allergy status to other drugs, medicaments and biological substances; Z91.040 Latex allergy status
CPT/HCPCS: 96372; Q5105

== ENCOUNTER 2022-07-25 10:46 | Day surgery (SDC) | payer OTHER ==
[~2022-07-25 10:46] MED LIST changes: -EPOETIN ALFA-EPBX (ESRD) 40,000 UNIT/ML VIAL SC SCH; +EPOETIN ALFA-EPBX (ESRD) 40,000 UNITS/ML VIAL SC SCH
[2022-07-25] MEDS ORDERED: EPOETIN ALFA-EPBX (ESRD) 40,000 UNITS/ML VIAL ONE (10:53)
[2022-07-25 11:22] VITALS: BP 135/82; TEMP 98.3
[2022-07-25] MEDS ORDERED: EPOETIN ALFA-EPBX (ESRD) 40,000 UNITS/ML VIAL SC SCH (14:15)
== END 2022-07-25 11:22 | disposition home or self-care (01) ==
LOC: ONC/OP 10:46
PROVIDERS: ATTEND Internal Medicine Hematology & Oncology
DX: N18.4 Chronic kidney disease, stage 4 (severe) (principal); D63.1 Anemia in chronic kidney disease; D50.0 Iron deficiency anemia secondary to blood loss (chronic); Z88.8 Allergy status to other drugs, medicaments and biological substances; Z91.040 Latex allergy status
CPT/HCPCS: 96372; Q5105

== ENCOUNTER 2022-09-05 10:35 | Day surgery (SDC) | payer OTHER ==
[~2022-09-05 10:35] MED LIST changes: +EPOETIN ALFA-EPBX (NON-ESRD) 40,000 UNITS/ML VIAL SC SCH
[2022-09-05 11:02] VITALS: BP 129/68; TEMP 97.8
== END 2022-09-05 11:03 | disposition home or self-care (01) ==
LOC: ONC/OP 10:35
PROVIDERS: ATTEND Internal Medicine Hematology & Oncology
DX: D50.0 Iron deficiency anemia secondary to blood loss (chronic) (principal); N18.4 Chronic kidney disease, stage 4 (severe); D63.1 Anemia in chronic kidney disease
CPT/HCPCS: 96372

== ENCOUNTER 2022-10-31 10:01 | Day surgery (SDC) | payer OTHER ==
[~2022-10-31 10:01] MED LIST changes: -EPOETIN ALFA-EPBX (NON-ESRD) 40,000 UNITS/ML VIAL SC SCH
[2022-10-31] MEDS ORDERED: EPOETIN ALFA-EPBX (ESRD) 40,000 UNITS/ML VIAL ONE (10:07)
[2022-10-31 10:34] VITALS: BP 115/56; TEMP 98.6
== END 2022-10-31 11:00 | disposition home or self-care (01) ==
LOC: ONC/OP 10:01
PROVIDERS: ATTEND Internal Medicine Hematology & Oncology
DX: D50.0 Iron deficiency anemia secondary to blood loss (chronic) (principal); N18.4 Chronic kidney disease, stage 4 (severe); D63.1 Anemia in chronic kidney disease; Z91.040 Latex allergy status
CPT/HCPCS: 96372; Q5105

== ENCOUNTER 2022-11-14 09:44 | Day surgery (SDC) | payer OTHER ==
[2022-11-14] MEDS ORDERED: EPOETIN ALFA-EPBX (ESRD) 40,000 UNITS/ML VIAL SC SCH (09:45)
[2022-11-14 10:15] VITALS: BP 149/71; TEMP 97.8
== END 2022-11-14 10:04 | disposition home or self-care (01) ==
LOC: ONC/OP 09:44
PROVIDERS: ATTEND Internal Medicine Hematology & Oncology
DX: D50.0 Iron deficiency anemia secondary to blood loss (chronic) (principal); N18.4 Chronic kidney disease, stage 4 (severe); D63.1 Anemia in chronic kidney disease; Z91.040 Latex allergy status
CPT/HCPCS: 96372

== ENCOUNTER 2022-12-26 10:03 | Day surgery (SDC) | payer OTHER ==
[~2022-12-26 10:03] MED LIST changes: +Epoetin 40,000 UNITS/ML VIAL SC SCH; +cefTRIAXone (ROCEPHIN) 2 GM VIAL ONE
[2022-12-26] MEDS ORDERED: PEGFILGRASTIM-JMDB 6 MG/0.6 ML SYRINGE ONE (10:10)
[2022-12-26] MEDS ORDERED: EPOETIN ALFA-EPBX (ESRD) 40,000 UNITS/ML VIAL ONE (10:11)
[2022-12-26] MEDS ORDERED: EPOETIN ALFA-EPBX (ESRD) 40,000 UNITS/ML VIAL SC SCH (10:15)
[2022-12-26 10:25] VITALS: BP 141/65; TEMP 98
== END 2022-12-26 10:28 | disposition home or self-care (01) ==
LOC: ONC/OP 10:03
PROVIDERS: ATTEND Internal Medicine Hematology & Oncology
DX: D50.0 Iron deficiency anemia secondary to blood loss (chronic) (principal); N18.4 Chronic kidney disease, stage 4 (severe); D63.1 Anemia in chronic kidney disease; Z91.040 Latex allergy status
CPT/HCPCS: 96372; Q5105; J0696; J0885; J1642; Q5108

== ENCOUNTER 2023-01-09 09:24 | Day surgery (SDC) | payer OTHER ==
[2023-01-09] MEDS ORDERED: EPOETIN ALFA-EPBX (ESRD) 40,000 UNITS/ML VIAL SC SCH (09:30)
[2023-01-09] MEDS ORDERED: EPOETIN ALFA-EPBX (ESRD) 40,000 UNITS/ML VIAL ONE (09:31)
[2023-01-09 09:48] VITALS: BP 137/64; TEMP 98.1
== END 2023-01-09 09:50 | disposition home or self-care (01) ==
LOC: ONC/OP 09:24
PROVIDERS: ATTEND Internal Medicine Hematology & Oncology
DX: D50.0 Iron deficiency anemia secondary to blood loss (chronic) (principal); N18.4 Chronic kidney disease, stage 4 (severe); D63.1 Anemia in chronic kidney disease; Z91.040 Latex allergy status
CPT/HCPCS: 96372; Q5105

== ENCOUNTER 2023-01-23 10:00 | Day surgery (SDC) | payer OTHER ==
[2023-01-23] MEDS ORDERED: EPOETIN ALFA-EPBX (ESRD) 40,000 UNITS/ML VIAL ONE (10:07)
[2023-01-23] MEDS ORDERED: EPOETIN ALFA-EPBX (ESRD) 40,000 UNITS/ML VIAL SC SCH (10:15)
[2023-01-23 10:38] VITALS: BP 139/67; TEMP 97.9
== END 2023-01-23 10:38 | disposition home or self-care (01) ==
LOC: ONC/OP 10:00
PROVIDERS: ATTEND Internal Medicine Hematology & Oncology
DX: D50.0 Iron deficiency anemia secondary to blood loss (chronic) (principal); N18.4 Chronic kidney disease, stage 4 (severe); D63.1 Anemia in chronic kidney disease; Z91.040 Latex allergy status
CPT/HCPCS: 96372; Q5105

== ENCOUNTER 2023-02-06 10:50 | Day surgery (SDC) | payer OTHER ==
[2023-02-06] MEDS ORDERED: EPOETIN ALFA-EPBX (ESRD) 40,000 UNITS/ML VIAL SC SCH (11:15)
[2023-02-06 11:31] VITALS: BP 121/67; TEMP 98.1
[2023-02-06] MEDS ORDERED: FLU VACC QS2023(65UP)/MF59C/PF 60 MCG/0.5 ML SYRINGE IM ONE (11:45)
== END 2023-02-06 11:19 | disposition home or self-care (01) ==
LOC: ONC/OP 10:50
PROVIDERS: ATTEND Internal Medicine Hematology & Oncology
DX: D50.0 Iron deficiency anemia secondary to blood loss (chronic) (principal); N18.4 Chronic kidney disease, stage 4 (severe); D63.1 Anemia in chronic kidney disease; Z91.040 Latex allergy status
CPT/HCPCS: 90694; 96372; G0008; 90471

== ENCOUNTER 2023-03-20 09:58 | Day surgery (SDC) | payer OTHER ==
[~2023-03-20 09:58] MED LIST changes: -Epoetin 40,000 UNITS/ML VIAL SC SCH; -cefTRIAXone (ROCEPHIN) 2 GM VIAL ONE
[2023-03-20] MEDS ORDERED: EPOETIN ALFA-EPBX (ESRD) 40,000 UNITS/ML VIAL ONE (10:12)
[2023-03-20 10:27] VITALS: BP 147/71; TEMP 98
[2023-03-20] MEDS ORDERED: FLU VACC QS2023(65UP)/MF59C/PF 60 MCG/0.5 ML SYRINGE IM ONE (14:00)
== END 2023-03-20 10:24 | disposition home or self-care (01) ==
LOC: ONC/OP 09:58
PROVIDERS: ATTEND Internal Medicine Hematology & Oncology
DX: D50.0 Iron deficiency anemia secondary to blood loss (chronic) (principal); N18.4 Chronic kidney disease, stage 4 (severe); D63.1 Anemia in chronic kidney disease; Z91.040 Latex allergy status
CPT/HCPCS: 96372; Q5105

== ENCOUNTER 2023-04-10 10:28 | Day surgery (SDC) | payer OTHER ==
[2023-04-10] MEDS ORDERED: EPOETIN ALFA-EPBX (ESRD) 40,000 UNITS/ML VIAL SC SCH (10:30)
[2023-04-10] MEDS ORDERED: EPOETIN ALFA-EPBX (ESRD) 40,000 UNITS/ML VIAL ONE (10:34)
[2023-04-10 10:44] VITALS: BP 129/64; TEMP 98.1
== END 2023-04-10 10:59 | disposition home or self-care (01) ==
LOC: ONC/OP 10:28
PROVIDERS: ATTEND Internal Medicine Hematology & Oncology
DX: D50.0 Iron deficiency anemia secondary to blood loss (chronic) (principal); N18.4 Chronic kidney disease, stage 4 (severe); D63.1 Anemia in chronic kidney disease; Z91.040 Latex allergy status
CPT/HCPCS: 96372; Q5105; 36415; 82728; 83540; 83550

== ENCOUNTER 2023-04-24 10:13 | Day surgery (SDC) | payer OTHER ==
[2023-04-24] MEDS ORDERED: EPOETIN ALFA-EPBX (ESRD) 40,000 UNITS/ML VIAL SC SCH (10:30)
[2023-04-24 11:02] VITALS: BP 154/74; TEMP 98.4
[2023-04-24] MEDS ORDERED: EPOETIN ALFA-EPBX (ESRD) 40,000 UNITS/ML VIAL ONE (11:21)
== END 2023-04-24 11:34 | disposition home or self-care (01) ==
LOC: ONC/OP 10:13
PROVIDERS: ATTEND Internal Medicine Hematology & Oncology
DX: D50.0 Iron deficiency anemia secondary to blood loss (chronic) (principal); N18.4 Chronic kidney disease, stage 4 (severe); D63.1 Anemia in chronic kidney disease; Z91.040 Latex allergy status; Z88.8 Allergy status to other drugs, medicaments and biological substances
CPT/HCPCS: 96372; Q5105

== ENCOUNTER 2023-05-08 10:41 | Day surgery (SDC) | payer OTHER ==
[2023-05-08] MEDS: EPOETIN ALFA-EPBX (ESRD) 40,000 UNITS/ML VIAL SC SCH (10:53)
[2023-05-08 11:01] VITALS: BP 138/73; TEMP 98.3
== END 2023-05-08 11:06 | disposition home or self-care (01) ==
LOC: ONC/OP 10:41
PROVIDERS: ATTEND Internal Medicine Hematology & Oncology
DX: D50.0 Iron deficiency anemia secondary to blood loss (chronic) (principal); N18.4 Chronic kidney disease, stage 4 (severe); D63.1 Anemia in chronic kidney disease; Z91.040 Latex allergy status; Z88.8 Allergy status to other drugs, medicaments and biological substances
CPT/HCPCS: 96372

== ENCOUNTER 2023-05-22 10:05 | Day surgery (SDC) | payer OTHER ==
[2023-05-22] MEDS ORDERED: EPOETIN ALFA-EPBX (ESRD) 40,000 UNITS/ML VIAL ONE (10:32)
[2023-05-22] MEDS: EPOETIN ALFA-EPBX (ESRD) 40,000 UNITS/ML VIAL SC SCH (10:34)
[2023-05-22 10:45] VITALS: BP 144/75; TEMP 98.1
== END 2023-05-22 10:49 | disposition home or self-care (01) ==
LOC: ONC/OP 10:05
PROVIDERS: ATTEND Internal Medicine Hematology & Oncology
DX: D50.0 Iron deficiency anemia secondary to blood loss (chronic) (principal); N18.4 Chronic kidney disease, stage 4 (severe); D63.1 Anemia in chronic kidney disease; Z91.040 Latex allergy status; Z88.8 Allergy status to other drugs, medicaments and biological substances
CPT/HCPCS: 96372; Q5105

== ENCOUNTER 2023-06-05 10:03 | Day surgery (SDC) | payer OTHER ==
[2023-06-05] MEDS ORDERED: EPOETIN ALFA-EPBX (ESRD) 40,000 UNITS/ML VIAL ONE (10:15)
[2023-06-05] MEDS: EPOETIN ALFA-EPBX (ESRD) 40,000 UNITS/ML VIAL SC SCH (10:18)
[2023-06-05 10:29] VITALS: BP 122/65; TEMP 98.2
== END 2023-06-05 10:29 | disposition home or self-care (01) ==
LOC: ONC/OP 10:03
PROVIDERS: ATTEND Internal Medicine Hematology & Oncology
DX: D50.0 Iron deficiency anemia secondary to blood loss (chronic) (principal); N18.4 Chronic kidney disease, stage 4 (severe); D63.1 Anemia in chronic kidney disease; Z91.040 Latex allergy status
CPT/HCPCS: 96372; Q5105

== ENCOUNTER 2023-07-31 10:25 | Day surgery (SDC) | payer OTHER ==
[2023-07-31 10:59] VITALS: BP 155/74; TEMP 98.6
== END 2023-07-31 10:59 | disposition home or self-care (01) ==
LOC: ONC/OP 10:25
PROVIDERS: ATTEND Internal Medicine Hematology & Oncology
DX: D50.0 Iron deficiency anemia secondary to blood loss (chronic) (principal); N18.4 Chronic kidney disease, stage 4 (severe); D63.1 Anemia in chronic kidney disease; Z91.040 Latex allergy status; Z88.8 Allergy status to other drugs, medicaments and biological substances
CPT/HCPCS: 96372; Q5105

== ENCOUNTER 2023-08-14 11:04 | Day surgery (SDC) | payer OTHER ==
[2023-08-14] MEDS ORDERED: EPOETIN ALFA-EPBX (ESRD) 40,000 UNITS/ML VIAL ONE (11:16)
[2023-08-14] MEDS: EPOETIN ALFA-EPBX (ESRD) 40,000 UNITS/ML VIAL SC SCH (11:22)
[2023-08-14 11:34] VITALS: BP 156/75; TEMP 97.7
== END 2023-08-14 11:33 | disposition home or self-care (01) ==
LOC: ONC/OP 11:04
PROVIDERS: ATTEND Internal Medicine Hematology & Oncology
DX: D50.0 Iron deficiency anemia secondary to blood loss (chronic) (principal); N18.4 Chronic kidney disease, stage 4 (severe); D63.1 Anemia in chronic kidney disease; Z91.040 Latex allergy status; Z88.8 Allergy status to other drugs, medicaments and biological substances
CPT/HCPCS: 96372; Q5105

== ENCOUNTER 2023-09-04 10:41 | Day surgery (SDC) | payer OTHER ==
[2023-09-04] MEDS: EPOETIN ALFA-EPBX (ESRD) 40,000 UNITS/ML VIAL ONE (10:52)
[2023-09-04] MEDS ORDERED: EPOETIN ALFA-EPBX (NON-ESRD) 40,000 UNITS/ML VIAL SC SCH (11:15)
[2023-09-04 12:00] VITALS: BP 142/74; TEMP 97.5
== END 2023-09-04 12:01 | disposition home or self-care (01) ==
LOC: ONC/OP 10:41
PROVIDERS: ATTEND Internal Medicine Hematology & Oncology
DX: N18.4 Chronic kidney disease, stage 4 (severe) (principal); D63.1 Anemia in chronic kidney disease; D50.0 Iron deficiency anemia secondary to blood loss (chronic)
CPT/HCPCS: 96401; Q5105

== ENCOUNTER 2023-09-18 10:25 | Day surgery (SDC) | payer OTHER ==
[2023-09-18 10:37] VITALS: BP 156/76; TEMP 97.9
[2023-09-18] MEDS: EPOETIN ALFA-EPBX (ESRD) 40,000 UNITS/ML VIAL ONE (10:40)
[2023-09-18] MEDS ORDERED: EPOETIN ALFA-EPBX (ESRD) 40,000 UNITS/ML VIAL SC SCH (10:45)
== END 2023-09-18 10:38 | disposition home or self-care (01) ==
LOC: ONC/OP 10:25
PROVIDERS: ATTEND Internal Medicine Hematology & Oncology
DX: N18.4 Chronic kidney disease, stage 4 (severe) (principal); D63.1 Anemia in chronic kidney disease; D50.0 Iron deficiency anemia secondary to blood loss (chronic); Z91.040 Latex allergy status
CPT/HCPCS: 96372; Q5105

== ENCOUNTER 2023-10-02 10:04 | Day surgery (SDC) | payer OTHER ==
[2023-10-02] MEDS ORDERED: EPOETIN ALFA-EPBX (ESRD) 40,000 UNITS/ML VIAL ONE (10:12)
[2023-10-02 10:18] VITALS: BP 150/72; TEMP 98.1
[2023-10-02] MEDS: EPOETIN ALFA-EPBX (ESRD) 40,000 UNITS/ML VIAL SC SCH (10:19)
== END 2023-10-02 10:32 | disposition home or self-care (01) ==
LOC: ONC/OP 10:04
PROVIDERS: ATTEND Internal Medicine Hematology & Oncology
DX: N18.4 Chronic kidney disease, stage 4 (severe) (principal); D63.1 Anemia in chronic kidney disease; D50.0 Iron deficiency anemia secondary to blood loss (chronic); Z91.040 Latex allergy status; Z88.8 Allergy status to other drugs, medicaments and biological substances
CPT/HCPCS: 96372; Q5105; 36415; 82728; 83540; 83550

== ENCOUNTER 2023-10-10 09:07 | Day surgery (SDC) | payer OTHER ==
[~2023-10-10 09:07] MED LIST changes: -EPOETIN ALFA-EPBX (ESRD) 40,000 UNITS/ML VIAL SC SCH; +Ferumoxytol (NON ERSD) 510 MG in Sodium Chloride 0.9% 250 ML 150 ML IVPB SCH
[2023-10-10] MEDS: SODIUM CHLORIDE 0.9% IVPB SCH (10:05)
[2023-10-10] MEDS: FERUMOXYTOL IVPB SCH (10:05)
[2023-10-10 13:34] VITALS: BP 134/63; TEMP 98.4
== END 2023-10-10 11:28 | disposition home or self-care (01) ==
LOC: ONC/OP 09:07
PROVIDERS: ATTEND Internal Medicine Hematology & Oncology
DX: D50.0 Iron deficiency anemia secondary to blood loss (chronic) (principal); N18.4 Chronic kidney disease, stage 4 (severe); D63.1 Anemia in chronic kidney disease; Z91.040 Latex allergy status; Z88.8 Allergy status to other drugs, medicaments and biological substances
CPT/HCPCS: 96365; J3490; Q0139

== ENCOUNTER 2023-10-22 10:28 | Outpatient (CLI) | payer OTHER | END 2023-10-22 10:29 | disposition home or self-care (01) | LOC: BICULT 10:28 | PROVIDERS: ATTEND Internal Medicine | DX: R19.00 Intra-abdominal and pelvic swelling, mass and lump, unspecified site (principal); K83.8 Other specified diseases of biliary tract | CPT/HCPCS: 76700 ==

== ENCOUNTER 2023-11-13 11:03 | Day surgery (SDC) | payer OTHER ==
[2023-11-13] MEDS: EPOETIN ALFA-EPBX (ESRD) 40,000 UNITS/ML VIAL SC SCH (11:13)
[2023-11-13] MEDS ORDERED: EPOETIN ALFA-EPBX (ESRD) 40,000 UNITS/ML VIAL ONE (11:13)
[2023-11-13 11:22] VITALS: BP 137/65; TEMP 97.9
== END 2023-11-13 11:20 | disposition home or self-care (01) ==
LOC: ONC/OP 11:03
PROVIDERS: ATTEND Internal Medicine Hematology & Oncology
DX: N18.4 Chronic kidney disease, stage 4 (severe) (principal); D63.1 Anemia in chronic kidney disease; D50.0 Iron deficiency anemia secondary to blood loss (chronic); Z91.040 Latex allergy status; Z88.8 Allergy status to other drugs, medicaments and biological substances
CPT/HCPCS: 96372; Q5105

== ENCOUNTER 2023-12-18 15:23 | Day surgery (SDC) | payer OTHER ==
[2023-12-18] MEDS ORDERED: EPOETIN ALFA-EPBX (ESRD) 40,000 UNITS/ML VIAL ONE (15:49)
[2023-12-18] MEDS: EPOETIN ALFA-EPBX (ESRD) 40,000 UNITS/ML VIAL SC SCH (15:54)
[2023-12-18 16:46] VITALS: BP 196/92; TEMP 97.9
== END 2023-12-18 16:02 | disposition home or self-care (01) ==
LOC: ONC/OP 15:23
PROVIDERS: ATTEND Internal Medicine Hematology & Oncology
DX: N18.4 Chronic kidney disease, stage 4 (severe) (principal); D63.1 Anemia in chronic kidney disease; D50.0 Iron deficiency anemia secondary to blood loss (chronic); Z91.040 Latex allergy status; Z88.8 Allergy status to other drugs, medicaments and biological substances
CPT/HCPCS: 96372; Q5105

== ENCOUNTER 2024-01-01 10:12 | Day surgery (SDC) | payer OTHER ==
[2024-01-01] MEDS ORDERED: EPOETIN ALFA-EPBX (ESRD) 40,000 UNITS/ML VIAL ONE (10:35)
[2024-01-01] MEDS: EPOETIN ALFA-EPBX (ESRD) 40,000 UNITS/ML VIAL SC SCH (10:36)
[2024-01-01 10:56] VITALS: BP 117/58; TEMP 98.2
== END 2024-01-01 10:57 | disposition home or self-care (01) ==
LOC: ONC/OP 10:12
PROVIDERS: ATTEND Internal Medicine Hematology & Oncology
DX: N18.4 Chronic kidney disease, stage 4 (severe) (principal); D63.1 Anemia in chronic kidney disease; D50.0 Iron deficiency anemia secondary to blood loss (chronic); Z91.040 Latex allergy status; Z88.8 Allergy status to other drugs, medicaments and biological substances
CPT/HCPCS: 96372; Q5105

== ENCOUNTER 2024-01-29 10:22 | Day surgery (SDC) | payer OTHER ==
[2024-01-29] MEDS ORDERED: EPOETIN ALFA-EPBX (ESRD) 40,000 UNITS/ML VIAL ONE (10:33)
[2024-01-29] MEDS: EPOETIN ALFA-EPBX (ESRD) 40,000 UNITS/ML VIAL SC SCH (10:42)
[2024-01-29 12:46] VITALS: BP 132/66; TEMP 98
== END 2024-01-29 10:55 | disposition home or self-care (01) ==
LOC: ONC/OP 10:22
PROVIDERS: ATTEND Internal Medicine Hematology & Oncology
DX: N18.4 Chronic kidney disease, stage 4 (severe) (principal); D63.1 Anemia in chronic kidney disease; D50.0 Iron deficiency anemia secondary to blood loss (chronic); Z91.040 Latex allergy status; Z88.8 Allergy status to other drugs, medicaments and biological substances
CPT/HCPCS: 96372; Q5105

== ENCOUNTER 2024-02-12 10:16 | Day surgery (SDC) | payer OTHER ==
[2024-02-12] MEDS: EPOETIN ALFA-EPBX (ESRD) 40,000 UNITS/ML VIAL SC SCH (10:30)
[2024-02-12] MEDS ORDERED: EPOETIN ALFA-EPBX (ESRD) 40,000 UNITS/ML VIAL ONE (10:37)
[2024-02-12 12:15] VITALS: BP 140/63; TEMP 98.3
== END 2024-02-12 12:16 | disposition home or self-care (01) ==
LOC: ONC/OP 10:16
PROVIDERS: ATTEND Internal Medicine Hematology & Oncology
DX: N18.4 Chronic kidney disease, stage 4 (severe) (principal); D63.1 Anemia in chronic kidney disease; D50.0 Iron deficiency anemia secondary to blood loss (chronic); Z91.040 Latex allergy status
CPT/HCPCS: 96372; Q5105

== ENCOUNTER 2024-02-26 10:32 | Day surgery (SDC) | payer OTHER ==
[2024-02-26] MEDS ORDERED: EPOETIN ALFA-EPBX (ESRD) 40,000 UNITS/ML VIAL ONE (10:45)
[2024-02-26] MEDS: EPOETIN ALFA-EPBX (ESRD) 40,000 UNITS/ML VIAL SC SCH (10:47)
[2024-02-26 11:05] VITALS: BP 125/58; TEMP 98.1
== END 2024-02-26 11:06 | disposition home or self-care (01) ==
LOC: ONC/OP 10:32
PROVIDERS: ATTEND Internal Medicine Hematology & Oncology
DX: N18.4 Chronic kidney disease, stage 4 (severe) (principal); D63.1 Anemia in chronic kidney disease; D50.0 Iron deficiency anemia secondary to blood loss (chronic); Z91.040 Latex allergy status
CPT/HCPCS: 96372; Q5105

== ENCOUNTER 2024-03-11 10:53 | Day surgery (SDC) | payer OTHER ==
[2024-03-11] MEDS: EPOETIN ALFA-EPBX (ESRD) 40,000 UNITS/ML VIAL ONE (11:26)
[2024-03-11 11:28] VITALS: BP 163/74; TEMP 98
[2024-03-11] MEDS ORDERED: EPOETIN ALFA-EPBX (ESRD) 40,000 UNITS/ML VIAL SC SCH (11:45)
== END 2024-03-11 11:29 | disposition home or self-care (01) ==
LOC: ONC/OP 10:53
PROVIDERS: ATTEND Internal Medicine Hematology & Oncology
DX: N18.4 Chronic kidney disease, stage 4 (severe) (principal); D63.1 Anemia in chronic kidney disease; D50.0 Iron deficiency anemia secondary to blood loss (chronic); Z91.040 Latex allergy status
CPT/HCPCS: 96372; Q5105

== ENCOUNTER 2024-03-25 11:30 | Day surgery (SDC) | payer OTHER ==
[2024-03-25] MEDS ORDERED: EPOETIN ALFA-EPBX (ESRD) 40,000 UNITS/ML VIAL ONE (11:43)
[2024-03-25] MEDS: EPOETIN ALFA-EPBX (ESRD) 40,000 UNITS/ML VIAL SC SCH (11:44)
[2024-03-25 11:48] VITALS: BP 119/62; TEMP 98.3
== END 2024-03-25 11:49 | disposition home or self-care (01) ==
LOC: ONC/OP 11:30
PROVIDERS: ATTEND Internal Medicine Hematology & Oncology
DX: N18.4 Chronic kidney disease, stage 4 (severe) (principal); D63.1 Anemia in chronic kidney disease; D50.0 Iron deficiency anemia secondary to blood loss (chronic); Z91.040 Latex allergy status
CPT/HCPCS: 85025; Q5105

== ENCOUNTER 2024-04-08 11:01 | Day surgery (SDC) | payer OTHER ==
[2024-04-08] MEDS ORDERED: EPOETIN ALFA-EPBX (ESRD) 40,000 UNITS/ML VIAL ONE (11:05)
[2024-04-08] MEDS: EPOETIN ALFA-EPBX (ESRD) 40,000 UNITS/ML VIAL SC SCH (11:09)
[2024-04-08 11:20] VITALS: BP 127/60; TEMP 97.7
== END 2024-04-08 11:19 | disposition home or self-care (01) ==
LOC: ONC/OP 11:01
PROVIDERS: ATTEND Internal Medicine Hematology & Oncology
DX: N18.4 Chronic kidney disease, stage 4 (severe) (principal); D63.1 Anemia in chronic kidney disease; D50.0 Iron deficiency anemia secondary to blood loss (chronic); Z91.040 Latex allergy status
CPT/HCPCS: 96372; Q5105

== ENCOUNTER 2024-05-06 11:25 | Day surgery (SDC) | payer OTHER ==
[2024-05-06] MEDS ORDERED: EPOETIN ALFA-EPBX (ESRD) 40,000 UNITS/ML VIAL ONE (11:31)
[2024-05-06] MEDS: EPOETIN ALFA-EPBX (ESRD) 40,000 UNITS/ML VIAL SC SCH (11:35)
[2024-05-06 11:40] VITALS: BP 169/80; TEMP 97.7
== END 2024-05-06 11:40 | disposition home or self-care (01) ==
LOC: ONC/OP 11:25
PROVIDERS: ATTEND Internal Medicine Hematology & Oncology
DX: D50.0 Iron deficiency anemia secondary to blood loss (chronic) (principal); N18.4 Chronic kidney disease, stage 4 (severe); D63.1 Anemia in chronic kidney disease; Z91.040 Latex allergy status
CPT/HCPCS: 96372; Q5105

== ENCOUNTER 2024-05-20 11:36 | Day surgery (SDC) | payer OTHER ==
[2024-05-20] MEDS ORDERED: EPOETIN ALFA-EPBX (ESRD) 40,000 UNITS/ML VIAL ONE (11:48)
[2024-05-20] MEDS: EPOETIN ALFA-EPBX (ESRD) 40,000 UNITS/ML VIAL SC SCH (11:55)
[2024-05-20 12:19] VITALS: BP 139/63; TEMP 97.6
== END 2024-05-20 12:45 | disposition home or self-care (01) ==
LOC: ONC/OP 11:36
PROVIDERS: ATTEND Internal Medicine Hematology & Oncology
DX: N18.4 Chronic kidney disease, stage 4 (severe) (principal); D63.1 Anemia in chronic kidney disease; D50.0 Iron deficiency anemia secondary to blood loss (chronic); Z91.040 Latex allergy status
CPT/HCPCS: 96372; Q5105

== ENCOUNTER 2024-11-11 09:44 | Day surgery (SDC) | payer OTHER ==
[2024-11-11] MEDS ORDERED: EPOETIN ALFA-EPBX (ESRD) 40,000 UNITS/ML VIAL ONE (09:51)
[2024-11-11] MEDS: EPOETIN ALFA-EPBX (ESRD) 40,000 UNITS/ML VIAL SC SCH (09:53)
[2024-11-11 10:07] VITALS: BP 137/63; TEMP 97.9
== END 2024-11-11 10:08 | disposition home or self-care (01) ==
LOC: ONC/OP 09:44
PROVIDERS: ATTEND Internal Medicine Hematology & Oncology
DX: N18.4 Chronic kidney disease, stage 4 (severe) (principal); D63.1 Anemia in chronic kidney disease; D50.0 Iron deficiency anemia secondary to blood loss (chronic); Z91.040 Latex allergy status
CPT/HCPCS: 96372; Q5105

== ENCOUNTER 2024-11-18 09:46 | Day surgery (SDC) | payer OTHER ==
[2024-11-18] MEDS ORDERED: EPOETIN ALFA-EPBX (ESRD) 40,000 UNITS/ML VIAL ONE (10:03)
[2024-11-18] MEDS: EPOETIN ALFA-EPBX (ESRD) 40,000 UNITS/ML VIAL SC SCH (10:04)
[2024-11-18 10:09] VITALS: BP 148/67; TEMP 98.2
== END 2024-11-18 10:09 | disposition home or self-care (01) ==
LOC: ONC/OP 09:46
PROVIDERS: ATTEND Internal Medicine Hematology & Oncology
DX: N18.4 Chronic kidney disease, stage 4 (severe) (principal); D63.1 Anemia in chronic kidney disease; D50.0 Iron deficiency anemia secondary to blood loss (chronic); Z91.040 Latex allergy status
CPT/HCPCS: 96372; Q5105

== ENCOUNTER 2024-11-25 20:12 | Observation (INO) | payer OTHER ==
[2024-11-25] MEDS ORDERED: Ondansetron PF 4 MG/2 ML Vial ONE (20:38)
[2024-11-25 21:26] LABS: Bacteria/HPF None Seen HPF (None Seen); CAUTI Indications for Culture Alt mental st,lethar; Glucose, Urine (Dipstick) Normal (Negative); Leukocyte 75 Leu/uL (Negative); Protein, Urine (Dipstick) 30 mg/dL (Neg-Trace); RBC/HPF 0-3 HPF (0-3); Specific Gravity, Urine 1.014 (1.002-1.036)
[2024-11-25 21:27] LABS: Urine Culture Reflex No No
[2024-11-25 22:03] LABS: #Basophils 0.03 10x3/uL (0.0-0.2); #Eosinophils 0.16 10x3/uL (0.0-0.7); #Monocytes 0.45 10x3/uL (0.11-0.59); #Neutrophils 2.73 10x3/uL (1.40-6.50); %Basophils 0.7 % (0.0-1.0); %Eosinophils 3.7 % (0.0-10.0); %Lymphocytes 21.0 % (21.0-51.0); %Monocytes 10.5 % (0.0-10.0); %Neutrophils 63.9 % (42.0-75.0); Hematocrit 32.5 % (36.0-47.0); Hemoglobin 9.8 g/dL (12.0-16.0); Mean Corpuscular Hemoglobin 29.3 pg (27.0-31.0); Mean Corpuscular Volume 97.0 fL (78.0-98.0); Platelet Count 113 10x3/uL (130-400); Red Blood Cell (RBC) Count 3.35 mill/uL (4.20-5.40); White Blood Cell (WBC) Count 4.28 10x3/uL (4.8-10.8)
[2024-11-25 22:23] LABS: ALT (SGPT) 35 U/L (Less than 34); AST (SGOT) 43 U/L (11-34); Albumin 3.7 g/dL (3.1-4.5); Alkaline Phosphatase 55 U/L (40-110); Anion Gap 12 mmol/L (10-20); BUN (Urea Nitrogen) 26 mg/dL (9.8-20.1); Bilirubin, Total 0.5 mg/dL (0.3-1.2); Calc. Creatinine Clearance 0 mL/min (70-130); Calcium 8.6 mg/dL (7.8-10.44); Carbon Dioxide 19 mmol/L (23-31); Chloride 116 mmol/L (98-107); Globulin 2.7 g/dL (2.4-3.5); Glucose 57 mg/dL (83-110); Potassium 4.8 mmol/L (3.5-5.1); Sodium 142 mmol/L (136-145)
[2024-11-25 22:31] LABS: Ovalocytes SLIGHT = 2-5 cells HPF (0-1); Platelet Adequacy Comment Platelets Decreased; Polychromasia SLIGHT = 2-3 cells HPF (0-2); Schistocytes SLIGHT = 2-5 cells HPF (0-1); Target Cells SLIGHT = 2-5 cells HPF (0-1)
[2024-11-25 23:49] LABS: Iron 114 ug/dL (50-170); Iron Binding Capacity, Total 218 mcg/dL (265-497)
[2024-11-25 23:54] VITALS: BMI 24.4
[2024-11-26] MEDS: Gabapentin 300 MG CAP PO SCH (00:11)
[2024-11-26] MEDS ORDERED: Dextrose 50% Abboject 50 ML SYRINGE SLOW IVP PRN (00:32)
[2024-11-26] MEDS ORDERED: Glucagon 1 MG/ML KIT IM PRN (00:32)
[2024-11-26] MEDS: Aspirin 81 mg Enteric Coated Tablet PO SCH (08:17)
[2024-11-26] MEDS: Isosorbide Mononitrate 30 MG ER.TAB.S PO SCH (08:17)
[2024-11-26] MEDS: Carvedilol 25 MG TAB PO SCH (08:17)
[2024-11-26] MEDS: Folic Acid/Vit B Comp W-C PO SCH (08:17)
[2024-11-26] MEDS: Acetaminophen 325 MG TAB PO PRN (11:40)
[2024-11-26 14:35] VITALS: BMI 24.4
[2024-11-26 18:21] VITALS: BP 145/80; TEMP 98.3
[2024-11-26] MEDS ORDERED: Rosuvastatin 10 MG TAB PO SCH (21:00)
== END 2024-11-26 18:50 | disposition home or self-care (01) ==
LOC: ERS 20:12 → T4-A 22:37
PROVIDERS: ADMIT Family Medicine; ATTEND Family Medicine
DX: E16.2 Hypoglycemia, unspecified (principal); I48.91 Unspecified atrial fibrillation; I25.10 Atherosclerotic heart disease of native coronary artery without angina pectoris; I11.0 Hypertensive heart disease with heart failure; I50.30 Unspecified diastolic (congestive) heart failure; E78.5 Hyperlipidemia, unspecified; D64.9 Anemia, unspecified; G25.81 Restless legs syndrome; Z95.0 Presence of cardiac pacemaker; Z95.5 Presence of coronary angioplasty implant and graft; Z95.1 Presence of aortocoronary bypass graft; Z90.710 Acquired absence of both cervix and uterus; Z90.49 Acquired absence of other specified parts of digestive tract; Z98.890 Other specified postprocedural states; Z79.82 Long term (current) use of aspirin; Z79.899 Other long term (current) drug therapy
CPT/HCPCS: 80053; 81001; 82728; 82962 ×2; 83540; 83550; 84681; 85025; 96374; 96375; 99285; J2060; J2405; 36415; 36416; G0378

== ENCOUNTER 2025-01-06 09:18 | Day surgery (SDC) | payer OTHER ==
[2025-01-06] MEDS ORDERED: EPOETIN ALFA-EPBX (ESRD) 40,000 UNITS/ML VIAL ONE (09:31)
[2025-01-06] MEDS: EPOETIN ALFA-EPBX (ESRD) 40,000 UNITS/ML VIAL SC SCH (09:36)
[2025-01-06 11:54] VITALS: BP 158/71; TEMP 97.8
== END 2025-01-06 11:54 | disposition home or self-care (01) ==
LOC: ONC/OP 09:18
PROVIDERS: ATTEND Internal Medicine Hematology & Oncology
DX: N18.4 Chronic kidney disease, stage 4 (severe) (principal); D63.1 Anemia in chronic kidney disease; D50.0 Iron deficiency anemia secondary to blood loss (chronic); Z91.040 Latex allergy status
CPT/HCPCS: 96372; Q5105

== ENCOUNTER 2025-01-13 09:54 | Day surgery (SDC) | payer OTHER ==
[2025-01-13] MEDS ORDERED: EPOETIN ALFA-EPBX (ESRD) 40,000 UNITS/ML VIAL ONE (09:57)
[2025-01-13] MEDS: EPOETIN ALFA-EPBX (ESRD) 40,000 UNITS/ML VIAL SC SCH (09:58)
[2025-01-13 10:12] VITALS: BP 152/70; TEMP 98.2
== END 2025-01-13 10:08 | disposition home or self-care (01) ==
LOC: ONC/OP 09:54
PROVIDERS: ATTEND Internal Medicine Hematology & Oncology
DX: N18.4 Chronic kidney disease, stage 4 (severe) (principal); D63.1 Anemia in chronic kidney disease; D50.0 Iron deficiency anemia secondary to blood loss (chronic); Z91.040 Latex allergy status
CPT/HCPCS: 96372; Q5105

== ENCOUNTER 2025-02-16 10:18 | Day surgery (SDC) | payer OTHER ==
[2025-02-16] MEDS ORDERED: EPOETIN ALFA-EPBX (ESRD) 40,000 UNITS/ML VIAL ONE (10:23)
[2025-02-16 10:36] VITALS: BP 162/72; TEMP 98.1
[2025-02-16] MEDS: EPOETIN ALFA-EPBX (ESRD) 40,000 UNITS/ML VIAL SC SCH (10:39)
== END 2025-02-16 10:42 | disposition home or self-care (01) ==
LOC: ONC/OP 10:18
PROVIDERS: ATTEND Internal Medicine Hematology & Oncology
DX: N18.4 Chronic kidney disease, stage 4 (severe) (principal); D63.1 Anemia in chronic kidney disease; D50.0 Iron deficiency anemia secondary to blood loss (chronic)
CPT/HCPCS: 96372; Q5105

== ENCOUNTER 2025-02-24 10:18 | Day surgery (SDC) | payer OTHER ==
[2025-02-24] MEDS ORDERED: EPOETIN ALFA-EPBX (ESRD) 40,000 UNITS/ML VIAL ONE (10:37)
[2025-02-24] MEDS: EPOETIN ALFA-EPBX (ESRD) 40,000 UNITS/ML VIAL SC SCH (10:38)
[2025-02-24 10:53] VITALS: BP 158/70; TEMP 97.7
== END 2025-02-24 10:49 | disposition home or self-care (01) ==
LOC: ONC/OP 10:18
PROVIDERS: ATTEND Internal Medicine Hematology & Oncology
DX: D50.0 Iron deficiency anemia secondary to blood loss (chronic) (principal); N18.4 Chronic kidney disease, stage 4 (severe); D63.1 Anemia in chronic kidney disease; Z87.891 Personal history of nicotine dependence
CPT/HCPCS: 96372; Q5105

== ENCOUNTER 2025-03-22 09:38 | Day surgery (SDC) | payer OTHER ==
[2025-03-22] MEDS ORDERED: EPOETIN ALFA-EPBX (ESRD) 40,000 UNITS/ML VIAL ONE (09:52)
[2025-03-22] MEDS: EPOETIN ALFA-EPBX (ESRD) 40,000 UNITS/ML VIAL SC SCH (09:55)
[2025-03-22 09:59] VITALS: BP 136/61; TEMP 98.6
[2025-03-22] MEDS ORDERED: FLU (Fluad Triv) 25-26 (65UP)PF 45 MCG/0.5 ML Syringe IM ONE (10:30)
== END 2025-03-22 10:03 | disposition home or self-care (01) ==
LOC: ONC/OP 09:38
PROVIDERS: ATTEND Internal Medicine Hematology & Oncology
DX: N18.4 Chronic kidney disease, stage 4 (severe) (principal); D63.1 Anemia in chronic kidney disease; D50.0 Iron deficiency anemia secondary to blood loss (chronic); Z91.040 Latex allergy status
CPT/HCPCS: 96372; 96374; Q5105